=== PATIENT | female | born 1955 | race Caucasian/White ===

== ENCOUNTER → 2016-08-31 | Outpatient (CLI) | payer OTHER ==
[~2016-08-31] MED LIST: FURO20TA PO; GABA800T PO; GLIP10TA6 PO; HYDR50CA PO; LEVEMIR SQ; LEVO25TA4 PO; LISI-519 PO; MULTTAB67 PO; NOVORP2 SQ; PANT40TA3 PO; POTA-163 PO; PROT40TA PO; SPIR100T PO; SULF500T PO; SULF500T39 PO; VITA10002 PO
[2016-08-31 16:48] LABS: HEMOGLOBIN A1a 1.2 %; HEMOGLOBIN A1b 0.7 %; HEMOGLOBIN Ao 81.4 %; HEMOGLOBIN F 1.3 %; HEMOGLOBIN LA1C 1.9 %; HEMOGLOBIN P3 4.5 %
== END ==
LOC: PLAB 06:51
PROVIDERS: ATTEND Family Medicine
DX: E11.9 Type 2 diabetes mellitus without complications (principal)
CPT/HCPCS: 36415; 83036

== ENCOUNTER 2016-09-26 02:10 | Inpatient (IN) | payer OTHER ==
[~2016-09-26] VITALS: Ht 162.6 cm; Wt 72.2 kg
[2016-09-26] VITALS (11 sets, daily range): BP systolic 123–154; BP diastolic 61–80; PULSE 102–118; RESP 16–22; TEMP 98.2–99.3; O2SAT 92–100
[~2016-09-26 02:10] MED LIST changes: -PROT40TA PO; -SULF500T PO
[2016-09-26] MEDS ORDERED: SODIUM CHLOR 0.9% 1000 ML INJ 1,000 ML IV SCH (02:50)
[2016-09-26] MEDS ORDERED: ONDANSETRON HCL 4 MG/2 ML VIAL IVP ONE (03:00)
[2016-09-26] MEDS ORDERED: SODIUM CHLORIDE 0.9% FLUSH 5 ML FLUSH IVF PRN ×2 (03:00→05:30)
[2016-09-26 03:08] LABS: AUTOMATED NEUTROPHIL # 4.2 TH/MM3 (1.8-7.7); BASOPHIL # 0.1 TH/MM3 (0-0.2); BASOPHIL % 1.8 % (0.0-2.0); EOSINOPHIL % 0.9 % (0.0-4.0); HEMATOCRIT 32.8 % (35.0-46.0); LYMPH % 8.2 % (9.0-44.0); LYMPHOCYTE # 0.4 TH/MM3 (1.0-4.8); MEAN CELL VOLUME 101.3 FL (80.0-100.0); MEAN CORPUSCULAR HGB CONC 33.5 % (32.0-36.0); MONO % 6.5 % (0.0-8.0); NEUT % 82.6 % (16.0-70.0); PLATELET COUNT 33 TH/MM3 (150-450); RED BLOOD COUNT 3.24 MIL/MM3 (4.00-5.30); RED CELL DISTRIBUTION WIDTH 15.1 % (11.6-17.2)
[2016-09-26] MEDS ORDERED: LORazepam 2 MG/ML VIAL IV PUSH ONE (03:15)
[2016-09-26 03:21] LABS: HEMO FLAGS AUTO DIFF
[2016-09-26 03:23] LABS: CHLORIDE 97 MEQ/L (98-107); POTASSIUM 4.5 MEQ/L (3.5-5.1); SODIUM (NA) 134 MEQ/L (136-145)
[2016-09-26 03:27] LABS: ANION GAP 14 MEQ/L (5-15); BICARBONATE 23.4 MEQ/L (21.0-32.0)
[2016-09-26 03:28] LABS: BLOOD UREA NITROGEN 10 MG/DL (7-18)
[2016-09-26 03:29] LABS: APTT (PATIENT) 30.2 SEC (24.3-30.1); INTERNATIONAL NORMALIZED RATIO 1.3 RATIO; PROTHROMBIN TIME - PATIENT 14.9 SEC (9.8-11.6)
[2016-09-26 03:30] LABS: ALT (GPT) 27 U/L (10-53); AST (GOT) 68 U/L (15-37); GLOMERULAR FILTRATION RATE 81 ML/MIN (>89)
--- NOTE | 2016-09-26 03:30 | RADHPO ---
EXAM DATE/TIME: 09/26/2016 03:17 [place] COMPARISON: CHEST SINGLE AP, July 31, 2014, 12:51. INDICATIONS : Shortness of breath. MEDICAL HISTORY : None. SURGICAL HISTORY : None. ENCOUNTER: Initial ACUITY: 1 day PAIN SCORE: 7/10 LOCATION: Bilateral chest FINDINGS: A single view of the chest demonstrates minimal basilar atelectasis or scarring. Mild elevation right hemidiaphragm. Heart size normal. Mildly tortuous aorta. CONCLUSION: 1. Minimal basilar atelectasis or scarring. Mild elevation of the right hemidiaphragm. Bruce Encarnacion MD on September 26, 2016 at 3:27 Board Certified Radiologist. This report was verified electronically.
[2016-09-26 03:33] LABS: ALKALINE PHOSPHATASE 215 U/L (45-117)
[2016-09-26 03:45] LABS: PLATELET ESTIMATE SMEAR LOW (NORMAL); PLATELET MORPHOLOGY NORMAL (NORMAL); SCAN/DIFF AUTO DIFF CONFIRMED
[2016-09-26 03:54] LABS: BLOOD, URINE TRACE (NEG); GLUCOSE,URINE 500 mg/dL (NEG); KETONE, URINE TRACE mg/dL (NEG); NITRITE,URINE NEG (NEG); PH, URINE 5.5 (5.0-8.5)
[2016-09-26 03:59] LABS: URINE COLOR AMBER (YELLW/STRAW)
[2016-09-26 04:00] LABS: COMMENT (UR) CULT NOT INDICATED; CULTURE IF INDICATED CULT NOT INDICATED; RBC, URINE 0-3 /hpf (0-3)
--- NOTE | 2016-09-26 04:33 | PD ---
HPI Chief Complaint: GI Complaint Time Seen by Provider: 02:50 Travel History International Travel<30 days: No Contact w/Intl Traveler<30days: No Traveled to known affect area: No History of Present Illness HPI 60-year-old female presents to the emergency department by private transportation for complaint of nausea with dry heaves and GI upset. Patient states symptoms have been present since about 6 PM. Patient reports that she's been extremely upset because her dog is dying. Reportedly Wednesday the patient was to have the dog euthanized but could not do so and has been very distraught. Patient has long-standing history of alcohol abuse and has been abstinent from alcohol for approximately a year about in the past 2 days has resumed drinking alcohol reportedly. Patient admits to drinking alcohol on and today, Wednesday. Patient denies any vomiting. Patient denies chest pain or shortness of breath. Patient has generalized abdominal discomfort. Patient does not report any hematemesis coffee-ground emesis melena or hematochezia. No report of flank pain. Patient rates overall pain 0/10 in intensity. Patient states that she is very afraid that her sodium is abnormal. Patient states that she has had issues with chronically low sodium and has recently had one of her diuretics removed from her medication regimen. [facility] Past Medical History Narrative Medical Arthritis, atrial fibrillation, SVT, diabetes, alcoholism, anxiety/depression, hypertension, GERD, ulcerative colitis, hiatal hernia, hypothyroidism; D&C, tonsillectomy; alcohol use; nursing notes reviewed Arthritis: Yes Asthma: No Atrial Fibrillation: Yes Autoimmune Disease: No Anxiety: Yes Depression: Yes Heart Rhythm Problems: Yes Cancer: No Cardiovascular Problems: Yes (HTN/ A-FIB) High Cholesterol: No Chemotherapy: No Chest Pain: No Congestive Heart Failure: No COPD: No Cerebrovascular Accident: No Diabetes: Yes Patient Takes Glucophage: No Diminished Hearing: No Endocrine: Yes Gastrointestinal Disorders: Yes (ULCERATED COLITIS) GERD: Yes Glaucoma: No Genitourinary: No Headaches: No Hiatal Hernia: Yes Hypertension: Yes Immune Disorder: No Kidney Stones: No Musculoskeletal: Yes (arthritis) Neurologic: No Psychiatric: Yes (Pt reported history of depression/anxiety since she was a child) Reproductive: No Respiratory: No Immunizations Current: Yes Migraines: No Radiation Therapy: No Renal Failure: No Seizures: No Sickle Cell Disease: No Sleep Apnea: No Thyroid Disease: Yes Ulcer: No Tetanus Vaccination: Unknown ?: Not LMP: 12 YEARS AGO Menopausal: Yes : 1 : 1 Dilation and Curettage (D&C): Yes Past Surgical History Abdominal Surgery: No AICD: No Arteriovenous Shunt: No Cardiac Surgery: No Ear Surgery: No Endocrine Surgery: No Eye Surgery: No Genitourinary Surgery: No Gynecologic Surgery: Yes (d and c) Insulin Pump: No Joint Replacement: No Oral Surgery: Yes (RIGHT TONSIL REMOVED) Pacemaker: No Thoracic Surgery: No Tonsillectomy: Yes Other Surgery: Yes (RIGHT TONSILLECTOMY) Social History Alcohol Use: Yes (3 GLASSES 09/25 AND 09/24; OTHERWISE NONE (ALCOHOLIC PER PT)) Tobacco Use: No (QUIT SMOKING IN AUGUST) Substance Use: No Allergies-Medications (Allergen,Severity, Reaction): Coded Allergies: Aspirin (Verified Allergy, Severe, ULCERATIVE COLITIS, 09/02/16) Reported Meds & Prescriptions Reported Meds & Active Scripts Active Lisinopril 5 Mg Tab 5 Mg PO DAILY Sulfazine (Sulfasalazine) 500 Mg Tab 500 Mg PO Q8H Gabapentin 800 Mg Tab 800 Mg PO TID Levothyroxine (Levothyroxine Sodium) 25 Mcg Tab 25 Mcg PO DAILY Potassium Chloride ER (Potassium Chloride) 20 Meq Tab 20 Meq PO DAILY Hydroxyzine Pamoate 50 Mg Cap 50 Mg PO Q6HR PRN Vitamin B-12 (Cyanocobalamin) 1,000 Mcg Tab 1,000 Mcg PO DAILY Spironolactone 100 Mg Tab 100 Mg PO BIDPC Levemir Inj (Insulin Detemir) 1,000 unit/ 10 ML Vial 45 Units SQ BID 30 Days Do not mix with any other Insulin. Reported Novolin R Inj (Insulin Human Regular) 1,000 Unit/10 Ml Vial 5-25 Units SQ TID Max dose at bedtime:( )units; sugars less than 70,(0) units; sugars 150-199,(5)unit; sugars 200-249,(10)units; sugars 250-299,(15) units; sugars 300-349,(20)units; sugars greater than 349,(25)units Furosemide 20 Mg Tab 20 Mg PO DAILY Multiple Vitamin 1 Tab 1 Tab PO DAILY Pantoprazole (Pantoprazole Sodium) 40 Mg Tab 40 Mg PO DAILY Glipizide 10 Mg Tab 10 Mg PO BIDAC 2 tabs twice a day (20mg) Review of Systems Except as stated in HPI: all other systems reviewed are Neg General / Constitutional: No: Fever, Chills HENT: No: Congestion Cardiovascular: No: Chest Pain or Discomfort Respiratory: No: Shortness of Breath Gastrointestinal: Positive: Nausea, Abdominal Pain, No: Vomiting, Diarrhea Genitourinary: No: Flank Pain (discomfort) Musculoskeletal: No: Myalgias, Arthralgias Skin: No Rash Neurologic: No: Weakness, Dizziness Psychiatric: Positive: Anxiety, Depression, No: Suicidal Ideations Endocrine: No: Heat Intolerance Hematologic/Lymphatic: No: Easy Bruising Physical Exam Narrative GENERAL: Well-developed well-nourished female in obvious distress no respiratory distress tearful and crying and intermittently dry heaving. GCS 15. SKIN: Warm and dry. Few periorbital petechiae consistent with repetitive dry heaving. HEAD: Atraumatic. Normocephalic. EYES: Pupils equal and round. No scleral icterus. No injection or drainage. ENT: No nasal bleeding or discharge. Mucous membranes pink and moist. Airway is patent. NECK: Trachea midline. No JVD. CARDIOVASCULAR: Increased Regular rate and rhythm. RESPIRATORY: No accessory muscle use. Clear to auscultation. Breath sounds equal bilaterally. GASTROINTESTINAL: Abdomen soft, non-tender, nondistended. Hepatic and splenic margins not palpable. MUSCULOSKELETAL: Extremities without clubbing, cyanosis, or edema. No obvious deformities. Radial and dorsalis pedis pulses 2+ to palpation. NEUROLOGICAL: Awake and alert. GCS 15. No obvious cranial nerve deficits. Motor grossly within normal limits. Five out of 5 muscle strength in the arms and legs. Sensory exam intact. No liver flap or tremor. No pronator drift. No limb ataxia. Normal speech. PSYCHIATRIC: Appropriate mood and affect; insight and judgment normal. Data Data Last Documented VS Vital Signs Date Time Temp Pulse Resp B/P Pulse Ox O2 Delivery O2 Flow Rate FiO2 09/26/16 04:23 110 16 154/76 99 Room Air 09/26/16 02:20 99.3 Orders Complete Blood Count With Diff (09/26/16 02:50) Comprehensive Metabolic Panel (09/26/16 02:50) Lipase (09/26/16 02:50) Prothrombin Time / Inr (Pt) (09/26/16 02:50) Act Partial Throm Time (Ptt) (09/26/16 02:50) Urinalysis - C+S If Indicated (09/26/16 02:50) Iv Access Insert/Monitor (09/26/16 02:50) Ecg Monitoring (09/26/16 02:50) Oximetry (09/26/16 02:50) Ondansetron Inj (Zofran Inj) (09/26/16 03:00) Sodium Chlor 0.9% 1000 Ml Inj (Ns 1000 M (09/26/16 02:50) Sodium Chloride 0.9% Flush (Ns Flush) (09/26/16 03:00) Electrocardiogram (09/26/16 02:50) Chest, Single Ap (09/26/16 02:50) Magnesium (Mg) (09/26/16 02:50) Troponin I (09/26/16 02:50) Alcohol (Ethanol) (09/26/16 02:50) Lorazepam Inj (Ativan Inj) (09/26/16 03:15) Magnesium Sulfate 1 Gm Premix (Magnesium (09/26/16 04:30) Alcohol Withdrawal Asmt-Ciwa ONCE (09/26/16 05:23) Flumazenil Inj (Romazicon Inj) (09/26/16 05:30) Lorazepam (Ativan) (09/26/16 05:30) Lorazepam Inj (Ativan Inj) (09/26/16 05:30) Lorazepam (Ativan) (09/26/16 05:30) Lorazepam Inj (Ativan Inj) (09/26/16 05:30) Lorazepam Inj (Ativan Inj) (09/26/16 05:30) Lorazepam Inj (Ativan Inj) (09/26/16 05:30) Admit Order (Ed Use Only) (09/26/16 ) ^ Saline Lock (09/26/16 05:24) Resp Oxygen Khanh C Titrat 1-4 L (09/26/16 ) ^ Notify Dr: Other (09/26/16 05:24) Sodium Chloride 0.9% Flush (Ns Flush) (09/26/16 09:00) Sodium Chloride 0.9% Flush (Ns Flush) (09/26/16 05:30) Chlordiazepoxide (Librium) (09/26/16 05:30) Ondansetron Inj (Zofran Inj) (09/26/16 05:30) Labs Laboratory Tests Test 09/26/16 09/26/16 02:55 03:39 White Blood Count 5.0 TH/MM3 Red Blood Count 3.24 MIL/MM3 Hemoglobin 11.0 GM/DL Hematocrit 32.8 % Mean Corpuscular Volume 101.3 FL Mean Corpuscular Hemoglobin 34.0 PG Mean Corpuscular Hemoglobin 33.5 % Concent Red Cell Distribution Width 15.1 % Platelet Count 33 TH/MM3 Mean Platelet Volume 8.7 FL Neutrophils (%) (Auto) 82.6 % Lymphocytes (%) (Auto) 8.2 % Monocytes (%) (Auto) 6.5 % Eosinophils (%) (Auto) 0.9 % Basophils (%) (Auto) 1.8 % Neutrophils # (Auto) 4.2 TH/MM3 Lymphocytes # (Auto) 0.4 TH/MM3 Monocytes # (Auto) 0.3 TH/MM3 Eosinophils # (Auto) 0.0 TH/MM3 Basophils # (Auto) 0.1 TH/MM3 CBC Comment AUTO DIFF Differential Comment AUTO DIFF CONFIRMED Platelet Estimate LOW Platelet Morphology Comment NORMAL Prothrombin Time 14.9 SEC Prothromb Time International 1.3 RATIO Ratio Activated Partial 30.2 SEC Thromboplast Time Sodium Level 134 MEQ/L Potassium Level 4.5 MEQ/L Chloride Level 97 MEQ/L Carbon Dioxide Level 23.4 MEQ/L Anion Gap 14 MEQ/L Blood Urea Nitrogen 10 MG/DL Creatinine 0.73 MG/DL Estimat Glomerular Filtration 81 ML/MIN Rate Random Glucose 232 MG/DL Calcium Level 8.5 MG/DL Magnesium Level 1.0 MG/DL Total Bilirubin 3.0 MG/DL Aspartate Amino Transf 68 U/L (AST/SGOT) Alanine Aminotransferase 27 U/L (ALT/SGPT) Alkaline Phosphatase 215 U/L Troponin I LESS THAN 0.02 NG/ML Total Protein 7.8 GM/DL Albumin 2.9 GM/DL Lipase 152 U/L Ethyl Alcohol Level 53 MG/DL Urine Color MATTIE Urine Turbidity CLEAR Urine pH 5.5 Urine Specific [place] 1.023 Urine Protein TRACE mg/dL Urine Glucose (UA) 500 mg/dL Urine Ketones TRACE mg/dL Urine Occult Blood TRACE Urine Nitrite NEG Urine Bilirubin NEG Urine Leukocyte Esterase NEG Urine RBC 0-3 /hpf Urine Squamous Epithelial 6-8 /hpf Cells Microscopic Urinalysis Comment CULT NOT INDICATED MDM Medical Decision Making Medical Screen Exam Complete: Yes Emergency Medical Condition: Yes Medical Record Reviewed: Yes Differential Diagnosis Nausea, gastroenteritis, alcohol gastritis, peptic ulcer disease, ACS, arrhythmia, electronic disturbance, alcohol withdrawal, anxiety Narrative Course Patient was on radiographer cardiac catheterization IV access obtained specimens collected and sent for resulting EKG performed reveals no acute ST elevation or injury pattern; patient administered Zofran for complaint of nausea and Ativan for ongoing nausea and anxiety Patient receiving IV fluids and labs pending Serum sodium 134, not significantly decreased however is noted to have hypomagnesemia; cardiac enzymes are normal range; patient with chronic thrombocytopenia with downward trending platelets Patient reassessed and noted to remain tremulous and agitated upon conversation but has markedly improved compared to admission; serum alcohol is 53. Concern for patient with early alcohol withdrawal suspicious that patient has been drinking more than just 2 days and has triggered an event of early withdrawal. Patient's anxiety is significantly improved and no longer complaining of anxious feeling anxious or depressed regarding her family pet however does continue to demonstrate tremor on exam. Patient's case discussed with on-call physician for admission. Physician Communication Physician Communication discussed with Dr Ingram --admit for alcohol withdrawal and [facility] protocol Diagnosis Primary Impression: Tremor Additional Impressions: Alcohol withdrawal Qualified Code: F10.230 - Alcohol withdrawal, uncomplicated Hypomagnesemia Thrombocytopenia Admitting Information Admitting Physician Requests: Admit Elizabeth Arboleda MD Sep 26, 2016 04:33
[2016-09-26] MEDS: MAGNESIUM SULFATE 1 GM PREMIX 100 ML IV SCH ×2 (05:01→05:55)
[2016-09-26] MEDS ORDERED: LORazepam 1 MG TAB PO PRN (05:30)
[2016-09-26] MEDS ORDERED: LORazepam 2 MG TAB PO PRN (05:30)
[2016-09-26] MEDS ORDERED: FLUMAZENIL 0.5 MG/5 ML VIAL IV PUSH PRN (05:30)
[2016-09-26] MEDS ORDERED: LORazepam 2 MG/ML VIAL IV PUSH PRN ×4 (05:30)
[2016-09-26] MEDS ORDERED: ONDANSETRON HCL 4 MG/2 ML VIAL IV PUSH ONE (05:30)
[2016-09-26] MEDS ORDERED: ONDANSETRON HCL 4 MG/2 ML VIAL IVP PRN (05:45)
[2016-09-26] MEDS ORDERED: BISACODYL 10 MG SUPP PR PRN (05:45)
[2016-09-26] MEDS ORDERED: SODIUM CHLORIDE 0.9% FLUSH 5 ML FLUSH FLUSH PRN (05:45)
[2016-09-26] MEDS ORDERED: ACETAMINOPHEN 325 MG TAB PO PRN (05:45)
[2016-09-26] MEDS ORDERED: THIAMINE INJ 100 MG in SODIUM CHLORIDE 0.9% INJ 100 ML IV SCH (07:00)
[2016-09-26] MEDS ORDERED: MULTIVITAMIN INJ 10 ML, FOLIC ACID INJ 1 MG in SODIUM CHLORID 0.9% 500 ML INJ 500 ML IV SCH (08:00)
--- NOTE | 2016-09-26 08:20 | EKG ---
Date Performed: 09/26/2016 Time Performed: 02:55:02 PTAGE: 60 years EKG: Baseline artifact is present. Unclear underlying rhythm Anteroseptal infarct - age undeterm ined Abnormal ECG Compared to prior electrocardiogram,no definite change although artifact obscures r hythm analysis. PREVIOUS TRACING : 02/11/2015 23.06 DOCTOR: Prosper Armstrong Interpretating Date/Time 09/26/2016 08:19:10
[2016-09-26] MEDS ORDERED: SODIUM CHLORIDE 0.9% FLUSH 5 ML FLUSH FLUSH SCH (09:00)
[2016-09-26] MEDS ORDERED: SODIUM CHLORIDE 0.9% FLUSH 5 ML FLUSH IVF SCH (09:00)
--- NOTE | 2016-09-26 10:13 | HHI.HP ---
[facility] [place] [facility] Primary [facility] Physician MAXIMILIANO Narvaez Admission Diagnosis alcohol withdrawal; thrombocytopenia;hypomagnesemia Diagnoses: (1) Nausea & vomiting Diagnosis: Principal (2) Alcohol intoxication Diagnosis: Secondary (3) Hypomagnesemia Diagnosis: Secondary Chief Complaint: Nausea with dry heaves Travel History International Travel<30 Days: No Contact w/Intl Traveler <30 Da: No Traveled to Known Affected Are: No History of Present Illness 60-year-old with known history of alcohol abuse, thrombocytopenia, atrial fibrillation, hypertension, diabetes, portal gastropathy, ulcerative colitis who presented to hospital because of nausea and dry heaves. Patient indicates that her dog had a stroke 2 days ago and she has been under a lot of stress related to that. She states that she has been abstinent from alcohol for at least the last year. Because of the stress she started drinking alcohol yesterday morning between 1 PM and 5 PM. She indicates that she had 4 glasses of wine. Shortly after that she started developing nausea and dry heaves. Patient states that she is never vomited up any material. Because she could not stop having dry heaves she came to the emergency department for evaluation at approximately midnight. Patient states that she was given medication in the ER to include Zofran and she has not had any further retching. She states that she is still with significant nausea, does not really feel like eating at this time. Patient had workup done which did show elevated alcohol level of 53. Her platelet count was 33, will review medical records it appears to be stable. Mild electrolyte abnormality with hypomagnesemia. Because of the above reasons is recommended by the ER physician that the patient be admitted for further evaluation and management. Patient denies any vomiting, hematemesis, abdominal pain, hematochezia, melena. Review of Systems Constitutional: DENIES: Diaphoretic episodes, Fatigue, Fever, Weight gain, Weight loss, Chills, Dizziness, Change in appetite, Night Sweats Eyes: DENIES: Blurred vision, Diplopia, Eye inflammation, Eye pain, Vision loss , Double Vision Ears, nose, mouth, throat: DENIES: Vertigo, Nasal discharge, Throat pain, Ear Pain, Running Nose, Sinus Pain Respiratory: DENIES: Apneas, Cough, Snoring, Wheezing, Hemoptysis, Sputum production, Shortness of breath Cardiovascular: DENIES: Chest pain, Palpitations, Syncope, Dyspnea on Exertion , Lower Extremity Edema, Orthopnea Gastrointestinal: COMPLAINS OF: Nausea, Vomiting, DENIES: Abdominal pain, Black stools, Bloody stools, Constipation, Diarrhea, Difficulty Swallowing, Anorexia Neurologic: DENIES: Abnormal gait, Headache, Localized weakness, Paresthesias, Seizures, Speech Problems, Tremor, Poor Balance Past Family Social History Past Medical History Hypertension Chronic atrial fibrillation Diabetes History of portal gastropathy Chronic thrombocytopenia Chronic hyperbilirubinemia History of tonsillar cancer Cirrhosis Anxiety depression Past Surgical History Tonsillectomy Reported Medications Reported Meds & Active Scripts Active Lisinopril 5 Mg Tab 5 Mg PO DAILY Sulfazine (Sulfasalazine) 500 Mg Tab 500 Mg PO Q8H Gabapentin 800 Mg Tab 800 Mg PO TID Levothyroxine (Levothyroxine Sodium) 25 Mcg Tab 25 Mcg PO DAILY Potassium Chloride ER (Potassium Chloride) 20 Meq Tab 20 Meq PO DAILY Hydroxyzine Pamoate 50 Mg Cap 50 Mg PO Q6HR PRN Vitamin B-12 (Cyanocobalamin) 1,000 Mcg Tab 1,000 Mcg PO DAILY Spironolactone 100 Mg Tab 100 Mg PO BIDPC Levemir Inj (Insulin Detemir) 1,000 unit/ 10 ML Vial 45 Units SQ BID 30 Days Do not mix with any other Insulin. Reported Novolin R Inj (Insulin Human Regular) 1,000 Unit/10 Ml Vial 5-25 Units SQ TID Max dose at bedtime:( )units; sugars less than 70,(0) units; sugars 150-199,(5)unit; sugars 200-249,(10)units; sugars 250-299,(15) units; sugars 300-349,(20)units; sugars greater than 349,(25)units Furosemide 20 Mg Tab 20 Mg PO DAILY Multiple Vitamin 1 Tab 1 Tab PO DAILY Pantoprazole (Pantoprazole Sodium) 40 Mg Tab 40 Mg PO DAILY Glipizide 10 Mg Tab 10 Mg PO BIDAC 2 tabs twice a day (20mg) Allergies: Coded Allergies: Aspirin (Verified Allergy, Severe, ULCERATIVE COLITIS, 09/02/16) Family History Reviewed is significant for heart disease Social History Patient quit smoking August 25, 2016. Prior to that she smoked a pack a cigarettes a day since she was 14 years old. Patient current drinking 4 glasses of wine. States that she was abstinent for at least a year. Denies any illicit drugs Physical Exam Vital Signs Vital Signs Date Time Temp Pulse Resp B/P Pulse Ox O2 Delivery O2 Flow Rate FiO2 09/26/16 08:55 96 21 09/26/16 08:00 98.6 108 22 123/61 92 09/26/16 08:00 106 09/26/16 06:56 107 09/26/16 06:36 98.3 102 16 136/64 98 09/26/16 06:30 100 21 09/26/16 06:15 16 09/26/16 06:15 107 16 130/68 95 Room Air 09/26/16 06:15 107 16 130/68 95 09/26/16 04:23 110 16 154/76 99 Room Air 09/26/16 04:23 16 09/26/16 02:55 100 Room Air 09/26/16 02:52 22 09/26/16 02:49 112 22 137/72 100 09/26/16 02:20 99.3 118 16 136/80 96 Physical Exam GENERAL: Well-developed, well-nourished, in no acute distress. alert and orientated HEENT: Head is normocephalic without any lesions or masses noted. Facial features are symmetric. Eyes: Pupils equal round reactive to light. Extraocular muscles are intact. Conjunctivae were clear. Oropharyngeal: Pharynx without any erythema edema. Tongue is midline without deviation. Buccal mucosa is moist without any masses or lesions NECK: Supple without any masses. Trachea midline no deviation. No JVD, no bruits are appreciated CARDIAC: Regular rhythm, regular rate. S1/S2 are heard. No murmurs gallops or rubs. LUNGS: Clear to auscultation bilaterally. No wheeze, rhonchi or rales. No use of accessory muscles on inspiration or expiration. ABDOMEN: Soft, nontender. Nondistended. Bowel sounds heard in all 4 quadrants. No organomegaly or masses. Negative rebound, negative guarding EXTREMITIES: No edema, pulses are equal bilaterally. No cyanosis or clubbing NEUROLOGY: Mood and affect appear appropriate. Cranial nerves II through XII grossly intact. Muscle strength 5/5 in upper and lower extremities bilaterally. Deep tendon reflexes are 2+ in upper and lower extremities bilaterally. Laboratory Laboratory Tests Test 09/26/16 09/26/16 02:55 03:39 White Blood Count 5.0 Red Blood Count 3.24 Hemoglobin 11.0 Hematocrit 32.8 Mean Corpuscular Volume 101.3 Mean Corpuscular Hemoglobin 34.0 Mean Corpuscular Hemoglobin 33.5 Concent Red Cell Distribution Width 15.1 Platelet Count 33 Mean Platelet Volume 8.7 Neutrophils (%) (Auto) 82.6 Lymphocytes (%) (Auto) 8.2 Monocytes (%) (Auto) 6.5 Eosinophils (%) (Auto) 0.9 Basophils (%) (Auto) 1.8 Neutrophils # (Auto) 4.2 Lymphocytes # (Auto) 0.4 Monocytes # (Auto) 0.3 Eosinophils # (Auto) 0.0 Basophils # (Auto) 0.1 CBC Comment AUTO DIFF Differential Comment AUTO DIFF CONFIRMED Platelet Estimate LOW Platelet Morphology Comment NORMAL Prothrombin Time 14.9 Prothromb Time International 1.3 Ratio Activated Partial 30.2 Thromboplast Time Sodium Level 134 Potassium Level 4.5 Chloride Level 97 Carbon Dioxide Level 23.4 Anion Gap 14 Blood Urea Nitrogen 10 Creatinine 0.73 Estimat Glomerular Filtration 81 Rate Random Glucose 232 Calcium Level 8.5 Magnesium Level 1.0 Total Bilirubin 3.0 Aspartate Amino Transf 68 (AST/SGOT) Alanine Aminotransferase 27 (ALT/SGPT) Alkaline Phosphatase 215 Troponin I LESS THAN 0.02 Total Protein 7.8 Albumin 2.9 Lipase 152 Ethyl Alcohol Level 53 Urine Color MATTIE Urine Turbidity CLEAR Urine pH 5.5 Urine Specific [place] 1.023 Urine Protein TRACE Urine Glucose (UA) 500 Urine Ketones TRACE Urine Occult Blood TRACE Urine Nitrite NEG Urine Bilirubin NEG Urine Leukocyte Esterase NEG Urine RBC 0-3 Urine Squamous Epithelial 6-8 Cells Microscopic Urinalysis Comment CULT NOT INDICATED Result Diagram: 09/26/16 0255 09/26/16 025 Imaging Last Impressions Chest X-Ray 09/26/16 025 Signed Impressions: Service Date/Time: Monday, September 26, 2016 03:17 - CONCLUSION: 1. Minimal basilar atelectasis or scarring. Mild elevation of the right hemidiaphragm. 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 Associated with electrolyte abnormality to include hypomagnesemia anemia. Continue IV fluids, continue Zofran, advance diet as tolerated. Continue monitor electrolyte replacement as needed. When discussing patient's care with the patient and notified her that we need to monitor her closely, her eating status and if she tolerates eating we can consider discharging her home. After saying those words the patient picked up a fork and started eating her breakfast. She wants to go home today. Alcohol intoxication: Patient with alcohol level 53. Patient has been started on CIWA protocol, continue monitor for withdrawal Cirrhosis, thrombocytopenia, portal gastropathy, hyperbilirubinemia, liver enzyme elevation: Related the patient's history of alcohol abuse. All seems to be stable at this time. Continue monitor platelet count or signs of active bleeding. Diabetes: Accu-Cheks with sliding scale insulin Hypertension, history of atrial fibrillation, hypothyroidism, ulcerative colitis: Resume home medications DVT prevention: Sequential compression devices, avoid chemical prophylaxis secondary to pancytopenia Patient left AGAINST MEDICAL ADVICE. Physician Certification 2 Midnight Certification Type: Admission for Inpatient Services Order for Inpatient Services The services are ordered in accordance with Medicare regulations or non- Medicare payer requirements, as applicable. In the case of services not specified as inpatient-only, they are appropriately provided as inpatient services in accordance with the 2-midnight benchmark. Estimated LOS (days): 1 days is the estimated time the patient will need to remain in the hospital, assuming treatment plan goals are met and no additional complications. Post-Hospital Plan: Not yet determined Problem Qualifiers (1) Nausea & vomiting: Qualified Code: R11.2 - Nausea and vomiting, intractability of vomiting not specified, unspecified vomiting type (2) Alcohol intoxication: Qualified Code: F10.129 - Alcohol intoxication, with unspecified complication Mariusz Verdin Sep 26, 2016 10:13 Qualified Code: F10.129 - Alcohol intoxication, with unspecified complication Mariusz Verdin Sep 26, 2016 10:13
[2016-09-29] MEDS ORDERED: THIAMINE HCL 100 MG TAB PO SCH (09:00)
[2016-10-01] MEDS ORDERED: PANT40TA3 PO (13:27)
[2016-10-01] MEDS ORDERED: FURO20TA PO ×2 (13:28→13:29)
[2016-10-26] MEDS ORDERED: SPIR100T PO (09:11)
[2016-10-26] MEDS ORDERED: POTA-163 PO (09:12)
[2016-10-26] MEDS ORDERED: GABA800T PO (10:30)
[2016-11-27] MEDS ORDERED: POTA-163 PO (15:21)
[2016-12-09] MEDS ORDERED: PROT40TA PO (08:30)
[2016-12-09] MEDS ORDERED: SULF500T PO (08:30)
[2016-12-09] MEDS ORDERED: FURO20TA PO (08:30)
[2016-12-22] MEDS ORDERED: LEVEMIR SQ (09:29)
[2016-12-22] MEDS ORDERED: HYDR50CA PO (09:29)
[2016-12-30] MEDS ORDERED: LEVO25TA4 PO (11:01)
[2016-12-30] MEDS ORDERED: SPIR100T PO (11:02)
== END 2016-09-26 13:45 | disposition left against medical advice (07) | DRG 392 ==
LOC: PHED 02:10 → PHEDA 05:26 → PHICU 06:25
PROVIDERS: ADMIT Hospitalist; ATTEND Hospitalist
DX: K31.84 Gastroparesis (principal); D61.818 Other pancytopenia; K70.30 Alcoholic cirrhosis of liver without ascites; E83.42 Hypomagnesemia; Y90.2 Blood alcohol level of 40-59 mg/100 ml; K31.89 Other diseases of stomach and duodenum; I48.2 Chronic atrial fibrillation; I10 Essential (primary) hypertension; E11.9 Type 2 diabetes mellitus without complications; E03.9 Hypothyroidism, unspecified; F41.9 Anxiety disorder, unspecified; K21.9 Gastro-esophageal reflux disease without esophagitis; F41.8 Other specified anxiety disorders; M19.90 Unspecified osteoarthritis, unspecified site; K44.9 Diaphragmatic hernia without obstruction or gangrene; Z87.891 Personal history of nicotine dependence; Z85.818 Personal history of malignant neoplasm of other sites of lip, oral cavity, and pharynx; Z79.4 Long term (current) use of insulin
CPT/HCPCS: 71010; 80053; 80307; 81001; 82948; 83690; 83735; 84484; 85025; 85610; 85730; 93005; 96361; 96365; 96375; J2060; J2405; J3411; J3475; J7030; J7040

== ENCOUNTER → 2016-11-10 | Outpatient (CLI) | payer OTHER ==
[~2016-11-10] MED LIST changes: +PROT40TA PO; +SULF500T PO
[2016-11-10 10:08] LABS: BICARBONATE 26.8 MEQ/L (21.0-32.0); POTASSIUM 4.4 MEQ/L (3.5-5.1)
== END ==
LOC: PLAB 06:40
PROVIDERS: ATTEND Family Medicine
DX: R60.0 Localized edema (principal)
CPT/HCPCS: 36415; 80048

== ENCOUNTER → 2016-12-04 | Outpatient (CLI) | payer OTHER ==
[2016-12-04 11:47] LABS: HEMOGLOBIN A1a 1.1 %; HEMOGLOBIN A1b 0.7 %; HEMOGLOBIN Ao 79.8 %; HEMOGLOBIN F 1.4 %; HEMOGLOBIN LA1C 2.7 %; HEMOGLOBIN P3 4.9 %
== END ==
LOC: PLAB 06:33
PROVIDERS: ATTEND Family Medicine
DX: E11.9 Type 2 diabetes mellitus without complications (principal)
CPT/HCPCS: 36415; 83036

== ENCOUNTER 2017-01-13 09:01 | Inpatient (IN) | payer OTHER ==
[~2017-01-13] VITALS: Ht 162.6 cm; Wt 78.9 kg
[~2017-01-13 09:01] MED LIST changes: -PANT40TA3 PO; -SULF500T39 PO
[2017-01-13 09:06] VITALS: BP 129/69; PULSE 117; RESP 16; TEMP 99.3; O2SAT 95
[2017-01-13] MEDS ORDERED: SODIUM CHLORIDE 0.9% FLUSH 10 ML FLUSH IVF PRN (09:15)
[2017-01-13 09:27] VITALS: RESP 16; O2SAT 96
--- NOTE | 2017-01-13 09:34 | PD ---
HPI Chief Complaint: GI Complaint Time Seen by Provider: 09:11 Travel History International Travel<30 days: No Contact w/Intl Traveler<30days: No Traveled to known affect area: No History of Present Illness HPI 61-year-old female presents with rectal bleeding for the past week. She states she is been having black with bright red. She states she has history of this with ulcerative colitis. She states last time she had it she stated in the hospital night did a scope. She denies prior transfusion. She denies taking blood thinner medication. She denies other concurrent complaints. She denies following with a GI specialist. Duration is one week. Patient notes prior colonoscopy at the [facility] but does not know the results. Patient states she thinks she has had her stomach scoped before but she also doesn't remember when or the results. PFSH Past Medical History Arthritis: Yes Asthma: No Atrial Fibrillation: Yes Autoimmune Disease: No Anxiety: Yes Depression: Yes Heart Rhythm Problems: Yes Cancer: No Cardiovascular Problems: Yes (HTN/ A-FIB) High Cholesterol: No Chemotherapy: No Chest Pain: No Congestive Heart Failure: No COPD: No Cerebrovascular Accident: No Diabetes: Yes Patient Takes Glucophage: No Diminished Hearing: No Endocrine: Yes Gastrointestinal Disorders: Yes (ULCERATED COLITIS) GERD: Yes (NAUSEA ) Glaucoma: No Genitourinary: No Headaches: No Hiatal Hernia: Yes Heparin Induced Thrombocytopen: No Hypertension: Yes Immune Disorder: No Implanted Vascular Access Dvce: No Kidney Stones: No Musculoskeletal: Yes (arthritis) Neurologic: No Psychiatric: Yes (Pt reported history of depression/anxiety since she was a child) Reproductive: No Respiratory: No Immunizations Current: Yes Migraines: No Radiation Therapy: No Renal Failure: No Seizures: No Sickle Cell Disease: No Sleep Apnea: No Thyroid Disease: Yes Ulcer: No Tetanus Vaccination: < 5 Years ?: Not Menopausal: Yes : 1 : 1 Dilation and Curettage (D&C): Yes Past Surgical History Abdominal Surgery: No AICD: No Arteriovenous Shunt: No Cardiac Surgery: No Ear Surgery: No Endocrine Surgery: No Eye Surgery: No Genitourinary Surgery: No Gynecologic Surgery: Yes (d and c) Insulin Pump: No Joint Replacement: No Neurologic Surgery: No Oral Surgery: Yes (RIGHT TONSIL REMOVED) Pacemaker: No Thoracic Surgery: No Tonsillectomy: Yes Other Surgery: Yes (RIGHT TONSILLECTOMY) Social History Alcohol Use: No Tobacco Use: No (QUIT SMOKING IN AUGUST) Substance Use: No Allergies-Medications (Allergen,Severity, Reaction): Coded Allergies: Aspirin (Verified Allergy, Severe, ULCERATIVE COLITIS, 01/13/17) Reported Meds & Prescriptions Reported Meds & Active Scripts Active Spironolactone 100 Mg Tab 100 Mg PO BIDPC Levothyroxine (Levothyroxine Sodium) 25 Mcg Tab 25 Mcg PO DAILY Levemir Inj (Insulin Detemir) 1,000 unit/ 10 ML Vial 45 Units SQ BID 30 Days Do not mix with any other Insulin. Hydroxyzine Pamoate 50 Mg Cap 50 Mg PO Q6HR PRN Potassium Chloride ER (Potassium Chloride) 20 Meq Tab 20 Meq PO DAILY Gabapentin 800 Mg Tab 800 Mg PO TID Lisinopril 5 Mg Tab 5 Mg PO DAILY Vitamin B-12 (Cyanocobalamin) 1,000 Mcg Tab 1,000 Mcg PO DAILY Reported Furosemide 20 Mg Tab 20 Mg PO DAILY Protonix (Pantoprazole Sodium) 40 Mg Tab 40 Mg PO DAILY Sulfadiazine 500 Mg Tab 500 Mg PO Q8HR Novolin R Inj (Insulin Human Regular) 1,000 Unit/10 Ml Vial 5-25 Units SQ TID Max dose at bedtime:( )units; sugars less than 70,(0) units; sugars 150-199,(5)unit; sugars 200-249,(10)units; sugars 250-299,(15) units; sugars 300-349,(20)units; sugars greater than 349,(25)units Multiple Vitamin 1 Tab 1 Tab PO DAILY Glipizide 10 Mg Tab 20 Mg PO BIDAC 2 tabs twice a day (20mg) Review of Systems Except as stated in HPI: all other systems reviewed are Neg Physical Exam Narrative GENERAL: Well-nourished, well-developed patient. SKIN: Warm and dry. HEAD: Normocephalic and atraumatic. EYES: No injection or drainage. ENT: No nasal drainage noted. NECK: Supple, trachea midline. CARDIOVASCULAR: Tachycardic rate and regular rhythm RESPIRATORY: No increased effort. No accessory muscle use. GASTROINTESTINAL: Abdomen soft, non-tender, nondistended. RECTAL EXAM: Performed with special educator and after permission. No thrombosed external hemorrhoid or fissure, stool is brown, with bright red blood NEUROLOGICAL: Awake and alert. Moves all extremities. Normal speech. Data Data Last Documented VS Vital Signs Date Time Temp Pulse Resp B/P Pulse Ox O2 Delivery O2 Flow Rate FiO2 01/13/17 10:49 102 16 99/48 97 Room Air 01/13/17 09:06 99.3 Orders Complete Blood Count With Diff (01/13/17 09:12) Comprehensive Metabolic Panel (01/13/17 09:12) Prothrombin Time / Inr (Pt) (01/13/17 09:12) Act Partial Throm Time (Ptt) (01/13/17 09:12) Type And Screen (01/13/17 09:12) Ecg Monitoring (01/13/17 09:12) Iv Access Insert/Monitor (01/13/17 09:12) Oximetry (01/13/17 09:12) Sodium Chloride 0.9% Flush (Ns Flush) (01/13/17 09:15) Octreotide Inj (Sandostatin Inj) (01/13/17 10:30) Pantoprazole Inj (Protonix Inj) (01/13/17 10:30) Pantoprazole Inj (Protonix Inj) (01/13/17 10:30) Diet Npo (01/13/17 Lunch) Consult Gastroenterology (01/13/17 ) Admit Order (Ed Use Only) (01/13/17 11:03) Labs Laboratory Tests Test 01/13/17 09:25 White Blood Count 6.8 TH/MM3 Red Blood Count 2.80 MIL/MM3 Hemoglobin 9.4 GM/DL Hematocrit 27.8 % Mean Corpuscular Volume 99.3 FL Mean Corpuscular Hemoglobin 33.4 PG Mean Corpuscular Hemoglobin 33.7 % Concent Red Cell Distribution Width 14.7 % Platelet Count 65 TH/MM3 Mean Platelet Volume 7.6 FL Neutrophils (%) (Auto) 73.1 % Lymphocytes (%) (Auto) 7.7 % Monocytes (%) (Auto) 12.4 % Eosinophils (%) (Auto) 2.5 % Basophils (%) (Auto) 4.3 % Neutrophils # (Auto) 5.0 TH/MM3 Lymphocytes # (Auto) 0.5 TH/MM3 Monocytes # (Auto) 0.8 TH/MM3 Eosinophils # (Auto) 0.2 TH/MM3 Basophils # (Auto) 0.3 TH/MM3 CBC Comment AUTO DIFF Differential Comment AUTO DIFF CONFIRMED Platelet Estimate LOW Platelet Morphology Comment NORMAL Prothrombin Time 15.5 SEC Prothromb Time International 1.4 RATIO Ratio Activated Partial 30.4 SEC Thromboplast Time Sodium Level 131 MEQ/L Potassium Level 4.2 MEQ/L Chloride Level 95 MEQ/L Carbon Dioxide Level 22.8 MEQ/L Anion Gap 13 MEQ/L Blood Urea Nitrogen 5 MG/DL Creatinine 0.57 MG/DL Estimat Glomerular Filtration 107 ML/MIN Rate Random Glucose 166 MG/DL Calcium Level 8.4 MG/DL Total Bilirubin 3.0 MG/DL Aspartate Amino Transf 89 U/L (AST/SGOT) Alanine Aminotransferase 31 U/L (ALT/SGPT) Alkaline Phosphatase 203 U/L Total Protein 6.9 GM/DL Albumin 2.7 GM/DL Blood Type O POSITIVE MDM Medical Decision Making Medical Screen Exam Complete: Yes Emergency Medical Condition: Yes Medical Record Reviewed: Yes (past history confirm, recent thrombocytopenia noted) Interpretation(s) CBC & BMP Diagram 01/13/17 09:25 Differential Diagnosis Anemia, ulcerative colitis exacerbation, thrombocytopenia, hypercoagulable, gastritis Narrative Course Will check blood work and reevaluate ed workup with hgb of 9.4 with prior 11 range, will discuss with gi patient agrees to admit Physician Communication Physician Communication dr slaughter requests protonix and octreotide drips and npo dr kent agrees to admit Diagnosis Primary Impression: Rectal bleeding Admitting Information Admitting Physician Requests: Observation Pao Aggarwal MD Jan 13, 2017 09:33
[2017-01-13 09:36] LABS: BASOPHIL # 0.3 TH/MM3 (0-0.2); BASOPHIL % 4.3 % (0.0-2.0); EOSINOPHIL # 0.2 TH/MM3 (0-0.4); EOSINOPHIL % 2.5 % (0.0-4.0); HEMATOCRIT 27.8 % (35.0-46.0); LYMPH % 7.7 % (9.0-44.0); LYMPHOCYTE # 0.5 TH/MM3 (1.0-4.8); MEAN CELL VOLUME 99.3 FL (80.0-100.0); MEAN CORPUSCULAR HEMOGLOBIN 33.4 PG (27.0-34.0); MEAN CORPUSCULAR HGB CONC 33.7 % (32.0-36.0); MONO % 12.4 % (0.0-8.0); NEUT % 73.1 % (16.0-70.0); PLATELET COUNT 65 TH/MM3 (150-450); RED CELL DISTRIBUTION WIDTH 14.7 % (11.6-17.2); WHITE BLOOD COUNT 6.8 TH/MM3 (4.0-11.0)
[2017-01-13 09:43] LABS: APTT (PATIENT) 30.4 SEC (24.3-30.1); INTERNATIONAL NORMALIZED RATIO 1.4 RATIO; PROTHROMBIN TIME - PATIENT 15.5 SEC (9.8-11.6)
[2017-01-13 09:44] LABS: HEMO FLAGS AUTO DIFF
[2017-01-13 09:54] LABS: BICARBONATE 22.8 MEQ/L (21.0-32.0); BLOOD UREA NITROGEN 5 MG/DL (7-18)
[2017-01-13 09:57] LABS: ALT (GPT) 31 U/L (10-53); GLOMERULAR FILTRATION RATE 107 ML/MIN (>89)
[2017-01-13 09:59] LABS: ANION GAP 13 MEQ/L (5-15); CHLORIDE 95 MEQ/L (98-107); POTASSIUM 4.2 MEQ/L (3.5-5.1); SODIUM (NA) 131 MEQ/L (136-145)
[2017-01-13 10:00] LABS: ALKALINE PHOSPHATASE 203 U/L (45-117)
[2017-01-13 10:05] LABS: AST (GOT) 89 U/L (15-37)
[2017-01-13 10:23] LABS: PLATELET ESTIMATE SMEAR LOW (NORMAL); PLATELET MORPHOLOGY NORMAL (NORMAL); SCAN/DIFF AUTO DIFF CONFIRMED
[2017-01-13] MEDS ORDERED: PANTOPRAZOLE INJ 80 MG in SODIUM CHLORIDE 0.9% INJ 35 ML IV ONE (10:30)
[2017-01-13 10:49] VITALS: BP 99/48; PULSE 102; RESP 16; O2SAT 97
[2017-01-13] MEDS: PANTOPRAZOLE INJ 80 MG in SODIUM CHLORIDE 0.9% INJ 100 ML IV SCH ×2 (10:53→20:15)
[2017-01-13] MEDS: OCTREOTIDE INJ 500 MCG in SODIUM CHLORID 0.9% 500 ML INJ 500 ML IV SCH ×2 (10:53→20:15)
[2017-01-13] MEDS ORDERED: SODIUM CHLOR 0.9% 250 ML INJ 250 ML IV ONE (12:30)
[2017-01-13] MEDS ORDERED: SODIUM CHLORIDE 0.9% FLUSH 10 ML FLUSH IV FLUSH PRN (12:30)
[2017-01-13] MEDS ORDERED: BISACODYL 10 MG SUPP RECTAL PRN (13:00)
[2017-01-13] MEDS ORDERED: ACETAMINOPHEN 325 MG TAB PO PRN (13:00)
[2017-01-13] MEDS ORDERED: MAGNESIUM HYDROXIDE SUSP 30 ML CUP PO PRN (13:00)
[2017-01-13] MEDS ORDERED: LACTULOSE SYRUP 20 GM/30 ML CUP PO PRN (13:00)
[2017-01-13] MEDS ORDERED: SENNOSIDES 8.6 MG TAB PO PRN (13:00)
[2017-01-13] MEDS: SODIUM CHLOR 0.9% 1000 ML INJ 1,000 ML IV SCH ×2 (13:03→20:14)
[2017-01-13 14:22] LABS: AUTOMATED NEUTROPHIL # 5.6 TH/MM3 (1.8-7.7); BASOPHIL % 0.5 % (0.0-2.0); EOSINOPHIL # 0.1 TH/MM3 (0-0.4); EOSINOPHIL % 1.5 % (0.0-4.0); LYMPH % 6.9 % (9.0-44.0); LYMPHOCYTE # 0.5 TH/MM3 (1.0-4.8); MEAN CELL VOLUME 99.7 FL (80.0-100.0); MEAN CORPUSCULAR HEMOGLOBIN 34.5 PG (27.0-34.0); MEAN CORPUSCULAR HGB CONC 34.6 % (32.0-36.0); MONO % 8.9 % (0.0-8.0); NEUT % 82.2 % (16.0-70.0); PLATELET COUNT 55 TH/MM3 (150-450); RED CELL DISTRIBUTION WIDTH 14.8 % (11.6-17.2); WHITE BLOOD COUNT 6.8 TH/MM3 (4.0-11.0)
[2017-01-13 14:32] LABS: HEMO FLAGS AUTO DIFF
--- NOTE | 2017-01-13 15:19 | HHI.HP ---
[facility] Service [facility] Primary Care Physician Janina Ruth MD Admission Diagnosis rectal bleeding Diagnoses: (1) Rectal bleeding Diagnosis: Principal (2) Cirrhosis Diagnosis: Principal (3) Thrombocytopenia Diagnosis: Principal (4) Type 2 diabetes mellitus Diagnosis: Secondary Chief Complaint: Blood in her stool Travel History International Travel<30 Days: No Contact w/Intl Traveler <30 Da: No Traveled to Known Affected Are: No History of Present Illness Written by Mariusz Verdin, acting as scribe for Dr. Pond on 01/13/17 at 15:54. 61-year-old female with rather complex medical history of cirrhosis, alcohol abuse, thrombocytopenia, chronic hyponatremia, history of atrial fibrillation, portal gastropathy, gastroesophageal reflux, hypothyroidism, hypertension, diabetes who presented to hospital because of two-week history of stool changes. Patient states that she has had a mixture of very dark black stools as well as red stools over the last 2 weeks. She states that she has had this problem since she has been 10 years old and usually goes away on its own. However it did not go away this time and she came to the hospital for evaluation she denies any lightheadedness, dizziness, shortness of breath, chest pain, abdominal pain. Patient had laboratory studies done which did indicate a hemoglobin 9.4 and her previous hemoglobin was 11.0 on 09/26/16. Because of the patient's active GI bleeding patient is recommended observation for further recommendations. Review of Systems Constitutional: DENIES: Diaphoretic episodes, Fatigue, Fever, Weight gain, Weight loss, Chills, Dizziness, Change in appetite, Night Sweats Eyes: DENIES: Blurred vision, Diplopia, Eye inflammation, Eye pain, Vision loss , Double Vision Ears, nose, mouth, throat: DENIES: Hearing loss, Nasal discharge, Throat pain, Ear Pain, Running Nose, Sinus Pain Respiratory: DENIES: Apneas, Cough, Snoring, Wheezing, Hemoptysis, Sputum production, Shortness of breath Cardiovascular: DENIES: Chest pain, Palpitations, Syncope, Dyspnea on Exertion , Lower Extremity Edema, Orthopnea Gastrointestinal: COMPLAINS OF: Black stools, Bloody stools, DENIES: Abdominal pain, Constipation, Diarrhea, Nausea, Vomiting, Difficulty Swallowing , Anorexia Neurologic: DENIES: Abnormal gait, Headache, Localized weakness, Paresthesias, Seizures, Speech Problems, Tremor, Poor Balance Past Family Social History Past Medical History Hypertension Chronic atrial fibrillation Diabetes History of portal gastropathy Chronic thrombocytopenia Chronic hyperbilirubinemia History of tonsillar cancer Cirrhosis Anxiety depression Past Surgical History Tonsillectomy Reported Medications Reported Meds & Active Scripts Active Spironolactone 100 Mg Tab 100 Mg PO BIDPC Levothyroxine (Levothyroxine Sodium) 25 Mcg Tab 25 Mcg PO DAILY Levemir Inj (Insulin Detemir) 1,000 unit/ 10 ML Vial 45 Units SQ BID 30 Days Do not mix with any other Insulin. Hydroxyzine Pamoate 50 Mg Cap 50 Mg PO Q6HR PRN Potassium Chloride ER (Potassium Chloride) 20 Meq Tab 20 Meq PO DAILY Gabapentin 800 Mg Tab 800 Mg PO TID Lisinopril 5 Mg Tab 5 Mg PO DAILY Vitamin B-12 (Cyanocobalamin) 1,000 Mcg Tab 1,000 Mcg PO DAILY Reported Furosemide 20 Mg Tab 20 Mg PO DAILY Protonix (Pantoprazole Sodium) 40 Mg Tab 40 Mg PO DAILY Sulfadiazine 500 Mg Tab 500 Mg PO Q8HR Novolin R Inj (Insulin Human Regular) 1,000 Unit/10 Ml Vial 5-25 Units SQ TID Max dose at bedtime:( )units; sugars less than 70,(0) units; sugars 150-199,(5)unit; sugars 200-249,(10)units; sugars 250-299,(15) units; sugars 300-349,(20)units; sugars greater than 349,(25)units Multiple Vitamin 1 Tab 1 Tab PO DAILY Glipizide 10 Mg Tab 20 Mg PO BIDAC 2 tabs twice a day (20mg) Allergies: Coded Allergies: Aspirin (Verified Allergy, Severe, ULCERATIVE COLITIS, 01/13/17) Family History Reviewed is significant for heart disease Social History Patient quit smoking August 25, 2016. Prior to that she smoked a pack a cigarettes a day since she was 14 years old. Patient states that she has quit drinking for at least a year. However when she was here in September she was drinking 4 glasses of wine daily. Denies any illicit drugs Physical Exam Vital Signs Vital Signs Date Time Temp Pulse Resp B/P Pulse Ox O2 Delivery O2 Flow Rate FiO2 01/13/17 12:05 100 16 97 01/13/17 10:49 102 16 99/48 97 Room Air 01/13/17 09:27 16 96 Room Air 01/13/17 09:06 99.3 117 16 129/69 95 Physical Exam GENERAL: Well-developed, well-nourished, in no acute distress. alert and orientated HEENT: Head is normocephalic without any lesions or masses noted. Facial features are symmetric. Eyes: Pupils equal round reactive to light. Extraocular muscles are intact. Conjunctivae were clear. Oropharyngeal: Pharynx without any erythema edema. Tongue is midline without deviation. Buccal mucosa is moist without any masses or lesions NECK: Supple without any masses. Trachea midline no deviation. No JVD, no bruits are appreciated CARDIAC: Regular rhythm, regular rate. S2 are heard. 3/6 holosystolic murmur noted, no gallops or rubs. LUNGS: Clear to auscultation bilaterally. No wheeze, rhonchi or rales. No use of accessory muscles on inspiration or expiration. ABDOMEN: Soft, nontender. Nondistended. Bowel sounds heard in all 4 quadrants. No organomegaly or masses. Negative rebound, negative guarding EXTREMITIES: No edema, pulses are equal bilaterally. No cyanosis or clubbing NEUROLOGY: Mood and affect appear appropriate. Cranial nerves II through XII grossly intact. Muscle strength 5/5 in upper and lower extremities bilaterally. Deep tendon reflexes are 2+ in upper and lower extremities bilaterally. Laboratory Laboratory Tests Test 01/13/17 01/13/17 09:25 14:15 White Blood Count 6.8 6.8 Red Blood Count 2.80 2.50 Hemoglobin 9.4 8.6 Hematocrit 27.8 25.0 Mean Corpuscular Volume 99.3 99.7 Mean Corpuscular Hemoglobin 33.4 34.5 Mean Corpuscular Hemoglobin 33.7 34.6 Concent Red Cell Distribution Width 14.7 14.8 Platelet Count 65 55 Mean Platelet Volume 7.6 7.6 Neutrophils (%) (Auto) 73.1 82.2 Lymphocytes (%) (Auto) 7.7 6.9 Monocytes (%) (Auto) 12.4 8.9 Eosinophils (%) (Auto) 2.5 1.5 Basophils (%) (Auto) 4.3 0.5 Neutrophils # (Auto) 5.0 5.6 Lymphocytes # (Auto) 0.5 0.5 Monocytes # (Auto) 0.8 0.6 Eosinophils # (Auto) 0.2 0.1 Basophils # (Auto) 0.3 0.0 CBC Comment AUTO DIFF AUTO DIFF Differential Comment AUTO DIFF CONFIRMED Platelet Estimate LOW Platelet Morphology Comment NORMAL Prothrombin Time 15.5 Prothromb Time International 1.4 Ratio Activated Partial 30.4 Thromboplast Time Sodium Level 131 Potassium Level 4.2 Chloride Level 95 Carbon Dioxide Level 22.8 Anion Gap 13 Blood Urea Nitrogen 5 Creatinine 0.57 Estimat Glomerular Filtration 107 Rate Random Glucose 166 Calcium Level 8.4 Total Bilirubin 3.0 Aspartate Amino Transf 89 (AST/SGOT) Alanine Aminotransferase 31 (ALT/SGPT) Alkaline Phosphatase 203 Total Protein 6.9 Albumin 2.7 Blood Type O POSITIVE Antibody Screen NEGATIVE Result Diagram: 01/13/17 1415 01/13/17 1622 Assessment and Plan Problem List: (1) Rectal bleeding ICD Code: K62.5 Status: Acute Plan: Patient with history of rectal bleeding since age 10, patient at increased risk due to gastroesophageal reflux, portal gastropathy, bleeding tendencies, thrombocytopenia Continue to monitor hemoglobin and transfuse if hemoglobin below 8.0 GI consulted for further recommendations Patient started on Protonix IV, octreotide IV per GI recommendations (2) Thrombocytopenia ICD Code: D69.6 Status: Chronic Plan: Appears to be chronic secondary to cirrhosis Continue monitor CBC (3) Hyponatremia ICD Code: E87.1 Status: Resolved Plan: Patient has chronic hyponatremia, likely secondary to chronic alcohol use Continue monitor sodium level (4) Type 2 diabetes mellitus ICD Code: E11.9 Status: Acute Plan: We'll hold oral hypoglycemic agents at this time Start Accu-Cheks before meals and at bedtime Low-dose NovoLog sliding scale insulin (5) Alcohol abuse ICD Code: F10.10 Status: Chronic Plan: Patient denies any alcohol use for at least a year, however 3 months ago when she was admitted she was written for glass of wine daily. Patient has obvious signs of alcohol withdrawal Start CIWA protocol Start thiamine/folic acid (6) Hypothyroidism ICD Code: E03.9 Status: Chronic Plan: Patient with chronic hypothyroidism Check TSH and resume replacement therapy Assessment and Plan DVT prevention Sequential compression devices, unable to use chemical prophylaxis secondary to GI bleed This note was transcribed by ed Verdin. I, Dr. Donovan Daniels personally performed the history, physical exam, and medical decision making; and confirmed the accuracy of the information in the transcribed note. Authenticated by Dr. Donovan Daniels on 01/13/17 at 18:25. Problem Qualifiers (1) Cirrhosis: (2) Type 2 diabetes mellitus: Qualified Code: E11.8 - Type 2 diabetes mellitus with complication, with long- term current use of insulin (3) Hypothyroidism: Qualified Code: E03.9 - Hypothyroidism, unspecified type Mariusz Verdin Jan 13, 2017 15:19 Donovan Sims MD Jan 13, 2017 18:25
[2017-01-13 15:30] LABS: PLATELET ESTIMATE SMEAR LOW (NORMAL); PLATELET MORPHOLOGY NORMAL (NORMAL); SCAN/DIFF AUTO DIFF CONFIRMED
[2017-01-13] MEDS ORDERED: LORazepam 1 MG TAB PO PRN (16:00)
[2017-01-13] MEDS ORDERED: LORazepam 2 MG/ML VIAL IV PUSH PRN ×4 (16:00)
[2017-01-13] MEDS ORDERED: FLUMAZENIL 0.5 MG/5 ML VIAL IV PUSH PRN (16:00)
[2017-01-13] MEDS ORDERED: LORazepam 2 MG TAB PO PRN (16:00)
[2017-01-13] MEDS ORDERED: MAGNESIUM CITRATE SOLN 300 ML BTL PO ONE (16:15)
[2017-01-13] MEDS ORDERED: PHYTONADIONE 10 MG/ML VIAL SQ ONE (16:30)
[2017-01-13] MEDS ORDERED: THIAMINE INJ 100 MG in SODIUM CHLORIDE 0.9% INJ 100 ML IV SCH (17:00)
[2017-01-13 17:11] VITALS: BP 99/56; PULSE 102; RESP 14; TEMP 98.9; O2SAT 97
[2017-01-13] MEDS ORDERED: MULTIVITAMIN INJ 10 ML, FOLIC ACID INJ 1 MG in SODIUM CHLORID 0.9% 500 ML INJ 500 ML IV SCH (18:00)
[2017-01-13] MEDS ORDERED: DIATRIZOATE MEGLUM/DIATRIZOATE SOD 9 ML CUP PO ONE (18:15)
--- NOTE | 2017-01-13 18:57 | MB ---
cc: KYUNG DE LEON DATE OF CONSULTATION 01/13/17 DATE OF [address] Pond REASON FOR CONSULTATION GI bleed, history of liver cirrhosis HISTORY OF PRESENT ILLNESS Ms. Kumar is a 61-year-old lady with history of liver cirrhosis secondary to alcohol abuse who came to the emergency room with rectal bleed for the last 24 hours. She denies any nausea, vomiting, abdominal pain, constipation or diarrhea. The patient reports having some mixture of black stools or red stools for the last two weeks. She was seen in the office back in 2013. She did not come for followup afterwards. She stated that she stopped drinking almost a year ago, but the patient was found to have positive alcohol back in September of this year. PAST MEDICAL HISTORY 1. Liver cirrhosis secondary to alcohol 2. High blood pressure 3. Chronic atrial fibrillation 4. Diabetes, 5. Portal gastropathy 6. Thrombocytopenia 7. Tonsillar cancer 8. Depression. 9. History of ulcerative colitis that I am really not aware of. PAST SURGICAL HISTORY Tonsillectomy. MEDICATIONS 1. Spironolactone. 2. Levothyroxine. 3. Levemir. 4. Hydroxyzine 5. Potassium chloride 6. Gabapentin 7. Lisinopril 8. Vitamin B12. 9. Lasix. 10. Protonix 11. Sulfadiazine. 12. Novolin. 13. Multivitamins. 14. Glipizide. ALLERGIES ASPIRIN SOCIAL HISTORY She quit smoking this year. She says she quit drinking last year, but she had positive alcohol on her visit in September. FAMILY HISTORY No family history of colon cancer or GI pathology. REVIEW OF SYSTEMS She denies any fever or chills, weight loss or weight gain. ENT: No alteration in baseline hearing or visual acuity PULMONARY: Denies any chest pain, shortness of breath. GASTROINTESTINAL: As above. GENITOURINARY: Denies dysuria, hematuria. HEMATOLOGIC: Does have a history of anemia, thrombocytopenia. ABNORMAL PSYCHOLOGY TEACHER: No history of TIA or CVA kind of symptoms. PHYSICAL EXAMINATION GENERAL: She is sitting comfortably in bed in no acute distress. She looked jaundiced. VITAL SIGNS: Her temperature is 98.2, pulse 102, respiration 16, blood pressure 124/78. HEENT: Pupils equal, round, reactive to light and accommodation. Jaundiced. NECK: No JVD. No lymphadenopathy. CHEST: Clear to auscultation and palpation. CARDIOVASCULAR: S1, S2. No murmur. ABDOMEN: Soft, nontender. Bowel sounds are present. ABNORMAL PSYCHOLOGY TEACHER: She is awake, alert, oriented x3. No focal signs identified. No signs of flapping tremor. LABORATORY DATA Her hemoglobin currently is 8.6 dropped slightly from 9.4. Did a rectal examination on her - no indication of blood in the rectum. PT/INR 15.5/1.4, PTT 30.4. Chemistry suggestive of a bilirubin of three with an AST 89, ALT 31. Alkaline phosphatase is 203. IMAGING STUDIES The patient had a liver ultrasound that showed fatty infiltration of the liver, ____ cirrhosis, gallbladder sludge without stones. IMPRESSION Ms. Kumar is a 61-year-old lady with history of liver cirrhosis. It looks like she is not quite compliant with abstinence from alcohol. Admitted with GI bleed. No indication of active bleed at this time. RECOMMENDATIONS CT abdomen and pelvis, upper endoscopy with possible banding, colonoscopy in the morning. Monitor LFTs and CBC closely. Transfuse to keep hemoglobin more than eight. Octreotide drip, Protonix drip. Supportive care. Vitamin K one dose. Further recommendation will depend on the patient's clinical status and the above results. I would like to thank Dr. Pond for referring her to our office for consultation. Thank you again. We will continue to follow the patient along with you. Kyung De Leon MD BSB/SA /4:25 PM /6:37 PM
[2017-01-13 20:00] VITALS: BP 110/58; PULSE 100; PULSE 96; RESP 20; TEMP 97.8; O2SAT 97
[2017-01-13 20:13] LABS: REVIEW FLAG FINAL
[2017-01-13] MEDS: SODIUM CHLORIDE 0.9% FLUSH 10 ML FLUSH IV FLUSH SCH (20:14)
[2017-01-13] MEDS: DOCUSATE SODIUM 50 MG/SENNA 8.6 MG TAB PO SCH (20:14)
[2017-01-13] MEDS ORDERED: IOHEXOL 350 MG/ML 10 ML VIAL (for RAD DIAG) IV ONE (21:27)
[2017-01-13 21:54] LABS: CORTISOL 12.3 MCG/DL
--- NOTE | 2017-01-13 22:06 | RADRPT ---
EXAM DATE/TIME: 01/13/2017 21:15 [facility] COMPARISON: No previous studies available for comparison. INDICATIONS : Abdominal pain with GI bleed.. IV CONTRAST: 100 cc Omnipaque 350 (iohexol) IV ORAL CONTRAST: Prescribed oral contrast ingested. RADIATION DOSE: 11.74 CTDIvol (mGy) MEDICAL HISTORY : Hypertension. Ulcerative colitis. Hernia, hiatal.Cirrhosis. SURGICAL HISTORY : None. ENCOUNTER: Initial ACUITY: 1 day PAIN SCALE: 8/10 LOCATION: abdomen TECHNIQUE: Volumetric scanning of the abdomen and pelvis was performed. Using automated exposure control and ad justment of the mA and/or kV according to patient size, radiation dose was kept as low as reasonably achievable to obtain optimal diagnostic quality images. DICOM format image data is available electro nically for review and comparison. FINDINGS: Lung bases are clear except for minimal atelectasis. There is moderate L2 compression deformity witho ut significant retropulsion. Liver has a slightly lobulated contour most characteristic of cirrhosis with recanalized periumbilica l veins. Also varices around the distal esophagus and upper retroperitoneum especially around the lef t renal hilum. Calcified gallstones in gallbladder without biliary ductal dilatation. Spleen within normal limits fo r size. Adrenals and kidneys demonstrate no acute findings. No evidence for pancreatitis. No free fluid. No bowel obstruction. No adenopathy. Calcified fibroid uterus. No other pelvic masses. CONCLUSION: 1. Liver cirrhosis with varices as above. No ascites. 2. Multiple calcified gallstones without biliary ductal dilatation. 3. Partially calcified uterine fibroid measuring just over 2 cm in diameter. 4. Remote compression deformity of L2 without retropulsion. 5. No bowel obstruction. No free air. Bruce Encarnacion MD on January 13, 2017 at 21:59 Board Certified Radiologist. This report was verified electronically.
[2017-01-14] VITALS (9 sets, daily range): BP systolic 95–132; BP diastolic 56–84; PULSE 84–100; RESP 14–20; TEMP 96.9–98.6; O2SAT 91–99
[2017-01-14 03:42] LABS: HEMATOCRIT 21.3 % (35.0-46.0)
[2017-01-14 03:45] LABS: REVIEW FLAG FINAL
[2017-01-14] MEDS: PANTOPRAZOLE INJ 80 MG in SODIUM CHLORIDE 0.9% INJ 100 ML IV SCH ×2 (05:50→15:07)
[2017-01-14] MEDS: OCTREOTIDE INJ 500 MCG in SODIUM CHLORID 0.9% 500 ML INJ 500 ML IV SCH ×2 (05:50→15:07)
[2017-01-14 06:26] LABS: AUTOMATED NEUTROPHIL # 3.2 TH/MM3 (1.8-7.7); BASOPHIL % 0.4 % (0.0-2.0); EOSINOPHIL # 0.2 TH/MM3 (0-0.4); EOSINOPHIL % 3.4 % (0.0-4.0); HEMATOCRIT 21.9 % (35.0-46.0); LYMPH % 12.9 % (9.0-44.0); LYMPHOCYTE # 0.6 TH/MM3 (1.0-4.8); MEAN CELL VOLUME 101.3 FL (80.0-100.0); MEAN CORPUSCULAR HEMOGLOBIN 34.3 PG (27.0-34.0); MEAN CORPUSCULAR HGB CONC 33.8 % (32.0-36.0); MONO % 10.4 % (0.0-8.0); NEUT % 72.9 % (16.0-70.0); PLATELET COUNT 42 TH/MM3 (150-450); RED BLOOD COUNT 2.16 MIL/MM3 (4.00-5.30); RED CELL DISTRIBUTION WIDTH 15.1 % (11.6-17.2); WHITE BLOOD COUNT 4.5 TH/MM3 (4.0-11.0)
[2017-01-14 06:27] LABS: HEMO FLAGS AUTO DIFF
[2017-01-14 06:33] LABS: POTASSIUM 3.9 MEQ/L (3.5-5.1)
[2017-01-14 07:11] LABS: BICARBONATE 26.3 MEQ/L (21.0-32.0); CALCIUM-PROTEIN CORRECTED 7.9 MG/DL (8.5-10.1); TOTAL BILIRUBIN ADULT 4.1 MG/DL (0.2-1.0)
[2017-01-14 07:33] LABS: PLATELET ESTIMATE SMEAR LOW (NORMAL); PLATELET MORPHOLOGY NORMAL (NORMAL); SCAN/DIFF AUTO DIFF CONFIRMED
[2017-01-14] MEDS: SODIUM CHLOR 0.9% 1000 ML INJ 1,000 ML IV SCH ×2 (08:18→18:18)
[2017-01-14] MEDS ORDERED: EPINEPHrine HCL (1:10,000) 1 MG/10 ML SYRINGE OTHER ONE (08:30)
[2017-01-14] MEDS ORDERED: PROPOFOL 200 MG/20 ML AMP IV ONE (08:30)
--- NOTE | 2017-01-14 08:32 | GIPROC ---
[address], [address] EGD PROCEDURE REPORT EXAM DATE: 01/14/2017 PATIENT NAME: Anita Kumar MR #: [id number] BIRTHDATE: 1955 ATTENDING: Kyung Mena MD ORDER #: [id number] MEDICAL SPECIALIST: Mercedez Kennedy and Cristina Wynn STATUS: inpatient INDICATIONS: The patient is a 61 yr old female here for an EGD due to anemia, gi bleeding PROCEDURE PERFORMED: EGD w/ biopsy MEDICATIONS: None and Per Anesthesia. TOPICAL ANESTHETIC: CONSENT: The patient understands the risks and benefits of the procedure and understands that these risks include, but are not limited to: sedation, allergic reaction, infection, perforation and/or bleeding. Alternative means of evaluation and treatment include, among others: physical exam, x-rays, and/or surgical intervention. The patient elects to proceed with this endoscopic procedure. medical equipment was checked for proper function. Hand hygiene and appropriate measures for infection prevention was taken. After the risks, benefits and alternatives of the procedure were thoroughly explained, Informed consent was verified, confirmed and timeout was successfully executed by the treatment team. The patient was anesthetized with topical anesthesia and the Pentax [id number] endoscope was introduced through the mouth and advanced to the second portion of the duodenum. Retroflexed views revealed a hiatal hernia The gastroscope was then slowly withdrawn and removed. Portal gastropathy esophageal varices grade 1 duodenitis second portion-biopsy gastritis antrum-biopsy. ADVERSE EVENTS: There were no complications. IMPRESSIONS: 1. Portal gastropathy esophageal varices grade 1 duodenitis second portion-biopsy gastritis antrum-biopsy 2. Retroflexed views revealed a hiatal hernia RECOMMENDATIONS: 1. Await biopsy results. Biopsy results will not be ready for 7-10 days. If you don't hear from us in two weeks, call our office for biopsy results. 2. Anti-reflux regimen 3. Start PPI PATIENT CONDITION: stable DISPOSITION: Inpatient REPEAT EXAM: EGD pending biopsy results Kyung Mena MD eSigned: Kyung Mena MD 01/14/2017 8:31 AM cc: PATIENT NAME: Anita Kumar MR#: [id number]
--- NOTE | 2017-01-14 08:35 | GIPROC ---
[address], [address] COLONOSCOPY PROCEDURE REPORT EXAM DATE: 01/14/2017 PATIENT NAME: Anita Kumar MR #: [id number] BIRTHDATE: 1955 ENDOSCOPIST: Kyung Mena MD ORDER #: [id number] TECHNICAL ARCHITECT: Mercedez Kennedy and Cristina Wynn STATUS: inpatient INDICATIONS: The patient is a 61 yr old female here for a colonoscopy due to anemia, gi bleeding . history of ulcerative colitis PROCEDURE PERFORMED: Submucosal injection, any substance Colonoscopy with ablation MEDICATIONS: None and Per Anesthesia. PREP QUALITY: fair PREP TYPE:Magnesium Citrate ESTIMATED BLOOD LOSS: None CONSENT: The patient understands the risks and benefits of the procedure and understands that these risks include, but are not limited to: sedation, allergic reaction, infection, perforation and/or bleeding. Alternative means of evaluation and treatment include, among others: physical exam, x-rays, and/or surgical intervention. The patient elects to proceed with this endoscopic procedure. medical equipment was checked for proper function. Hand hygiene and appropriate measures for infection prevention was taken. After the risks, benefits and alternatives of the procedure were thoroughly explained, Informed consent was verified, confirmed and timeout was successfully executed by the treatment team. A digital exam revealed external hemorrhoids The Pentax [id number] endoscope was introduced through the anus and advanced to the cecum, which was identified by both the appendix and ileocecal valve. The instrument was then slowly withdrawn as the colon was fully examined. COLON FINDINGS: Random biopsies from ascending and descending internal/external hemorrhoids, one of them was actively bleeding-was treated with balltip and epi injection 1:10, 000 - 3 cc-no further bleeding. Retroflexed views revealed internal hemorrhoids and Retroflexed views revealed medium internal hemorrhoids The scope was then completely withdrawn from the patient and the procedure terminated. PROCEDURE WITHDRAWAL TIME:6minutes ADVERSE EVENTS: There were no complications. IMPRESSIONS: 1. Random biopsies from ascending and descending internal/external hemorrhoids, one of them was actively bleeding-was treated with balltip and epi injection 1:10, 000 - 3 cc-no further bleeding 2. Retroflexed views revealed internal hemorrhoids 3. Retroflexed views revealed medium internal hemorrhoids 4. Revealed external hemorrhoids RECOMMENDATIONS: 1. Await biopsy results. Biopsy results will not be ready for 7-10 days. If you don't hear from us in two weeks, call our office for results. 2. Stool softners hydrocortisone supp vit k plt transfussion if further bleeding consult colorectal RECALL: Colonoscopy, pending biopsy results Kyung Mena MD eSigned: Kyung Mena MD 01/14/2017 8:35 AM cc: PATIENT NAME: Anita Kumar MR#: [id number]
[2017-01-14] MEDS ORDERED: ONDANSETRON HCL 4 MG/2 ML VIAL ONE (08:54)
[2017-01-14] MEDS: HYDROCORTISONE ACETATE 25 MG SUPP RECTAL SCH ×2 (09:00→23:15)
[2017-01-14] MEDS: DOCUSATE SODIUM 50 MG/SENNA 8.6 MG TAB PO SCH ×2 (09:00→21:00)
[2017-01-14] MEDS: SODIUM CHLORIDE 0.9% FLUSH 10 ML FLUSH IV FLUSH SCH ×2 (09:00→23:15)
[2017-01-14] MEDS: PHYTONADIONE 10 MG/ML VIAL SQ SCH (09:49)
[2017-01-14 10:51] LABS: HEMATOCRIT 21.4 % (35.0-46.0)
[2017-01-14] MEDS ORDERED: CALCIUM CHLORIDE INJ 2 GM in SODIUM CHLORIDE 0.9% INJ 100 ML IV ONE (11:00)
[2017-01-14 11:06] LABS: REVIEW FLAG FINAL
[2017-01-14] MEDS ORDERED: traMADol HCL 50 MG TAB PO PRN (12:00)
--- NOTE | 2017-01-14 12:23 | HHI.PR ---
Subjective Remarks denies dizziness denies cp/sob still c/o of melanotic stools hemoglobin trending down bp with episodes of hypotension and sbp in the 90's Objective Vitals Vital Signs Date Time Temp Pulse Resp B/P Pulse Ox O2 Delivery O2 Flow Rate FiO2 01/14/17 11:47 98.6 100 18 106/66 01/14/17 09:08 97.6 90 16 96/35 99 01/14/17 08:53 90 16 90/39 99 01/14/17 08:38 97.6 88 16 96/40 96 01/14/17 04:00 96.9 93 20 100/63 93 01/14/17 00:00 97.4 93 20 95/56 94 01/13/17 20:00 97.8 100 20 110/58 97 01/13/17 20:00 96 01/13/17 17:11 98.9 102 14 99/56 97 01/13/17 12:05 100 16 97 I/O 01/13/17 01/13/17 01/13/17 01/14/17 01/14/17 01/14/17 07:00 15:00 23:00 07:00 15:00 23:00 Intake Total 0 ml Balance 0 ml Intake Oral 0 ml # Voids 6 # Bowel Movements 6 Result Diagram: 01/14/17 1020 01/14/17 0525 Imaging Last Impressions Abdomen/Pelvis CT 01/13/17 0000 Signed Impressions: Service Date/Time: Friday, January 13, 2017 21:15 - CONCLUSION: 1. Liver cirrhosis with varices as above. No ascites. 2. Multiple calcified gallstones without biliary ductal dilatation. 3. Partially calcified uterine fibroid measuring just over 2 cm in diameter. 4. Remote compression deformity of L2 without retropulsion. 5. No bowel obstruction. No free air. Bruce Encarnacion MD Objective Remarks GENERAL: Well-developed, well-nourished, in no acute distress. alert and orientated HEENT: Head is normocephalic without any lesions or masses noted. Facial features are symmetric. Eyes: Pupils equal round reactive to light. Extraocular muscles are intact. Conjunctivae were clear. Oropharyngeal: Pharynx without any erythema edema. Tongue is midline without deviation. Buccal mucosa is moist without any masses or lesions NECK: Supple without any masses. Trachea midline no deviation. No JVD, no bruits are appreciated CARDIAC: Regular rhythm, regular rate. S2 are heard. 3/6 holosystolic murmur noted, no gallops or rubs. LUNGS: Clear to auscultation bilaterally. No wheeze, rhonchi or rales. No use of accessory muscles on inspiration or expiration. ABDOMEN: Soft, nontender. Nondistended. Bowel sounds heard in all 4 quadrants. No organomegaly or masses. Negative rebound, negative guarding EXTREMITIES: No edema, pulses are equal bilaterally. No cyanosis or clubbing NEUROLOGY: Mood and affect appear appropriate. Cranial nerves II through XII grossly intact. Muscle strength 5/5 in upper and lower extremities bilaterally. Deep tendon reflexes are 2+ in upper and lower extremities bilaterally. Procedures Status post panendoscopy with biopsy, colonoscopy with biopsy and ablation of internal hemorrhoids with epinephrine injection on 01/14 Medications and IVs Current Medications Medications (Trade) Dose Ordered Sig/Dax Route Start Time Stop Time Status Last Admin Sodium Chloride 2 ml 2 ml UNSCH PRN IVF 01/13/17 09:15 Octreotide Acetate 500 mcg/ Sodium Chloride 500.5 ml @ 50 mls/hr Q10H IV 01/13/17 10:30 01/14/17 05:50 Pantoprazole Sodium 80 mg/ Sodium Chloride 100 ml @ 10 mls/hr Q10H IV 01/13/17 10:30 01/14/17 05:50 (NS 1000 ml Inj) 1,000 ml @ 100 mls/hr Q10H IV 01/13/17 12:18 01/14/17 08:18 (NS Flush) 2 ml UNSCH PRN IV FLUSH 01/13/17 12:30 (NS Flush) 2 ml BID IV FLUSH 01/13/17 21:00 01/13/17 20:14 (Tylenol) 650 mg Q4H PRN PO 01/13/17 13:00 (Milagros-Colace) 1 tab BID PO 01/13/17 21:00 01/13/17 20:14 (Milk Of Magnesia Liq) 30 ml Q12HR PRN PO 01/13/17 13:00 (Senokot) 17.2 mg Q12HR PRN PO 01/13/17 13:00 (Dulcolax Supp) 10 mg DAILY PRN RECTAL 01/13/17 13:00 (Lactulose Liq) 30 ml DAILY PRN PO 01/13/17 13:00 (Romazicon Inj) 0.2 mg Q1M PRN IV PUSH 01/13/17 16:00 (Ativan) 1 mg Q4H PRN PO 01/13/17 16:00 (Ativan Inj) 1 mg Q4H PRN IV PUSH 01/13/17 16:00 (Ativan) 2 mg Q2H PRN PO 01/13/17 16:00 (Ativan Inj) 2 mg Q2H PRN IV PUSH 01/13/17 16:00 (Ativan Inj) 2 mg Q1H PRN IV PUSH 01/13/17 16:00 Lorazepam 2 mg 2 mg Q15M PRN IV PUSH 01/13/17 16:00 Multivitamins 10 ml/Folic Acid 1 mg/Sodium Chloride 510.2 ml @ 125 mls/hr Q24H IV 01/13/17 18:00 01/18/17 17:59 01/13/17 17:55 (Thiamine Inj/NS Inj) 101 ml @ 100 mls/hr Q24H IV 01/13/17 17:00 01/16/17 16:59 01/13/17 17:56 (Hemorrhoidal Hc Supp) 25 mg BID RECTAL 01/14/17 09:00 Phytonadione 10 mg 10 mg DAILY SQ 01/14/17 09:00 01/14/17 09:49 (Calcium Chloride Inj/NS Inj) 120 ml @ 120 mls/hr ONCE ONCE IV 01/14/17 11:00 01/14/17 11:59 (Ultram) 50 mg Q6H PRN PO 01/14/17 12:00 UNV Urinary Catheter: No Vascular Central Line Catheter: No A/P Problem List: (1) Rectal bleeding ICD Code: K62.5 Status: Acute Plan: Patient with history of rectal bleeding since age 10, patient at increased risk due to gastroesophageal reflux, portal gastropathy, bleeding tendencies, thrombocytopenia Continue to monitor hemoglobin and transfuse if hemoglobin below 8.0 Patient started on Protonix IV, octreotide IV per GI recommendations 01/14 patient underwent EGD with biopsy. Colonoscopy with biopsy and ablation of internal hemorrhoids with epinephrine injection. EGD showed findings of esophageal varices, portal gastropathy, duodenitis, gastritis. Patient started on PPI. Colonoscopy showed diverticulosis, internal hemorrhoids status post epinephrine injection. Confused 2 units of packed red blood cells for dropping hemoglobin of 7.2 today. (2) Thrombocytopenia ICD Code: D69.6 Status: Acute Plan: Appears to be chronic secondary to cirrhosis Continue monitor CBC 01/14 platelets trending down, platelet count on 01/14 is 40 2K. I will check this 1 unit of platelets and try to keep platelets above 50,000. (3) Hyponatremia ICD Code: E87.1 Status: Acute Plan: Suspect hypovolemic hyponatremia. Hyponatremia resolved after IV fluid administration. (4) Type 2 diabetes mellitus ICD Code: E11.9 Status: Acute Plan: 01/14 Continue to hold oral hypoglycemics Place on Accu-Cheks and SSI with insulin NovoLog. (5) Alcohol abuse ICD Code: F10.10 Status: Acute Plan: Patient denies any alcohol use for at least a year, however 3 months ago when she was admitted she was written for glass of wine daily. Patient has obvious signs of alcohol withdrawal 01/14 continue thiamine and folic acid. No evidence of alcohol withdrawal. Continue CIWA protocol. (6) Hypothyroidism ICD Code: E03.9 Status: Acute Plan: Patient with chronic hypothyroidism Continue replacement therapy with levothyroxine. TSH normal. (7) Hypotension ICD Code: I95.9 Status: Acute Plan: Patient with blood pressure with systolic blood pressure in the 90s. Improving. Continue to monitor vital signs, will give IV fluid boluses as needed. Hold antihypertensive medications including diuretics and lisinopril. (8) Hypocalcemia ICD Code: E83.51 Status: Acute Plan: Likely secondary to poor oral intake. Replace with IV calcium chloride and continue to monitor calcium levels. (9) Anxiety ICD Code: F41.9 Status: Acute Plan: I will resume Vistaril for anxiety. Assessment and Plan GI proph: on PPI DVT Prophylaxis: SCD's, no chemoprophylaxis given active GI bleed, anemia and thrombocytopenia. Discharge Planning Patient will receive 2 units of packed blood cells, platelets. Hemoglobin is dropping. Continue to monitor in the medical floor. Problem Qualifiers (1) Type 2 diabetes mellitus: Qualified Code: E11.8 - Type 2 diabetes mellitus with complication, with long- term current use of insulin (2) Hypothyroidism: Qualified Code: E03.9 - Hypothyroidism, unspecified type Donovan Sims MD Jan 14, 2017 12:23
[2017-01-14] MEDS ORDERED: SULFADIAZINE 500 MG PO SCH (14:00)
[2017-01-14] MEDS: GABAPENTIN 400 MG CAP PO SCH ×2 (14:57→17:52)
[2017-01-14] MEDS: LEVOTHYROXINE SODIUM 25 MCG TAB PO SCH (14:57)
--- NOTE | 2017-01-14 19:11 | ECHRPT ---
Indication: Cardiac murmur, unspecified CONCLUSIONS Normal left ventricular size. Wall thickness is measured at the upper limits of normal. The left ventricular systolic function is normal with an estimated ejection fraction in the range of 55-60%. No regional wall motion abnormalities are present. Mild mitral annular calcification. There is mild tricuspid valve regurgitation. The estimated pulmonary arterial pressure is 23 mmHg. Mild calcification of the aortic valve. Mild thickening of the aortic valve leaflets. BP: / HR: 85 Rhythm: Sinus MEASUREMENTS (Male / Female) Normal Values Technical Quality:Fair 2D ECHO LV Diastolic Diameter PLAX 4.1 cm 4.2 - 5.9 / 3.9 - 5.3 cm LV Systolic Diameter PLAX 3.0 cm IVS Diastolic Thickness 1.1 cm 0.6 - 1.0 / 0.6 - 0.9 cm LVPW Diastolic Thickness 1.1 cm 0.6 - 1.0 / 0.6 - 0.9 cm LV Relative Wall Thickness 0.5 LVOT Diameter 2.1 cm LA Systolic Diameter LX 4.4 cm 3.0 - 4.0 / 2.7 - 3.8 cm M-MODE Aortic Root Diameter MM 2.6 cm LA Systolic Diameter MM 4.3 cm LA Ao Ratio MM 1.6 AV Cusp Separation MM 2.0 cm DOPPLER AV Peak Velocity 186.0 cm/s AV Peak Gradient 13.8 mmHg LVOT Peak Velocity 128.0 cm/s LVOT Peak Gradient 6.6 mmHg AV Area Cont Eq pk 2.4 cm Mitral E Point Velocity 122.0 cm/s Mitral A Point Velocity 110.0 cm/s Mitral E to A Ratio 1.1 LV E' Lateral Velocity 8.9 cm/s Mitral E to LV E' Lateral Ratio 13.8 LV E' Septal Velocity 3.6 cm/s Mitral E to LV E' Septal Ratio 33.8 TR Peak Velocity 181.0 cm/s TR Peak Gradient 13.1 mmHg PV Peak Velocity 133.0 cm/s PV Peak Gradient 7.1 mmHg FINDINGS LEFT VENTRICLE Normal left ventricular size. Wall thickness is measured at the upper limits of normal. The left ventricular systolic function is normal with an estimated ejection fraction in the range of 55-60%. No regional wall motion abnormalities are present. RIGHT VENTRICLE Normal right ventricular size and systolic function. LEFT ATRIUM The left atrial size is upper limits of normal. RIGHT ATRIUM The right atrial size is normal. ATRIAL SEPTUM Normal atrial septal thickness without atrial level shunting by limited color doppler interrogation. AORTA The aortic root and proximal ascending aorta are normal in size on limited imaging. MITRAL VALVE Mild mitral annular calcification. AORTIC VALVE Mild calcification of the aortic valve. Mild thickening of the aortic valve leaflets. TRICUSPID VALVE There is mild tricuspid valve regurgitation. The estimated pulmonary arterial pressure is 23 mmHg. PULMONARY VALVE The pulmonary valve is not well visualized. VESSELS The inferior vena cava is normal in size. PERICARDIUM No pericardial effusion. Meir Carcamo MD (Electronically Signed) Final Date:14 January 2017 19:11
[2017-01-14] MEDS ORDERED: MULTIVITAMIN INJ 10 ML, FOLIC ACID INJ 1 MG in SODIUM CHLORID 0.9% 500 ML INJ 500 ML IV SCH (20:00)
[2017-01-14] MEDS ORDERED: THIAMINE INJ 100 MG in SODIUM CHLORIDE 0.9% INJ 100 ML IV SCH (21:00)
[2017-01-15] VITALS (8 sets, daily range): BP systolic 98–117; BP diastolic 55–72; PULSE 78–102; RESP 16–20; TEMP 98–99.9; O2SAT 91–96
[2017-01-15] MEDS: PANTOPRAZOLE INJ 80 MG in SODIUM CHLORIDE 0.9% INJ 100 ML IV SCH ×2 (01:43→11:38)
[2017-01-15] MEDS: OCTREOTIDE INJ 500 MCG in SODIUM CHLORID 0.9% 500 ML INJ 500 ML IV SCH ×2 (01:43→11:38)
[2017-01-15] MEDS: SODIUM CHLOR 0.9% 1000 ML INJ 1,000 ML IV SCH ×2 (01:43→12:52)
[2017-01-15] MEDS: LEVOTHYROXINE SODIUM 25 MCG TAB PO SCH (05:50)
[2017-01-15 06:21] LABS: AUTOMATED NEUTROPHIL # 4.2 TH/MM3 (1.8-7.7); BASOPHIL % 0.9 % (0.0-2.0); EOSINOPHIL # 0.2 TH/MM3 (0-0.4); EOSINOPHIL % 3.2 % (0.0-4.0); HEMATOCRIT 28.1 % (35.0-46.0); LYMPH % 9.5 % (9.0-44.0); LYMPHOCYTE # 0.5 TH/MM3 (1.0-4.8); MEAN CELL VOLUME 95.2 FL (80.0-100.0); MEAN CORPUSCULAR HEMOGLOBIN 32.5 PG (27.0-34.0); MEAN CORPUSCULAR HGB CONC 34.1 % (32.0-36.0); MONO % 8.8 % (0.0-8.0); NEUT % 77.6 % (16.0-70.0); PLATELET COUNT 58 TH/MM3 (150-450); RED BLOOD COUNT 2.95 MIL/MM3 (4.00-5.30); RED CELL DISTRIBUTION WIDTH 20.2 % (11.6-17.2); WHITE BLOOD COUNT 5.4 TH/MM3 (4.0-11.0)
[2017-01-15 06:24] LABS: HEMO FLAGS AUTO DIFF
[2017-01-15 06:26] LABS: CHLORIDE 109 MEQ/L (98-107); SODIUM (NA) 141 MEQ/L (136-145)
[2017-01-15 06:42] LABS: ALKALINE PHOSPHATASE 144 U/L (45-117); ALT (GPT) 28 U/L (10-53); ANION GAP 9 MEQ/L (5-15); AST (GOT) 80 U/L (15-37); BICARBONATE 22.6 MEQ/L (21.0-32.0); BLOOD UREA NITROGEN 8 MG/DL (7-18); GLOMERULAR FILTRATION RATE 101 ML/MIN (>89); TOTAL BILIRUBIN ADULT 4.4 MG/DL (0.2-1.0)
[2017-01-15 07:09] LABS: PLATELET ESTIMATE SMEAR LOW (NORMAL); PLATELET MORPHOLOGY NORMAL (NORMAL); SCAN/DIFF AUTO DIFF CONFIRMED
[2017-01-15] MEDS: HYDROCORTISONE ACETATE 25 MG SUPP RECTAL SCH ×2 (09:49→22:05)
[2017-01-15] MEDS: PHYTONADIONE 10 MG/ML VIAL SQ SCH (09:50)
[2017-01-15] MEDS: MULTIVITAMIN TAB PO SCH (09:50)
[2017-01-15] MEDS: GABAPENTIN 400 MG CAP PO SCH ×4 (09:50→17:02)
[2017-01-15] MEDS: DOCUSATE SODIUM 50 MG/SENNA 8.6 MG TAB PO SCH ×2 (09:50→21:00)
[2017-01-15] MEDS: SODIUM CHLORIDE 0.9% FLUSH 10 ML FLUSH IV FLUSH SCH ×2 (09:51→22:05)
[2017-01-15] MEDS: MAGNESIUM SULFATE 1 GM PREMIX 100 ML IV SCH ×2 (11:38→12:51)
[2017-01-15 11:47] LABS: MEAN CELL VOLUME 94.6 FL (80.0-100.0); MEAN CORPUSCULAR HEMOGLOBIN 32.7 PG (27.0-34.0); MEAN CORPUSCULAR HGB CONC 34.6 % (32.0-36.0); PLATELET COUNT 55 TH/MM3 (150-450); RED BLOOD COUNT 2.96 MIL/MM3 (4.00-5.30); RED CELL DISTRIBUTION WIDTH 20.1 % (11.6-17.2); WHITE BLOOD COUNT 5.6 TH/MM3 (4.0-11.0)
[2017-01-15 11:56] LABS: REVIEW FLAG FINAL
--- NOTE | 2017-01-15 12:26 | HHI.PR ---
Subjective Remarks deferred entry - patient seen at 11:00 AM Patient states she is still c/o melena denies cp/sob Vital signs stable Objective Vitals Vital Signs Date Time Temp Pulse Resp B/P Pulse Ox O2 Delivery O2 Flow Rate FiO2 01/15/17 08:00 98.1 102 18 99/57 92 01/15/17 04:00 98.0 98 18 109/65 93 01/15/17 00:00 98.0 84 18 117/72 94 01/14/17 21:17 98.6 99 18 114/74 91 01/14/17 21:00 85 01/14/17 20:00 98.0 84 18 117/72 94 01/14/17 15:12 98.6 94 18 132/84 98 01/14/17 12:48 18 01/14/17 12:30 98.3 91 14 116/67 98 I/O 01/14/17 01/14/17 01/14/17 01/15/17 01/15/17 01/15/17 07:00 15:00 23:00 07:00 15:00 23:00 Intake Total 0 ml 470 ml 2590 ml Output Total 600 ml Balance 0 ml 470 ml 1990 ml Intake Oral 0 ml 470 ml 240 ml IV Total 2350 ml Output Urine Total 600 ml # Voids 6 1 # Bowel Movements 6 0 0 Result Diagram: 01/15/17 1140 01/15/17 0545 Imaging Last Impressions Abdomen/Pelvis CT 01/13/17 0000 Signed Impressions: Service Date/Time: Friday, January 13, 2017 21:15 - CONCLUSION: 1. Liver cirrhosis with varices as above. No ascites. 2. Multiple calcified gallstones without biliary ductal dilatation. 3. Partially calcified uterine fibroid measuring just over 2 cm in diameter. 4. Remote compression deformity of L2 without retropulsion. 5. No bowel obstruction. No free air. Bruce Encarnacion MD Objective Remarks GENERAL: Well-developed, well-nourished, in no acute distress. alert and orientated HEENT: Head is normocephalic without any lesions or masses noted. Facial features are symmetric. Eyes: Pupils equal round reactive to light. Extraocular muscles are intact. Conjunctivae were clear. Oropharyngeal: Pharynx without any erythema edema. Tongue is midline without deviation. Buccal mucosa is moist without any masses or lesions NECK: Supple without any masses. Trachea midline no deviation. No JVD, no bruits are appreciated CARDIAC: Regular rhythm, regular rate. S2 are heard. 3/6 holosystolic murmur noted, no gallops or rubs. LUNGS: Clear to auscultation bilaterally. No wheeze, rhonchi or rales. No use of accessory muscles on inspiration or expiration. ABDOMEN: Soft, nontender. Nondistended. Bowel sounds heard in all 4 quadrants. No organomegaly or masses. Negative rebound, negative guarding EXTREMITIES: No edema, pulses are equal bilaterally. No cyanosis or clubbing NEUROLOGY: Mood and affect appear appropriate. Cranial nerves II through XII grossly intact. Muscle strength 5/5 in upper and lower extremities bilaterally. Deep tendon reflexes are 2+ in upper and lower extremities bilaterally. Procedures Status post panendoscopy with biopsy, colonoscopy with biopsy and ablation of internal hemorrhoids with epinephrine injection on 01/14 Medications and IVs Current Medications Medications (Trade) Dose Ordered Sig/Dax Route Start Time Stop Time Status Last Admin Sodium Chloride 2 ml 2 ml UNSCH PRN IVF 01/13/17 09:15 Octreotide Acetate 500 mcg/ Sodium Chloride 500.5 ml @ 50 mls/hr Q10H IV 01/13/17 10:30 01/15/17 11:38 Pantoprazole Sodium 80 mg/ Sodium Chloride 100 ml @ 10 mls/hr Q10H IV 01/13/17 10:30 01/15/17 11:38 (NS 1000 ml Inj) 1,000 ml @ 100 mls/hr Q10H IV 01/13/17 12:18 01/15/17 12:52 (NS Flush) 2 ml UNSCH PRN IV FLUSH 01/13/17 12:30 (NS Flush) 2 ml BID IV FLUSH 01/13/17 21:00 01/15/17 09:51 (Tylenol) 650 mg Q4H PRN PO 01/13/17 13:00 01/14/17 11:59 (Milagros-Colace) 1 tab BID PO 01/13/17 21:00 01/15/17 09:50 (Milk Of Magnesia Liq) 30 ml Q12HR PRN PO 01/13/17 13:00 (Senokot) 17.2 mg Q12HR PRN PO 01/13/17 13:00 (Dulcolax Supp) 10 mg DAILY PRN RECTAL 01/13/17 13:00 (Lactulose Liq) 30 ml DAILY PRN PO 01/13/17 13:00 (Romazicon Inj) 0.2 mg Q1M PRN IV PUSH 01/13/17 16:00 (Ativan) 1 mg Q4H PRN PO 01/13/17 16:00 01/14/17 15:07 (Ativan Inj) 1 mg Q4H PRN IV PUSH 01/13/17 16:00 (Ativan) 2 mg Q2H PRN PO 01/13/17 16:00 (Ativan Inj) 2 mg Q2H PRN IV PUSH 01/13/17 16:00 (Ativan Inj) 2 mg Q1H PRN IV PUSH 01/13/17 16:00 (Ativan Inj) 2 mg Q15M PRN IV PUSH 01/13/17 16:00 (Hemorrhoidal Hc Supp) 25 mg BID RECTAL 01/14/17 09:00 01/15/17 09:49 (Vitamin K Inj) 10 mg DAILY SQ 01/14/17 09:00 01/15/17 09:50 (Ultram) 50 mg Q6H PRN PO 01/14/17 12:00 (Neurontin) 800 mg TID PO 01/14/17 13:00 01/15/17 12:52 (Vistaril) 50 mg Q6HR PRN PO 01/14/17 12:15 01/15/17 10:06 (Synthroid) 25 mcg DAILY@06 PO 01/14/17 12:48 01/15/17 05:50 (Theragran) 1 tab DAILY PO 01/15/17 09:00 01/15/17 09:50 Patient Own Medication PT OWN MED: (Sulfadiazine 500 MG... Q8HR PO 01/14/17 14:00 Hold Thiamine HCl 100 mg/Sodium Chloride 101 ml @ 100 mls/hr Q24H IV 01/14/17 21:00 01/14/17 21:00 (Mvi-12 Inj/ Folvite Inj/NS 500 ml Inj) 510.2 ml @ 125 mls/hr Q24H IV 01/14/17 20:00 01/14/17 20:00 (Prinivil) 5 mg DAILY PO 01/16/17 09:00 (D50w (Vial) Inj) 50 ml UNSCH PRN IV 01/15/17 12:30 (Glucagon Inj) 1 mg UNSCH PRN OTHER 01/15/17 12:30 Urinary Catheter: No Vascular Central Line Catheter: No A/P Problem List: (1) Rectal bleeding ICD Code: K62.5 Status: Acute (2) Thrombocytopenia ICD Code: D69.6 Status: Acute (3) Hyponatremia ICD Code: E87.1 Status: Acute (4) Type 2 diabetes mellitus ICD Code: E11.9 Status: Acute (5) Alcohol abuse ICD Code: F10.10 Status: Acute (6) Hypothyroidism ICD Code: E03.9 Status: Acute (7) Hypotension ICD Code: I95.9 Status: Acute (8) Hypocalcemia ICD Code: E83.51 Status: Acute (9) Anxiety ICD Code: F41.9 Status: Acute Assessment and Plan (1) Rectal bleeding Patient with history of rectal bleeding since age 10, patient at increased risk due to gastroesophageal reflux, portal gastropathy, bleeding tendencies, thrombocytopenia Continue to monitor hemoglobin and transfuse if hemoglobin below 8.0 Patient started on Protonix IV, octreotide IV per GI recommendations 01/15 patient underwent EGD with biopsy. Colonoscopy with biopsy and ablation of internal hemorrhoids with epinephrine injection. EGD showed findings of esophageal varices, portal gastropathy, duodenitis, gastritis. Patient continue PPI. Colonoscopy showed diverticulosis, internal hemorrhoids status post epinephrine injection. Status post transfusion of 2 units of packed blood cells. Hemoglobin responded appropriately. We'll repeat CBC. If hemoglobin is stable, I will discharge the patient home. (2) Thrombocytopenia Appears to be chronic secondary to cirrhosis Continue monitor CBC 01/14 platelets trending down, platelet count on 01/14 is 40 K. I will check this 1 unit of platelets and try to keep platelets above 50,000. 01/15 status post fusion of 1 unit of platelets. Platelet today 58K. Continue to monitor. (3) Hyponatremia Suspect hypovolemic hyponatremia. Hyponatremia resolved after IV fluid administration. (4) Type 2 diabetes mellitus 01/14 Continue to hold oral hypoglycemics Place on Accu-Cheks and SSI with insulin NovoLog. (5) Alcohol abuse Patient denies any alcohol use for at least a year, however 3 months ago when she was admitted she was written for glass of wine daily. Patient has obvious signs of alcohol withdrawal 01/14 continue thiamine and folic acid. No evidence of alcohol withdrawal. Continue CIWA protocol. 01/15 no evidence of alcohol withdrawal. (6) Hypothyroidism Patient with chronic hypothyroidism Continue replacement therapy with levothyroxine. TSH normal. (7) Hypotension Patient with blood pressure with systolic blood pressure in the 90s. Improving. Continue to monitor vital signs, will give IV fluid boluses as needed. Hold antihypertensive medications including diuretics and lisinopril. (8) Hypocalcemia Likely secondary to poor oral intake. Replace with IV calcium chloride and continue to monitor calcium levels. (9) Anxiety Continue Vistaril for anxiety. GI proph: on PPI DVT Prophylaxis: SCD's, no chemoprophylaxis given active GI bleed, anemia and thrombocytopenia. Discharge Planning DC later today if hemoglobin stable. Problem Qualifiers (1) Type 2 diabetes mellitus: Qualified Code: E11.8 - Type 2 diabetes mellitus with complication, with long- term current use of insulin (2) Hypothyroidism: Qualified Code: E03.9 - Hypothyroidism, unspecified type Donovan Sims MD Jan 15, 2017 12:26
[2017-01-15] MEDS ORDERED: DEXTROSE 50% IN WATER 50 ML VIAL(D50) IV PRN (12:30)
[2017-01-15] MEDS ORDERED: GLUCAGON 1 MG/ML VIAL OTHER PRN (12:30)
--- NOTE | 2017-01-15 15:17 | HHI.DCPOC ---
Discharge Care Plan Diagnosis: (1) Rectal bleeding (2) Hyponatremia (3) Cirrhosis Goals to Promote Your Health * To prevent worsening of your condition and complications * To maintain your health at the optimal level Directions to Meet Your Goals Take your medications as prescribed Follow your dietary instruction Follow activity as directed Keep your appointments as scheduled Take your immunizations and boosters as scheduled If your symptoms worsen call your PCP, if no PCP go to Urgent Care Center or Emergency Room Smoking is Dangerous to Your Health. Avoid second hand smoke Call the 24-hour hour crisis hotline for domestic abuse at [facility] Verdin Jan 15, 2017 15:17
[2017-01-15] MEDS ORDERED: ANUS25SU RECTAL (15:18)
[2017-01-15] MEDS: INSULIN ASPART SUPPLEMENTAL SCALE SQ SCH ×2 (17:02→21:00)
[2017-01-15] MEDS: PANTOPRAZOLE SODIUM 40 MG VIAL IV PUSH SCH (17:55)
[2017-01-16] MEDS: SODIUM CHLOR 0.9% 1000 ML INJ 1,000 ML IV SCH ×2 (00:18→15:18)
[2017-01-16 01:22] VITALS: BP 104/60; PULSE 88; RESP 16; TEMP 98.8; O2SAT 97
[2017-01-16] MEDS: LEVOTHYROXINE SODIUM 25 MCG TAB PO SCH (05:10)
[2017-01-16 05:39] VITALS: BP 111/71; PULSE 90; RESP 14; TEMP 98.9; O2SAT 95
[2017-01-16 06:34] LABS: AUTOMATED NEUTROPHIL # 3.9 TH/MM3 (1.8-7.7); BASOPHIL % 0.5 % (0.0-2.0); EOSINOPHIL # 0.2 TH/MM3 (0-0.4); EOSINOPHIL % 2.9 % (0.0-4.0); HEMATOCRIT 27.1 % (35.0-46.0); LYMPH % 9.8 % (9.0-44.0); LYMPHOCYTE # 0.5 TH/MM3 (1.0-4.8); MEAN CELL VOLUME 95.7 FL (80.0-100.0); MEAN CORPUSCULAR HGB CONC 34.5 % (32.0-36.0); MONO % 12.4 % (0.0-8.0); NEUT % 74.4 % (16.0-70.0); PLATELET COUNT 49 TH/MM3 (150-450); RED BLOOD COUNT 2.83 MIL/MM3 (4.00-5.30); RED CELL DISTRIBUTION WIDTH 20.4 % (11.6-17.2); WHITE BLOOD COUNT 5.2 TH/MM3 (4.0-11.0)
[2017-01-16 06:43] LABS: POTASSIUM 3.7 MEQ/L (3.5-5.1)
[2017-01-16 06:48] LABS: HEMO FLAGS AUTO DIFF
[2017-01-16 07:00] LABS: BICARBONATE 21.8 MEQ/L (21.0-32.0); CALCIUM-PROTEIN CORRECTED 8.3 MG/DL (8.5-10.1); MAGNESIUM 1.1 MG/DL (1.5-2.5); TOTAL BILIRUBIN ADULT 3.6 MG/DL (0.2-1.0)
[2017-01-16 08:00] VITALS: BP 125/60; PULSE 91; PULSE 95; RESP 18; TEMP 98.1; O2SAT 98
[2017-01-16 08:03] LABS: PLATELET ESTIMATE SMEAR LOW (NORMAL); PLATELET MORPHOLOGY NORMAL (NORMAL); SCAN/DIFF AUTO DIFF CONFIRMED
[2017-01-16] MEDS: GABAPENTIN 400 MG CAP PO SCH ×3 (08:12→16:29)
[2017-01-16] MEDS: DOCUSATE SODIUM 50 MG/SENNA 8.6 MG TAB PO SCH ×2 (08:12→21:41)
[2017-01-16] MEDS: HYDROCORTISONE ACETATE 25 MG SUPP RECTAL SCH ×2 (08:12→21:41)
[2017-01-16] MEDS: FOLIC ACID 1 MG TAB PO SCH (08:12)
[2017-01-16] MEDS: MULTIVITAMIN TAB PO SCH (08:12)
[2017-01-16] MEDS: THIAMINE HCL 100 MG TAB PO SCH (08:12)
[2017-01-16] MEDS: PHYTONADIONE 10 MG/ML VIAL SQ SCH (08:13)
[2017-01-16] MEDS: SODIUM CHLORIDE 0.9% FLUSH 10 ML FLUSH IV FLUSH SCH ×2 (08:13→21:00)
[2017-01-16] MEDS ORDERED: LISINOPRIL 5 MG TAB PO SCH (09:00)
[2017-01-16] MEDS: INSULIN ASPART SUPPLEMENTAL SCALE SQ SCH ×3 (11:00→21:00)
--- NOTE | 2017-01-16 11:34 | HHI.PR ---
Subjective Remarks Patient still c/o of melanotic stools and bright red blood per rectum denies dizziness denies cp/sob stable vital signs Objective Vitals Vital Signs Date Time Temp Pulse Resp B/P Pulse Ox O2 Delivery O2 Flow Rate FiO2 01/16/17 08:00 91 01/16/17 08:00 98.1 95 18 125/60 98 01/16/17 05:39 98.9 90 14 111/71 95 01/16/17 01:22 98.8 88 16 104/60 97 01/15/17 21:00 91 01/15/17 20:20 99.9 93 16 98/55 96 01/15/17 16:00 99.3 89 20 109/69 93 01/15/17 12:00 99.0 102 16 107/55 91 I/O 01/15/17 01/15/17 01/15/17 01/16/17 01/16/17 01/16/17 07:00 15:00 23:00 07:00 15:00 23:00 Intake Total 2590 ml 2140 ml 400 ml Output Total 600 ml 200 ml Balance 1990 ml 2140 ml 200 ml Intake Oral 240 ml IV Total 2350 ml 2140 ml 400 ml Output Urine Total 600 ml 200 ml # Voids 2 # Bowel Movements 0 Result Diagram: 01/16/1752401/16/17 0525 Objective Remarks GENERAL: Well-developed, well-nourished, in no acute distress. alert and orientated HEENT: Head is normocephalic without any lesions or masses noted. Facial features are symmetric. Eyes: Pupils equal round reactive to light. Extraocular muscles are intact. Conjunctivae were clear. Oropharyngeal: Pharynx without any erythema edema. Tongue is midline without deviation. Buccal mucosa is moist without any masses or lesions NECK: Supple without any masses. Trachea midline no deviation. No JVD, no bruits are appreciated CARDIAC: Regular rhythm, regular rate. S2 are heard. 3/6 holosystolic murmur noted, no gallops or rubs. LUNGS: Clear to auscultation bilaterally. No wheeze, rhonchi or rales. No use of accessory muscles on inspiration or expiration. ABDOMEN: Soft, nontender. Nondistended. Bowel sounds heard in all 4 quadrants. No organomegaly or masses. Negative rebound, negative guarding EXTREMITIES: No edema, pulses are equal bilaterally. No cyanosis or clubbing NEUROLOGY: Mood and affect appear appropriate. Cranial nerves II through XII grossly intact. Muscle strength 5/5 in upper and lower extremities bilaterally. Deep tendon reflexes are 2+ in upper and lower extremities bilaterally. Procedures Status post panendoscopy with biopsy, colonoscopy with biopsy and ablation of internal hemorrhoids with epinephrine injection on 01/14 Medications and IVs Current Medications Medications (Trade) Dose Ordered Sig/Dax Route Start Time Stop Time Status Last Admin (NS 1000 ml Inj) 1,000 ml @ 100 mls/hr Q10H IV 01/13/17 12:18 01/16/17 00:18 (NS Flush) 2 ml UNSCH PRN IV FLUSH 01/13/17 12:30 (NS Flush) 2 ml BID IV FLUSH 01/13/17 21:00 01/16/17 08:13 (Tylenol) 650 mg Q4H PRN PO 01/13/17 13:00 01/14/17 11:59 (Milagros-Colace) 1 tab BID PO 01/13/17 21:00 01/16/17 08:12 (Milk Of Magnesia Liq) 30 ml Q12HR PRN PO 01/13/17 13:00 (Senokot) 17.2 mg Q12HR PRN PO 01/13/17 13:00 (Dulcolax Supp) 10 mg DAILY PRN RECTAL 01/13/17 13:00 (Lactulose Liq) 30 ml DAILY PRN PO 01/13/17 13:00 (Romazicon Inj) 0.2 mg Q1M PRN IV PUSH 01/13/17 16:00 (Ativan) 1 mg Q4H PRN PO 01/13/17 16:00 01/14/17 15:07 (Ativan Inj) 1 mg Q4H PRN IV PUSH 01/13/17 16:00 (Ativan) 2 mg Q2H PRN PO 01/13/17 16:00 (Ativan Inj) 2 mg Q2H PRN IV PUSH 01/13/17 16:00 (Ativan Inj) 2 mg Q1H PRN IV PUSH 01/13/17 16:00 (Ativan Inj) 2 mg Q15M PRN IV PUSH 01/13/17 16:00 (Hemorrhoidal Hc Supp) 25 mg BID RECTAL 01/14/17 09:00 01/16/17 08:12 (Vitamin K Inj) 10 mg DAILY SQ 01/14/17 09:00 01/16/17 08:13 (Ultram) 50 mg Q6H PRN PO 01/14/17 12:00 (Neurontin) 800 mg TID PO 01/14/17 13:00 01/16/17 08:12 (Vistaril) 50 mg Q6HR PRN PO 01/14/17 12:15 01/15/17 10:06 (Synthroid) 25 mcg DAILY@06 PO 01/14/17 12:48 01/16/17 05:10 (Theragran) 1 tab DAILY PO 01/15/17 09:00 01/16/17 08:12 Patient Own Medication PT OWN MED: (Sulfadiazine 500 MG... Q8HR PO 01/14/17 14:00 Hold (D50w (Vial) Inj) 50 ml UNSCH PRN IV 01/15/17 12:30 (Glucagon Inj) 1 mg UNSCH PRN OTHER 01/15/17 12:30 (Protonix Inj) 40 mg Q24H IV PUSH 01/15/17 18:00 01/15/17 17:55 (Folate) 1 mg DAILY PO 01/16/17 09:00 01/16/17 08:12 (Vitamin B1) 100 mg DAILY PO 01/16/17 09:00 01/16/17 08:12 Urinary Catheter: No Vascular Central Line Catheter: No A/P Problem List: (1) Rectal bleeding ICD Code: K62.5 Status: Acute (2) Thrombocytopenia ICD Code: D69.6 Status: Acute (3) Hyponatremia ICD Code: E87.1 Status: Acute (4) Type 2 diabetes mellitus ICD Code: E11.9 Status: Acute (5) Alcohol abuse ICD Code: F10.10 Status: Acute (6) Hypothyroidism ICD Code: E03.9 Status: Acute (7) Hypotension ICD Code: I95.9 Status: Acute (8) Hypocalcemia ICD Code: E83.51 Status: Acute (9) Anxiety ICD Code: F41.9 Status: Acute Assessment and Plan (1) Rectal bleeding Patient with history of rectal bleeding since age 10, patient at increased risk due to gastroesophageal reflux, portal gastropathy, bleeding tendencies, thrombocytopenia Continue to monitor hemoglobin and transfuse if hemoglobin below 8.0 Patient started on Protonix IV, octreotide IV per GI recommendations 01/15 patient underwent EGD with biopsy. Colonoscopy with biopsy and ablation of internal hemorrhoids with epinephrine injection. EGD showed findings of esophageal varices, portal gastropathy, duodenitis, gastritis. Patient continue PPI. Colonoscopy showed diverticulosis, internal hemorrhoids status post epinephrine injection. Status post transfusion of 2 units of packed blood cells. Hemoglobin responded appropriately. 01/16 Patient still c/o melena and BRBPR. Hemoglobin slightly decreased but overall stable. Will reconsult GI. Will place on clear liquid diet. (2) Thrombocytopenia Appears to be chronic secondary to cirrhosis Continue monitor CBC 01/14 platelets trending down, platelet count on 01/14 is 40 K. I will check this 1 unit of platelets and try to keep platelets above 50,000. 01/15 status post transfusion of 1 unit of platelets. Platelet today 58K. Continue to monitor. 01/16 Platelet slightly trending down - 49K today. continue to monitor. (3) Hyponatremia Suspect hypovolemic hyponatremia. Hyponatremia resolved after IV fluid administration. (4) Type 2 diabetes mellitus 01/14 Continue to hold oral hypoglycemics Place on Accu-Cheks and SSI with insulin NovoLog. Blood sugars stable. (5) Alcohol abuse Patient denies any alcohol use for at least a year, however 3 months ago when she was admitted she was written for glass of wine daily. Patient has obvious signs of alcohol withdrawal 01/14 continue thiamine and folic acid. No evidence of alcohol withdrawal. Continue CIWA protocol. 01/15 no evidence of alcohol withdrawal. (6) Hypothyroidism Patient with chronic hypothyroidism Continue replacement therapy with levothyroxine. TSH normal. (7) Hypotension Patient with blood pressure with systolic blood pressure in the 90s. Improving. Continue to monitor vital signs, will give IV fluid boluses as needed. Hold antihypertensive medications including diuretics and lisinopril. (8) Hypocalcemia Likely secondary to poor oral intake. Replace with IV calcium chloride and continue to monitor calcium levels and replace as needed. (9) Anxiety Continue Vistaril for anxiety. GI proph: on PPI DVT Prophylaxis: SCD's, no chemoprophylaxis given active GI bleed, anemia and thrombocytopenia. Discharge Planning Patient still having melanotic stools and BRBPR - Will reconsult GI. Problem Qualifiers (1) Type 2 diabetes mellitus: Qualified Code: E11.8 - Type 2 diabetes mellitus with complication, with long- term current use of insulin (2) Hypothyroidism: Qualified Code: E03.9 - Hypothyroidism, unspecified type Donovan Sims MD Jan 16, 2017 11:33
[2017-01-16 12:00] VITALS: BP 123/76; PULSE 92; RESP 17; TEMP 97.7; O2SAT 98
[2017-01-16] MEDS ORDERED: CALCIUM CHLORIDE INJ 1 GM in SODIUM CHLORIDE 0.9% INJ 100 ML IV ONE (13:00)
[2017-01-16] MEDS ORDERED: CALCIUM GLUCONATE INJ 1 GM in SODIUM CHLORIDE 0.9% INJ 100 ML IV ONE (13:00)
[2017-01-16 13:45] LABS: HEMATOCRIT 27.1 % (35.0-46.0); MEAN CELL VOLUME 95.6 FL (80.0-100.0); MEAN CORPUSCULAR HEMOGLOBIN 32.5 PG (27.0-34.0); PLATELET COUNT 50 TH/MM3 (150-450); RED BLOOD COUNT 2.84 MIL/MM3 (4.00-5.30); RED CELL DISTRIBUTION WIDTH 20.1 % (11.6-17.2); WHITE BLOOD COUNT 4.6 TH/MM3 (4.0-11.0)
[2017-01-16 13:49] LABS: REVIEW FLAG FINAL
[2017-01-16 16:00] VITALS: BP 111/79; PULSE 85; RESP 21; TEMP 98.6; O2SAT 98
[2017-01-16] MEDS: PANTOPRAZOLE SODIUM 40 MG VIAL IV PUSH SCH (16:29)
[2017-01-16 20:10] VITALS: BP 110/70; PULSE 88; RESP 20; TEMP 98.6; O2SAT 97
--- NOTE | 2017-01-16 20:34 | HHI.GIFU ---
GI Follow-up Note Consult Follow-up Subjective: Patient laying in bed comfortably, still having rectal bleeding, red.She has large hemorrhoids, interna and external s/p endoscopic treatment .I ( discussed with dr English , ideally no intervention on a cirrhotic patiet, if continues to bleed we will place an official consult Objective: PHYSICAL EXAMINATION: Vitals signs stable No fever Vital Signs Date Time Temp Pulse Resp B/P Pulse Ox O2 Delivery O2 Flow Rate FiO2 01/16/17 20:10 98.6 88 20 110/70 97 01/16/17 16:00 98.6 85 21 111/79 98 HEENT: Pupils round and reactive to light; normocephalic; atraumatic; no jaundice. Throat is clear. NECK: Neck is supple, no JVD, no lymphadenopathy. CHEST: Chest is clear to auscultation and percussion. CARDIAC: Regular rate and rhythm with no murmur gallop or rubs. ABDOMEN: Soft, nondistended, nontender; no hepatosplenomegaly; bowel sounds are present in all four quadrants. EXTREMITIES: No clubbing, cyanosis, or edema. SKIN: Normal; no rash; no jaundice. 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 rectal exam-blood on diaper , red , external hemorrhoids Available Data (labs, X- Rays, Procedues) : Laboratory Tests Test 01/15/17 01/15/17 01/16/17 01/16/17 05:45 11:40 05:25 12:55 White Blood Count 5.4 TH/MM3 5.6 TH/MM3 5.2 TH/MM3 4.6 TH/MM3 Red Blood Count 2.95 MIL/MM3 2.96 MIL/MM3 2.83 MIL/MM3 2.84 MIL/MM3 Hemoglobin 9.6 GM/DL 9.7 GM/DL 9.4 GM/DL 9.2 GM/DL Hematocrit 28.1 % 28.0 % 27.1 % 27.1 % Mean Corpuscular Volume 95.2 FL 94.6 FL 95.7 FL 95.6 FL Mean Corpuscular Hemoglobin 32.5 PG 32.7 PG 33.0 PG 32.5 PG Mean Corpuscular Hemoglobin 34.1 % 34.6 % 34.5 % 34.0 % Concent Red Cell Distribution Width 20.2 % 20.1 % 20.4 % 20.1 % Platelet Count 58 TH/MM3 55 TH/MM3 49 TH/MM3 50 TH/MM3 Mean Platelet Volume 7.5 FL 7.1 FL 7.5 FL 7.6 FL Neutrophils (%) (Auto) 77.6 % 74.4 % Lymphocytes (%) (Auto) 9.5 % 9.8 % Monocytes (%) (Auto) 8.8 % 12.4 % Eosinophils (%) (Auto) 3.2 % 2.9 % Basophils (%) (Auto) 0.9 % 0.5 % Neutrophils # (Auto) 4.2 TH/MM3 3.9 TH/MM3 Lymphocytes # (Auto) 0.5 TH/MM3 0.5 TH/MM3 Monocytes # (Auto) 0.5 TH/MM3 0.6 TH/MM3 Eosinophils # (Auto) 0.2 TH/MM3 0.2 TH/MM3 Basophils # (Auto) 0.0 TH/MM3 0.0 TH/MM3 CBC Comment AUTO DIFF AUTO DIFF Differential Comment AUTO DIFF AUTO DIFF CONFIRMED CONFIRMED Platelet Estimate LOW LOW Platelet Morphology Comment NORMAL NORMAL Sodium Level 141 MEQ/L 143 MEQ/L Potassium Level 4.0 MEQ/L 3.7 MEQ/L Chloride Level 109 MEQ/L 109 MEQ/L Carbon Dioxide Level 22.6 MEQ/L 21.8 MEQ/L Anion Gap 9 MEQ/L 12 MEQ/L Blood Urea Nitrogen 8 MG/DL 6 MG/DL Creatinine 0.60 MG/DL 0.56 MG/DL Estimat Glomerular Filtration 101 ML/MIN 109 ML/MIN Rate Random Glucose 159 MG/DL 164 MG/DL Calcium Level 7.9 MG/DL 7.4 MG/DL Phosphorus Level 3.3 MG/DL 2.8 MG/DL Magnesium Level 1.0 MG/DL 1.1 MG/DL Total Bilirubin 4.4 MG/DL 3.6 MG/DL Aspartate Amino Transf 80 U/L 66 U/L (AST/SGOT) Alanine Aminotransferase 28 U/L 25 U/L (ALT/SGPT) Alkaline Phosphatase 144 U/L 135 U/L Total Protein 5.9 GM/DL 5.5 GM/DL Albumin 2.3 GM/DL 2.2 GM/DL Protein Corrected Calcium 8.3 MG/DL ASSESSMENT/PLAN: liver cirrhosis secondary etoh gi bleeding secondary large internal/external hemorrhoids - hb stable esophageal varices grade I no indication of active bleeding at the time of procedure noncompliance Recommendations hydrocortisone Supp bid monitor hb/ht closely if further bleeding consult colorectal - 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 Thank you for this consult. Entered by: Kyung Starks MD Jan 16, 2017 20:34
[2017-01-17] VITALS (7 sets, daily range): BP systolic 90–112; BP diastolic 50–80; PULSE 80–91; RESP 16–20; TEMP 97.7–98.7; O2SAT 97–100
[2017-01-17] MEDS: LEVOTHYROXINE SODIUM 25 MCG TAB PO SCH (06:41)
[2017-01-17] MEDS: SODIUM CHLORIDE 0.9% FLUSH 10 ML FLUSH IV FLUSH SCH ×2 (09:00→21:00)
[2017-01-17] MEDS: INSULIN ASPART SUPPLEMENTAL SCALE SQ SCH ×4 (09:06→21:32)
[2017-01-17] MEDS: THIAMINE HCL 100 MG TAB PO SCH (09:10)
[2017-01-17] MEDS: DOCUSATE SODIUM 50 MG/SENNA 8.6 MG TAB PO SCH ×2 (09:10→21:00)
[2017-01-17] MEDS: GABAPENTIN 400 MG CAP PO SCH ×3 (09:10→18:35)
[2017-01-17] MEDS: FOLIC ACID 1 MG TAB PO SCH (09:10)
[2017-01-17] MEDS: MULTIVITAMIN TAB PO SCH (09:11)
[2017-01-17] MEDS: HYDROCORTISONE ACETATE 25 MG SUPP RECTAL SCH ×2 (09:11→21:30)
[2017-01-17] MEDS: PHYTONADIONE 10 MG/ML VIAL SQ SCH (09:11)
[2017-01-17] MEDS: SODIUM CHLOR 0.9% 1000 ML INJ 1,000 ML IV SCH ×2 (09:12→16:18)
[2017-01-17 10:10] LABS: AUTOMATED NEUTROPHIL # 2.2 TH/MM3 (1.8-7.7); BASOPHIL % 0.7 % (0.0-2.0); EOSINOPHIL # 0.1 TH/MM3 (0-0.4); EOSINOPHIL % 3.3 % (0.0-4.0); HEMATOCRIT 26.5 % (35.0-46.0); LYMPH % 15.3 % (9.0-44.0); LYMPHOCYTE # 0.5 TH/MM3 (1.0-4.8); MEAN CELL VOLUME 96.6 FL (80.0-100.0); MEAN CORPUSCULAR HEMOGLOBIN 32.5 PG (27.0-34.0); MEAN CORPUSCULAR HGB CONC 33.6 % (32.0-36.0); MONO % 20.4 % (0.0-8.0); NEUT % 60.3 % (16.0-70.0); PLATELET COUNT 44 TH/MM3 (150-450); RED BLOOD COUNT 2.74 MIL/MM3 (4.00-5.30); RED CELL DISTRIBUTION WIDTH 20.1 % (11.6-17.2); WHITE BLOOD COUNT 3.5 TH/MM3 (4.0-11.0)
[2017-01-17 10:11] LABS: INTERNATIONAL NORMALIZED RATIO 1.5 RATIO; PROTHROMBIN TIME - PATIENT 16.6 SEC (9.8-11.6)
[2017-01-17 10:20] LABS: HEMO FLAGS AUTO DIFF
[2017-01-17 11:07] LABS: EOSINOPHILS 2 % (0-4); NEUTROPHIL # MANUAL DIFF 2.2 TH/MM3 (1.8-7.7); PLATELET ESTIMATE SMEAR LOW (NORMAL); PLATELET MORPHOLOGY NORMAL (NORMAL); POLYS (SEG NEUTROPHILS) 63 % (16-70); SCAN/DIFF FINAL DIFF MANUAL; WBC DIFF SAMPLE 100
--- NOTE | 2017-01-17 11:46 | HHI.PR ---
Subjective Remarks patient still c/o bright red blood per rectum. states stool is brown denies dizziness, chest pain or sob. Objective Vitals Vital Signs Date Time Temp Pulse Resp B/P Pulse Ox O2 Delivery O2 Flow Rate FiO2 01/17/17 08:00 97.7 84 17 107/66 100 01/17/17 04:50 97.7 90 18 109/80 99 01/17/17 00:36 98.7 90 20 112/79 98 01/16/17 22:41 18 01/16/17 20:10 98.6 88 20 110/70 97 01/16/17 16:00 98.6 85 21 111/79 98 01/16/17 12:00 97.7 92 17 123/76 98 I/O 01/16/17 01/16/17 01/16/17 01/17/17 01/17/17 01/17/17 07:00 15:00 23:00 07:00 15:00 23:00 Intake Total 400 ml 896 ml 580 ml Output Total 200 ml Balance 200 ml 896 ml 580 ml Intake Oral 580 ml IV Total 400 ml 896 ml Output Urine Total 200 ml # Voids 2 1 1 Result Diagram: 01/17/17 0900 01/16/17 0525 Imaging Last Impressions Abdomen/Pelvis CT 01/13/17 0000 Signed Impressions: Service Date/Time: Friday, January 13, 2017 21:15 - CONCLUSION: 1. Liver cirrhosis with varices as above. No ascites. 2. Multiple calcified gallstones without biliary ductal dilatation. 3. Partially calcified uterine fibroid measuring just over 2 cm in diameter. 4. Remote compression deformity of L2 without retropulsion. 5. No bowel obstruction. No free air. Bruce Encarnacion MD Objective Remarks GENERAL: Well-developed, well-nourished, in no acute distress. alert and orientated HEENT: Head is normocephalic without any lesions or masses noted. Facial features are symmetric. Eyes: Pupils equal round reactive to light. Extraocular muscles are intact. Conjunctivae were clear. Oropharyngeal: Pharynx without any erythema edema. Tongue is midline without deviation. Buccal mucosa is moist without any masses or lesions NECK: Supple without any masses. Trachea midline no deviation. No JVD, no bruits are appreciated CARDIAC: Regular rhythm, regular rate. S2 are heard. 3/6 holosystolic murmur noted, no gallops or rubs. LUNGS: Clear to auscultation bilaterally. No wheeze, rhonchi or rales. No use of accessory muscles on inspiration or expiration. ABDOMEN: Soft, nontender. Nondistended. Bowel sounds heard in all 4 quadrants. No organomegaly or masses. Negative rebound, negative guarding EXTREMITIES: No edema, pulses are equal bilaterally. No cyanosis or clubbing NEUROLOGY: Mood and affect appear appropriate. Cranial nerves II through XII grossly intact. Muscle strength 5/5 in upper and lower extremities bilaterally. Deep tendon reflexes are 2+ in upper and lower extremities bilaterally. Procedures Status post panendoscopy with biopsy, colonoscopy with biopsy and ablation of internal hemorrhoids with epinephrine injection on 01/14 Medications and IVs Current Medications Medications (Trade) Dose Ordered Sig/Dax Route Start Time Stop Time Status Last Admin (NS 1000 ml Inj) 1,000 ml @ 100 mls/hr Q10H IV 01/13/17 12:18 01/17/17 09:12 (NS Flush) 2 ml UNSCH PRN IV FLUSH 01/13/17 12:30 (NS Flush) 2 ml BID IV FLUSH 01/13/17 21:00 01/16/17 08:13 (Tylenol) 650 mg Q4H PRN PO 01/13/17 13:00 01/14/17 11:59 (Milagros-Colace) 1 tab BID PO 01/13/17 21:00 01/17/17 09:10 (Milk Of Magnesia Liq) 30 ml Q12HR PRN PO 01/13/17 13:00 (Senokot) 17.2 mg Q12HR PRN PO 01/13/17 13:00 (Dulcolax Supp) 10 mg DAILY PRN RECTAL 01/13/17 13:00 (Lactulose Liq) 30 ml DAILY PRN PO 01/13/17 13:00 (Romazicon Inj) 0.2 mg Q1M PRN IV PUSH 01/13/17 16:00 (Ativan) 1 mg Q4H PRN PO 01/13/17 16:00 01/14/17 15:07 (Ativan Inj) 1 mg Q4H PRN IV PUSH 01/13/17 16:00 (Ativan) 2 mg Q2H PRN PO 01/13/17 16:00 (Ativan Inj) 2 mg Q2H PRN IV PUSH 01/13/17 16:00 (Ativan Inj) 2 mg Q1H PRN IV PUSH 01/13/17 16:00 (Ativan Inj) 2 mg Q15M PRN IV PUSH 01/13/17 16:00 (Hemorrhoidal Hc Supp) 25 mg BID RECTAL 01/14/17 09:00 01/17/17 09:11 (Vitamin K Inj) 10 mg DAILY SQ 01/14/17 09:00 01/17/17 09:11 (Ultram) 50 mg Q6H PRN PO 01/14/17 12:00 01/16/17 21:41 (Neurontin) 800 mg TID PO 01/14/17 13:00 01/17/17 09:10 (Vistaril) 50 mg Q6HR PRN PO 01/14/17 12:15 01/16/17 17:20 (Synthroid) 25 mcg DAILY@06 PO 01/14/17 12:48 01/17/17 06:41 (Theragran) 1 tab DAILY PO 01/15/17 09:00 01/17/17 09:11 Patient Own Medication PT OWN MED: (Sulfadiazine 500 MG... Q8HR PO 01/14/17 14:00 Hold (D50w (Vial) Inj) 50 ml UNSCH PRN IV 01/15/17 12:30 (Glucagon Inj) 1 mg UNSCH PRN OTHER 01/15/17 12:30 (Protonix Inj) 40 mg Q24H IV PUSH 01/15/17 18:00 01/16/17 16:29 (Folate) 1 mg DAILY PO 01/16/17 09:00 01/17/17 09:10 (Vitamin B1) 100 mg DAILY PO 01/16/17 09:00 01/17/17 09:10 Urinary Catheter: No Vascular Central Line Catheter: No A/P Problem List: (1) Rectal bleeding ICD Code: K62.5 Status: Acute (2) Thrombocytopenia ICD Code: D69.6 Status: Chronic (3) Hyponatremia ICD Code: E87.1 Status: Resolved (4) Type 2 diabetes mellitus ICD Code: E11.9 Status: Acute (5) Alcohol abuse ICD Code: F10.10 Status: Chronic (6) Hypothyroidism ICD Code: E03.9 Status: Chronic (7) Hypotension ICD Code: I95.9 Status: Resolved (8) Hypocalcemia ICD Code: E83.51 Status: Acute (9) Anxiety ICD Code: F41.9 Status: Acute Assessment and Plan (1) Rectal bleeding Patient with history of rectal bleeding since age 10, patient at increased risk due to gastroesophageal reflux, portal gastropathy, bleeding tendencies, thrombocytopenia Continue to monitor hemoglobin and transfuse if hemoglobin below 8.0 Patient started on Protonix IV, octreotide IV per GI recommendations 01/15 patient underwent EGD with biopsy. Colonoscopy with biopsy and ablation of internal hemorrhoids with epinephrine injection. EGD showed findings of esophageal varices, portal gastropathy, duodenitis, gastritis. Patient continue PPI. Colonoscopy showed diverticulosis, internal hemorrhoids status post epinephrine injection. Status post transfusion of 2 units of packed blood cells. Hemoglobin responded appropriately. 01/16 Patient still c/o melena and BRBPR. Hemoglobin slightly decreased but overall stable. Will reconsult GI. Will place on clear liquid diet. 01/[address] Mena from GI. Continue to monitor hemoglobin. Bright red blood likely due to hemorrhoids. Patient has been started on Hydrocortisone suppository - continue. Hemoglobin trending down to 8.9. If still bleeding tomorrow will consult colorectal surgery. (2) Thrombocytopenia Appears to be chronic secondary to cirrhosis Continue monitor CBC 01/14 platelets trending down, platelet count on 01/14 is 40 K. I will check this 1 unit of platelets and try to keep platelets above 50,000. 01/15 status post transfusion of 1 unit of platelets. Platelet today 58K. Continue to monitor. 01/16 Platelet slightly trending down - 49K today. continue to monitor. 01/17 Platelets stable at 44K. Will continue to monitor, will refer to hematology upon discharge. (3) Hyponatremia Suspect hypovolemic hyponatremia. Hyponatremia resolved after IV fluid administration. (4) Type 2 diabetes mellitus 01/14 Continue to hold oral hypoglycemics Place on Accu-Cheks and SSI with insulin NovoLog. Blood sugars stable. (5) Alcohol abuse Patient denies any alcohol use for at least a year, however 3 months ago when she was admitted she was written for glass of wine daily. Patient has obvious signs of alcohol withdrawal 01/14 continue thiamine and folic acid. No evidence of alcohol withdrawal. Continue CIWA protocol. 01/15 no evidence of alcohol withdrawal. (6) Hypothyroidism Patient with chronic hypothyroidism Continue replacement therapy with levothyroxine. TSH normal. (7) Hypotension Patient with blood pressure with systolic blood pressure in the 90s. Improving. Continue to monitor vital signs, will give IV fluid boluses as needed. Hold antihypertensive medications including diuretics and lisinopril. (8) Hypocalcemia Likely secondary to poor oral intake. Replaced with Calcium gluconate on 01/16 - Will monitor Calcium levels. (9) Anxiety Continue Vistaril for anxiety. GI proph: on PPI DVT Prophylaxis: SCD's, no chemoprophylaxis given active GI bleed, anemia and thrombocytopenia. Discharge Planning Still with BRBPR, hemoglobin slightly down. Continue to monitor in the medical floor. Problem Qualifiers (1) Type 2 diabetes mellitus: Qualified Code: E11.8 - Type 2 diabetes mellitus with complication, with long- term current use of insulin (2) Hypothyroidism: Qualified Code: E03.9 - Hypothyroidism, unspecified type Donovan Sims MD Jan 17, 2017 11:46
[2017-01-17] MEDS: PANTOPRAZOLE SODIUM 40 MG VIAL IV PUSH SCH (18:35)
[2017-01-18 00:27] VITALS: BP 107/79; PULSE 123; RESP 18; TEMP 98; O2SAT 95
[2017-01-18] MEDS: SODIUM CHLOR 0.9% 1000 ML INJ 1,000 ML IV SCH (02:18)
[2017-01-18] MEDS: LEVOTHYROXINE SODIUM 25 MCG TAB PO SCH (05:12)
[2017-01-18] MEDS: INSULIN ASPART SUPPLEMENTAL SCALE SQ SCH ×2 (05:14→12:01)
[2017-01-18 05:49] LABS: AUTOMATED NEUTROPHIL # 2.2 TH/MM3 (1.8-7.7); BASOPHIL % 0.7 % (0.0-2.0); EOSINOPHIL # 0.1 TH/MM3 (0-0.4); EOSINOPHIL % 3.8 % (0.0-4.0); HEMATOCRIT 26.6 % (35.0-46.0); LYMPH % 16.8 % (9.0-44.0); LYMPHOCYTE # 0.6 TH/MM3 (1.0-4.8); MEAN CELL VOLUME 97.7 FL (80.0-100.0); MEAN CORPUSCULAR HEMOGLOBIN 33.4 PG (27.0-34.0); MEAN CORPUSCULAR HGB CONC 34.2 % (32.0-36.0); MONO % 17.6 % (0.0-8.0); NEUT % 61.1 % (16.0-70.0); PLATELET COUNT 44 TH/MM3 (150-450); RED BLOOD COUNT 2.72 MIL/MM3 (4.00-5.30); RED CELL DISTRIBUTION WIDTH 20.9 % (11.6-17.2); WHITE BLOOD COUNT 3.5 TH/MM3 (4.0-11.0)
[2017-01-18 05:50] LABS: POTASSIUM 3.2 MEQ/L (3.5-5.1)
[2017-01-18 06:00] LABS: HEMO FLAGS AUTO DIFF
[2017-01-18 06:05] LABS: BICARBONATE 23.6 MEQ/L (21.0-32.0); CALCIUM-PROTEIN CORRECTED 8.2 MG/DL (8.5-10.1); TOTAL BILIRUBIN ADULT 2.6 MG/DL (0.2-1.0)
[2017-01-18 07:02] LABS: PLATELET ESTIMATE SMEAR LOW (NORMAL); PLATELET MORPHOLOGY NORMAL (NORMAL); SCAN/DIFF AUTO DIFF CONFIRMED
[2017-01-18 08:00] VITALS: BP 118/69; PULSE 88; RESP 16; TEMP 97.5; O2SAT 94
--- NOTE | 2017-01-18 08:07 | HHI.GIFU ---
GI Follow-up Note Consult Follow-up Subjective: Patient laying in bed comfortably, feeling better, no further bleeding .Discussed about findings and treatment She will need to stay on fiber supplememts , high fiber diet, avoid etoh . Objective: PHYSICAL EXAMINATION: Vitals signs stable No fever HEENT: Pupils round and reactive to light; normocephalic; atraumatic; jaundice. Throat is clear. NECK: Neck is supple, no JVD, no lymphadenopathy. CHEST: Chest is clear to auscultation and percussion. CARDIAC: Regular rate and rhythm with no murmur gallop or rubs. ABDOMEN: Soft, nondistended, nontender; no hepatosplenomegaly; bowel sounds are present in all four quadrants. EXTREMITIES: No clubbing, cyanosis, or edema. SKIN: Normal; no rash; jaundice. 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 Available Data (labs, X- Rays, Procedues) : Laboratory Tests Test 01/16/17 01/17/17 01/18/17 12:55 09:00 04:30 White Blood Count 4.6 TH/MM3 3.5 TH/MM3 3.5 TH/MM3 Red Blood Count 2.84 MIL/MM3 2.74 MIL/MM3 2.72 MIL/MM3 Hemoglobin 9.2 GM/DL 8.9 GM/DL 9.1 GM/DL Hematocrit 27.1 % 26.5 % 26.6 % Mean Corpuscular Volume 95.6 FL 96.6 FL 97.7 FL Mean Corpuscular Hemoglobin 32.5 PG 32.5 PG 33.4 PG Mean Corpuscular Hemoglobin 34.0 % 33.6 % 34.2 % Concent Red Cell Distribution Width 20.1 % 20.1 % 20.9 % Platelet Count 50 TH/MM3 44 TH/MM3 44 TH/MM3 Mean Platelet Volume 7.6 FL 7.2 FL 7.4 FL Neutrophils (%) (Auto) 60.3 % 61.1 % Lymphocytes (%) (Auto) 15.3 % 16.8 % Monocytes (%) (Auto) 20.4 % 17.6 % Eosinophils (%) (Auto) 3.3 % 3.8 % Basophils (%) (Auto) 0.7 % 0.7 % Neutrophils # (Auto) 2.2 TH/MM3 2.2 TH/MM3 Lymphocytes # (Auto) 0.5 TH/MM3 0.6 TH/MM3 Monocytes # (Auto) 0.7 TH/MM3 0.6 TH/MM3 Eosinophils # (Auto) 0.1 TH/MM3 0.1 TH/MM3 Basophils # (Auto) 0.0 TH/MM3 0.0 TH/MM3 CBC Comment AUTO DIFF AUTO DIFF Differential Total Cells 100 Counted Neutrophils % (Manual) 63 % Lymphocytes % 19 % Monocytes % 16 % Eosinophils % 2 % Neutrophils # (Manual) 2.2 TH/MM3 Differential Comment FINAL DIFF AUTO DIFF MANUAL CONFIRMED Platelet Estimate LOW LOW Platelet Morphology Comment NORMAL NORMAL Prothrombin Time 16.6 SEC Prothromb Time International 1.5 RATIO Ratio Sodium Level 146 MEQ/L Potassium Level 3.2 MEQ/L Chloride Level 113 MEQ/L Carbon Dioxide Level 23.6 MEQ/L Anion Gap 9 MEQ/L Blood Urea Nitrogen 8 MG/DL Creatinine 0.44 MG/DL Estimat Glomerular Filtration 144 ML/MIN Rate Random Glucose 169 MG/DL Calcium Level 7.3 MG/DL Protein Corrected Calcium 8.2 MG/DL Total Bilirubin 2.6 MG/DL Aspartate Amino Transf 49 U/L (AST/SGOT) Alanine Aminotransferase 25 U/L (ALT/SGPT) Alkaline Phosphatase 167 U/L Total Protein 5.5 GM/DL Albumin 2.1 GM/DL ASSESSMENT/PLAN: liver cirrhosis secondary to etoh gi bleeding secondary hemorrhoids -stable , no further bleeding portal hypertension, esophageal varices grade 1 pancytopenia secondary liver cirrhosis noncompliance Recommendations ok to dc home from gi point if no further bleeding high fiber diet, fiber supplements, suppositories with cortisone , if further bleeding colorectal surgery evaluation start nonselective betablockers upon dc continue lasix/Aldactone low sodium diet avoid etoh/hepatotoxics fu gi in 2-4 weeks It was a pleasure seeing Anita Kumar. Thank you for this consult. Entered by: Kyung Starks MD Jan 18, 2017 08:07
[2017-01-18] MEDS: SODIUM CHLORIDE 0.9% FLUSH 10 ML FLUSH IV FLUSH SCH (09:25)
[2017-01-18] MEDS: DOCUSATE SODIUM 50 MG/SENNA 8.6 MG TAB PO SCH (09:27)
[2017-01-18] MEDS: FOLIC ACID 1 MG TAB PO SCH (09:28)
[2017-01-18] MEDS: HYDROCORTISONE ACETATE 25 MG SUPP RECTAL SCH (09:28)
[2017-01-18] MEDS: GABAPENTIN 400 MG CAP PO SCH ×2 (09:28→11:58)
[2017-01-18] MEDS: THIAMINE HCL 100 MG TAB PO SCH (09:28)
[2017-01-18] MEDS: MULTIVITAMIN TAB PO SCH (09:28)
[2017-01-18] MEDS: PHYTONADIONE 10 MG/ML VIAL SQ SCH (09:28)
[2017-01-18 12:00] VITALS: BP 115/66; PULSE 82; RESP 16; TEMP 97.4; O2SAT 98
[2017-01-18] MEDS ORDERED: CALCIUM CARBONATE 1.25 GM (CA 500 MG) TAB PO SCH (12:00)
[2017-01-18] MEDS ORDERED: POTASSIUM CHLORIDE 10 MEQ CONTROLLED RELEASE TAB PO ONE (12:00)
--- NOTE | 2017-01-18 12:22 | HHI.DS ---
Discharge Summary Admission Date Jan 14, 2017 at 12:00 Discharge Date: Jan 18, 2017 Admitting Diagnosis rectal bleeding (1) Rectal bleeding ICD Code: K62.5 (2) Thrombocytopenia ICD Code: D69.6 (3) Hyponatremia ICD Code: E87.1 (4) Type 2 diabetes mellitus ICD Code: E11.9 (5) Alcohol abuse ICD Code: F10.10 (6) Hypothyroidism ICD Code: E03.9 Procedures Status post panendoscopy with biopsy, colonoscopy with biopsy and ablation of internal hemorrhoids with epinephrine injection on 01/14 Brief History - From Admission Written by Mariusz Verdin, acting as scribe for Dr. Pond on 01/13/17 at 15:54. 61-year-old female with rather complex medical history of cirrhosis, alcohol abuse, thrombocytopenia, chronic hyponatremia, history of atrial fibrillation, portal gastropathy, gastroesophageal reflux, hypothyroidism, hypertension, diabetes who presented to hospital because of two-week history of stool changes. Patient states that she has had a mixture of very dark black stools as well as red stools over the last 2 weeks. She states that she has had this problem since she has been 10 years old and usually goes away on its own. However it did not go away this time and she came to the hospital for evaluation she denies any lightheadedness, dizziness, shortness of breath, chest pain, abdominal pain. Patient had laboratory studies done which did indicate a hemoglobin 9.4 and her previous hemoglobin was 11.0 on 09/26/16. Because of the patient's active GI bleeding patient is recommended observation for further recommendations. CBC/BMP: 01/18/17 0430 01/18/17 0430 Significant Findings Laboratory Tests Test 01/16/17 01/16/17 01/17/17 01/18/17 05:25 12:55 09:00 04:30 Red Blood Count 2.83 MIL/MM3 2.84 MIL/MM3 2.74 MIL/MM3 2.72 MIL/MM3 (4.00-5.30) (4.00-5.30) (4.00-5.30) (4.00-5.30) Hemoglobin 9.4 GM/DL 9.2 GM/DL 8.9 GM/DL 9.1 GM/DL (11.6-15.3) (11.6-15.3) (11.6-15.3) (11.6-15.3) Hematocrit 27.1 % 27.1 % 26.5 % 26.6 % (35.0-46.0) (35.0-46.0) (35.0-46.0) (35.0-46.0) Red Cell Distribution Width 20.4 % 20.1 % 20.1 % 20.9 % (11.6-17.2) (11.6-17.2) (11.6-17.2) (11.6-17.2) Platelet Count 49 TH/MM3 50 TH/MM3 44 TH/MM3 44 TH/MM3 (150-450) (150-450) (150-450) (150-450) Neutrophils (%) (Auto) 74.4 % (16.0-70.0) Monocytes (%) (Auto) 12.4 % 20.4 % 17.6 % (0.0-8.0) (0.0-8.0) (0.0-8.0) Lymphocytes # (Auto) 0.5 TH/MM3 0.5 TH/MM3 0.6 TH/MM3 (1.0-4.8) (1.0-4.8) (1.0-4.8) Platelet Estimate LOW (NORMAL) LOW (NORMAL) LOW (NORMAL) Chloride Level 109 MEQ/L 113 MEQ/L (98-107) (98-107) Blood Urea Nitrogen 6 MG/DL (7-18) Random Glucose 164 MG/DL 169 MG/DL (74-106) (74-106) Calcium Level 7.4 MG/DL 7.3 MG/DL (8.5-10.1) (8.5-10.1) Protein Corrected Calcium 8.3 MG/DL 8.2 MG/DL (8.5-10.1) (8.5-10.1) Magnesium Level 1.1 MG/DL (1.5-2.5) Total Bilirubin 3.6 MG/DL 2.6 MG/DL (0.2-1.0) (0.2-1.0) Aspartate Amino Transf 66 U/L (15-37) 49 U/L (15-37) (AST/SGOT) Alkaline Phosphatase 135 U/L 167 U/L (45-117) (45-117) Total Protein 5.5 GM/DL 5.5 GM/DL (6.4-8.2) (6.4-8.2) Albumin 2.2 GM/DL 2.1 GM/DL (3.4-5.0) (3.4-5.0) White Blood Count 3.5 TH/MM3 3.5 TH/MM3 (4.0-11.0) (4.0-11.0) Monocytes % 16 % (0-8) Prothrombin Time 16.6 SEC (9.8-11.6) Sodium Level 146 MEQ/L (136-145) Potassium Level 3.2 MEQ/L (3.5-5.1) Creatinine 0.44 MG/DL (0.50-1.00) PE at Discharge GENERAL: Well-developed, well-nourished, in no acute distress. alert and orientated HEENT: Head is normocephalic without any lesions or masses noted. Facial features are symmetric. Eyes: Pupils equal round reactive to light. Extraocular muscles are intact. Conjunctivae were clear. Oropharyngeal: Pharynx without any erythema edema. Tongue is midline without deviation. Buccal mucosa is moist without any masses or lesions NECK: Supple without any masses. Trachea midline no deviation. No JVD, no bruits are appreciated CARDIAC: Regular rhythm, regular rate. S2 are heard. 3/6 holosystolic murmur noted, no gallops or rubs. LUNGS: Clear to auscultation bilaterally. No wheeze, rhonchi or rales. No use of accessory muscles on inspiration or expiration. ABDOMEN: Soft, nontender. Nondistended. Bowel sounds heard in all 4 quadrants. No organomegaly or masses. Negative rebound, negative guarding EXTREMITIES: No edema, pulses are equal bilaterally. No cyanosis or clubbing NEUROLOGY: Mood and affect appear appropriate. Cranial nerves II through XII grossly intact. Muscle strength 5/5 in upper and lower extremities bilaterally. Deep tendon reflexes are 2+ in upper and lower extremities bilaterally. Pt Condition on Discharge: Stable Discharge Disposition: Discharge Home Discharge Instructions DIET: Follow Instructions for: Heart Healthy Diet Activities you can perform: Regular-No Restrictions Activities to Avoid: Driving for 24 hrs Donovan Sims MD Jan 18, 2017 12:22
== END 2017-01-18 14:05 | disposition home or self-care (01) | DRG 394 ==
LOC: PHED 09:01 → PHEDA 11:04 → PH3B 12:07 → OBSVTOIN 01-14 12:00
PROVIDERS: ADMIT Hospitalist; ATTEND Hospitalist
PROC: 0DBM8ZX Excision of Descending Colon, Via Natural or Artificial Opening Endoscopic, Diagnostic (ICD-10-PCS; 2017-01-14)
PROC: 0DB98ZX Excision of Duodenum, Via Natural or Artificial Opening Endoscopic, Diagnostic (ICD-10-PCS; 2017-01-14)
PROC: 0DB68ZX Excision of Stomach, Via Natural or Artificial Opening Endoscopic, Diagnostic (ICD-10-PCS; 2017-01-14)
PROC: 30233R1 Transfusion of Nonautologous Platelets into Peripheral Vein, Percutaneous Approach (ICD-10-PCS; 2017-01-14)
PROC: 30233N1 Transfusion of Nonautologous Red Blood Cells into Peripheral Vein, Percutaneous Approach (ICD-10-PCS; 2017-01-14)
PROC: 0W3P8ZZ Control Bleeding in Gastrointestinal Tract, Via Natural or Artificial Opening Endoscopic (ICD-10-PCS; principal; 2017-01-14 07:59)
PROC: 0DBK8ZX Excision of Ascending Colon, Via Natural or Artificial Opening Endoscopic, Diagnostic (ICD-10-PCS; 2017-01-14 07:59)
DX: K64.8 Other hemorrhoids (principal); K92.1 Melena; D61.818 Other pancytopenia; I85.10 Secondary esophageal varices without bleeding; E87.1 Hypo-osmolality and hyponatremia; K76.6 Portal hypertension; E83.51 Hypocalcemia; I48.2 Chronic atrial fibrillation; K70.30 Alcoholic cirrhosis of liver without ascites; K31.89 Other diseases of stomach and duodenum; K21.9 Gastro-esophageal reflux disease without esophagitis; K44.9 Diaphragmatic hernia without obstruction or gangrene; E03.9 Hypothyroidism, unspecified; F41.9 Anxiety disorder, unspecified; F32.9 Major depressive disorder, single episode, unspecified; I10 Essential (primary) hypertension; E11.9 Type 2 diabetes mellitus without complications; K64.4 Residual hemorrhoidal skin tags; K29.70 Gastritis, unspecified, without bleeding; K29.80 Duodenitis without bleeding; F10.10 Alcohol abuse, uncomplicated; K57.30 Diverticulosis of large intestine without perforation or abscess without bleeding; Z91.19 Patient's noncompliance with other medical treatment and regimen; Z87.891 Personal history of nicotine dependence; Z79.4 Long term (current) use of insulin
CPT/HCPCS: 36430; 74177; 76937; 80053; 82533; 82948; 83735; 83930; 83935; 84100; 84300; 84443; 85007; 85014; 85018; 85025; 85027; 85610; 85730; 86850; 86900; 86901; 86920; 88305; 88312; 93306; 96374; 96376; C9113; G8987-GP; G8988-GP; J0171; J0610; J1815; J2354; J2405; J3411; J3430; J3475; J7030; J7040; J7050; P9016; P9035; Q9963; Q9967

== ENCOUNTER → 2017-02-01 | Outpatient (CLI) | payer OTHER ==
[~2017-02-01] MED LIST changes: +ANUS25SU RECTAL
--- NOTE | 2017-02-01 10:08 | RADRPT ---
EXAM DATE/TIME: 02/01/2017 09:19 [facility] COMPARISON: No previous studies available for comparison. INDICATIONS : Right leg swelling. MEDICAL HISTORY : Hypertension. Arthritis. A-fib. Ulcerated colitis. Hiatal hernia. GERD. Heartburn. SURGICAL HISTORY : Tonsillectomy. Dilation and currettage. ENCOUNTER: Initial ACUITY: 2 weeks PAIN SCORE: 5/10 LOCATION: Right leg. TECHNIQUE: Venous ultrasound of the leg was performed from the inguinal ligament to the proximal calf. Real-marti e, color Doppler and spectral tracing, compression and augmentation techniques were used. FINDINGS: There is normal compressibility of the deep venous system from the inguinal region to the proximal ca lf. No echogenic clot is seen in the lumen of the common femoral, femoral, popliteal, and posterior tibial veins. There is a normal response of the venous system to proximal and distal augmentation an d respiration. CONCLUSION: Subcutaneous edema involving calf. No DVT. Estrada Leiva Jr., MD on February 01, 2017 at 10:05 Board Certified Radiologist. This report was verified electronically.
== END ==
LOC: HRAD 08:50
PROVIDERS: ATTEND Family Medicine
DX: M79.89 Other specified soft tissue disorders (principal)
CPT/HCPCS: 93971

== ENCOUNTER → 2017-03-01 | Outpatient (CLI) | payer OTHER ==
[~2017-03-01] MED LIST changes: +BD I0.3M; +GLUCTES27; +LEVO50TA4 PO; +LEVO75TA3 PO
[2017-03-01 09:32] LABS: HEMATOCRIT 28.9 % (35.0-46.0); MEAN CORPUSCULAR HEMOGLOBIN 34.7 PG (27.0-34.0); PLATELET COUNT 45 TH/MM3 (150-450); RED BLOOD COUNT 2.83 MIL/MM3 (4.00-5.30); RED CELL DISTRIBUTION WIDTH 15.6 % (11.6-17.2); WHITE BLOOD COUNT 4.4 TH/MM3 (4.0-11.0)
[2017-03-01 09:36] LABS: ANION GAP 7 MEQ/L (5-15); AST (GOT) 42 U/L (15-37); BICARBONATE 26.7 MEQ/L (21.0-32.0); BLOOD UREA NITROGEN 13 MG/DL (7-18); CHLORIDE 96 MEQ/L (98-107); GLOMERULAR FILTRATION RATE 83 ML/MIN (>89); GLUCOSE,FASTING 214 MG/DL (74-99); POTASSIUM 4.7 MEQ/L (3.5-5.1); SODIUM (NA) 130 MEQ/L (136-145)
[2017-03-01 09:39] LABS: REVIEW FLAG FINAL
[2017-03-01 09:49] LABS: ALKALINE PHOSPHATASE 315 U/L (45-117); ALT (GPT) 28 U/L (10-53); TOTAL BILIRUBIN ADULT 1.9 MG/DL (0.2-1.0)
[2017-03-01 16:21] LABS: HEMOGLOBIN A1a 1.2 %; HEMOGLOBIN A1b 0.8 %; HEMOGLOBIN Ao 78.5 %; HEMOGLOBIN F 1.5 %; HEMOGLOBIN LA1C 2.9 %; HEMOGLOBIN P3 5.2 %
== END ==
LOC: PLAB 06:52
PROVIDERS: ATTEND Family Medicine
DX: K62.5 Hemorrhage of anus and rectum (principal); D69.6 Thrombocytopenia, unspecified; K74.60 Unspecified cirrhosis of liver; E03.9 Hypothyroidism, unspecified; E11.9 Type 2 diabetes mellitus without complications
CPT/HCPCS: 36415; 80053; 83036; 84443; 85027

== ENCOUNTER → 2017-03-29 | Outpatient (CLI) | payer OTHER ==
[~2017-03-29] MED LIST changes: -LEVO25TA4 PO; -LEVO75TA3 PO
== END ==
LOC: PLAB 07:04
PROVIDERS: ATTEND Family Medicine
DX: E03.9 Hypothyroidism, unspecified (principal)
CPT/HCPCS: 36415; 84443

== ENCOUNTER 2017-08-05 06:54 | Inpatient (IN) | payer OTHER ==
[2017-08-05] VITALS (17 sets, daily range): BP systolic 84–127; BP diastolic 48–61; PULSE 103–127; RESP 16–28; TEMP 97.7–98; O2SAT 88–100
[~2017-08-05] VITALS: Ht 162.6 cm; Wt 78.7 kg
[2017-08-05 07:50] LABS: AUTOMATED NEUTROPHIL # 12.4 TH/MM3 (1.8-7.7); BASOPHIL % 0.2 % (0.0-2.0); EOSINOPHIL % 0.2 % (0.0-4.0); HEMATOCRIT 28.7 % (35.0-46.0); HEMOGLOBIN 9.9 GM/DL (11.6-15.3); LYMPH % 1.6 % (9.0-44.0); LYMPHOCYTE # 0.2 TH/MM3 (1.0-4.8); MEAN CELL VOLUME 105.1 FL (80.0-100.0); MEAN CORPUSCULAR HEMOGLOBIN 36.3 PG (27.0-34.0); MEAN CORPUSCULAR HGB CONC 34.5 % (32.0-36.0); MEAN PLATELET VOLUME 8.5 FL (7.0-11.0); MONO % 8.8 % (0.0-8.0); MONOCYTE # 1.2 TH/MM3 (0-0.9); NEUT % 89.2 % (16.0-70.0); PLATELET COUNT 74 TH/MM3 (150-450); RED BLOOD COUNT 2.73 MIL/MM3 (4.00-5.30); RED CELL DISTRIBUTION WIDTH 16.3 % (11.6-17.2)
[2017-08-05 07:58] LABS: INTERNATIONAL NORMALIZED RATIO 1.9 RATIO; PROTHROMBIN TIME - PATIENT 19.2 SEC (9.8-11.6)
[2017-08-05 08:04] LABS: BACTERIA, URINE FEW /hpf; BILIRUBIN, URINE NEG (NEG); BLOOD, URINE NEG (NEG); GLUCOSE,URINE 1000 mg/dL (NEG); KETONE, URINE NEG (NEG); NITRITE,URINE POS (NEG); SQUAMOUS EPITHELIAL CELL URINE 1 /hpf (0-5); URINE COLOR YELLOW (YELLW/STRAW); URINE LEUKOCYTE ESTERASE SMALL (NEG)
[2017-08-05] MEDS ORDERED: FUROSEMIDE 40 MG/4 ML VIAL IV PUSH ONE (08:15)
--- NOTE | 2017-08-05 08:16 | PD ---
HPI Chief Complaint: Respiratory Distress Time Seen by Provider: 07:28 Travel History International Travel<30 days: No Contact w/Intl Traveler<30days: No Traveled to known affect area: No History of Present Illness HPI Diagnoses a 61-year-old female history diabetes mellitus, hypertension, atrial fibrillation, who presents today with complaints of worsening shortness of breath. Patient reports that she's had progressive shortness breath over the last 90 days. She reports over the last 24-48 hours, it is become so bad that she cannot walk more than a few feet becoming severely short of breath. She reports associated fatigue and weakness. She reports pleuritic pain with deep breath and cough. As no reported fevers, chills. There is reported nausea vomiting. She also reports loose stools over last couple days. Page his blood sugar was noted to be in the 400s on dextrose stick. The patient states that she's been using cough drops over last several days and feels the sugar may be high from that. She reports taking her medications as prescribed. PFSH Past Medical History Arthritis: Yes Asthma: No Atrial Fibrillation: Yes Autoimmune Disease: No Anxiety: Yes Depression: Yes Heart Rhythm Problems: Yes Cancer: No Cardiovascular Problems: Yes (HTN/ A-FIB) High Cholesterol: No Chemotherapy: No Chest Pain: No Congestive Heart Failure: No COPD: No Cerebrovascular Accident: No Diabetes: Yes Patient Takes Glucophage: No Diminished Hearing: No Endocrine: Yes Gastrointestinal Disorders: Yes (ULCERATED COLITIS) GERD: Yes (NAUSEA ) Glaucoma: No Genitourinary: No Headaches: No Hiatal Hernia: Yes Heparin Induced Thrombocytopen: No Hypertension: Yes Immune Disorder: No Implanted Vascular Access Dvce: No Kidney Stones: No Musculoskeletal: Yes (arthritis) Neurologic: No Psychiatric: Yes (Pt reported history of depression/anxiety since she was a child) Reproductive: No Respiratory: No Immunizations Current: Yes Migraines: No Radiation Therapy: No Renal Failure: No Seizures: No Sickle Cell Disease: No Sleep Apnea: No Thyroid Disease: Yes Ulcer: No Tetanus Vaccination: < 5 Years Influenza Vaccination: No Menopausal: Yes : 1 : 1 Dilation and Curettage (D&C): Yes Past Surgical History Abdominal Surgery: No AICD: No Arteriovenous Shunt: No Cardiac Surgery: No Ear Surgery: No Endocrine Surgery: No Eye Surgery: No Genitourinary Surgery: No Gynecologic Surgery: Yes (d and c) Insulin Pump: No Joint Replacement: No Neurologic Surgery: No Oral Surgery: Yes (RIGHT TONSIL REMOVED) Pacemaker: No Thoracic Surgery: No Tonsillectomy: Yes Other Surgery: Yes (RIGHT TONSILLECTOMY) Social History Alcohol Use: No Tobacco Use: No (QUIT SMOKING IN AUGUST) Substance Use: No Allergies-Medications (Allergen,Severity, Reaction): Coded Allergies: aspirin (Unverified Allergy, Severe, ULCERATIVE COLITIS, 08/05/17) Reported Meds & Prescriptions Reported Meds & Active Scripts Active Glipizide 10 Mg Tab 20 Mg PO BIDAC 2 tabs twice a day (20mg) [email or web address] Contour Next Blood Test Strips (Blood Glucose Test Strips) 1 Brooke Brooke Strip 5 TIMES A DAY Levothyroxine (Levothyroxine Sodium) 50 Mcg Tab 50 Mcg PO DAILY Potassium Chloride ER (Potassium Chloride) 20 Meq Tab 20 Meq PO DAILY Bd Insulin Syringe Safety 31G X 5/16" 0.3 ml (Insulin Syringe/Needle U-100) 1 Mis Mis Box TID Furosemide 20 Mg Tab 20 Mg PO DAILY Spironolactone 100 Mg Tab 100 Mg PO BIDPC Lisinopril 5 Mg Tab 5 Mg PO DAILY Gabapentin 800 Mg Tab 800 Mg PO TID Levemir Inj (Insulin Detemir) 1,000 unit/ 10 ML Vial 45 Units SQ BID 30 Days Do not mix with any other Insulin. Hydroxyzine Pamoate 50 Mg Cap 50 Mg PO Q6HR PRN Vitamin B-12 (Cyanocobalamin) 1,000 Mcg Tab 1,000 Mcg PO DAILY Reported Protonix (Pantoprazole Sodium) 40 Mg Tab 40 Mg PO DAILY Sulfadiazine 500 Mg Tab 500 Mg PO Q8HR Novolin R Inj (Insulin Human Regular) 1,000 Unit/10 Ml Vial 5-25 Units SQ TID Max dose at bedtime:( )units; sugars less than 70,(0) units; sugars 150-199,(5)unit; sugars 200-249,(10)units; sugars 250-299,(15) units; sugars 300-349,(20)units; sugars greater than 349,(25)units Multiple Vitamin 1 Tab 1 Tab PO DAILY Review of Systems Except as stated in HPI: all other systems reviewed are Neg General / Constitutional: No: Fever, Chills HENT: Positive: Lightheadedness, No: Headaches, Neck Pain Cardiovascular: Positive: Chest Pain or Discomfort, Irregular Rhythm ( pleuritic discomfort), Tachycardia, No: Palpitations Respiratory: Positive: Cough, Shortness of Breath, No: Wheezing Gastrointestinal: Positive: Nausea, Vomiting, Diarrhea (loose stools), No: Abdominal Pain Genitourinary: No: Dysuria, Decreased Urinary Output Musculoskeletal: Positive: Weakness, No: Pain Skin: No Rash, No Lesions Neurologic: Positive: Weakness, No: Dizziness, Syncope, Headache Psychiatric: Positive: Substance Abuse (acute alcohol abuse in past), No: Depression Physical Exam Narrative GENERAL: Developed well-nourished female in moderate respiratory discomfort. SKIN: Focused skin assessment warm/dry. HEAD: Atraumatic. Normocephalic. EYES: No scleral icterus. No injection or drainage. ENT: No nasal bleeding or discharge. Mucous membranes pink and moist. NECK: Trachea midline. No JVD. CARDIOVASCULAR: Irregularly irregular with a rate in the 1 teens to 120s. RESPIRATORY: Coarse rhonchi bilaterally. Fine Rales heard at the bilateral bases. GASTROINTESTINAL: Abdomen soft, non-tender, nondistended. MUSCULOSKELETAL: No obvious deformities. No clubbing. No cyanosis. No edema. NEUROLOGICAL: Awake and alert. No obvious cranial nerve deficits. Motor grossly within normal limits. Slight fragmented speech secondary to the shortness of breath Data Data Last Documented VS Vital Signs Date Time Temp Pulse Resp B/P (MAP) Pulse Ox O2 Delivery O2 Flow Rate FiO2 08/05/17 09:14 115 24 104/54 (71) 95 Non-Rebreather 15.00 08/05/17 07:06 97.7 Orders Orders Sepsis Workup Initiated (08/05/17 ) Complete Blood Count With Diff (08/05/17 07:28) Comprehensive Metabolic Panel (08/05/17 07:28) Prothrombin Time / Inr (Pt) (08/05/17 07:28) Act Partial Throm Time (Ptt) (08/05/17 07:28) Lactic Acid Sepsis Protocol (08/05/17 07:28) Ckmb (Isoenzyme) Profile (08/05/17 07:28) Troponin I (08/05/17 07:28) Urinalysis - C+S If Indicated (08/05/17 07:28) Blood Culture (08/05/17 07:28) Chest, Single Ap (08/05/17 07:28) Arterial Blood Gas (Abg) (08/05/17 07:28) Blood Glucose (08/05/17 07:28) Ecg Monitoring (08/05/17 07:28) Iv Access Insert/Monitor (08/05/17 07:28) Oximetry (08/05/17 07:28) Oxygen Administration (08/05/17 07:28) Urine Culture (08/05/17 07:14) Furosemide Inj (Lasix Inj) (08/05/17 08:15) CKMB (08/05/17 07:14) CKMB% (08/05/17 07:14) Electrocardiogram (08/05/17 ) Ceftriaxone Inj (Rocephin Inj) (08/05/17 09:30) Azithromycin Inj (Zithromax Inj) (08/05/17 09:30) Oseltamivir (Tamiflu) (08/05/17 10:00) Beta Hydroxybutyrate (Acetone) (08/05/17 09:53) Admit To Inpatient (08/05/17 ) Code Status (08/05/17 09:47) Vital Signs (Adult) CAMERON.Q1H (08/05/17 09:47) Activity Bed Rest (08/05/17 09:47) Stna / Telemetry CAMERON.Q8H (08/05/17 09:47) Intake + Output CAMERON.Q8H (08/05/17 09:47) Diet Npo (08/05/17 Breakfast) Sodium Chlor 0.9% 1000 Ml Inj (Ns 1000 M (08/05/17 09:47) Acetaminophen (Tylenol) (08/05/17 10:00) Morphine Inj (Morphine Inj) (08/05/17 10:00) Albuterol-Ipratropium Neb (Duoneb Neb) (08/05/17 10:00) Albuterol Neb (Albuterol Neb) (08/05/17 10:00) Chlorhexidine 0.12% Liq (Peridex 0.12% L (08/05/17 20:00) Famotidine Inj (Pepcid Inj) (08/05/17 10:00) Complete Blood Count With Diff (08/06/17 06:00) Comprehensive Metabolic Panel (08/06/17 06:00) Magnesium (Mg) (08/05/17 09:47) Sputum Culture And Gram Stain (08/05/17 09:47) Ua Includes Microscopic (08/05/17 09:47) Chest, Single Ap (08/06/17 06:00) Resp Bipap / Cpap Non Invas Vt (08/05/17 ) Consult Cm-Day 5 Ltac Eval (08/05/17 ) Scd Bilateral/Knee High CAMERON.BID (08/05/17 09:47) Bimal Bilateral/Knee High CAMERON.QSHIFT (08/05/17 11:00) ^ Initiate Protocol (08/05/17 09:47) Instruction (08/05/17 09:47) Misc Nursing Information (08/05/17 10:00) Chlorhexidine 2% Cloth (Chlorhexidine 2% (08/06/17 04:00) Chlorhexidine 2% Cloth (Chlorhexidine 2% (08/05/17 10:00) Mrsa Pcr Surveillance (08/05/17 09:47) Inpatient Certification (08/05/17 ) Cefepime Inj (Maxipime Inj) (08/05/17 13:00) Azithromycin Inj (Zithromax Inj) (08/06/17 12:00) Influenzae A/B Antigen (08/05/17 10:21) Admit Order (Ed Use Only) (08/05/17 10:21) Labs Laboratory Tests Test 08/05/17 07:14 08/05/17 07:32 08/05/17 07:41 08/05/17 10:13 White Blood Count 14.0 TH/MM3 Red Blood Count 2.73 MIL/MM3 Hemoglobin 9.9 GM/DL Hematocrit 28.7 % Mean Corpuscular Volume 105.1 FL Mean Corpuscular Hemoglobin 36.3 PG Mean Corpuscular Hemoglobin Concent 34.5 % Red Cell Distribution Width 16.3 % Platelet Count 74 TH/MM3 Mean Platelet Volume 8.5 FL Neutrophils (%) (Auto) 89.2 % Lymphocytes (%) (Auto) 1.6 % Monocytes (%) (Auto) 8.8 % Eosinophils (%) (Auto) 0.2 % Basophils (%) (Auto) 0.2 % Neutrophils # (Auto) 12.4 TH/MM3 Lymphocytes # (Auto) 0.2 TH/MM3 Monocytes # (Auto) 1.2 TH/MM3 Eosinophils # (Auto) 0.0 TH/MM3 Basophils # (Auto) 0.0 TH/MM3 CBC Comment AUTO DIFF Differential Total Cells Counted 100 Neutrophils % (Manual) 90 % Band Neutrophils % 4 % Monocytes % 6 % Neutrophils # (Manual) 13.2 TH/MM3 Nucleated Red Blood Cells 2 /100 WBC Differential Comment FINAL DIFF MANUAL Platelet Estimate LOW Platelet Morphology Comment NORMAL Prothrombin Time 19.2 SEC Prothromb Time International Ratio 1.9 RATIO Activated Partial Thromboplast Time 29.4 SEC Urine Color YELLOW Urine Turbidity CLEAR Urine pH 5.0 Urine Specific [place] 1.020 Urine Protein NEG mg/dL Urine Glucose (UA) 1000 mg/dL Urine Ketones NEG mg/dL Urine Occult Blood NEG Urine Nitrite POS Urine Bilirubin NEG Urine Urobilinogen LESS THAN 2.0 MG/DL Urine Leukocyte Esterase SMALL Urine RBC 3 /hpf Urine WBC 5 /hpf Urine Squamous Epithelial Cells 1 /hpf Urine Bacteria FEW /hpf Microscopic Urinalysis Comment CATH-CULTURE IND Blood Urea Nitrogen 14 MG/DL Creatinine 0.82 MG/DL Random Glucose 391 MG/DL Total Protein 6.3 GM/DL Albumin 1.9 GM/DL Calcium Level 8.2 MG/DL Alkaline Phosphatase 198 U/L Aspartate Amino Transf (AST/SGOT) 56 U/L Alanine Aminotransferase (ALT/SGPT) 34 U/L Total Bilirubin 5.8 MG/DL Sodium Level 120 MEQ/L Potassium Level 5.9 MEQ/L Chloride Level 86 MEQ/L Carbon Dioxide Level 21.4 MEQ/L Anion Gap 13 MEQ/L Estimat Glomerular Filtration Rate 70 ML/MIN Total Creatine Kinase 124 U/L Creatine Kinase MB 3.6 NG/ML Troponin I LESS THAN 0.02 NG/ML Blood Gas Puncture Site LT BRACHIAL Blood Gas Patient Temperature 98.6 Blood Gas HCO3 20 mmol/L Blood Gas Base Excess -4.6 mmol/L Blood Gas Oxygen Saturation 91 % Arterial Blood pH 7.39 Arterial Blood Partial Pressure CO2 34 mmHg Arterial Blood Partial Pressure O2 77 mmHG Arterial Blood Oxygen Content 12.3 Vol % Arterial Blood Carboxyhemoglobin 2.9 % Arterial Blood Methemoglobin 0.3 % Blood Gas Hemoglobin 9.5 G/DL Oxygen Delivery Device Non-Rebreathing Mask Blood Gas Liter Flow 15 L/M Blood Gas Inspired Oxygen 100 % Lactic Acid Level 5.6 mmol/L 4.9 mmol/L Magnesium Level 1.0 MG/DL B-Hydroxybutyrate 0.32 MMOL/L MDM Medical Decision Making Medical Screen Exam Complete: Yes Emergency Medical Condition: Yes Differential Diagnosis CHF versus pneumonia versus A. fib with RVR diagnoses pulmonary embolus Narrative Course Is to 1-year-old female presents with worsening shortness of breath. The patient states that she's had progressive shortness breath over the last 90 days however over the last 2 days, she has severe shortness of breath. The patient is noted to have bilateral pulmonary infiltrates. She had atrial fibrillation with a rate in the 1 teens. Patient is noted to have high [place] knee [place] me up. Her blood sugar was also elevated in the 300s. Case was discussed with Dr. Zay Persaud, hvac maintenance technician who agreed to the admission. She's been started on Rocephin and Zithromax. Her lactic acid was 5.6. Sepsis Criteria SIRS Criteria (2 or more): Heart rate over 90, WBC > 37132, < 4000 or > 10% bands Severe Sepsis (+one): Lactate >2 Septic Shock Criteria: Lactic acid >=4 Diagnosis Primary Impression: Sepsis Additional Impressions: Bilateral pneumonia Hyponatremia Anemia Uncontrolled diabetes mellitus with hyperglycemia Hyperkalemia Elevated liver enzymes Shailesh Guido MD Aug 05, 2017 08:16
[2017-08-05 08:18] LABS: LACTIC ACID SEPSIS PROTOCOL 5.6 mmol/L (0.4-2.0)
[2017-08-05 08:19] LABS: ALBUMIN 1.9 GM/DL (3.4-5.0); ALKALINE PHOSPHATASE 198 U/L (45-117); ALT (GPT) 34 U/L (10-53); AST (GOT) 56 U/L (15-37); BICARBONATE 21.4 MEQ/L (21.0-32.0); BLOOD UREA NITROGEN 14 MG/DL (7-18); CALCIUM 8.2 MG/DL (8.5-10.1); CHLORIDE 86 MEQ/L (98-107); CREATININE 0.82 MG/DL (0.50-1.00); GLOMERULAR FILTRATION RATE 70 ML/MIN (>89); GLUCOSE,RANDOM 391 MG/DL (74-106); TOTAL BILIRUBIN ADULT 5.8 MG/DL (0.2-1.0); TOTAL PROTEIN 6.3 GM/DL (6.4-8.2); TROPONIN I LESS THAN 0.02 NG/ML (0.02-0.05)
[2017-08-05 08:24] LABS: SODIUM (NA) 120 MEQ/L (136-145)
[2017-08-05 08:40] LABS: BANDS 4 % (0-6); CORRECTED NUCLEATED RBC 2 /100 WBC (0-0); MONOCYTES 6 % (0-8); NEUTROPHIL # MANUAL DIFF 13.2 TH/MM3 (1.8-7.7); NUCLEATED RED BLOOD CELL 2 (0-0); POLYS (SEG NEUTROPHILS) 90 % (16-70)
--- NOTE | 2017-08-05 09:03 | RADRPT ---
EXAM DATE/TIME: 08/05/2017 08:02 [facility] COMPARISON: CHEST SINGLE AP, September 26, 2016, 3:17. INDICATIONS : Short of breath with wheezing x1 day, mid-sternal chest pain with inspiration. MEDICAL HISTORY : Diabetes mellitus type II. SURGICAL HISTORY : None. ENCOUNTER: Initial ACUITY: 1 day PAIN SCORE: 5/10 LOCATION: Bilateral chest FINDINGS: A single portable frontal view the chest shows diffuse bilateral intra-alveolar infiltrates most pron ounced within the left mid lung. No effusions. Heart is normal in size. Mild elevation of the right h emidiaphragm is stable. A degenerative thoracic spine. CONCLUSION: Diffuse bilateral pulmonary infiltrates. Estrada Leiva Jr., MD on August 05, 2017 at 8:56 Board Certified Radiologist. This report was verified electronically.
[2017-08-05] MEDS ORDERED: AZITHROMYCIN INJ 500 MG in SODIUM CHLOR 0.9% 250 ML INJ 250 ML IV ONE (09:30)
[2017-08-05] MEDS ORDERED: cefTRIAXone INJ 1,000 MG in SODIUM CHLORIDE 0.9% INJ 100 ML IV ONE (09:30)
[2017-08-05] MEDS: RESP: ALBUTEROL 2.5 MG/IPRATROPIUM 0.5 MG NEB (SCH) NEB ×3 (10:00→20:51)
[2017-08-05] MEDS ORDERED: CHLORHEXIDINE GLUCONATE 2 % 1 PACK (2 CLOTHS) TOP PRN (10:00)
[2017-08-05] MEDS ORDERED: FAMOTIDINE 20 MG/2 ML VIAL IV PUSH SCH (10:00)
[2017-08-05] MEDS ORDERED: MISCELLANEOUS NURSING INFORMATION XX SCH (10:00)
[2017-08-05] MEDS ORDERED: ACETAMINOPHEN 325 MG TAB PO PRN (10:00)
[2017-08-05] MEDS ORDERED: RESP: ALBUTEROL 2.5 MG/3 ML NEB (PRN) INH (10:00)
[2017-08-05] MEDS: SODIUM CHLOR 0.9% 1000 ML INJ 1,000 ML IV SCH ×2 (10:29→19:24)
[2017-08-05] MEDS: OSELTAMIVIR PHOSPHATE 75 MG CAP PO SCH ×2 (10:55→20:41)
[2017-08-05] MEDS ORDERED: Vancomycin Consult Pharmacy 1 EA OTHER SCH (11:45)
--- NOTE | 2017-08-05 11:46 | HHI.HP ---
HPI Service Critical Care Medicine Primary Care Physician Unknown Admission Diagnosis bilateral pneumonia, hyponatremia, dyspnea Diagnosis: Chief Complaint: Worsening shortness of breath and generalized weakness Travel History International Travel<30 Days: No Contact w/Intl Traveler <30 Da: No Traveled to Known Affected Are: No History of Present Illness 61 y/o lady with h/o alcoholic liver cirrhosis, chronic thrombocytopenia, chronic hyponatremia, Afib, DM, HTN, now presents to ED c/o worsening shortness of breath over the last 3 months associated with generalized weakness up to the point that she can not ambulate. She denies fever but had chills, cough, fatigue , and pleuritic pain associated with deep breathing. She denies nausea, vomiting , melena, hematemesis. On ED arrival, patient in respiratory distress requiring NRM. On NRM O2 sat 100%. She was given lasix, azithro and basci labs were sent. She was found to have elevated lactic acid, low sodium therefore CCM was consulted for ICU admission. Patient was seen in ED, she is awake, conversant, on NRM, seems slightly confused. Review of Systems Constitutional: COMPLAINS OF: Fatigue, Chills, Dizziness Endocrine: DENIES: Heat/cold intolerance, Polyphagia Eyes: DENIES: Blurred vision, Diplopia, Eye inflammation, Eye pain, Vision loss , Photosensitivity Ears, nose, mouth, throat: DENIES: Tinnitus, Hearing loss, Nasal discharge Respiratory: COMPLAINS OF: Cough, Shortness of breath, DENIES: Wheezing Cardiovascular: COMPLAINS OF: Dyspnea on Exertion, Lower Extremity Edema, DENIES: Chest pain, Palpitations Gastrointestinal: COMPLAINS OF: Diarrhea, Nausea, DENIES: Abdominal pain, Black stools, Bloody stools, Constipation, Vomiting Musculoskeletal: COMPLAINS OF: Muscle aches, DENIES: Joint pain, Neck pain Neurologic: DENIES: Abnormal gait, Headache, Seizures Past Family Social History Allergies: Coded Allergies: aspirin (Unverified Allergy, Severe, ULCERATIVE COLITIS, 08/05/17) Past Medical History alcoholic liver cirrhosis, chronic thrombocytopenia, chronic hyponatremia, Afib , DM, HTN, portal gastropathy, alcohol abuse, hemorrhoids Past Surgical History tonsillectomy, D&C Reported Medications Active Glipizide 10 Mg Tab 20 Mg PO BIDAC 2 tabs twice a day (20mg) Jannet Lolay Next Blood Test Strips (Blood Glucose Test Strips) 1 Brooke Brooke Strip 5 TIMES A DAY Levothyroxine (Levothyroxine Sodium) 50 Mcg Tab 50 Mcg PO DAILY Potassium Chloride ER (Potassium Chloride) 20 Meq Tab 20 Meq PO DAILY Bd Insulin Syringe Safety 31G X 5/16" 0.3 ml (Insulin Syringe/Needle U-100) 1 Mis Mis Box TID Furosemide 20 Mg Tab 20 Mg PO DAILY Spironolactone 100 Mg Tab 100 Mg PO BIDPC Lisinopril 5 Mg Tab 5 Mg PO DAILY Gabapentin 800 Mg Tab 800 Mg PO TID Levemir Inj (Insulin Detemir) 1,000 unit/ 10 ML Vial 45 Units SQ BID 30 Days Do not mix with any other Insulin. Hydroxyzine Pamoate 50 Mg Cap 50 Mg PO Q6HR PRN Vitamin B-12 (Cyanocobalamin) 1,000 Mcg Tab 1,000 Mcg PO DAILY Reported Protonix (Pantoprazole Sodium) 40 Mg Tab 40 Mg PO DAILY Sulfadiazine 500 Mg Tab 500 Mg PO Q8HR Novolin R Inj (Insulin Human Regular) 1,000 Unit/10 Ml Vial 5-25 Units SQ TID Max dose at bedtime:( )units; sugars less than 70,(0) units; sugars 150-199,(5)unit; sugars 200-249,(10)units; sugars 250-299,(15) units; sugars 300-349,(20)units; sugars greater than 349,(25)units Multiple Vitamin 1 Tab 1 Tab PO DAILY Family History non-contributory Social History h/o EtOH states kadi she quit h/o tobacco > 40 pack year hx, quit last year no drugs Physical Exam Vital Signs Vital Signs Date Time Temp Pulse Resp B/P (MAP) Pulse Ox O2 Delivery O2 Flow Rate FiO2 08/05/17 10:59 106 24 103/59 (74) 98 Non-Rebreather 15.00 08/05/17 09:14 115 24 104/54 (71) 95 Non-Rebreather 15.00 08/05/17 07:33 113 22 127/61 (83) 98 Non-Rebreather 15.00 08/05/17 07:32 97 Non-Rebreather 15.00 08/05/17 07:13 115 22 97 Non-Rebreather 15.00 08/05/17 07:06 97.7 116 22 125/57 (79) 88 Physical Exam General - elderly lady, ill appearing, awake HEENT - pupils equal, reactive, sclerae icteric, neck supple, no nuchal rigidity , neck veins not distended, no carotid bruit, MMM, no thrush CV - regular S1, S2, no murmurs, tachycardic Chest - coarse breath sounds b/l, good air entry, no wheezes Abdomen - soft, mildly tender, non-distended, BS present, + hepatomegaly Skin - no rashes, no cyanosis Extremities - warm and well perfused, RLE edema, + peripheral pulses, no clubbing Neuro - awake, alert, follows commands, moves all extremities Laboratory Laboratory Tests Test 08/05/17 07:14 08/05/17 07:32 08/05/17 07:41 08/05/17 10:13 White Blood Count 14.0 Red Blood Count 2.73 Hemoglobin 9.9 Hematocrit 28.7 Mean Corpuscular Volume 105.1 Mean Corpuscular Hemoglobin 36.3 Mean Corpuscular Hemoglobin Concent 34.5 Red Cell Distribution Width 16.3 Platelet Count 74 Mean Platelet Volume 8.5 Neutrophils (%) (Auto) 89.2 Lymphocytes (%) (Auto) 1.6 Monocytes (%) (Auto) 8.8 Eosinophils (%) (Auto) 0.2 Basophils (%) (Auto) 0.2 Neutrophils # (Auto) 12.4 Lymphocytes # (Auto) 0.2 Monocytes # (Auto) 1.2 Eosinophils # (Auto) 0.0 Basophils # (Auto) 0.0 CBC Comment AUTO DIFF Differential Total Cells Counted 100 Neutrophils % (Manual) 90 Band Neutrophils % 4 Monocytes % 6 Neutrophils # (Manual) 13.2 Nucleated Red Blood Cells 2 Differential Comment FINAL DIFF MANUAL Platelet Estimate LOW Platelet Morphology Comment NORMAL Prothrombin Time 19.2 Prothromb Time International Ratio 1.9 Activated Partial Thromboplast Time 29.4 Urine Color YELLOW Urine Turbidity CLEAR Urine pH 5.0 Urine Specific [place] 1.020 Urine Protein NEG Urine Glucose (UA) 1000 Urine Ketones NEG Urine Occult Blood NEG Urine Nitrite POS Urine Bilirubin NEG Urine Urobilinogen LESS THAN 2.0 Urine Leukocyte Esterase SMALL Urine RBC 3 Urine WBC 5 Urine Squamous Epithelial Cells 1 Urine Bacteria FEW Microscopic Urinalysis Comment CATH-CULTURE IND Blood Urea Nitrogen 14 Creatinine 0.82 Random Glucose 391 Total Protein 6.3 Albumin 1.9 Calcium Level 8.2 Alkaline Phosphatase 198 Aspartate Amino Transf (AST/SGOT) 56 Alanine Aminotransferase (ALT/SGPT) 34 Total Bilirubin 5.8 Sodium Level 120 Potassium Level 5.9 Chloride Level 86 Carbon Dioxide Level 21.4 Anion Gap 13 Estimat Glomerular Filtration Rate 70 Total Creatine Kinase 124 Creatine Kinase MB 3.6 Troponin I LESS THAN 0.02 Blood Gas Puncture Site LT BRACHIAL Blood Gas Patient Temperature 98.6 Blood Gas HCO3 20 Blood Gas Base Excess -4.6 Blood Gas Oxygen Saturation 91 Arterial Blood pH 7.39 Arterial Blood Partial Pressure CO2 34 Arterial Blood Partial Pressure O2 77 Arterial Blood Oxygen Content 12.3 Arterial Blood Carboxyhemoglobin 2.9 Arterial Blood Methemoglobin 0.3 Blood Gas Hemoglobin 9.5 Oxygen Delivery Device Non-Rebreathing Mask Blood Gas Liter Flow 15 Blood Gas Inspired Oxygen 100 Lactic Acid Level 5.6 4.9 Magnesium Level 1.0 B-Hydroxybutyrate 0.32 Date/Time Source Procedure Growth Status 08/05/17 07:41 Blood Peripheral Aerobic Blood Culture Pending Received 08/05/17 07:41 Blood Peripheral Anaerobic Blood Culture Pending Received 08/05/17 10:54 Nasal Aspirate Influenza Types A,B Antigen (JUAN) - Final NEGATIVE FOR FLU A AND B ANTIGEN.... Complete 08/05/17 07:14 Urine Catheterized Urine Urine Culture Pending Received Result Diagram: 08/05/1714 08/05/1714 Imaging Last Impressions Chest X-Ray 08/05/17727 Signed Impressions: Service Date/Time: July 08:02 - CONCLUSION: Diffuse bilateral pulmonary infiltrates. Estrada Leiva Jr., MD Capsarai VTE Risk Assessment Caprini VTE Risk Assessment: Mod/High Risk (score >= 2) Caprini Risk Assessment Model Point Value = 1 Point Value = 2 Point Value = 3 Point Value = 5 Age 41-60 Minor surgery BMI > 25 kg/m2 Swollen legs Varicose veins or History of unexplained or recurrent spontaneous Oral contraceptives or hormone replacement Sepsis (< 1 month) Serious lung disease, including pneumonia (< 1 month) Abnormal pulmonary function Acute myocardial infarction Congestive heart failure (< 1 month) History of inflammatory bowel disease Medical patient at bed rest Age 61-74 Arthroscopic surgery Major open surgery (> 45 min) Laparoscopic surgery (> 45 min) Malignancy Confined to bed (> 72 hours) Immobilizing plaster cast Central venous access Age >= 75 History of VTE Family history of VTE Factor V Leiden Prothrombin [id number] Lupus anticoagulant Anticardiolipin antibodies Elevated serum homocysteine Heparin-induced thrombocytopenia Other congenital or acquired thrombophilia Stroke (< 1 month) Elective arthroplasty Hip, pelvis, or leg fracture Acute spinal cord injury (< 1 month) Prophylaxis Regimen Total Risk Factor Score Risk Level Prophylaxis Regimen 0-1 Low Early ambulation 2 Moderate Order ONE of the following: *Sequential Compression Device (SCD) *Heparin 5000 units SQ BID 3-4 Higher Order ONE of the following medications: *Heparin 5000 units SQ TID *Enoxaparin/Lovenox 40 mg SQ daily (WT < 150 kg, CrCl > 30 mL/min) *Enoxaparin/Lovenox 30 mg SQ daily (WT < 150 kg, CrCl > 10-29 mL/min) *Enoxaparin/Lovenox 30 mg SQ BID (WT < 150 kg, CrCl > 30 mL/min) AND/OR *Sequential Compression Device (SCD) 5 or more Highest Order ONE of the following medications: *Heparin 5000 units SQ TID (Preferred with Epidurals) *Enoxaparin/Lovenox 40 mg SQ daily (WT < 150 kg, CrCl > 30 mL/min) *Enoxaparin/Lovenox 30 mg SQ daily (WT < 150 kg, CrCl > 10-29 mL/min) *Enoxaparin/Lovenox 30 mg SQ BID (WT < 150 kg, CrCl > 30 mL/min) AND *Sequential Compression Device (SCD) Assessment and Plan Assessment and Plan 1. Acute hypoxic respiratory failure 2. Possible pneumonia 3. Concern for influenza 4. Hyperkalemia 5. Lactic acidosis 6. Uncontrolled DM 7. Chronic hyponatremia 8. Alcoholic liver cirrhosis 9. Chronic thrombocytopenia 10. H/o Afib 11. Severe hypomagnesemia 1. Admit to ICU 2. Place central line, check CVP, check CVO2 3. Start BPAP. If not tolerated HFNC 4. Repeat potassium stat. If still elevated, will give calcium, insulin and albuterol 5. Started on oseltamivir. Check influenza 6. Start vanco and cefepime for broad antimicrobial coverage 7. Send blood, sputum and urine cultures 8. Serial lactic acid 9. CE 10. ECHO 11. Serum and urine osm, fontaine catheter and strict I/O 12. Slow sodium correction, check Na every 4 hours to avoid overcorrection 13. Check coags and ammonia 14. Folic acid and thiamine 15. Insulin sliding scale. If no improvement will start insulin drip 16. RLE doppler 17. CT chest if no improvement in O2 sat 18. GI/DVT prophylaxis 19. Replete mag, check phos and ionized calcium Critical Care time spent providing care for patient was 34 minutes excluding procedures, managing oxygenation, fluids, electrolytes, antibiotics, reviewing the data and ordering labs. Addendum: Patient decompensated while in ED with worsening hypoxia and hypotension. She was emergently transferred to [facility] where she was emergently intubated after I explained to her the necessity of it and she agreed. I also placed a central line. CVP is being checked and one liter fluid bolus was given. She required brief BP support with norepinephrine now off. Dr. Persaud will take over her care. I spent an additional 30 minutes of critical care time managing hypoxia and hypotension. Henok Cortés MD Stained [employer] Glazier Henok Cortés MD Aug 05, 2017 11:46
[2017-08-05] MEDS: MAGNESIUM SULFATE 1 GM PREMIX 100 ML IV SCH ×2 (12:43→13:51)
[2017-08-05] MEDS: CEFEPIME INJ 2,000 MG in SODIUM CHLORIDE 0.9% INJ 100 ML IV SCH ×2 (13:22→20:41)
[2017-08-05] MEDS ORDERED: ONDANSETRON HCL 4 MG/2 ML VIAL IV PUSH PRN (13:45)
[2017-08-05] MEDS: PANTOPRAZOLE SOD 40 MG DELAYED RELEASE TAB PO SCH (14:00)
[2017-08-05 14:27] LABS: ALBUMIN 1.9 GM/DL (3.4-5.0); BICARBONATE 24.8 MEQ/L (21.0-32.0); CALCIUM 8.2 MG/DL (8.5-10.1); CREATININE 0.8 MG/DL (0.50-1.00)
[2017-08-05] MEDS ORDERED: CALCIUM GLUCONATE INJ 1 GM in SODIUM CHLORIDE 0.9% INJ 100 ML IV ONE (15:00)
[2017-08-05] MEDS ORDERED: INSULIN HUMAN REGULAR 1,000 UNITS/10 ML VIAL IV PUSH ONE (15:00)
[2017-08-05] MEDS ORDERED: GLUCAGON 1 MG/ML VIAL OTHER PRN (15:15)
[2017-08-05] MEDS ORDERED: DEXTROSE 50% IN WATER 50 ML VIAL(D50) IV PUSH PRN ×2 (15:15→18:45)
[2017-08-05] MEDS ORDERED: SODIUM POLYSTYRENE SULFONATE SUSP 15 GM/60 ML CUP PO ONE (15:15)
--- NOTE | 2017-08-05 15:15 | RADRPT ---
EXAM DATE/TIME: 08/05/2017 14:07 [facility] COMPARISON: US LEG RIGHT VENOUS DOPPLER, February 01, 2017, 9:19. INDICATIONS : Right leg edema. MEDICAL HISTORY : Hernia, hiatal. Arthritis. Hypothyroidism. Peripheral neuropathy. Afib. HTN. Dyspnea. Ulcerated co litis. GERD. Diabetes. Mild cirrhosis. Depression. Anxiety. SURGICAL HISTORY : Tonsillectomy. D&C. ENCOUNTER: Subsequent ACUITY: 3 months PAIN SCORE: 6/10 LOCATION: Right leg. TECHNIQUE: Venous ultrasound of the leg was performed from the inguinal ligament to the proximal calf. Real-marti e, color Doppler and spectral tracing, compression and augmentation techniques were used. FINDINGS: There is normal compressibility of the deep venous system from the inguinal region to the proximal ca lf. No echogenic clot is seen in the lumen of the common femoral, femoral, popliteal, and posterior tibial veins. There is a normal response of the venous system to proximal and distal augmentation an d respiration. CONCLUSION: 1. No evidence of right lower extremity DVT. 2. 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 Sukhdeep Cortez MD on August 05, 2017 at 15:11 Board Certified Radiologist. This report was verified electronically.
[2017-08-05] MEDS: VANCOMYCIN INJ 1,500 MG in SODIUM CHLORID 0.9% 500 ML INJ 500 ML IV SCH (15:17)
[2017-08-05 15:55] LABS: INTERNATIONAL NORMALIZED RATIO 1.8 RATIO; PROTHROMBIN TIME - PATIENT 18.6 SEC (9.8-11.6)
[2017-08-05 16:07] LABS: ALBUMIN 1.9 GM/DL (3.4-5.0); BICARBONATE 24.5 MEQ/L (21.0-32.0); CALCIUM 7.8 MG/DL (8.5-10.1); CREATININE 0.82 MG/DL (0.50-1.00); MAGNESIUM 1.8 MG/DL (1.5-2.5); PHOSPHORUS 3.6 MG/DL (2.5-4.9)
[2017-08-05] MEDS ORDERED: MIDAZOLAM HCL 5 MG/ML VIAL (1 ML) ONE (16:11)
[2017-08-05] MEDS ORDERED: ROCURONIUM INJ 50 MG/5 ML VIAL ONE (16:11)
[2017-08-05] MEDS ORDERED: PROPOFOL 500 MG/50 ML INJ 50 ML ONE (16:31)
[2017-08-05] MEDS ORDERED: GELATIN 12 MM/7 MM FOAM ONE (16:56)
[2017-08-05] MEDS ORDERED: INSULIN ASPART SUPPLEMENTAL SCALE SQ SCH (17:00)
--- NOTE | 2017-08-05 17:22 | PD.PROCEDR ---
Central Line Procedure REASON FOR PROCEDURE Central venous access PROCEDURE PERFORMED Central line placement: right internal jugular CONSENT Informed consent for procedure was obtained verbally from the patient before intubation. The risks and benefits of the procedure were discussed to include but limited to bleeding, clot formation, infection, and even . ANESTHESIA Local injection of 1% Lidocaine DESCRIPTION OF THE PROCEDURE The patient was placed in supine, mild Trendelenburg position. The area was exposed and cleansed with ChloraPrep, times two. Large sterile drape was used to cover the patient, with the site exposed, under sterile conditions including cap, face mask, sterile gown, and sterile gloves. On single attempt, the introducer needle was inserted with negative pressure in syringe and venous flash was obtained. The guide wire was then advanced without any restriction and the needle was removed. The dilator was used without any complications. Using Seldinger technique the catheter was advanced over the guide wire to a depth of 15 centimeters. The guide wire was removed. All ports were aspirated with dark venous blood return and flushed easily with sterile saline. All ports were capped. Antibiotic disc was placed around central line at puncture site. The central line was secured to the skin with two interrupted 2.0 silk sutures. The area was bandaged with sterile see-through central line bandage. RADIOLOGICAL DATA Ultrasound guidance was used to locate the right internal jugular vein. Doppler /color flow was used to confirm venous flow. COMPLICATIONS: No apparent complications. Correct guidewire placement was verified using ultrasound. ESTIMATED BLOOD LOSS: Less than 1 cc. Henok Cortés MD Aug 05, 2017 17:22
--- NOTE | 2017-08-05 17:26 | PD.PROCEDR ---
Procedure Note Procedure Endotracheal intubation Indication: acute hypoxic respiratory failure not responding to BPAP Medication: midazolam 5 mg and rocuronium 50 mg Patient was preoxygenated with BPAP followed by BMV at 100% and PEEP of 10. Patient was intubated on the first attempt using video laryngoscope with an ETT size 7.5 at 22 cm at the lip. Correct position was confirmed with colorimetric change and good breath sounds bilateral on chest auscultation. CXR was ordered. Patient did not drop O2 sat lower than 90% during intubation. Grade 1 view. Henok Cortés MD Aug 05, 2017 17:26
--- NOTE | 2017-08-05 18:16 | RADRPT ---
EXAM DATE/TIME: 08/05/2017 17:13 [facility] COMPARISON: CHEST SINGLE AP, August 05, 2017, 8:02. INDICATIONS : Post intubation and central line placement. MEDICAL HISTORY : Hernia, hiatal. Arthritis. Hypothyroidism. Peripheral neuropathy. Afib. HTN.Dyspnea. Ulcerated coliti s. GERD. Diabetes. Mild cirrhosis. Depression. Anxiety. SURGICAL HISTORY : Tonsillectomy. D&C. ENCOUNTER: Initial ACUITY: 1 day PAIN SCORE: Non-responsive. LOCATION: Bilateral chest FINDINGS: Patient is now intubated. Endotracheal tube tip is approximately 4 cm above the cedric. There is a na sogastric tube coursing into the stomach and a right internal jugular central venous catheter with ti p in the superior vena cava. Diffuse hazy bilateral infiltrates again seen suggesting pulmonary edema. There is suspected superimp osed pneumonia in the left midlung. These findings are not significantly changed. I don't see a large effusion. No pneumothorax. CONCLUSION: 1. Interim intubation, nasogastric tube placement and right internal jugular central venous catheter placement. Lead tips are appropriately positioned. 2. Diffuse pulmonary opacities persist and with localized more dense/confluent consolidation in the l eft midlung. Please see above. Hung Diop MD on August 05, 2017 at 18:12 Board Certified Radiologist. This report was verified electronically.
[2017-08-05 18:25] LABS: AMORPHOUS SEDIMENT, URINE OCC; BACTERIA, URINE FEW /hpf; BILIRUBIN, URINE NEG (NEG); BLOOD, URINE NEG (NEG); GLUCOSE,URINE 1000 mg/dL (NEG); KETONE, URINE NEG (NEG); NITRITE,URINE NEG (NEG); SQUAMOUS EPITHELIAL CELL URINE <1 /hpf (0-5); URINE COLOR YELLOW (YELLW/STRAW); URINE LEUKOCYTE ESTERASE SMALL (NEG); WHITE BLOOD CELL CLUMPS FEW
[2017-08-05] MEDS ORDERED: INSULIN REGULAR (IV INFUSION) 100 UNITS in SODIUM CHLORIDE 0.9% INJ 99 ML IV PRN (18:45)
[2017-08-05] MEDS ORDERED: MISC INFORMATION OTHER ONE (18:45)
[2017-08-05] MEDS: CHLORHEXIDINE 0.12% (ORAL KIT) 15 ML CUP MT SCH (20:41)
[2017-08-05] MEDS: MORPHINE SULFATE 4 MG/ML INJ IV PUSH PRN (21:09)
[2017-08-05] MEDS ORDERED: PROPOFOL 1000 MG/100 ML IV PRN (21:45)
--- NOTE | 2017-08-05 23:01 | EKG ---
Date Performed: 08/05/2017 Time Performed: 08:38:02 PTAGE: 61 years EKG: SINUS TACHYCARDIA WITH FIRST DEGREE AV BLOCK POSSIBLE RIGHT VENTRICULAR CONDUCTION DELAY PO SSIBLE INFERIOR MYOCARDIAL INFARCTION ANTEROSEPTAL MYOCARDIAL INFARCTION ABNORMAL ECG PREVIOUS TRACING : 09/26/2016 02.55 Since the prior tracing, there has been no significant navarro [employer] DOCTOR: Berhane Peña Interpretating Date/Time 08/05/2017 23:01:00
[2017-08-06] VITALS (25 sets, daily range): BP systolic 80–126; BP diastolic 46–62; PULSE 74–115; RESP 24–31; TEMP 97.8–99.5; O2SAT 89–100
[2017-08-06] MEDS: CHLORHEXIDINE GLUCONATE 2 % 1 PACK (2 CLOTHS) TOP SCH (01:29)
[2017-08-06] MEDS: NOREPINEPHRINE 4 MG/D5W 250 ML IV PRN ×5 (01:41→23:30)
[2017-08-06] MEDS: MIDAZOLAM 100 MG/NS 100 ML DRIP Premix IV PRN ×2 (01:47→20:15)
[2017-08-06] MEDS: PROPOFOL 1000 MG/100 ML INJ 100 ML IV PRN ×2 (02:46→08:39)
[2017-08-06 03:42] LABS: AUTOMATED NEUTROPHIL # 16.8 TH/MM3 (1.8-7.7); BASOPHIL # 0.1 TH/MM3 (0-0.2); BASOPHIL % 0.3 % (0.0-2.0); EOSINOPHIL # 0.1 TH/MM3 (0-0.4); EOSINOPHIL % 0.6 % (0.0-4.0); HEMATOCRIT 25.2 % (35.0-46.0); HEMOGLOBIN 8.8 GM/DL (11.6-15.3); LYMPH % 1.7 % (9.0-44.0); LYMPHOCYTE # 0.3 TH/MM3 (1.0-4.8); MEAN CELL VOLUME 104.3 FL (80.0-100.0); MEAN CORPUSCULAR HEMOGLOBIN 36.4 PG (27.0-34.0); MEAN CORPUSCULAR HGB CONC 34.9 % (32.0-36.0); MEAN PLATELET VOLUME 7.8 FL (7.0-11.0); MONO % 5.7 % (0.0-8.0); MONOCYTE # 1.1 TH/MM3 (0-0.9); NEUT % 91.7 % (16.0-70.0); PLATELET COUNT 100 TH/MM3 (150-450); RED BLOOD COUNT 2.42 MIL/MM3 (4.00-5.30); RED CELL DISTRIBUTION WIDTH 16.8 % (11.6-17.2); WHITE BLOOD COUNT 18.4 TH/MM3 (4.0-11.0)
[2017-08-06] MEDS: RESP: ALBUTEROL 2.5 MG/IPRATROPIUM 0.5 MG NEB (SCH) NEB ×4 (03:42→19:30)
[2017-08-06 04:28] LABS: ALBUMIN 1.7 GM/DL (3.4-5.0); ALKALINE PHOSPHATASE 154 U/L (45-117); ALT (GPT) 32 U/L (10-53); AST (GOT) 57 U/L (15-37); BICARBONATE 25.5 MEQ/L (21.0-32.0); BLOOD UREA NITROGEN 20 MG/DL (7-18); CALCIUM 7.6 MG/DL (8.5-10.1); CHLORIDE 96 MEQ/L (98-107); CREATININE 0.79 MG/DL (0.50-1.00); GLOMERULAR FILTRATION RATE 74 ML/MIN (>89); GLUCOSE,RANDOM 306 MG/DL (74-106); MAGNESIUM 1.5 MG/DL (1.5-2.5); SODIUM (NA) 128 MEQ/L (136-145); TOTAL BILIRUBIN ADULT 4.8 MG/DL (0.2-1.0); TOTAL PROTEIN 5.8 GM/DL (6.4-8.2)
[2017-08-06] MEDS: CEFEPIME INJ 2,000 MG in SODIUM CHLORIDE 0.9% INJ 100 ML IV SCH ×2 (04:57→20:13)
--- NOTE | 2017-08-06 05:38 | RADRPT ---
EXAM DATE/TIME: 08/06/2017 03:54 [facility] COMPARISON: CHEST SINGLE AP, August 05, 2017, 8:02. CHEST SINGLE AP, August 05, 2017, 17:13. INDICATIONS : Evaluate for respiratory disease. Shortness of breath. MEDICAL HISTORY : Afib. Dyspnea. Ulcerated colitis. GERD. Diabetes. Mild cirrhosis. Depression. SURGICAL HISTORY : None. ENCOUNTER: Subsequent ACUITY: 2 days PAIN SCORE: Non-responsive. LOCATION: chest FINDINGS: The ET tube, NG tube and right internal jugular central line are well placed. The heart size appears to be within normal limits. There is diffuse consolidation seen. CONCLUSION: Diffuse consolidation likely related to edema. This appears worse. Hung Linares MD on August 06, 2017 at 5:34 Board Certified Radiologist. This report was verified electronically.
[2017-08-06] MEDS: INSULIN REGULAR 100 UNITS/100 ML NS ALGORITHM 2 IV PRN ×2 (05:58)
[2017-08-06] MEDS: SODIUM CHLOR 0.9% 1000 ML INJ 1,000 ML IV SCH (06:37)
[2017-08-06] MEDS: CHLORHEXIDINE 0.12% (ORAL KIT) 15 ML CUP MT SCH ×2 (08:00→19:17)
[2017-08-06 08:21] LABS: BANDS 12 % (0-6); LYMPHOCYTES 2 % (9-44); MONOCYTES 2 % (0-8); MYELOCYTES 1 % (0-0); NEUTROPHIL # MANUAL DIFF 17.5 TH/MM3 (1.8-7.7); POLYS (SEG NEUTROPHILS) 82 % (16-70)
[2017-08-06 08:22] LABS: POLYCHROMASIA 2.3 % (0.0-1.9)
[2017-08-06] MEDS: VANCOMYCIN INJ 1,500 MG in SODIUM CHLORID 0.9% 500 ML INJ 500 ML IV SCH (08:37)
[2017-08-06] MEDS: FOLIC ACID 1 MG TAB PO SCH (08:38)
[2017-08-06] MEDS: PANTOPRAZOLE SOD 40 MG DELAYED RELEASE TAB PO SCH (08:38)
[2017-08-06] MEDS: OSELTAMIVIR PHOSPHATE 75 MG CAP PO SCH ×2 (08:38→20:13)
[2017-08-06] MEDS: THIAMINE HCL 100 MG TAB PO SCH (08:38)
--- NOTE | 2017-08-06 09:20 | EKG ---
Date Performed: 08/05/2017 Time Performed: 18:50:42 PTAGE: 61 years EKG: Regular supraventricular rhythm, possible sinus tachycardia with short KS interval. Anteros eptal infarct - age undetermined Inferior/lateral ST-T changes are nonspecific Abnormal ECG PREVIOUS TRACING : 08/05/2017 08.38 No change from previous tracing noted. DOCTOR: Meir Carcamo Interpretating Date/Time 08/06/2017 09:20:16
[2017-08-06] MEDS ORDERED: ICU - POTASSIUM PHOSPHATE 30 MMOL/NS 250 ML IV PRN ×2 (11:00)
[2017-08-06] MEDS ORDERED: ICU - POTASSIUM CHLORIDE/AQUEOUS SOLN 20 MEQ/100 ML IVPB IV PRN (11:00)
[2017-08-06] MEDS ORDERED: ICU - POTASSIUM PHOSPHATE MONOBASIC 500 MG TAB PO PRN (11:00)
[2017-08-06] MEDS ORDERED: ICU - CALL ORDERING PHYSICIAN PRN (11:00)
[2017-08-06] MEDS ORDERED: ICU - D/C ICU ELECTROLYTE ORDERS PRN (11:00)
[2017-08-06] MEDS ORDERED: POTASSIUM CHLORIDE 25 MEQ EFFERVESCENT TAB PO PRN (11:00)
[2017-08-06] MEDS ORDERED: ICU - SODIUM PHOSPHATE 30 MMOL/NS 250 ML IV PRN ×2 (11:00)
[2017-08-06] MEDS ORDERED: ICU - MAGNESIUM SULFATE 4 GM/NS 100 ML IV PRN ×2 (11:00)
[2017-08-06] MEDS ORDERED: ICU - MAGNESIUM OXIDE 400 MG TAB PO PRN (11:00)
[2017-08-06] MEDS: AZITHROMYCIN INJ 500 MG in SODIUM CHLOR 0.9% 250 ML INJ 250 ML IV SCH (11:12)
[2017-08-06] MEDS: ICU - MAGNESIUM SULFATE 2 GM/NS 100 ML IV PRN ×2 (11:56)
--- NOTE | 2017-08-06 11:59 | HHI.CCPN ---
Subjective Remarks/Hospital Course 08/05: 61 y/o lady with h/o alcoholic liver cirrhosis, chronic thrombocytopenia, chronic hyponatremia, Afib, DM, HTN, now presents to ED c/o worsening shortness of breath over the last 3 months associated with generalized weakness up to the point that she can not ambulate. She denies fever but had chills, cough, fatigue , and pleuritic pain associated with deep breathing. She denies nausea, vomiting , melena, hematemesis. On ED arrival, patient in respiratory distress requiring NRM. On NRM O2 sat 100%. She was given lasix, azithro and basci labs were sent. She was found to have elevated lactic acid, low sodium therefore CCM was consulted for ICU admission. Patient was seen in ED, she is awake, conversant, on NRM, seems slightly confused. 08/06: No events over the night. Afebrile. Oxygenation is improved, down to 0.65 FiO2. She is sedated and intubated. On norepinephrine at 8 mcg/minute. CVP 11. Objective Vital Signs Date Time Temp Pulse Resp B/P (MAP) Pulse Ox O2 Delivery O2 Flow Rate FiO2 08/06/17 11:33 96 65 08/06/17 10:00 74 08/06/17 08:00 97.9 24 97/52 (67) 08/05/17 15:38 BiPAP 08/05/17 15:00 40.00 Intake and Output 08/06/17 08/06/17 08/07/17 08:00 16:00 00:00 Intake Total 1523.6 ml Output Total 550 ml Balance 973.6 ml Result Diagram: 08/06/17 0325 08/06/17 0325 Other Results Microbiology Date/Time Source Procedure Growth Status 08/05/17 10:54 Nasal Aspirate Influenza Types A,B Antigen (JUAN) - Final NEGATIVE FOR FLU A AND B ANTIGEN.... Complete Laboratory Tests Test 08/05/17 17:51 08/06/17 05:48 Blood Gas Puncture Site RT RADIAL RT RADIAL Blood Gas Patient Temperature 98.6 98.6 Blood Gas HCO3 21 mmol/L (22-26) 22 mmol/L (22-26) Blood Gas Base Excess -6.7 mmol/L (-2-2) -2.7 mmol/L (-2-2) Blood Gas Oxygen Saturation 97 % (90-100) 97 % (90-100) Arterial Blood pH 7.11 (7.380-7.420) 7.33 (7.380-7.420) Arterial Blood Partial Pressure CO2 70 mmHg (38-42) 44 mmHg (38-42) Arterial Blood Partial Pressure O2 260 mmHg (61-120) 206 mmHg (61-120) Arterial Blood Oxygen Content 14.4 Vol % (12.0-20.0) 12.0 Vol % (12.0-20.0) Arterial Blood Carboxyhemoglobin 1.2 % (0-4) 1.5 % (0-4) Arterial Blood Methemoglobin 1.3 % (0-2) 1.4 % (0-2) Blood Gas Hemoglobin 10.2 G/DL (12.0-16.0) 8.4 G/DL (12.0-16.0) Oxygen Delivery Device VENTILATOR VENTILATOR Blood Gas Ventilator Setting AC,18,400,PEEP10 AC24/400/+10 Blood Gas Inspired Oxygen 100 % 100 % Imaging Last Impressions Chest X-Ray 08/05/17 0728 Signed Impressions: Service Date/Time: July 08:02 - CONCLUSION: Diffuse bilateral pulmonary infiltrates. Estrada Leiva Jr., MD Objective Remarks General - elderly lady, ill appearing, intubated and sedated HEENT - pupils are equal, reactive, sclerae are icteric, neck is supple, no neck rigidity, no JVD, + ETT, + OGT CV - regular heart sounds, no murmurs Chest - coarse breath sounds b/l, good air entry, no wheezes Abdomen - soft, not tender, non-distended, BS present, + hepatomegaly Skin - no rashes, no cyanosis Extremities - warm, RLE edema, + peripheral pulses, no clubbing Neuro - intubated and sedated, pupils are equal and reactive Urinary Catheter: Yes Crowell insert reason: Measure Accurate Output Vascular Central Line Catheter: Yes Assessment to: Continue Date of Insertion: Aug 05, 2017 Line: Central Venous Catheter Side: Right Location: Internal, Jugular A/P Assessment and Plan 1. Acute hypoxic respiratory failure requiring intubation and mechanical ventilation - slight improvement in O2 requirements 2. Possible pneumonia 3. Concern for influenza 4. Hyperkalemia - better 5. Lactic acidosis - almost resolved 6. Uncontrolled DM - better controlled 7. Chronic hyponatremia - slowly trending up 8. Alcoholic liver cirrhosis 9. Chronic thrombocytopenia 10. H/o Afib 11. Severe hypomagnesemia - better but still low 1. Continue PRVC, Pip 29, patient synchronized with the vent, no auto PEEP 2. Vent bundle and bronchodilators 3. On insulin drip 4. On norepinephrine to keep MAP above 65. CVP 11 5. Continue empiric oseltamivir 6. Continue vanco and cefepime for broad antimicrobial coverage but decrease cefepime dose to every 12 hours 7. F/u blood, sputum and urine cultures 8. Serial sodium 9. Stop saline. Start 1/2 NS at 50 10. Liver US 11. ECHO 12. Folic acid and thiamine 13. RLE doppler reviewed - no evidence of DVT 18. GI/DVT prophylaxis Critical Care time spent providing care for patient was 32 minutes excluding procedures, managing ventilator, sedation, pressor, fluids, electrolytes, antibiotics, reviewing the data and ordering labs. No family present at bedside. Henok Cortés MD Aug 06, 2017 11:59
[2017-08-06] MEDS: SODIUM CHLOR 0.45% 1000 ML INJ 1,000 ML IV SCH (13:25)
[2017-08-06] MEDS: ENOXAPARIN SODIUM 40 MG/0.4 ML SYRINGE SQ SCH (13:25)
--- NOTE | 2017-08-06 15:54 | RADRPT ---
EXAM DATE/TIME: 08/06/2017 14:34 [facility] COMPARISON: US ABDOMEN - LIVER, January 23, 2015, 9:19. EXTERNAL COMPARISON : [facility], CT ABDOMEN & PELVIS W/CONTRAST, September 29, 2013 INDICATIONS : Cirrhosis. MEDICAL HISTORY : Hernia, hiatal. Arthritis. Hypothyroidism. Peripheral neuropathy. Afib. HTN. Dyspnea. Ulcerated colit is. GERD. Diabetes. Mild cirrhosis. Depression. Anxiety. SURGICAL HISTORY : Tonsillectomy. D&C. ENCOUNTER: Initial ACUITY: 1 day PAIN SCORE: Nonresponsive. LOCATION: Bilateral upper quadrant MEASUREMENTS: LIVER: 14.5 cm length COMMON DUCT: 4 mm RIGHT KIDNEY: 12.4 x 5.6 x 6.7 cm SPLEEN: 10.8 cm length FINDINGS: LIVER: There is increased echogenicity throughout the entire liver. The liver is somewhat lobular and hetero geneous with recanalized umbilical vein characteristic of cirrhosis. These findings are present on e prior examination. There is a small amount of ascites adjacent to the liver. The portal system is p atent. No dilated biliary ducts. COMMON DUCT: No intraluminal mass or stone visualized. GALLBLADDER: Multiple stones in the gallbladder. There is thickening of the gallbladder wall in a millimeters. No fluid around the gallbladder. PANCREAS: The pancreas appears to be somewhat heterogeneous.. RIGHT KIDNEY: No hydronephrosis, stone or mass. SPLEEN: No focal lesion. There are granulomas throughout the spleen. CONCLUSION: 1. Heterogeneous lobular liver characteristic of cirrhosis. This has not significantly changed compar ed to the prior exam. 2. Gallstones in the gallbladder. No definite biliary tract obstruction. There is chronic gallbladder disease with thickening of the wall 8 mm. 3. The pancreas appears to be heterogeneous. Greyson Lozano MD on August 06, 2017 at 15:48 Board Certified Radiologist. This report was verified electronically.
[2017-08-06] MEDS ORDERED: RASS Change Order XX ONE (16:15)
[2017-08-06] MEDS: [UNRECOGNIZED DRUG - REMARK] IV SCH ×2 (16:15)
[2017-08-06] MEDS ORDERED: ALBUMIN 5% INJ 500 ML IV ONE (16:30)
[2017-08-06] MEDS: fentaNYL 2,500 MCG/NS 250 ML IV PRN (17:02)
[2017-08-06 17:33] LABS: ALBUMIN 1.7 GM/DL (3.4-5.0); BICARBONATE 25.5 MEQ/L (21.0-32.0); CALCIUM 7.7 MG/DL (8.5-10.1); CREATININE 0.62 MG/DL (0.50-1.00); FREE T3 0.55 PG/ML (2.18-3.98); FREE T4 1.04 NG/DL (0.76-1.46); PHOSPHORUS 2.5 MG/DL (2.5-4.9)
--- NOTE | 2017-08-06 19:08 | ECHRPT ---
Indication: ATRIAL FIB CONCLUSIONS The left ventricular systolic function is normal with an estimated ejection fraction in the range of 60-65%. Doppler parameters are consistent with a pseudonormal left ventricular filling pattern with concomin ant abnormal relaxation and increased filling pressure (grade 2 diastolic dysfunction). Mild concentric left ventricular hypertrophy. There is mild tricuspid valve regurgitation. BP: 110 / 55 HR: 103 Rhythm: Sinus MEASUREMENTS (Male / Female) Normal Values Technical Quality:Good 2D ECHO LV Diastolic Diameter PLAX 4.9 cm 4.2 - 5.9 / 3.9 - 5.3 cm LV Systolic Diameter PLAX 2.9 cm IVS Diastolic Thickness 1.0 cm 0.6 - 1.0 / 0.6 - 0.9 cm LVPW Diastolic Thickness 1.0 cm 0.6 - 1.0 / 0.6 - 0.9 cm LV Relative Wall Thickness 0.4 RV Internal Dim ED PLAX 2.0 cm LVOT Diameter 1.9 cm LV Ejection Fraction MOD 4C 74.3 % LV Cardiac Index MOD 4C 3118.8 cm/minm LV Ejection Fraction 4C AL 75.9 % LV Cardiac Index 4C AL 3258.9 cm/minm M-MODE Aortic Root Diameter MM 3.3 cm LA Systolic Diameter MM 4.0 cm LA Ao Ratio MM 1.2 AV Cusp Separation MM 2.1 cm DOPPLER AV Peak Velocity 254.5 cm/s AV Peak Gradient 25.9 mmHg AV Mean Gradient 14.0 mmHg AV Velocity Time Integral 53.3 cm LVOT Peak Velocity 145.0 cm/s LVOT Peak Gradient 8.4 mmHg LVOT Velocity Time Integral 34.3 cm LVOT Cardiac Index 5514.6 cm/minm AV Area Cont Eq vti 1.8 cm AV Area Cont Eq pk 1.6 cm MV Area PHT 3.2 cm Mitral E Point Velocity 125.0 cm/s Mitral A Point Velocity 103.0 cm/s Mitral E to A Ratio 1.2 LV E' Lateral Velocity 6.8 cm/s Mitral E to LV E' Lateral Ratio 18.3 LV E' Septal Velocity 6.3 cm/s Mitral E to LV E' Septal Ratio 19.7 TR Peak Velocity 171.0 cm/s TR Peak Gradient 11.7 mmHg Right Atrial Pressure 10.0 mmHg Pulmonary Artery Systolic Pressu 21.7 mmHg Right Ventricular Systolic Press 21.7 mmHg PV Peak Velocity 114.0 cm/s PV Peak Gradient 5.2 mmHg FINDINGS LEFT VENTRICLE The left ventricular systolic function is normal with an estimated ejection fraction in the range of 60-65%. Normal left ventricular size. No regional wall motion abnormalities are present. Doppler parameters are consistent with a pseudonormal left ventricular filling pattern with concomin ant abnormal relaxation and increased filling pressure (grade 2 diastolic dysfunction). Mild concentric left ventricular hypertrophy. RIGHT VENTRICLE Normal right ventricular size and systolic function. LEFT ATRIUM The left atrial size is upper limits of normal. RIGHT ATRIUM The right atrial size is normal. ATRIAL SEPTUM Normal atrial septal thickness without atrial level shunting by limited color doppler interrogation. AORTA The aortic root and proximal ascending aorta are normal in size on limited imaging. MITRAL VALVE Structurally normal mitral valve. No mitral valve stenosis or regurgitation. AORTIC VALVE Trileaflet aortic valve. Aortic valve sclerosis is present. No aortic valve regurgitation. No aortic valve stenosis. TRICUSPID VALVE Structurally normal tricuspid valve. There is mild tricuspid valve regurgitation. The estimated pulmonary arterial pressure is 21.7 mmHg. PULMONARY VALVE No pulmonary valve regurgitation or stenosis. VESSELS The inferior vena cava is normal in size. PERICARDIUM No pericardial effusion. Berhane Peña DO (Electronically Signed) Final Date:06 August 2017 19:07
[2017-08-07] VITALS (22 sets, daily range): BP systolic 95–129; BP diastolic 42–63; PULSE 89–137; RESP 24–29; TEMP 98.1–99.7; O2SAT 89–100
[2017-08-07] MEDS: CHLORHEXIDINE GLUCONATE 2 % 1 PACK (2 CLOTHS) TOP SCH (02:26)
[2017-08-07] MEDS: VANCOMYCIN INJ 1,500 MG in SODIUM CHLORID 0.9% 500 ML INJ 500 ML IV SCH ×2 (02:26→20:40)
[2017-08-07] MEDS: RESP: ALBUTEROL 2.5 MG/IPRATROPIUM 0.5 MG NEB (SCH) NEB ×4 (03:49→19:41)
--- NOTE | 2017-08-07 04:26 | RADRPT ---
EXAM DATE/TIME: 08/07/2017 03:18 [facility] COMPARISON: CHEST SINGLE AP, August 06, 2017, 3:54. INDICATIONS : Shortness of breath, possible pulmonary disease. MEDICAL HISTORY : Ulcerative colitis. Gastroesophageal reflux disease. Diabetes mellitus type II. A-Fib SURGICAL HISTORY : None. ENCOUNTER: Subsequent ACUITY: 3 days PAIN SCORE: Non-responsive. LOCATION: Bilateral chest FINDINGS: The ET tube, NG tube, and right internal jugular central line are well placed. The heart size is norm al. There is diffuse alveolar consolidation. There are suspected bilateral pleural effusions. CONCLUSION: Diffuse consolidations and suspected bilateral effusions likely from pulmonary edema. Hung Linares MD on August 07, 2017 at 4:22 Board Certified Radiologist. This report was verified electronically.
[2017-08-07] MEDS: NOREPINEPHRINE 4 MG/D5W 250 ML IV PRN ×3 (04:35→15:57)
[2017-08-07 04:55] LABS: BASOPHIL # 0.1 TH/MM3 (0-0.2); BASOPHIL % 0.4 % (0.0-2.0); EOSINOPHIL # 0.5 TH/MM3 (0-0.4); EOSINOPHIL % 3.4 % (0.0-4.0); HEMATOCRIT 23.2 % (35.0-46.0); LYMPHOCYTE # 0.6 TH/MM3 (1.0-4.8); MEAN CELL VOLUME 103.9 FL (80.0-100.0); MEAN CORPUSCULAR HGB CONC 34.7 % (32.0-36.0); MEAN PLATELET VOLUME 7.6 FL (7.0-11.0); MONO % 9.6 % (0.0-8.0); MONOCYTE # 1.4 TH/MM3 (0-0.9); NEUT % 82.6 % (16.0-70.0); PLATELET COUNT 96 TH/MM3 (150-450); RED BLOOD COUNT 2.23 MIL/MM3 (4.00-5.30); RED CELL DISTRIBUTION WIDTH 16.8 % (11.6-17.2); WHITE BLOOD COUNT 14.6 TH/MM3 (4.0-11.0)
[2017-08-07 04:59] LABS: INTERNATIONAL NORMALIZED RATIO 1.9 RATIO; PROTHROMBIN TIME - PATIENT 18.8 SEC (9.8-11.6)
[2017-08-07 05:05] LABS: ALBUMIN 2.1 GM/DL (3.4-5.0); AST (GOT) 77 U/L (15-37); BICARBONATE 22.5 MEQ/L (21.0-32.0); BLOOD UREA NITROGEN 23 MG/DL (7-18); CALCIUM 7.8 MG/DL (8.5-10.1); CHLORIDE 98 MEQ/L (98-107); CREATININE 0.68 MG/DL (0.50-1.00); GLOMERULAR FILTRATION RATE 87 ML/MIN (>89); GLUCOSE,RANDOM 184 MG/DL (74-106); MAGNESIUM 1.9 MG/DL (1.5-2.5); SODIUM (NA) 129 MEQ/L (136-145)
[2017-08-07 05:06] LABS: ALT (GPT) 32 U/L (10-53)
[2017-08-07 05:08] LABS: ALKALINE PHOSPHATASE 132 U/L (45-117); TOTAL BILIRUBIN ADULT 4.5 MG/DL (0.2-1.0); TOTAL PROTEIN 5.9 GM/DL (6.4-8.2)
[2017-08-07] MEDS: CHLORHEXIDINE 0.12% (ORAL KIT) 15 ML CUP MT SCH ×2 (08:00→20:00)
[2017-08-07] MEDS: FOLIC ACID 1 MG TAB PO SCH (09:23)
[2017-08-07] MEDS: CEFEPIME INJ 2,000 MG in SODIUM CHLORIDE 0.9% INJ 100 ML IV SCH ×2 (09:23→20:40)
[2017-08-07] MEDS: PANTOPRAZOLE SOD 40 MG DELAYED RELEASE TAB PO SCH (09:23)
[2017-08-07] MEDS: OSELTAMIVIR PHOSPHATE 75 MG CAP PO SCH ×2 (09:23→20:39)
[2017-08-07] MEDS: THIAMINE HCL 100 MG TAB PO SCH (09:30)
[2017-08-07] MEDS: SODIUM CHLOR 0.45% 1000 ML INJ 1,000 ML IV SCH (12:33)
[2017-08-07] MEDS: AZITHROMYCIN INJ 500 MG in SODIUM CHLOR 0.9% 250 ML INJ 250 ML IV SCH (13:02)
[2017-08-07] MEDS: ENOXAPARIN SODIUM 40 MG/0.4 ML SYRINGE SQ SCH (13:02)
[2017-08-07] MEDS: [UNRECOGNIZED DRUG - REMARK] IV SCH ×2 (13:07)
[2017-08-07] MEDS ORDERED: ROCURONIUM INJ 50 MG/5 ML VIAL ONE (13:22)
--- NOTE | 2017-08-07 13:29 | HHI.CCPN ---
Subjective Remarks/Hospital Course 08/05: 61 y/o lady with h/o alcoholic liver cirrhosis, chronic thrombocytopenia, chronic hyponatremia, Afib, DM, HTN, now presents to ED c/o worsening shortness of breath over the last 3 months associated with generalized weakness up to the point that she can not ambulate. She denies fever but had chills, cough, fatigue , and pleuritic pain associated with deep breathing. She denies nausea, vomiting , melena, hematemesis. On ED arrival, patient in respiratory distress requiring NRM. On NRM O2 sat 100%. She was given lasix, azithro and basci labs were sent. She was found to have elevated lactic acid, low sodium therefore CCM was consulted for ICU admission. Patient was seen in ED, she is awake, conversant, on NRM, seems slightly confused. 08/06: No events over the night. Afebrile. Oxygenation is improved, down to 0.65 FiO2. She is sedated and intubated. On norepinephrine at 8 mcg/minute. CVP 11. 08/07: Worsening hypoxia, CVP 10-11, worsening infiltrates on CXR. Afebrile, lower urine output compared to previous day. Sedated and intubated. On norepinephrine at 12 and vaso at 0.04. Objective Vital Signs Date Time Temp Pulse Resp B/P (MAP) Pulse Ox O2 Delivery O2 Flow Rate FiO2 08/07/17 13:02 95 85 08/07/17 12:00 90 08/07/17 12:00 98.6 26 116/58 (77) 129/47 (74) 08/05/17 15:38 BiPAP 08/05/17 15:00 40.00 Intake and Output 08/07/17 08/07/17 08/08/17 08:00 16:00 00:00 Intake Total 1511 ml Output Total 350 ml Balance 1161 ml Result Diagram: 08/07/17 0350 08/07/17 0350 Other Results Microbiology Date/Time Source Procedure Growth Status 08/05/17 17:15 Sputum Endotracheal Gram Stain - Final Complete 08/05/17 17:15 Sputum Endotracheal Sputum Culture - Final NO GROWTH IN 48 HOURS. Complete 08/05/17 10:54 Nasal Aspirate Influenza Types A,B Antigen (JUAN) - Final NEGATIVE FOR FLU A AND B ANTIGEN.... Complete 08/05/17 17:30 Urine Catheterized Urine Legionella Antigen - Final PRESUMPTIVE NEGATIVE FOR LEGIONELLA P... Complete 08/05/17 07:14 Urine Catheterized Urine Urine Culture - Final Klebsiella Pneumoniae Complete Laboratory Tests Test 08/06/17 17:02 08/07/17 06:02 Blood Gas Puncture Site ART LINE ZACHERY Blood Gas Patient Temperature 98.6 98.6 Blood Gas HCO3 21 mmol/L (22-26) 20 mmol/L (22-26) Blood Gas Base Excess -3.5 mmol/L (-2-2) -5.0 mmol/L (-2-2) Blood Gas Oxygen Saturation 93 % (90-100) 90 % (90-100) Arterial Blood pH 7.37 (7.380-7.420) 7.35 (7.380-7.420) Arterial Blood Partial Pressure CO2 38 mmHg (38-42) 37 mmHg (38-42) Arterial Blood Partial Pressure O2 83 mmHg (61-120) 71 mmHg (61-120) Arterial Blood Oxygen Content 13.0 Vol % (12.0-20.0) 10.0 Vol % (12.0-20.0) Arterial Blood Carboxyhemoglobin 1.7 % (0-4) 1.8 % (0-4) Arterial Blood Methemoglobin 1.1 % (0-2) 1.1 % (0-2) Blood Gas Hemoglobin 9.9 G/DL (12.0-16.0) 7.8 G/DL (12.0-16.0) Oxygen Delivery Device VENTILATOR VENT Blood Gas Ventilator Setting VT400/RR24/10PEEP SEE COMMENT Blood Gas Inspired Oxygen 65 % 65 % Imaging Last Impressions Chest X-Ray 08/05/17 0728 Signed Impressions: Service Date/Time: July 08:02 - CONCLUSION: Diffuse bilateral pulmonary infiltrates. Estrada Leiva Jr., MD Objective Remarks General - elderly lady, ill appearing, sedated, intubated HEENT - pupils equal, reactive, sclerae icteric, neck soft, no JVD, + ETT, + OGT , + RIJ CVC (08/05) - site clean CV - regular S1, S2, no murmurs Chest - still with coarse breath sounds b/l, good air entry, no wheezes Abdomen - soft, not tender, non-distended, BS present, + hepatomegaly Skin - no rashes, no cyanosis Extremities - warm, RLE edema, + peripheral pulses, no clubbing Neuro - intubated and sedated, pupils are equal and reactive Date of Insertion: Aug 05, 2017 Line: Central Venous Catheter Side: Right Location: Internal, Jugular A/P Assessment and Plan 1. Acute hypoxic respiratory failure/ARDS - worsening O2 requirements 2. Septic shock - requiring two pressors 3. Pneumonia with concern for influenza based on presentation 4. Hyperkalemia - resolved 5. Lactic acidosis - resolved 6. Uncontrolled DM - better 7. Chronic hyponatremia - slowly trending up within the desired range 8. Alcoholic liver cirrhosis 9. Chronic thrombocytopenia 10. H/o Afib 11. Severe hypomagnesemia - better 12. Possible GN UTI 1. Continue PRVC, one dose of quang given, decrease Vt to 370, increase PEEP to 14. Will try to keep patient dry 2. Vent bundle and bronchodilators 3. On insulin drip 4. On norepinephrine and vaso to keep MAP above 65 5. Continue empiric oseltamivir to complete a 5d course 6. Continue vanco and cefepime for broad antimicrobial coverage 7. F/u blood, sputum and urine cultures 8. Stop fluids 9. Lasix 40 X 1 10. Liver US - reviewed 11. ECHO report reviewed, grade 2 diastolic dysfunction, mild concentric left ventricular hypertrophy, EF 60% 12. Folic acid and thiamine 13. GI/DVT prophylaxis 14. Will add stress dose steroids if any worsening in pressor requirement Critical Care time spent providing care for patient was 34 minutes excluding procedures, managing severe hypoxia, sedation, paralysis, pressor, fluids, electrolytes, antibiotics, reviewing the data and ordering labs. No family present at bedside. Henok Cortés MD Aug 07, 2017 13:29
[2017-08-07] MEDS ORDERED: ROCURONIUM INJ 50 MG/5 ML VIAL IV ONE (13:45)
[2017-08-07] MEDS ORDERED: FUROSEMIDE 40 MG/4 ML VIAL IV PUSH ONE (14:00)
[2017-08-07] MEDS: INSULIN REGULAR 100 UNITS/100 ML NS ALGORITHM 2 IV PRN ×2 (15:58)
[2017-08-07] MEDS: fentaNYL 2,500 MCG/NS 250 ML IV PRN (18:05)
[2017-08-07] MEDS: MIDAZOLAM 100 MG/NS 100 ML DRIP Premix IV PRN (18:05)
[2017-08-07] MEDS ORDERED: PHARMACY ORDERED LAB ONE (20:45)
[2017-08-07] MEDS: MORPHINE SULFATE 4 MG/ML INJ IV PUSH PRN (22:24)
[2017-08-07] MEDS ORDERED: TERBUTALINE INJ 1 MG/ML AMP SQ PRN (23:15)
[2017-08-08] VITALS (23 sets, daily range): BP systolic 105–147; BP diastolic 46–71; PULSE 90–140; TEMP 98–99; O2SAT 87–100
[2017-08-08] MEDS: PHENYLEPHRINE INJ 160 MG in DEXTROSE 5% IN WATE 500 ML INJ 484 ML IV PRN ×6 (00:53→12:32)
[2017-08-08] MEDS: [UNRECOGNIZED DRUG - REMARK] IV SCH ×4 (02:11→19:11)
[2017-08-08] MEDS: NOREPINEPHRINE 4 MG/D5W 250 ML IV PRN (02:12)
[2017-08-08] MEDS: RESP: ALBUTEROL 2.5 MG/IPRATROPIUM 0.5 MG NEB (SCH) NEB ×4 (03:09→19:22)
[2017-08-08 04:04] LABS: AUTOMATED NEUTROPHIL # 13.1 TH/MM3 (1.8-7.7); BASOPHIL % 0.3 % (0.0-2.0); EOSINOPHIL # 0.6 TH/MM3 (0-0.4); HEMATOCRIT 25.7 % (35.0-46.0); HEMOGLOBIN 8.8 GM/DL (11.6-15.3); LYMPHOCYTE # 0.5 TH/MM3 (1.0-4.8); MEAN CELL VOLUME 105.8 FL (80.0-100.0); MEAN PLATELET VOLUME 7.8 FL (7.0-11.0); MONO % 5.2 % (0.0-8.0); MONOCYTE # 0.8 TH/MM3 (0-0.9); NEUT % 87.5 % (16.0-70.0); PLATELET COUNT 115 TH/MM3 (150-450); RED BLOOD COUNT 2.43 MIL/MM3 (4.00-5.30); RED CELL DISTRIBUTION WIDTH 17.1 % (11.6-17.2)
[2017-08-08 04:33] LABS: CALCIUM 7.2 MG/DL (8.5-10.1); CREATININE 0.64 MG/DL (0.50-1.00); MAGNESIUM 1.8 MG/DL (1.5-2.5); PHOSPHORUS 2.5 MG/DL (2.5-4.9)
[2017-08-08 04:47] LABS: CALCIUM-PROTEIN CORRECTED 7.8 MG/DL (8.5-10.1); TOTAL BILIRUBIN ADULT 4.8 MG/DL (0.2-1.0)
--- NOTE | 2017-08-08 04:47 | RADRPT ---
EXAM DATE/TIME: 08/08/2017 03:44 [facility] COMPARISON: CHEST SINGLE AP, August 07, 2017, 3:18. INDICATIONS : Shortness of breath, possible pulmonary disease. MEDICAL HISTORY : Ulcerative colitis. Gastroesophageal reflux disease. Diabetes mellitus type II. A-fib SURGICAL HISTORY : None. ENCOUNTER: Subsequent ACUITY: 4 - 6 days PAIN SCORE: Non-responsive. LOCATION: Bilateral chest FINDINGS: ET tube, NG tube and right internal jugular line are well placed. The heart size is normal. There is diffuse consolidation being worse on the left. CONCLUSION: Diffuse consolidation likely related to edema. Some degree of effusion especially on the left needs t o be considered. Hung Linares MD on August 08, 2017 at 4:44 Board Certified Radiologist. This report was verified electronically.
[2017-08-08] MEDS ORDERED: INSULIN REGULAR (IV INFUSION) 100 UNITS in SODIUM CHLORIDE 0.9% INJ 99 ML IV PRN (05:15)
[2017-08-08] MEDS ORDERED: DEXTROSE 50% IN WATER 50 ML VIAL(D50) IV PUSH PRN (05:15)
[2017-08-08] MEDS ORDERED: MISC INFORMATION OTHER ONE (05:15)
[2017-08-08] MEDS ORDERED: DIGOXIN 0.5 MG/2 ML VIAL IV PUSH ONE (05:30)
[2017-08-08] MEDS: HYDROCORTISONE SOD SUCCINATE 100 MG VIAL IV PUSH SCH ×3 (05:41→22:40)
[2017-08-08] MEDS: CHLORHEXIDINE GLUCONATE 2 % 1 PACK (2 CLOTHS) TOP SCH (05:42)
[2017-08-08] MEDS ORDERED: CISATRACURIUM BESYLATE 20 MG/10 ML VIAL IV PUSH ONE (06:00)
[2017-08-08] MEDS: CHLORHEXIDINE 0.12% (ORAL KIT) 15 ML CUP MT SCH ×2 (08:00→20:11)
--- NOTE | 2017-08-08 08:41 | HHI.CCPN ---
Subjective Remarks/Hospital Course 08/05: 61 y/o lady with h/o alcoholic liver cirrhosis, chronic thrombocytopenia, chronic hyponatremia, Afib, DM, HTN, now presents to ED c/o worsening shortness of breath over the last 3 months associated with generalized weakness up to the point that she can not ambulate. She denies fever but had chills, cough, fatigue , and pleuritic pain associated with deep breathing. She denies nausea, vomiting , melena, hematemesis. On ED arrival, patient in respiratory distress requiring NRM. On NRM O2 sat 100%. She was given lasix, azithro and basci labs were sent. She was found to have elevated lactic acid, low sodium therefore CCM was consulted for ICU admission. Patient was seen in ED, she is awake, conversant, on NRM, seems slightly confused. 08/06: No events over the night. Afebrile. Oxygenation is improved, down to 0.65 FiO2. She is sedated and intubated. On norepinephrine at 8 mcg/minute. CVP 11. 08/07: Worsening hypoxia, CVP 10-11, worsening infiltrates on CXR. Afebrile, lower urine output compared to previous day. Sedated and intubated. On norepinephrine at 12 and vaso at 0.04. 08/08: continues to worsen without any improvements. hypoxia worsening, now paralyzed on 100% fio2. CXR worsens again. levophed, vasopressin, phenylephrine for pressor support. remains in septic shock. CVP still 11. bedside critical care echo with preserved LV function, but now with flattening of the intraventricular septum throughout the cardiac cycle and RVSP which has gone from 30s on prior echo to 80s based on TR jet bedside. IVC 1.7cm without any respiratory variation. no pericardial effusion. Objective Vital Signs Date Time Temp Pulse Resp B/P (MAP) Pulse Ox O2 Delivery O2 Flow Rate FiO2 08/08/17 07:12 93 100 08/08/17 06:00 140 08/08/17 05:20 95/47 08/08/17 01:00 98.0 08/07/17 16:00 24 08/05/17 15:38 BiPAP 08/05/17 15:00 40.00 Intake and Output 08/08/17 08/08/17 08/09/17 08:00 16:00 00:00 Intake Total 984.7 ml Output Total 500 ml Balance 484.7 ml Result Diagram: 08/08/17 0300 08/08/17 0300 Other Results Microbiology Date/Time Source Procedure Growth Status 08/05/17 17:15 Sputum Endotracheal Gram Stain - Final Complete 08/05/17 17:15 Sputum Endotracheal Sputum Culture - Final NO GROWTH IN 48 HOURS. Complete 08/05/17 10:54 Nasal Aspirate Influenza Types A,B Antigen (JUAN) - Final NEGATIVE FOR FLU A AND B ANTIGEN.... Complete 08/05/17 17:30 Urine Catheterized Urine Legionella Antigen - Final PRESUMPTIVE NEGATIVE FOR LEGIONELLA P... Complete 08/05/17 17:30 Urine Clean Catch Urine Culture - Final NO GROWTH IN 48 HOURS. Complete Laboratory Tests Test 08/07/17 14:45 Blood Gas Puncture Site ART LINE Blood Gas Patient Temperature 98.6 Blood Gas HCO3 21 mmol/L (22-26) Blood Gas Base Excess -4.6 mmol/L (-2-2) Blood Gas Oxygen Saturation 97 % (90-100) Arterial Blood pH 7.26 (7.380-7.420) Arterial Blood Partial Pressure CO2 50 mmHg (38-42) Arterial Blood Partial Pressure O2 185 mmHg (61-120) Arterial Blood Oxygen Content 11.0 Vol % (12.0-20.0) Arterial Blood Carboxyhemoglobin 1.6 % (0-4) Arterial Blood Methemoglobin 1.2 % (0-2) Blood Gas Hemoglobin 7.8 G/DL (12.0-16.0) Oxygen Delivery Device VENTILATOR Blood Gas Ventilator Setting Blood Gas Inspired Oxygen 85 % Imaging Last Impressions Chest X-Ray 08/05/17 0728 Signed Impressions: Service Date/Time: July 08:02 - CONCLUSION: Diffuse bilateral pulmonary infiltrates. Estrada Leiva Jr., MD Objective Remarks General - elderly lady, ill appearing, sedated, intubated, paralyzed HEENT - pupils equal, reactive, sclerae icteric, neck soft, + ETT, + OGT, + RIJ CVC (08/05) - site clean CV - tachycardic, irregular. cvp 11. Chest - still with coarse breath sounds b/l, good air entry, no wheezes. prvc, fio2 100%, peep 14. peak pressures 35. Abdomen - soft, not tender, non-distended, + hepatomegaly Skin - no rashes, no cyanosis Extremities - warm, RLE edema, + peripheral pulses, no clubbing Neuro - intubated and sedated, pupils are equal and reactive Date of Insertion: Aug 05, 2017 Line: Central Venous Catheter Side: Right Location: Internal, Jugular A/P Assessment and Plan Assessment: 61yF with most likely influenza and associated acute hypoxic respiratory failure. remains in septic shock. volume overloaded. maximal pressor use. maximal vent settings. worsening hypoxemia. very critically ill. long talk with today at bedside- per him, patient refused flu shot multiple times. will continue abx. will be forced to diurese despite shock- likely new cardiogenic component from volume overload. add flolan for VQ matching. Acute hypoxic respiratory failure/ARDS - worsening O2 requirements Septic shock - requiring three pressors Pneumonia with concern for influenza based on presentation Hyperkalemia - resolved Lactic acidosis - resolved Uncontrolled DM requiring insulin infusion Chronic hyponatremia - slowly trending up within the desired range Alcoholic liver cirrhosis Chronic thrombocytopenia H/o Afib Severe hypomagnesemia - better Possible GN UTI Acute intravascular volume overload add flolan keep peep at 14 wean fio2 to keep spo2 > 90% diurese with lasix 80mg iv x 1- may need to schedule. watch renal function and electrolytes closely. continue insulin drip Flotrack to guide cardiac therapy. continue cvp monitoring. keep norepi, vaso, phenylephrine for goal map > 65mmHg keep stress dose steroids cultures NGTD. keep vanc/cefepime/tamiflu DVT/GI prophylaxis NPO while in shock Critical Care time spent providing care for patient was in excess of 85 minutes excluding procedures, managing severe hypoxia, sedation, paralysis, pressor, fluids, electrolytes, antibiotics, reviewing the data and ordering labs. Carroll Parsons MD Aug 08, 2017 08:41
[2017-08-08] MEDS ORDERED: FUROSEMIDE 100 MG/10 ML VIAL IV PUSH ONE (09:00)
[2017-08-08] MEDS: CEFEPIME INJ 2,000 MG in SODIUM CHLORIDE 0.9% INJ 100 ML IV SCH ×2 (09:08→22:40)
[2017-08-08] MEDS: FOLIC ACID 1 MG TAB PO SCH (09:09)
[2017-08-08] MEDS: THIAMINE HCL 100 MG TAB PO SCH (09:09)
[2017-08-08] MEDS: PANTOPRAZOLE SOD 40 MG DELAYED RELEASE TAB PO SCH (09:09)
[2017-08-08] MEDS: ARTIFICIAL TEARS OPTH OINT 3.5 APPLIC/3.5 GM TUBO EACH EYE SCH ×2 (09:09→20:11)
[2017-08-08] MEDS: OSELTAMIVIR PHOSPHATE 75 MG CAP PO SCH ×2 (09:09→22:40)
[2017-08-08] MEDS: EPOPROSTENOL NEB SOLUTION 50 NG/KG/MIN 100 ML NEB SCH ×6 (09:15→20:10)
[2017-08-08] MEDS: CISATRACURIUM INJ 100 MG in SODIUM CHLOR 0.9% 250 ML INJ 250 ML IV PRN ×3 (09:17→23:51)
[2017-08-08] MEDS: DIGOXIN 0.5 MG/2 ML VIAL IV PUSH SCH ×2 (12:31→17:05)
[2017-08-08] MEDS: ENOXAPARIN SODIUM 40 MG/0.4 ML SYRINGE SQ SCH (12:31)
[2017-08-08] MEDS: fentaNYL 2,500 MCG/NS 250 ML IV PRN (12:53)
[2017-08-08] MEDS: MIDAZOLAM 100 MG/NS 100 ML DRIP Premix IV PRN (13:21)
[2017-08-08] MEDS: INSULIN REGULAR 100 UNITS/100 ML NS ALGORITHM 2 IV PRN ×2 (15:41)
[2017-08-08] MEDS: VANCOMYCIN INJ 1,500 MG in SODIUM CHLORID 0.9% 500 ML INJ 500 ML IV SCH (17:05)
[2017-08-09] VITALS (22 sets, daily range): BP systolic 114–160; BP diastolic 46–81; PULSE 78–111; RESP 24; TEMP 97.8–99.7; O2SAT 90–98
[2017-08-09] MEDS: RESP: ALBUTEROL 2.5 MG/IPRATROPIUM 0.5 MG NEB (SCH) NEB ×5 (03:28→20:50)
[2017-08-09] MEDS: CHLORHEXIDINE GLUCONATE 2 % 1 PACK (2 CLOTHS) TOP SCH (04:00)
[2017-08-09] MEDS: HYDROCORTISONE SOD SUCCINATE 100 MG VIAL IV PUSH SCH ×3 (05:06→22:01)
[2017-08-09] MEDS: fentaNYL 2,500 MCG/NS 250 ML IV PRN ×2 (05:40→22:56)
[2017-08-09] MEDS: FUROSEMIDE INJ 100 MG in SODIUM CHLORIDE 0.9% INJ 90 ML IV SCH ×2 (05:40→18:04)
[2017-08-09 06:53] LABS: AUTOMATED NEUTROPHIL # 11.4 TH/MM3 (1.8-7.7); BASOPHIL % 0.2 % (0.0-2.0); EOSINOPHIL # 0.1 TH/MM3 (0-0.4); LYMPH % 1.9 % (9.0-44.0); LYMPHOCYTE # 0.2 TH/MM3 (1.0-4.8); MEAN CELL VOLUME 104.3 FL (80.0-100.0); MEAN CORPUSCULAR HEMOGLOBIN 36.3 PG (27.0-34.0); MEAN CORPUSCULAR HGB CONC 34.8 % (32.0-36.0); MEAN PLATELET VOLUME 7.3 FL (7.0-11.0); MONO % 5.4 % (0.0-8.0); MONOCYTE # 0.7 TH/MM3 (0-0.9); NEUT % 91.5 % (16.0-70.0); PLATELET COUNT 75 TH/MM3 (150-450); RED BLOOD COUNT 2.21 MIL/MM3 (4.00-5.30); RED CELL DISTRIBUTION WIDTH 16.4 % (11.6-17.2); WHITE BLOOD COUNT 12.5 TH/MM3 (4.0-11.0)
[2017-08-09 06:56] LABS: PROTHROMBIN TIME - PATIENT 20.2 SEC (9.8-11.6)
[2017-08-09] MEDS: CISATRACURIUM INJ 100 MG in SODIUM CHLOR 0.9% 250 ML INJ 250 ML IV PRN (07:05)
[2017-08-09] MEDS: PHENYLEPHRINE INJ 160 MG in DEXTROSE 5% IN WATE 500 ML INJ 484 ML IV PRN ×2 (07:05)
[2017-08-09 07:26] LABS: ALBUMIN 1.7 GM/DL (3.4-5.0); ALT (GPT) 28 U/L (10-53); AST (GOT) 53 U/L (15-37); BLOOD UREA NITROGEN 27 MG/DL (7-18); CALCIUM 7.7 MG/DL (8.5-10.1); CHLORIDE 95 MEQ/L (98-107); CREATININE 0.79 MG/DL (0.50-1.00); GLOMERULAR FILTRATION RATE 74 ML/MIN (>89); GLUCOSE,RANDOM 190 MG/DL (74-106); MAGNESIUM 1.4 MG/DL (1.5-2.5); SODIUM (NA) 128 MEQ/L (136-145)
[2017-08-09 07:29] LABS: ALKALINE PHOSPHATASE 118 U/L (45-117); TOTAL BILIRUBIN ADULT 4.9 MG/DL (0.2-1.0); TOTAL PROTEIN 5.3 GM/DL (6.4-8.2)
[2017-08-09] MEDS: THIAMINE HCL 100 MG TAB PO SCH (08:30)
[2017-08-09] MEDS: PANTOPRAZOLE SOD 40 MG DELAYED RELEASE TAB PO SCH (08:30)
[2017-08-09] MEDS: ICU - POTASSIUM CHLORIDE/AQUEOUS SOLN 40 MEQ/100 ML IVPB IV PRN ×3 (08:30→22:13)
[2017-08-09] MEDS: VANCOMYCIN INJ 1,500 MG in SODIUM CHLORID 0.9% 500 ML INJ 500 ML IV SCH (08:30)
[2017-08-09] MEDS: FOLIC ACID 1 MG TAB PO SCH (08:30)
[2017-08-09] MEDS: OSELTAMIVIR PHOSPHATE 75 MG CAP PO SCH ×2 (08:30→19:51)
[2017-08-09] MEDS: CHLORHEXIDINE 0.12% (ORAL KIT) 15 ML CUP MT SCH ×2 (08:31→19:52)
[2017-08-09] MEDS: ARTIFICIAL TEARS OPTH OINT 3.5 APPLIC/3.5 GM TUBO EACH EYE SCH ×2 (08:31→19:53)
[2017-08-09] MEDS: ICU - MAGNESIUM SULFATE 2 GM/NS 100 ML IV PRN ×2 (08:31)
[2017-08-09] MEDS: CEFEPIME INJ 2,000 MG in SODIUM CHLORIDE 0.9% INJ 100 ML IV SCH ×2 (08:31→19:51)
[2017-08-09 09:03] LABS: BANDS 9 % (0-6); CORRECTED NUCLEATED RBC 1 /100 WBC (0-0); MONOCYTES 4 % (0-8); MYELOCYTES 1 % (0-0); NUCLEATED RED BLOOD CELL 1 (0-0); POLYS (SEG NEUTROPHILS) 86 % (16-70)
[2017-08-09 09:04] LABS: HOWELL-JOLLY BODIES PRESENT (NONE SEEN)
[2017-08-09] MEDS ORDERED: MISC INFORMATION OTHER ONE (09:30)
[2017-08-09] MEDS ORDERED: INSULIN REGULAR (IV INFUSION) 100 UNITS in SODIUM CHLORIDE 0.9% INJ 99 ML IV PRN (09:30)
[2017-08-09] MEDS ORDERED: DEXTROSE 50% IN WATER 50 ML VIAL(D50) IV PUSH PRN (09:30)
--- NOTE | 2017-08-09 09:42 | HHI.CCPN ---
Subjective Remarks/Hospital Course 08/05: 61 y/o lady with h/o alcoholic liver cirrhosis, chronic thrombocytopenia, chronic hyponatremia, Afib, DM, HTN, now presents to ED c/o worsening shortness of breath over the last 3 months associated with generalized weakness up to the point that she can not ambulate. She denies fever but had chills, cough, fatigue , and pleuritic pain associated with deep breathing. She denies nausea, vomiting , melena, hematemesis. On ED arrival, patient in respiratory distress requiring NRM. On NRM O2 sat 100%. She was given lasix, azithro and basci labs were sent. She was found to have elevated lactic acid, low sodium therefore [facility] was consulted for ICU admission. Patient was seen in ED, she is awake, conversant, on NRM, seems slightly confused. 08/06: No events over the night. Afebrile. Oxygenation is improved, down to 0.65 FiO2. She is sedated and intubated. On norepinephrine at 8 mcg/minute. CVP 11. 08/07: Worsening hypoxia, CVP 10-11, worsening infiltrates on CXR. Afebrile, lower urine output compared to previous day. Sedated and intubated. On norepinephrine at 12 and vaso at 0.04. 08/08: continues to worsen without any improvements. hypoxia worsening, now paralyzed on 100% fio2. CXR worsens again. levophed, vasopressin, phenylephrine for pressor support. remains in septic shock. CVP still 11. bedside critical care echo with preserved LV function, but now with flattening of the intraventricular septum throughout the cardiac cycle and RVSP which has gone from 30s on prior echo to 80s based on TR jet bedside. IVC 1.7cm without any respiratory variation. no pericardial effusion. 08/09: clinically some improvements: fio2 improving. remains paralyzed on flolan with high peep, full support. remains on vasopressors in shock. uop good and excellent diuresis. sodium downtrending. multi-organ failure persists. Objective Vital Signs Date Time Temp Pulse Resp B/P (MAP) Pulse Ox O2 Delivery O2 Flow Rate FiO2 08/09/17 09:00 107 151/58 (89) 08/09/17 09:00 98.9 24 97 08/09/17 08:00 40 08/05/17 15:38 BiPAP 08/05/17 15:00 40.00 Intake and Output 08/09/17 08/09/17 08/09/17 07:59 15:59 23:59 Intake Total 1100 ml Output Total 990 ml 230 ml Balance 110 ml -230 ml Result Diagram: 08/09/17 0613 08/09/17 0613 Imaging Last Impressions Chest X-Ray 08/05/17 0728 Signed Impressions: Service Date/Time: July 08:02 - CONCLUSION: Diffuse bilateral pulmonary infiltrates. Estrada Leiva Jr., MD Objective Remarks General - elderly lady, ill appearing, sedated, intubated, paralyzed HEENT - pupils equal, reactive, sclerae icteric, neck soft, + ETT, + OGT, + RIJ CVC (08/05) - site clean CV - tachycardic, irregular. cvp 15. Chest - still with coarse breath sounds b/l, good air entry, no wheezes. prvc, fio2 40%, peep 14. peak pressures 31 Abdomen - soft, not tender, non-distended, + hepatomegaly Skin - no rashes, no cyanosis Extremities - warm, RLE edema, + peripheral pulses, no clubbing Neuro - intubated and sedated, pupils are equal and reactive Date of Insertion: Aug 05, 2017 Line: Central Venous Catheter Side: Right Location: Internal, Jugular A/P Assessment and Plan Assessment: 61yF with most likely influenza and associated acute hypoxic respiratory failure. remains in septic shock. volume overloaded. remains critically ill. some modest improvements, although overall organ dysfunction persists and off pathway. continue forced diuresis in spite of shock. Neuro: Metabolic Encephalopathy - versed, fentanyl for goal RASS -2. - d/c nimbex Resp: Acute hypoxic respiratory failure/ARDS - persistent and severe Pneumonia with concern for influenza based on presentation Pulmonary Edema - vent bundle, hob elevated, nebs - wean peep to 12 - wean fio2 for goal spo2 > 90% - wean flolan slowly today - stop nimbex - keep forced diuresis. - no SBT yet. still maximally hypoxic. CV: Septic shock - persistent. pulmonary edema acute intravascular volume overload Atrial fibrillation forced diuresis with lasix drip continue pulse contour analysis add diuril x 1. continue cvp monitoring: remains elevated. phenylephrine and vasopressin for goal map > 65 mmHg. Renal: - keep Fontaine - lasix drip FEN/GI: Chronic hyponatremia - persistent. Alcoholic liver cirrhosis Severe hypomagnesemia Hypokalemia Acute intravascular volume overload - persistent. Acute protein calorie malnutrition- moderate - NPO while in shock - icu electrolyte protocol - lasix drip - daily CMP Heme/ID: Chronic thrombocytopenia Klebsiella UTI Pneumonia with concern for influenza based on presentation - continue vanc/cefepime. - continue tamiflu - f/u cultures - plt stable. - daily cbc Endo: Uncontrolled DM requiring insulin infusion Presumed adrenal insufficiency - remains uncontrolled. increase to Algorithm #4. - continue stress dose steroids. will wean once out of shock. Prophylaxis: - Lovenox/SCDs - ppi Lines: central line 08/05 art line 08/07 fontaine Dispo: remain in ICU. remains critically ill and off pathway. Critical Care time spent providing care for patient was in excess of 63 minutes excluding procedures, managing severe hypoxia, sedation, paralysis, pressor, fluids, electrolytes, antibiotics, reviewing the data and ordering labs. Carroll Parsons MD Aug 09, 2017 09:42
[2017-08-09] MEDS: EPOPROSTENOL NEB SOLUTION 50 NG/KG/MIN 100 ML NEB SCH ×2 (10:00)
[2017-08-09] MEDS ORDERED: CHLOROTHIAZIDE SOD 500 MG VIAL IV ONE (10:00)
[2017-08-09] MEDS ORDERED: EPOPROSTENOL NEB SOLUTION 30 NG/KG/MIN 100 ML NEB SCH ×2 (11:00)
[2017-08-09] MEDS: MAGNESIUM SULFATE 1 GM PREMIX 100 ML IV SCH ×2 (11:05→13:08)
[2017-08-09] MEDS: ALBUMIN 25% INJ 100 ML IV SCH ×2 (11:06→18:01)
[2017-08-09] MEDS: ENOXAPARIN SODIUM 40 MG/0.4 ML SYRINGE SQ SCH (13:09)
[2017-08-09] MEDS: [UNRECOGNIZED DRUG - REMARK] IV SCH ×2 (14:01)
[2017-08-09] MEDS: MIDAZOLAM 100 MG/NS 100 ML DRIP Premix IV PRN (15:18)
[2017-08-09] MEDS ORDERED: METOLAZONE 5 MG TAB PO ONE (17:30)
[2017-08-09 19:16] LABS: BICARBONATE 28.6 MEQ/L (21.0-32.0); CALCIUM 7.6 MG/DL (8.5-10.1); CREATININE 0.85 MG/DL (0.50-1.00); MAGNESIUM 2.2 MG/DL (1.5-2.5)
[2017-08-09] MEDS: EPOPROSTENOL NEB SOLUTION 10 NG/KG/MIN 100 ML NEB SCH ×2 (20:29)
[2017-08-10] VITALS (40 sets, daily range): BP systolic 83–129; BP diastolic 42–62; PULSE 12–141; RESP 24; TEMP 97.8–98.3; O2SAT 86–100
[2017-08-10] MEDS: ALBUMIN 25% INJ 100 ML IV SCH ×3 (01:26→17:41)
[2017-08-10] MEDS: FUROSEMIDE INJ 100 MG in SODIUM CHLORIDE 0.9% INJ 90 ML IV SCH ×3 (01:39→19:25)
[2017-08-10] MEDS: CHLORHEXIDINE GLUCONATE 2 % 1 PACK (2 CLOTHS) TOP SCH (03:15)
[2017-08-10] MEDS: VANCOMYCIN INJ 1,500 MG in SODIUM CHLORID 0.9% 500 ML INJ 500 ML IV SCH ×2 (03:15→20:31)
[2017-08-10] MEDS: RESP: ALBUTEROL 2.5 MG/IPRATROPIUM 0.5 MG NEB (SCH) NEB ×4 (03:55→21:03)
[2017-08-10 05:11] LABS: HEMOGLOBIN 7.5 GM/DL (11.6-15.3); MEAN CELL VOLUME 106.2 FL (80.0-100.0); MEAN CORPUSCULAR HEMOGLOBIN 36.3 PG (27.0-34.0); MEAN CORPUSCULAR HGB CONC 34.2 % (32.0-36.0); MEAN PLATELET VOLUME 7.8 FL (7.0-11.0); PLATELET COUNT 77 TH/MM3 (150-450); RED BLOOD COUNT 2.08 MIL/MM3 (4.00-5.30); RED CELL DISTRIBUTION WIDTH 17.1 % (11.6-17.2); WHITE BLOOD COUNT 10.9 TH/MM3 (4.0-11.0)
[2017-08-10 05:24] LABS: PROTHROMBIN TIME - PATIENT 20.7 SEC (9.8-11.6)
[2017-08-10 06:16] LABS: ALKALINE PHOSPHATASE 98 U/L (45-117); ALT (GPT) 26 U/L (10-53); AST (GOT) 50 U/L (15-37); BICARBONATE 27.3 MEQ/L (21.0-32.0); BLOOD UREA NITROGEN 35 MG/DL (7-18); CALCIUM 7.6 MG/DL (8.5-10.1); CHLORIDE 97 MEQ/L (98-107); CREATININE 0.96 MG/DL (0.50-1.00); GLOMERULAR FILTRATION RATE 59 ML/MIN (>89); GLUCOSE,RANDOM 105 MG/DL (74-106); MAGNESIUM 2.2 MG/DL (1.5-2.5); SODIUM (NA) 133 MEQ/L (136-145); TOTAL BILIRUBIN ADULT 4.5 MG/DL (0.2-1.0); TOTAL PROTEIN 6.3 GM/DL (6.4-8.2)
[2017-08-10] MEDS: HYDROCORTISONE SOD SUCCINATE 100 MG VIAL IV PUSH SCH ×3 (06:21→20:26)
[2017-08-10] MEDS ORDERED: PROPOFOL 1000 MG/100 ML INJ 100 ML IV PRN (06:45)
[2017-08-10] MEDS ORDERED: METOLAZONE 5 MG TAB PO ONE (06:45)
[2017-08-10] MEDS: ICU - POTASSIUM CHLORIDE/AQUEOUS SOLN 40 MEQ/100 ML IVPB IV PRN ×2 (06:46→10:23)
--- NOTE | 2017-08-10 06:54 | HHI.CCPN ---
Subjective Remarks/Hospital Course 08/05: 61 y/o lady with h/o alcoholic liver cirrhosis, chronic thrombocytopenia, chronic hyponatremia, Afib, DM, HTN, now presents to ED c/o worsening shortness of breath over the last 3 months associated with generalized weakness up to the point that she can not ambulate. She denies fever but had chills, cough, fatigue , and pleuritic pain associated with deep breathing. She denies nausea, vomiting , melena, hematemesis. On ED arrival, patient in respiratory distress requiring NRM. On NRM O2 sat 100%. She was given lasix, azithro and basci labs were sent. She was found to have elevated lactic acid, low sodium therefore [facility] was consulted for ICU admission. Patient was seen in ED, she is awake, conversant, on NRM, seems slightly confused. 08/06: No events over the night. Afebrile. Oxygenation is improved, down to 0.65 FiO2. She is sedated and intubated. On norepinephrine at 8 mcg/minute. CVP 11. 08/07: Worsening hypoxia, CVP 10-11, worsening infiltrates on CXR. Afebrile, lower urine output compared to previous day. Sedated and intubated. On norepinephrine at 12 and vaso at 0.04. 08/08: continues to worsen without any improvements. hypoxia worsening, now paralyzed on 100% fio2. CXR worsens again. levophed, vasopressin, phenylephrine for pressor support. remains in septic shock. CVP still 11. bedside critical care echo with preserved LV function, but now with flattening of the intraventricular septum throughout the cardiac cycle and RVSP which has gone from 30s on prior echo to 80s based on TR jet bedside. IVC 1.7cm without any respiratory variation. no pericardial effusion. 08/09: clinically some improvements: fio2 improving. remains paralyzed on flolan with high peep, full support. remains on vasopressors in shock. uop good and excellent diuresis. sodium downtrending. multi-organ failure persists. 08/10: good uop, but struggling with obtaining a net negative balance due to volume of drips. remains in shock on vasopressors. sodium improving. organ failure persists. Objective Vital Signs Date Time Temp Pulse Resp B/P (MAP) Pulse Ox O2 Delivery O2 Flow Rate FiO2 08/10/17 06:00 141 08/10/17 06:00 104/60 (75) 121/57 (78) 08/10/17 04:00 98.0 24 100 08/10/17 04:00 70 Intake and Output 08/10/17 08/10/17 08/11/17 08:00 16:00 00:00 Intake Total 1315 ml Output Total 305 ml Balance 1010 ml Result Diagram: 08/10/17 0430 08/10/17 0430 Imaging Last Impressions Chest X-Ray 08/05/17 0728 Signed Impressions: Service Date/Time: July 08:02 - CONCLUSION: Diffuse bilateral pulmonary infiltrates. Estrada Leiva Jr., MD Objective Remarks General - elderly lady, ill appearing, sedated, intubated, paralyzed HEENT - pupils equal, reactive, sclerae icteric, neck soft, + ETT, + OGT, + RIJ CVC (08/05) - site clean CV - tachycardic, irregular. cvp 17. Chest - still with coarse breath sounds b/l, good air entry, no wheezes. prvc, fio2 70%, peep 12. Abdomen - soft, not tender, non-distended, + hepatomegaly Skin - no rashes, no cyanosis Extremities - warm, RLE edema, + peripheral pulses, no clubbing Neuro - intubated and sedated, pupils are equal and reactive Date of Insertion: Aug 05, 2017 Line: Central Venous Catheter Side: Right Location: Internal, Jugular A/P Assessment and Plan Assessment: 61yF with most likely influenza and associated acute hypoxic respiratory failure. remains in shock on multiple pressors. volume overload persists despite attempts at diuresis. remains critically ill. some modest improvements, although overall organ dysfunction persists and off pathway. continue forced diuresis in spite of shock. Neuro: Metabolic Encephalopathy - d/c versed. - start propofol. - continue fentanyl - goal RASS -2. Resp: Acute hypoxic respiratory failure/ARDS - persistent and severe Pneumonia with concern for influenza based on presentation Pulmonary Edema - vent bundle, hob elevated, nebs - keep peep at 12 - wean fio2 for goal spo2 > 90% - keep forced diuresis. - no SBT yet. still maximally hypoxic. CV: Septic shock - persistent. pulmonary edema acute intravascular volume overload Atrial fibrillation forced diuresis with lasix drip continue pulse contour analysis add metolazone x 1. continue cvp monitoring: remains elevated. phenylephrine and vasopressin for goal map > 65 mmHg. Renal: - keep Fontaine - lasix drip FEN/GI: Chronic hyponatremia - persistent. Alcoholic liver cirrhosis Severe hypomagnesemia Hypokalemia Acute intravascular volume overload - persistent. Acute protein calorie malnutrition- moderate - NPO while in shock - icu electrolyte protocol - lasix drip - daily CMP - add bowel regimen Heme/ID: Chronic thrombocytopenia Klebsiella UTI Pneumonia with concern for influenza based on presentation Coagulopathy secondary to ESLD - continue vanc/cefepime. full 7 day course finishes 08/11. - continue tamiflu - cultures all NGTD. - plt stable. - daily cbc - trend coags. Endo: DM requiring insulin infusion - improved control. Presumed adrenal insufficiency - better control on Algorithm #4. Used 49 units/12h. - will add 30 units levemir and SSI high dose q4h. - continue stress dose steroids. will wean once out of shock. Prophylaxis: - Lovenox/SCDs - ppi Lines: central line 08/05 art line 08/07 fontaine Dispo: remain in ICU. remains critically ill and off pathway. Critical Care time spent providing care for patient was in excess of 55 minutes excluding procedures, managing severe hypoxia, sedation, paralysis, pressor, fluids, electrolytes, antibiotics, reviewing the data and ordering labs. Carroll Parsons MD Aug 10, 2017 06:54
[2017-08-10] MEDS ORDERED: DEXTROSE 50% IN WATER 50 ML VIAL(D50) IV PUSH PRN (07:00)
[2017-08-10] MEDS: POLYETHYLENE GLYCOL 17 GM PKG PO SCH ×2 (08:22→20:26)
[2017-08-10] MEDS: FOLIC ACID 1 MG TAB PO SCH (08:22)
[2017-08-10] MEDS: LACTULOSE SYRUP 20 GM/30 ML CUP PO SCH ×2 (08:22→20:26)
[2017-08-10] MEDS: ARTIFICIAL TEARS OPTH OINT 3.5 APPLIC/3.5 GM TUBO EACH EYE SCH ×2 (08:23→20:27)
[2017-08-10] MEDS: INSULIN NovoLIN REGULAR SUPPLEMENTAL SCALE SQ SCH ×4 (08:23→20:28)
[2017-08-10] MEDS: DOCUSATE SODIUM 50 MG/SENNA 8.6 MG TAB PO SCH ×2 (08:23→20:26)
[2017-08-10] MEDS: PANTOPRAZOLE SOD 40 MG DELAYED RELEASE TAB PO SCH (08:23)
[2017-08-10] MEDS: OSELTAMIVIR PHOSPHATE 75 MG CAP PO SCH ×2 (08:23→20:27)
[2017-08-10] MEDS: THIAMINE HCL 100 MG TAB PO SCH (08:23)
[2017-08-10] MEDS: CEFEPIME INJ 2,000 MG in SODIUM CHLORIDE 0.9% INJ 100 ML IV SCH ×2 (08:24→22:52)
[2017-08-10] MEDS: CHLORHEXIDINE 0.12% (ORAL KIT) 15 ML CUP MT SCH ×2 (08:24→20:28)
[2017-08-10] MEDS ORDERED: INSULIN DETEMIR 100 UNITS/ML VIAL SQ SCH (09:00)
[2017-08-10] MEDS: [UNRECOGNIZED DRUG - REMARK] IV SCH ×2 (10:03)
[2017-08-10] MEDS: PHENYLEPHRINE INJ 160 MG in DEXTROSE 5% IN WATE 500 ML INJ 484 ML IV PRN ×2 (12:31)
[2017-08-10 12:56] LABS: BICARBONATE 25.3 MEQ/L (21.0-32.0); CALCIUM 7.8 MG/DL (8.5-10.1); CREATININE 1.17 MG/DL (0.50-1.00); MAGNESIUM 2.1 MG/DL (1.5-2.5)
[2017-08-10] MEDS: ENOXAPARIN SODIUM 40 MG/0.4 ML SYRINGE SQ SCH (13:11)
[2017-08-10] MEDS: fentaNYL 2,500 MCG/NS 250 ML IV PRN (13:57)
[2017-08-10] MEDS: EPOPROSTENOL NEB SOLUTION 10 NG/KG/MIN 100 ML NEB SCH ×2 (20:00)
[2017-08-11] VITALS (28 sets, daily range): BP systolic 93–135; BP diastolic 48–68; PULSE 119–132; RESP 24; TEMP 96.9–98.1; O2SAT 85–99
[2017-08-11] MEDS: INSULIN NovoLIN REGULAR SUPPLEMENTAL SCALE SQ SCH ×6 (01:00→20:00)
[2017-08-11] MEDS: [UNRECOGNIZED DRUG - REMARK] IV SCH ×4 (01:31→18:19)
[2017-08-11] MEDS: fentaNYL 2,500 MCG/NS 250 ML IV PRN (01:55)
[2017-08-11] MEDS: ALBUMIN 25% INJ 100 ML IV SCH ×3 (02:48→17:38)
[2017-08-11] MEDS: CHLORHEXIDINE GLUCONATE 2 % 1 PACK (2 CLOTHS) TOP SCH (04:00)
[2017-08-11] MEDS: RESP: ALBUTEROL 2.5 MG/IPRATROPIUM 0.5 MG NEB (SCH) NEB ×4 (04:05→20:52)
[2017-08-11] MEDS: PHENYLEPHRINE INJ 160 MG in DEXTROSE 5% IN WATE 500 ML INJ 484 ML IV PRN ×4 (04:15→16:36)
[2017-08-11] MEDS: HYDROCORTISONE SOD SUCCINATE 100 MG VIAL IV PUSH SCH ×3 (05:00→21:42)
[2017-08-11 06:23] LABS: HEMATOCRIT 23.9 % (35.0-46.0); HEMOGLOBIN 8.1 GM/DL (11.6-15.3); MEAN CELL VOLUME 111.5 FL (80.0-100.0); MEAN CORPUSCULAR HEMOGLOBIN 37.8 PG (27.0-34.0); MEAN CORPUSCULAR HGB CONC 33.9 % (32.0-36.0); PLATELET COUNT 118 TH/MM3 (150-450); RED BLOOD COUNT 2.14 MIL/MM3 (4.00-5.30); RED CELL DISTRIBUTION WIDTH 18.7 % (11.6-17.2); WHITE BLOOD COUNT 11.8 TH/MM3 (4.0-11.0)
[2017-08-11 06:26] LABS: INTERNATIONAL NORMALIZED RATIO 2.1 RATIO; PROTHROMBIN TIME - PATIENT 21.6 SEC (9.8-11.6)
[2017-08-11 06:37] LABS: ALBUMIN 3.5 GM/DL (3.4-5.0); ALKALINE PHOSPHATASE 99 U/L (45-117); ALT (GPT) 26 U/L (10-53); AST (GOT) 59 U/L (15-37); BICARBONATE 25.5 MEQ/L (21.0-32.0); BLOOD UREA NITROGEN 50 MG/DL (7-18); CALCIUM 8.1 MG/DL (8.5-10.1); CHLORIDE 96 MEQ/L (98-107); GLOMERULAR FILTRATION RATE 35 ML/MIN (>89); GLUCOSE,RANDOM 249 MG/DL (74-106); SODIUM (NA) 129 MEQ/L (136-145); TOTAL BILIRUBIN ADULT 4.7 MG/DL (0.2-1.0); TOTAL PROTEIN 6.7 GM/DL (6.4-8.2)
[2017-08-11] MEDS ORDERED: CHLOROTHIAZIDE SOD 500 MG VIAL IV ONE (06:45)
[2017-08-11] MEDS: NOREPINEPHRINE 4 MG/D5W 250 ML IV PRN (06:53)
--- NOTE | 2017-08-11 07:08 | HHI.CCPN ---
Subjective Remarks/Hospital Course 08/05: 61 y/o lady with h/o alcoholic liver cirrhosis, chronic thrombocytopenia, chronic hyponatremia, Afib, DM, HTN, now presents to ED c/o worsening shortness of breath over the last 3 months associated with generalized weakness up to the point that she can not ambulate. She denies fever but had chills, cough, fatigue , and pleuritic pain associated with deep breathing. She denies nausea, vomiting , melena, hematemesis. On ED arrival, patient in respiratory distress requiring NRM. On NRM O2 sat 100%. She was given lasix, azithro and basci labs were sent. She was found to have elevated lactic acid, low sodium therefore [facility] was consulted for ICU admission. Patient was seen in ED, she is awake, conversant, on NRM, seems slightly confused. 08/06: No events over the night. Afebrile. Oxygenation is improved, down to 0.65 FiO2. She is sedated and intubated. On norepinephrine at 8 mcg/minute. CVP 11. 08/07: Worsening hypoxia, CVP 10-11, worsening infiltrates on CXR. Afebrile, lower urine output compared to previous day. Sedated and intubated. On norepinephrine at 12 and vaso at 0.04. 08/08: continues to worsen without any improvements. hypoxia worsening, now paralyzed on 100% fio2. CXR worsens again. levophed, vasopressin, phenylephrine for pressor support. remains in septic shock. CVP still 11. bedside critical care echo with preserved LV function, but now with flattening of the intraventricular septum throughout the cardiac cycle and RVSP which has gone from 30s on prior echo to 80s based on TR jet bedside. IVC 1.7cm without any respiratory variation. no pericardial effusion. 08/09: clinically some improvements: fio2 improving. remains paralyzed on flolan with high peep, full support. remains on vasopressors in shock. uop good and excellent diuresis. sodium downtrending. multi-organ failure persists. 08/10: good uop, but struggling with obtaining a net negative balance due to volume of drips. remains in shock on vasopressors. sodium improving. organ failure persists. 08/11: uop poor now despite aggressive diuresis. still net + fluid balance. hypotensive and worsening today: back on 3 vasopressors. hypoxia worse again as well, on 100% fio2, peep 14, spo2 88%. CVP continues to rise despite our maximal efforts to diurese, and is now 21. Objective Vital Signs Date Time Temp Pulse Resp B/P (MAP) Pulse Ox O2 Delivery O2 Flow Rate FiO2 08/11/17 06:00 121 107/68 (81) 116/53 (74) 08/11/17 05:15 85 100 08/11/17 04:00 98.1 24 Intake and Output 08/11/17 08/11/17 08/12/17 08:00 16:00 00:00 Output Total 70 ml Balance -70 ml Result Diagram: 08/11/1743908/11/17439 Imaging Last Impressions Chest X-Ray 08/05/17727 Signed Impressions: Service Date/Time: July 08:02 - CONCLUSION: Diffuse bilateral pulmonary infiltrates. Estrada Leiva Jr., MD Objective Remarks General - elderly lady, ill appearing, sedated, intubated HEENT - pupils equal, reactive, sclerae icteric, neck soft, + ETT, + OGT, + RIJ CVC (08/05) - site clean CV - tachycardic, irregular. cvp 21. CI 5.2 by Flowtrack Chest - still with coarse breath sounds b/l, good air entry, no wheezes. prvc, fio2 100%, peep 14. peak pressures 37. Abdomen - soft, not tender, non-distended, + hepatomegaly Skin - no rashes, no cyanosis Extremities - warm, RLE edema, + peripheral pulses, no clubbing Neuro - intubated and sedated, pupils are equal and reactive Date of Insertion: Aug 05, 2017 Line: Central Venous Catheter Side: Right Location: Internal, Jugular A/P Assessment and Plan Assessment: 61yF with cirrhosis and most likely influenza and associated acute hypoxic respiratory failure. now in what appears to be refractory cor pulmonale and volume overload despite our maximal attempts to diurese. will consult nephrology today: she will likely need renal replacement therapy if we continue aggressive measures. in worsening shock: liver failure worse today which complicates her organ dysfunction. remains critically ill. much worse today than yesterday. Neuro: Metabolic Encephalopathy - propofol and fentanyl for RASS goal -2. has not needed fentanyl. RASS currently -4. likely component of hepatic encephalopathy. - goal RASS -2. - check ammonia level. Resp: Acute hypoxic respiratory failure/ARDS - persistent and severe Pneumonia with concern for influenza based on presentation Pulmonary Edema Cor Pulmonale - vent bundle, hob elevated, nebs - increase PEEP to 14. - wean fio2 for goal spo2 > 90% - keep forced diuresis. - no SBT yet. still maximally hypoxic. CV: Septic shock - worsening pulmonary edema acute intravascular volume overload Atrial fibrillation Cor pulmonale forced diuresis with lasix drip: unsuccessful. increase to 20mg/hr. consult nephrology for possible renal replacement therapy. continue pulse contour analysis: CI appears to be elevated suggestive of a high- output state which is congruent with her cirrhosis and liver dysfunction. continue cvp monitoring: remains elevated and continues to rise. restart levophed, continue phenylephrine and vasopressin. target map > 65 mmHg. Renal: Acute Kidney Injury - keep Fontaine - lasix drip - consult nephrology - will likely need vascath today - renal function worse which is likely secondary to renal vein congestion: we continue to gain fluid despite attempts at diuresis. FEN/GI: Chronic hyponatremia - persistent. Alcoholic liver cirrhosis Acute hepatic dysfunction on chronic ESLD Severe hypomagnesemia Hypokalemia Acute intravascular volume overload - persistent. Acute protein calorie malnutrition- moderate - NPO while in shock - icu electrolyte protocol - lasix drip - daily CMP - bowel regimen - check phos Heme/ID: Chronic thrombocytopenia Klebsiella UTI Pneumonia with concern for influenza based on presentation Coagulopathy secondary to ESLD - d/c vanc and cefepime. has completed full course and these are high volume iv medications in the setting of severe volume overload. - continue tamiflu, decrease dose to 30mg po BID given rapidly worsening renal function. - cultures all NGTD. - plt stable. - daily cbc - trend coags. Endo: DM requiring insulin infusion Presumed adrenal insufficiency - s/p insulin infusion - increase levemir to 40 units SQ daily - high dose q4h SSI. - continue stress dose steroids. will wean once out of shock. Prophylaxis: - hold lovenox given renal dysfunction and coagulopathy/SCDs - ppi Lines: central line 08/05 art line 08/07 fontaine will likely need vascath today. Dispo: remain in ICU. remains critically ill and off pathway. Critical Care time spent providing care for patient was in excess of 97 minutes excluding procedures, managing severe hypoxia, sedation, paralysis, pressor, fluids, electrolytes, antibiotics, reviewing the data and ordering labs. Carroll Parsons MD Aug 11, 2017 07:07
--- NOTE | 2017-08-11 07:15 | RADRPT ---
EXAM DATE/TIME: 08/11/2017 06:55 [place] COMPARISON: No previous studies available for comparison. INDICATIONS : Respiratory failure. MEDICAL HISTORY : Hernia, hiatal. Arthritis. Hypothyroidism. Peripheral neuropathy. Afib. HTN. Dyspnea. Ulcerated colit is. GERD. Diabetes. Mild cirrhosis. Depression. Anxiety. SURGICAL HISTORY : Tonsillectomy. D&C. ENCOUNTER: Subsequent ACUITY: 4 - 6 days PAIN SCORE: Non-responsive. LOCATION: chest FINDINGS: Widespread bilateral pneumonia persists. Small right and moderate left pleural effusions are suspecte d as well. I don't see a pneumothorax. Endotracheal tube tip is approximately 3.5 cm above the cedric. Nasogastric tube courses into the sto mach. There is a right internal jugular central venous catheter with tip in the superior vena cava CONCLUSION: No significant change bilateral pneumonia and left greater than right pleural effusions. Hung Diop MD on August 11, 2017 at 7:10 Board Certified Radiologist. This report was verified electronically.
[2017-08-11] MEDS: THIAMINE HCL 100 MG TAB PO SCH (07:52)
[2017-08-11] MEDS: FUROSEMIDE INJ 100 MG in SODIUM CHLORIDE 0.9% INJ 90 ML IV SCH (07:52)
[2017-08-11] MEDS: LACTULOSE SYRUP 20 GM/30 ML CUP PO SCH ×2 (07:52→21:42)
[2017-08-11] MEDS: FOLIC ACID 1 MG TAB PO SCH (07:52)
[2017-08-11] MEDS: CHLORHEXIDINE 0.12% (ORAL KIT) 15 ML CUP MT SCH ×2 (07:53→21:44)
[2017-08-11] MEDS: ARTIFICIAL TEARS OPTH OINT 3.5 APPLIC/3.5 GM TUBO EACH EYE SCH ×2 (07:54→21:43)
[2017-08-11] MEDS: INSULIN DETEMIR 100 UNITS/ML VIAL SQ SCH (07:54)
[2017-08-11] MEDS: POLYETHYLENE GLYCOL 17 GM PKG PO SCH ×2 (08:14→21:42)
[2017-08-11] MEDS: DOCUSATE SODIUM 50 MG/SENNA 8.6 MG TAB PO SCH ×2 (08:14→21:42)
[2017-08-11] MEDS: OSELTAMIVIR PHOSPHATE 6 MG/ML 60 ML SUSP PO SCH ×2 (08:54→21:42)
[2017-08-11] MEDS: PANTOPRAZOLE SOD 40 MG DELAYED RELEASE TAB PO SCH (09:00)
--- NOTE | 2017-08-11 09:50 | PD.CONS ---
HPI Service Nephrology Consult Requested By Dr. Parsons Reason for Consult Cirrhosis with the flu, ARDS, possible will need renal replacement therapy Primary Care Physician Unknown History of Present Illness 61 y/o lady with h/o alcoholic liver cirrhosis, chronic thrombocytopenia, chronic hyponatremia, Afib, DM, HTN, presented to ED c/o worsening shortness of breath. Patient is currently intubated on FiO2 at 100 %. Patient is in septic shock on 2 pressors for blood pressure support and tachycardic in the high 120' s. Also on lasix gtt. Despite lasix gtt patient continues to remain positive in I+O's and has had a 4 KG weight gain. Per Dr. Parsons he has talked to family and they are willing to try dialysis if needed. (Suma Hanley) Review of Systems ROS Limitations: Intubated (Suma Hanley) Past Family Social History Allergies: Coded Allergies: aspirin (Unverified Allergy, Severe, ULCERATIVE COLITIS, 08/05/17) Past Medical History alcoholic liver cirrhosis, chronic thrombocytopenia, chronic hyponatremia, Afib , DM, HTN, portal gastropathy, alcohol abuse, hemorrhoids Past Surgical History tonsillectomy, D&C Active Ordered Medications Current Medications Medications (Trade) Dose Ordered Sig/Dax Route Start Time Stop Time Status Last Admin (Tylenol) 650 mg Q6H PRN PO 08/05/17 10:00 (Morphine Inj) 2 mg Q2H PRN IV PUSH 08/05/17 10:00 08/07/17 22:24 (Albuterol Neb) 2.5 mg Q4HR NEB PRN INH 08/05/17 10:00 (Peridex 0.12% Liq) 15 ml BID@08,20 MT 08/05/17 20:00 08/11/17 07:53 Miscellaneous Information 1 Q361D XX 08/05/17 10:00 (Chlorhexidine 2% Cloth) Taper DAILY@04 TOP 08/06/17 04:00 08/02/18 03:59 08/11/17 04:00 (Chlorhexidine 2% Cloth) 3 pack UNSCH PRN TOP 08/05/17 10:00 (Zofran Inj) 4 mg Q6HR PRN IV PUSH 08/05/17 13:45 (Lovenox Inj) 40 mg Q24H SQ 08/06/17 14:00 Future Hold 08/10/17 13:11 (Protonix) 40 mg DAILY PO 08/05/17 14:00 08/10/17 08:23 (Vitamin B1) 100 mg DAILY PO 08/06/17 09:00 08/11/17 07:52 (Folate) 1 mg DAILY PO 08/06/17 09:00 08/11/17 07:52 Norepinephrine Bitartrate 250 ml @ 7.5 mls/hr TITRATE PRN IV 08/06/17 01:45 08/11/17 06:53 Miscellaneous Information D/C ICU ELECTROLYTE ORDERS... UNSCH PRN .XX 08/06/17 11:00 Miscellaneous Information ICU - CALL ORDERING PHYSIC... UNSCH PRN .XX 08/06/17 11:00 Potassium Chloride 100 ml @ 25 mls/hr UNSCH PRN IV 08/06/17 11:00 08/10/17 10:23 (K-Lyte Cl Eff) 50 meq UNSCH PRN PO 08/06/17 11:00 08/09/17 19:51 Potassium Chloride 100 ml @ 50 mls/hr UNSCH PRN IV 08/06/17 11:00 Magnesium Sulfate 4 gm/Sodium Chloride 108 ml @ 54 mls/hr UNSCH PRN IV 08/06/17 11:00 Magnesium Sulfate 2 gm/Sodium Chloride 104 ml @ 52 mls/hr UNSCH PRN IV 08/06/17 11:00 08/09/17 08:31 (Mag-Ox) 800 mg UNSCH PRN PO 08/06/17 11:00 Sodium Phosphate 30 mmol/Sodium Chloride 260 ml @ 43.333 mls/ hr UNSCH PRN IV 08/06/17 11:00 (K-Phos) 2,000 mg UNSCH PRN PO 08/06/17 11:00 Potassium Phosphate 30 mmol/ Sodium Chloride 260 ml @ 43.333 mls/ hr UNSCH PRN IV 08/06/17 11:00 Fentanyl Citrate 250 ml @ 5 mls/hr TITRATE PRN IV 08/06/17 16:00 08/11/17 01:55 Vasopressin 40 units/Dextrose 100 ml @ 4.5 mls/hr [id number] IV 08/06/17 16:15 08/11/17 01:31 Phenylephrine HCl 160 mg/Dextrose 500 ml @ 7.5 mls/hr TITRATE PRN IV 08/07/17 23:15 08/11/17 04:15 (Brethine Inj) 1 mg UNSCH PRN SQ 08/07/17 23:15 (SoluCORTEF INJ) 100 mg Q8HR IV PUSH 08/08/17 06:00 08/11/17 05:00 (Lacrilube Opht Oint) 1 applic Q12HR EACH EYE 08/08/17 09:00 08/11/17 07:54 Furosemide 100 mg/ Sodium Chloride 100 ml @ 5 mls/hr CONTINUOUS IV 08/08/17 12:00 08/11/17 07:52 Albumin Human 100 ml @ 12.5 mls/hr Q8H IV 08/09/17 10:00 08/11/17 02:48 (Duoneb Neb) 1 ampule Q6HR NEB NEB 08/09/17 10:00 08/11/17 07:13 Miscellaneous Information SPECIFIC LAB TO BE DRAWN:VANCOMY... ONCE ONCE .XX 08/13/17 02:45 08/13/17 02:46 Propofol 100 ml @ 2.31 mls/hr TITRATE PRN IV 08/10/17 06:45 (Miralax) 17 gm BID PO 08/10/17 09:00 08/10/17 20:26 (Lactulose Liq) 30 ml BID PO 08/10/17 09:00 08/11/17 07:52 (Milagros-Colace) 1 tab BID PO 08/10/17 09:00 08/10/17 20:26 (D50w (Vial) Inj) 25 ml UNSCH PRN IV PUSH 08/10/17 07:00 (NovoLIN R SUPPLEMENTAL SCALE) 1 Q4HR SQ 08/10/17 08:00 08/11/17 07:52 Miscellaneous Information SPECIFIC LAB TO BE DRAWN:VANCOMYCIN TROUGH DATE TO... ONCE ONCE .XX 08/12/17 08:45 08/12/17 08:46 (Levemir Inj) 40 units DAILY SQ 08/11/17 09:00 08/11/17 07:54 (Tamiflu Liq) 30 mg BID PO 08/11/17 09:00 08/11/17 08:54 Family History unable to obtain Social History Per records h/o EtOH states kadi she quit h/o tobacco > 40 pack year hx, quit last year no drugs (Suma Hanley) Physical Exam Vital Signs Vital Signs Date Time Temp Pulse Resp B/P (MAP) Pulse Ox O2 Delivery O2 Flow Rate FiO2 08/11/17 09:00 96.8 124 108/65 (79) 94 125/58 (80) 08/11/17 08:00 96.9 126 101/59 (73) 95 121/56 (77) 08/11/17 07:14 91 100 08/11/17 07:00 97.0 129 121/68 (85) 90 126/54 (78) 08/11/17 06:53 127 119/52 08/11/17 06:50 128 119/52 08/11/17 06:40 128 117/51 08/11/17 06:30 123 92/38 08/11/17 06:15 120 117/52 08/11/17 06:00 121 107/68 (81) 116/53 (74) 08/11/17 06:00 121 08/11/17 05:45 119 119/53 08/11/17 05:15 85 100 08/11/17 05:10 127 114/52 08/11/17 04:15 121 94/41 08/11/17 04:14 121 94/41 08/11/17 04:05 92 90 08/11/17 04:00 124 08/11/17 04:00 80 08/11/17 04:00 98.1 124 24 110/61 (77) 91 110/48 (68) 08/11/17 02:00 127 08/11/17 01:31 118 107/48 08/11/17 00:25 92 90 08/11/17 00:00 128 08/11/17 00:00 80 08/11/17 00:00 97.9 128 24 102/61 (75) 89 112/49 (70) 08/10/17 22:00 127 08/10/17 21:52 90 90 08/10/17 21:03 88 80 08/10/17 20:00 80 08/10/17 20:00 98.0 126 24 103/58 90 108/48 08/10/17 20:00 126 08/10/17 19:21 88 80 08/10/17 19:00 127 119/51 08/10/17 19:00 127 119/51 08/10/17 18:00 127 08/10/17 18:00 12 107/59 (75) 109/48 (68) 08/10/17 18:00 127 107/59 08/10/17 18:00 127 107/59 08/10/17 16:00 75 08/10/17 16:00 131 08/10/17 16:00 98.3 131 24 92/56 (68) 88 107/48 (67) 08/10/17 16:00 131 92/56 08/10/17 15:50 130 107/48 08/10/17 15:05 127 108/46 08/10/17 15:00 98.3 129 24 94/56 (69) 88 114/49 (70) 08/10/17 14:05 128 105/46 08/10/17 14:00 129 08/10/17 14:00 98.3 129 24 94/60 (71) 94 114/50 (71) 08/10/17 13:10 98.3 123 24 83/53 (63) 88 94/42 (59) 08/10/17 13:10 123 94/42 08/10/17 13:00 98.3 123 24 89/54 (66) 87 106/46 (66) 08/10/17 13:00 123 106/46 08/10/17 12:31 126 105/48 08/10/17 12:30 98.1 125 24 95/61 (72) 88 112/50 (70) 08/10/17 12:15 98.1 124 24 93/58 (70) 90 111/48 (69) 08/10/17 12:00 60 08/10/17 12:00 124 08/10/17 12:00 98.1 124 24 92/55 (67) 92 99/43 (61) 08/10/17 11:45 98.1 125 24 97/57 (70) 89 110/48 (68) 08/10/17 11:30 98.1 128 24 100/59 (73) 91 112/49 (70) 08/10/17 11:15 98.1 129 24 95/57 (70) 93 114/50 (71) 08/10/17 11:00 98.1 129 24 91/58 (69) 91 112/49 (70) 08/10/17 10:45 98.1 129 24 90/58 (69) 92 114/49 (70) 08/10/17 10:30 98.1 132 24 88/59 (69) 89 106/46 (66) 08/10/17 10:15 98.1 131 24 92/57 (69) 88 107/47 (67) 08/10/17 10:03 130 104/45 08/10/17 10:00 130 08/10/17 10:00 97.9 130 24 91/57 (68) 91 112/49 (70) 08/10/17 09:30 97.9 128 24 95/58 (70) 86 109/50 (69) Physical Exam General - sedated and intubated HEENT - ETT and OGT CV - tachycardic, irregular. Chest - diminished coarse breath sounds. FiO2 at 100% Abdomen - soft, not tender, non-distended, + hepatomegaly Skin - no rashes, no cyanosis Extremities - warm, RLE edema, + peripheral pulses, no clubbing Neuro - intubated and sedated, pupils are equal and reactive Laboratory Laboratory Tests Test 08/10/17 11:55 08/11/17 04:40 08/11/17 06:44 08/11/17 07:00 Blood Urea Nitrogen 38 50 Creatinine 1.17 1.50 Random Glucose 193 249 Calcium Level 7.8 8.1 Magnesium Level 2.1 Sodium Level 130 129 Potassium Level 4.8 3.7 Chloride Level 96 96 Carbon Dioxide Level 25.3 25.5 Anion Gap 9 8 Estimat Glomerular Filtration Rate 47 35 White Blood Count 11.8 Red Blood Count 2.14 Hemoglobin 8.1 Hematocrit 23.9 Mean Corpuscular Volume 111.5 Mean Corpuscular Hemoglobin 37.8 Mean Corpuscular Hemoglobin Concent 33.9 Red Cell Distribution Width 18.7 Platelet Count 118 Mean Platelet Volume 8.0 Prothrombin Time 21.6 Prothromb Time International Ratio 2.1 Activated Partial Thromboplast Time 42.0 Total Protein 6.7 Albumin 3.5 Alkaline Phosphatase 99 Aspartate Amino Transf (AST/SGOT) 59 Alanine Aminotransferase (ALT/SGPT) 26 Total Bilirubin 4.7 Blood Gas Puncture Site ART LINE Blood Gas Patient Temperature 98.6 Blood Gas HCO3 23 Blood Gas Base Excess -5.0 Blood Gas Oxygen Saturation 88 Arterial Blood pH 7.16 Arterial Blood Partial Pressure CO2 66 Arterial Blood Partial Pressure O2 75 Arterial Blood Oxygen Content 9.4 Arterial Blood Carboxyhemoglobin 1.7 Arterial Blood Methemoglobin 1.4 Blood Gas Hemoglobin 7.5 Oxygen Delivery Device VENTILATOR Blood Gas Ventilator Setting /1.0 Blood Gas Inspired Oxygen 100 Lactic Acid Level 1.5 Phosphorus Level 3.9 Ammonia 145 Date/Time Source Procedure Growth Status 08/05/17 07:41 Blood Peripheral Aerobic Blood Culture - Final NO GROWTH IN 5 DAYS Complete 08/05/17 07:41 Blood Peripheral Anaerobic Blood Culture - Final NO GROWTH IN 5 DAYS Complete 08/05/17 17:15 Sputum Endotracheal Gram Stain - Final Complete 08/05/17 17:15 Sputum Endotracheal Sputum Culture - Final NO GROWTH IN 48 HOURS. Complete 08/05/17 17:30 Urine Catheterized Urine Legionella Antigen - Final PRESUMPTIVE NEGATIVE FOR LEGIONELLA P... Complete (Suma Hanley) Result Diagram: 08/11/17 0440 08/11/17 0440 Imaging Last Impressions Chest X-Ray 08/11/17 0000 Signed Impressions: Service Date/Time: Friday, August 11, 2017 06:55 - CONCLUSION: No significant change bilateral pneumonia and left greater than right pleural effusions. Hung Diop MD Liver Ultrasound 08/06/17 0000 Signed Impressions: Service Date/Time: Sunday, August 06, 2017 14:34 - CONCLUSION: 1. Heterogeneous lobular liver characteristic of cirrhosis. This has not significantly changed compared to the prior exam. 2. Gallstones in the gallbladder. No definite biliary tract obstruction. There is chronic gallbladder disease with thickening of the wall 8 mm. 3. The pancreas appears to be heterogeneous. Greyson Lozano MD Lower Extremity Ultrasound 08/05/17 0000 Signed Impressions: Service Date/Time: July 14:07 - CONCLUSION: 1. No evidence of right lower extremity DVT. 2. 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 Sukhdeep Cortez MD (Suma Hanley) Assessment and Plan Problem List: (1) SHANNON (acute kidney injury) ICD Codes: N17.9 - Acute kidney failure, unspecified Plan: SHANNON with possible ATN from sepsis and renal vein congestion. Intubated on FIO2 at 100 %. On pressors for blood pressure support for septic shock. On lasix gtt and remains consistently positive in I+O with a 4 kg weight gain noted. Continues to make urine but has started to decrease has fontaine to SD Creatinine increasing at 1.50 today and GFR at 35ml/min Potassium, magnesium, and phos WNL CC has discussed with family and they are agreeable to dialysis if needed. Vas Cath placement per CC Possible HD dialysis. Dr. Ferrera to evaluate. (2) Hypotension ICD Codes: I95.9 - Hypotension, unspecified Status: Resolved Plan: managed per critical care On vasopressin and neosynephrine Tachycardic in the 120's (3) Sepsis ICD Codes: A41.9 - Sepsis, unspecified organism Status: Acute (4) Thrombocytopenia ICD Codes: D69.6 - Thrombocytopenia, unspecified Status: Chronic (5) Hyponatremia ICD Codes: E87.1 - Hypo-osmolality and hyponatremia Status: Resolved (6) Cirrhosis ICD Codes: K74.60 - Unspecified cirrhosis of liver Status: Acute (Suma Hanley) Problem List: (1) SHANNON (acute kidney injury) ICD Codes: N17.9 - Acute kidney failure, unspecified Plan: SHANNON with possible ATN from sepsis and renal vein congestion. Intubated on FIO2 at 100 %. On pressors for blood pressure support for septic shock. On lasix gtt and remains consistently positive in I+O with a 4 kg weight gain noted. Continues to make urine but has started to decrease has fontaine to SD Creatinine increasing at 1.50 today and GFR at 35ml/min Potassium, magnesium, and phos WNL CC has discussed with family and they are agreeable to dialysis if needed. Vas Cath placement per CC Possible HD dialysis. Dr. Ferrera to evaluate. Patient seen and examined, agree with above. D/W Dr. Leiva, he will kindly get the Vascath and will try conventional HD if tolerated. HD RN informed. (2) Hypotension ICD Codes: I95.9 - Hypotension, unspecified Status: Resolved Plan: managed per critical care On vasopressin and neosynephrine Tachycardic in the 120's (3) Sepsis ICD Codes: A41.9 - Sepsis, unspecified organism Status: Acute (4) Thrombocytopenia ICD Codes: D69.6 - Thrombocytopenia, unspecified Status: Chronic (5) Hyponatremia ICD Codes: E87.1 - Hypo-osmolality and hyponatremia Status: Resolved (6) Cirrhosis ICD Codes: K74.60 - Unspecified cirrhosis of liver Status: Acute (Vlad Ferrera MD) Suma Hanley Aug 11, 2017 09:50 Vlad Ferrera MD Aug 11, 2017 11:14
--- NOTE | 2017-08-11 11:43 | PD.CONS ---
Consult Service Palliative Care Consult Requested By Dr. Parsons. Primary Care Physician Unknown Reason for Consultation a. To assist with evaluation and management of symptoms including: Shortness of breath, pain, debility. b. To assist medical decision maker(s) with: better understanding of current medical conditions; weighing benefits/burdens of medical treatment options; making medical treatment decisions. . HPI History of Present Illness Mrs. Kumar is a 61-year-old female with a medical history significant for alcohol liver cirrhosis, chronic thrombocytopenia, diabetes mellitus type 2, hypertension, atrial fibrillation, history of GI bleed. Patient presented to ED on 08/05/17 endorsing worsening progressive shortness of breath. Shortness of breath reported for the past 3 months, worsening over the prior 24-48 hours. Patient reporting pleuritic pain with deep inspiration and cough, however, no fever or chills. ED workup to include chest x-ray revealing diffuse pulmonary infiltrates. Lower extremity ultrasound negative for DVT. Laboratory work is significant for leukocytosis 14.0, Hgb 9.9, platelet count 74. Sodium 120, potassium 5.9, BUN/creatinine 14/0.2. Elevated liver enzymes to include total bilirubin 5.8, AST 56, ALT 34, alkaline phosphatase 198. Lactic acid 5.6. Toxicology positive for benzodiazepine. UA positive for nitrates and leukocytes. While in the ED, clinical course complicated by worsening hypoxia and hypotension. Patient was emergently intubated and transferred to [facility] [place] for further management of acute respiratory failure, septic shock requiring vasopressors, pneumonia. Echocardiogram 08/06/17 revealed an EF of 60-65%, grade 2 diastolic dysfunction, mild left ventricular hypertrophy and mild tricuspid valve regurgitation. Patient with progressive worsening hypoxia and infiltrates on x-ray, currently 100% FiO2. Patient remains on septic shock, multisystem organ failure. Poor urinary output. Nephrology, Dr. Ferrera consulted 08/11/17 to evaluate need for renal replacement therapy. Patient currently on Lasix drip, she remains fluid positive with a 4 kg weight gain. Palliative care has been consulted for further clarifications of goals of care, family support given guarded prognosis. Patient seen in medical ICU. Endotracheal intubated on mechanical ventilation. Fentanyl drip ongoing. Patient is unresponsive to verbal or tactile stimuli, not following commands. Remains on phenylephrine and vasopressin drips. Currently the 100% FiO2, oxygen saturation in the low 90s. Patient tachycardic with heart rate in the 120s, afebrile. Chest x-ray today revealing no significant changes to bilateral pneumonia and bilateral pleural effusions. Urine culture 08/05/17 growing Klebsiella pneumoniae. Case discussed with Dr. Leiva and bedside RN Sherron. Telephone conversation with patient's DIANN Kumar. Introduced the role of palliative care in advanced illness in regards to symptom management as well as support surrounding goals of care and advance care planning. receptive to consult. reports that he has visited patient early this morning, not planning to return to the hospital until tomorrow morning. Arrange family meeting with patient's and her mother Kary Zaidi for tomorrow 08/12/17 and 9:30 AM. verbalizing aggressive goals for the next day or two, reevaluate patient's condition to readdress goals of care. Reviewed patient's past medical history. Most recent hospitalization from -01/18/17 secondary to rectal bleed. Patient underwent an EGD with biopsy and colonoscopy. Pathology report negative for malignancy. Prior hospitalization on 09/26/16 secondary to EtOH withdrawal and thrombocytopenia. Patient was admitted for further management but left AMA. . Function/Cognitive Trajectory Patient residing with prior to this hospitalization. Requiring some assistance with ADLs. Ambulating with cane at home. No cognitive deficit reported. . Review of Systems ROS Limitations: Clinical Condition, Intubated, Unresponsive Constitutional: COMPLAINS OF: Weight gain, DENIES: Fever Eyes: DENIES: Eye inflammation Ears, nose, mouth, throat: DENIES: Nasal discharge, Running Nose, Epistaxis Respiratory: COMPLAINS OF: Shortness of breath Cardiovascular: COMPLAINS OF: Dyspnea on Exertion, Lower Extremity Edema Gastrointestinal: DENIES: Nausea, Vomiting, Difficulty Swallowing Genitourinary: DENIES: Urinary incontinence Integumentary: DENIES: Pruritus, Rash Hematologic/Lymphatics: COMPLAINS OF: Bruising Immunologic/Allergic: DENIES: Eczema Neurologic: DENIES: Localized weakness, Seizures, Tremor Psychiatric: DENIES: Agitation Other ROS: Limited ROS secondary to patient's clinical condition, unresponsive. ROS obtained from medical records, patient's family and clinical observation. . Past Family Social History Coded Allergies: aspirin (Unverified Allergy, Severe, ULCERATIVE COLITIS, 08/05/17) Past Medical History Alcohol liver cirrhosis Atrial fibrillation Hypertension Chronic thrombocytopenia Chronic hyperbilirubinemia Diabetes Hypothyroidism GERD Hypertension Atrial fibrillation History of GI bleed Ulcerative colitis Portal gastropathy History of tonsillar cancer Anxiety Depression . Past Surgical History Tonsillectomy. . Reported Medications Glipizide 10 Mg Tab 20 Mg PO BIDAC Jannet Contour Next Blood Test Strips (Blood Glucose Test Strips) 1 Brooke Brooke Strip 5 TIMES A DAY Levothyroxine (Levothyroxine Sodium) 50 Mcg Tab 50 Mcg PO DAILY Potassium Chloride ER (Potassium Chloride) 20 Meq Tab 20 Meq PO DAILY Bd Insulin Syringe Safety 31G X 5/16" 0.3 ml (Insulin Syringe/Needle U-100) 1 Mis Mis Box TID Furosemide 20 Mg Tab 20 Mg PO DAILY Spironolactone 100 Mg Tab 100 Mg PO BIDPC Lisinopril 5 Mg Tab 5 Mg PO DAILY Gabapentin 800 Mg Tab 800 Mg PO TID Levemir Inj (Insulin Detemir) 1,000 unit/ 10 ML Vial 45 Units SQ BID 30 Days Hydroxyzine Pamoate 50 Mg Cap 50 Mg PO Q6HR PRN Vitamin B-12 (Cyanocobalamin) 1,000 Mcg Tab 1,000 Mcg PO DAILY Protonix (Pantoprazole Sodium) 40 Mg Tab 40 Mg PO DAILY Sulfadiazine 500 Mg Tab 500 Mg PO Q8HR Novolin R Inj (Insulin Human Regular) 1,000 Unit/10 Ml Vial 5-25 Units SQ TID Multiple Vitamin 1 Tab 1 Tab PO DAILY . Current Medications Medications (Trade) Dose Ordered Sig/Dax Route Start Time Stop Time Status Last Admin (Tylenol) 650 mg Q6H PRN PO 08/05/17 10:00 (Morphine Inj) 2 mg Q2H PRN IV PUSH 08/05/17 10:00 08/07/17 22:24 (Albuterol Neb) 2.5 mg Q4HR NEB PRN INH 08/05/17 10:00 (Peridex 0.12% Liq) 15 ml BID@08,20 MT 08/05/17 20:00 08/11/17 07:53 Miscellaneous Information 1 Q361D XX 08/05/17 10:00 (Chlorhexidine 2% Cloth) Taper DAILY@04 TOP 08/06/17 04:00 08/02/18 03:59 08/11/17 04:00 (Chlorhexidine 2% Cloth) 3 pack UNSCH PRN TOP 08/05/17 10:00 (Zofran Inj) 4 mg Q6HR PRN IV PUSH 08/05/17 13:45 (Lovenox Inj) 40 mg Q24H SQ 08/06/17 14:00 Future Hold 08/10/17 13:11 (Protonix) 40 mg DAILY PO 08/05/17 14:00 08/10/17 08:23 (Vitamin B1) 100 mg DAILY PO 08/06/17 09:00 08/11/17 07:52 (Folate) 1 mg DAILY PO 08/06/17 09:00 08/11/17 07:52 Norepinephrine Bitartrate 250 ml @ 7.5 mls/hr TITRATE PRN IV 08/06/17 01:45 08/11/17 06:53 Miscellaneous Information D/C ICU ELECTROLYTE ORDERS... UNSCH PRN .XX 08/06/17 11:00 Miscellaneous Information ICU - CALL ORDERING PHYSIC... UNSCH PRN .XX 08/06/17 11:00 Potassium Chloride 100 ml @ 25 mls/hr UNSCH PRN IV 08/06/17 11:00 08/10/17 10:23 (K-Lyte Cl Eff) 50 meq UNSCH PRN PO 08/06/17 11:00 08/09/17 19:51 Potassium Chloride 100 ml @ 50 mls/hr UNSCH PRN IV 08/06/17 11:00 Magnesium Sulfate 4 gm/Sodium Chloride 108 ml @ 54 mls/hr UNSCH PRN IV 08/06/17 11:00 Magnesium Sulfate 2 gm/Sodium Chloride 104 ml @ 52 mls/hr UNSCH PRN IV 08/06/17 11:00 08/09/17 08:31 (Mag-Ox) 800 mg UNSCH PRN PO 08/06/17 11:00 Sodium Phosphate 30 mmol/Sodium Chloride 260 ml @ 43.333 mls/ hr UNSCH PRN IV 08/06/17 11:00 (K-Phos) 2,000 mg UNSCH PRN PO 08/06/17 11:00 Potassium Phosphate 30 mmol/ Sodium Chloride 260 ml @ 43.333 mls/ hr UNSCH PRN IV 08/06/17 11:00 Fentanyl Citrate 250 ml @ 5 mls/hr TITRATE PRN IV 08/06/17 16:00 08/11/17 01:55 Vasopressin 40 units/Dextrose 100 ml @ 4.5 mls/hr [id number] IV 08/06/17 16:15 08/11/17 01:31 Phenylephrine HCl 160 mg/Dextrose 500 ml @ 7.5 mls/hr TITRATE PRN IV 08/07/17 23:15 08/11/17 04:15 (Brethine Inj) 1 mg UNSCH PRN SQ 08/07/17 23:15 (SoluCORTEF INJ) 100 mg Q8HR IV PUSH 08/08/17 06:00 08/11/17 05:00 (Lacrilube Opht Oint) 1 applic Q12HR EACH EYE 08/08/17 09:00 08/11/17 07:54 Furosemide 100 mg/ Sodium Chloride 100 ml @ 5 mls/hr CONTINUOUS IV 08/08/17 12:00 08/11/17 07:52 Albumin Human 100 ml @ 12.5 mls/hr Q8H IV 08/09/17 10:00 08/11/17 10:10 (Duoneb Neb) 1 ampule Q6HR NEB NEB 08/09/17 10:00 08/11/17 07:13 Miscellaneous Information SPECIFIC LAB TO BE DRAWN:VANCOMY... ONCE ONCE .XX 08/13/17 02:45 08/13/17 02:46 Propofol 100 ml @ 2.31 mls/hr TITRATE PRN IV 08/10/17 06:45 (Miralax) 17 gm BID PO 08/10/17 09:00 08/10/17 20:26 (Lactulose Liq) 30 ml BID PO 08/10/17 09:00 08/11/17 07:52 (Milagros-Colace) 1 tab BID PO 08/10/17 09:00 08/10/17 20:26 (D50w (Vial) Inj) 25 ml UNSCH PRN IV PUSH 08/10/17 07:00 (NovoLIN R SUPPLEMENTAL SCALE) 1 Q4HR SQ 08/10/17 08:00 08/11/17 07:52 Miscellaneous Information SPECIFIC LAB TO BE DRAWN:VANCOMYCIN TROUGH DATE TO... ONCE ONCE .XX 08/12/17 08:45 08/12/17 08:46 (Levemir Inj) 40 units DAILY SQ 08/11/17 09:00 08/11/17 07:54 (Tamiflu Liq) 30 mg BID PO 08/11/17 09:00 08/11/17 08:54 Family History Unable to obtain secondary to patient's clinical condition, unresponsive. Patient has no biological children, mother Kary is alive and well. . Substance Use Tobacco: Reported as a former smoker, quit August 2016. History of 1 pack of cigarette per day since she was 14 years old. Alcohol: Patient reported on admission that she has quit. Hx of 4 glasses of wine daily. History of EtOH use and abuse. Prescription med abuse: Denies. Illicits: Denies. . Psychosocial History Patient is . Has no biological children. Pending additional information from patient's . . Spiritual/Cultural Factors Christianity monty. . Living Will: Never completed Health Care Surrogate: Never completed Durable Power of Radio Operator: Never completed Health Care Surrogate(s): Advance directives not completed. As per [place] statute, healthcare proxy decision maker falls to DIANN Kumar. . Family/friends goals: Full code. Goals remain aggressive at this time. . Ethical and Legal Issues No ethical issues identified. . Physical Exam Vital Signs Date Time Temp Pulse Resp B/P (MAP) Pulse Ox O2 Delivery O2 Flow Rate FiO2 08/11/17 09:00 96.8 124 108/65 (79) 94 125/58 (80) 08/11/17 09:00 124 08/11/17 08:00 126 08/11/17 08:00 96.9 126 101/59 (73) 95 121/56 (77) 08/11/17 08:00 126 101/59 (73) 121/56 (77) 08/11/17 08:00 100 08/11/17 07:14 91 100 08/11/17 07:00 129 08/11/17 07:00 97.0 129 121/68 (85) 90 126/54 (78) 08/11/17 06:53 127 119/52 08/11/17 06:50 128 119/52 08/11/17 06:40 128 117/51 08/11/17 06:30 123 92/38 08/11/17 06:15 120 117/52 08/11/17 06:00 121 107/68 (81) 116/53 (74) 08/11/17 06:00 121 08/11/17 05:45 119 119/53 08/11/17 05:15 85 100 08/11/17 05:10 127 114/52 08/11/17 04:15 121 94/41 08/11/17 04:14 121 94/41 08/11/17 04:05 92 90 08/11/17 04:00 124 08/11/17 04:00 80 08/11/17 04:00 98.1 124 24 110/61 (77) 91 110/48 (68) 08/11/17 02:00 127 08/11/17 01:31 118 107/48 08/11/17 00:25 92 90 08/11/17 00:00 128 08/11/17 00:00 80 08/11/17 00:00 97.9 128 24 102/61 (75) 89 112/49 (70) 08/10/17 22:00 127 08/10/17 21:52 90 90 08/10/17 21:03 88 80 08/10/17 20:00 80 08/10/17 20:00 98.0 126 24 103/58 90 108/48 08/10/17 20:00 126 08/10/17 19:21 88 80 08/10/17 19:00 127 119/51 08/10/17 19:00 127 119/51 08/10/17 18:00 127 08/10/17 18:00 12 107/59 (75) 109/48 (68) 08/10/17 18:00 127 107/59 08/10/17 18:00 127 107/59 08/10/17 16:00 75 08/10/17 16:00 131 08/10/17 16:00 98.3 131 24 92/56 (68) 88 107/48 (67) 08/10/17 16:00 131 92/56 08/10/17 15:50 130 107/48 08/10/17 15:05 127 108/46 08/10/17 15:00 98.3 129 24 94/56 (69) 88 114/49 (70) 08/10/17 14:05 128 105/46 08/10/17 14:00 129 08/10/17 14:00 98.3 129 24 94/60 (71) 94 114/50 (71) 08/10/17 13:10 98.3 123 24 83/53 (63) 88 94/42 (59) 08/10/17 13:10 123 94/42 08/10/17 13:00 98.3 123 24 89/54 (66) 87 106/46 (66) 08/10/17 13:00 123 106/46 08/10/17 12:31 126 105/48 08/10/17 12:30 98.1 125 24 95/61 (72) 88 112/50 (70) 08/10/17 12:15 98.1 124 24 93/58 (70) 90 111/48 (69) 08/10/17 12:00 60 08/10/17 12:00 124 08/10/17 12:00 98.1 124 24 92/55 (67) 92 99/43 (61) 08/10/17 11:45 98.1 125 24 97/57 (70) 89 110/48 (68) 08/10/17 11:30 98.1 128 24 100/59 (73) 91 112/49 (70) 08/10/17 11:15 98.1 129 24 95/57 (70) 93 114/50 (71) 08/11/17 08/12/17 18:59 06:59 Output Total 53 ml Balance -53 ml Output Urine Total 53 ml Exam CONSTITUTIONAL/GENERAL: This is an adequately nourished patient in no apparent distress. ill appearing. TUBES/LINES/DRAINS: ETT, OG, right IJ central line, PIV's, Crowell catheter. bilateral soft wrist restraints. SKIN: No jaundice, rashes, or lesions. Ecchymoses on upper extremities. No wounds seen anteriorly. Skin temperature appropriate. Not diaphoretic. HEAD: Atraumatic. Normocephalic. EYES: Pupils equal and round and reactive. Scleral icterus. No injection or drainage. Fundi not examined. ENT: Unable to evaluate hearing secondary to clinical condition. Nose without bleeding or purulent drainage. Moist oral mucosa, dry lips. NECK: Trachea midline. Supple. CARDIOVASCULAR: Tachycardic with heart rate in the 120s. Irregular rate and rhythm. Peripheral pulses symmetric. Generalized edema. RESPIRATORY/CHEST: Symmetric, unlabored respirations. Coarse breath sounds bilaterally. Endotracheally intubated on mechanical ventilation. GASTROINTESTINAL: Abdomen soft, large, round. Positive bowel sounds. GENITOURINARY: Without palpable bladder distension. Crowell catheter in place. MUSCULOSKELETAL: Extremities without clubbing, cyanosis. No mottling or clubbing. NEUROLOGICAL: Unresponsive to verbal or tactile stimuli. Not following commands. PSYCHIATRIC: Unable to assess secondary to clinical condition, unresponsive. Appears calm. . Diagnostic Tests Laboratory Laboratory Tests Test 08/09/17 06:13 08/09/17 16:10 08/10/17 04:30 08/10/17 11:55 White Blood Count 12.5 TH/MM3 (4.0-11.0) 10.9 TH/MM3 (4.0-11.0) Red Blood Count 2.21 MIL/MM3 (4.00-5.30) 2.08 MIL/MM3 (4.00-5.30) Hemoglobin 8.0 GM/DL (11.6-15.3) 7.5 GM/DL (11.6-15.3) Hematocrit 23.0 % (35.0-46.0) 22.0 % (35.0-46.0) Mean Corpuscular Volume 104.3 FL (80.0-100.0) 106.2 FL (80.0-100.0) Mean Corpuscular Hemoglobin 36.3 PG (27.0-34.0) 36.3 PG (27.0-34.0) Mean Corpuscular Hemoglobin Concent 34.8 % (32.0-36.0) 34.2 % (32.0-36.0) Red Cell Distribution Width 16.4 % (11.6-17.2) 17.1 % (11.6-17.2) Platelet Count 75 TH/MM3 (150-450) 77 TH/MM3 (150-450) Mean Platelet Volume 7.3 FL (7.0-11.0) 7.8 FL (7.0-11.0) Neutrophils (%) (Auto) 91.5 % (16.0-70.0) Lymphocytes (%) (Auto) 1.9 % (9.0-44.0) Monocytes (%) (Auto) 5.4 % (0.0-8.0) Eosinophils (%) (Auto) 1.0 % (0.0-4.0) Basophils (%) (Auto) 0.2 % (0.0-2.0) Neutrophils # (Auto) 11.4 TH/MM3 (1.8-7.7) Lymphocytes # (Auto) 0.2 TH/MM3 (1.0-4.8) Monocytes # (Auto) 0.7 TH/MM3 (0-0.9) Eosinophils # (Auto) 0.1 TH/MM3 (0-0.4) Basophils # (Auto) 0.0 TH/MM3 (0-0.2) CBC Comment AUTO DIFF Differential Total Cells Counted 100 Neutrophils % (Manual) 86 % (16-70) Band Neutrophils % 9 % (0-6) Monocytes % 4 % (0-8) Neutrophils # (Manual) 12.0 TH/MM3 (1.8-7.7) Myelocytes 1 % (0-0) Nucleated Red Blood Cells 1 /100 WBC (0-0) Differential Comment FINAL DIFF MANUAL Platelet Estimate LOW (NORMAL) Platelet Morphology Comment NORMAL (NORMAL) Polychromasia 2.0 % (0.0-1.9) [place] Bodies PRESENT (NONE SEEN) Red Cell Morphology Comment (NORMAL) Prothrombin Time 20.2 SEC (9.8-11.6) 20.7 SEC (9.8-11.6) Prothromb Time International Ratio 2.0 RATIO 2.0 RATIO Blood Urea Nitrogen 27 MG/DL (7-18) 30 MG/DL (7-18) 35 MG/DL (7-18) 38 MG/DL (7-18) Creatinine 0.79 MG/DL (0.50-1.00) 0.85 MG/DL (0.50-1.00) 0.96 MG/DL (0.50-1.00) 1.17 MG/DL (0.50-1.00) Random Glucose 190 MG/DL (74-106) 128 MG/DL (74-106) 105 MG/DL (74-106) 193 MG/DL (74-106) Total Protein 5.3 GM/DL (6.4-8.2) 6.3 GM/DL (6.4-8.2) Albumin 1.7 GM/DL (3.4-5.0) 3.0 GM/DL (3.4-5.0) Calcium Level 7.7 MG/DL (8.5-10.1) 7.6 MG/DL (8.5-10.1) 7.6 MG/DL (8.5-10.1) 7.8 MG/DL (8.5-10.1) Magnesium Level 1.4 MG/DL (1.5-2.5) 2.2 MG/DL (1.5-2.5) 2.2 MG/DL (1.5-2.5) 2.1 MG/DL (1.5-2.5) Alkaline Phosphatase 118 U/L (45-117) 98 U/L (45-117) Aspartate Amino Transf (AST/SGOT) 53 U/L (15-37) 50 U/L (15-37) Alanine Aminotransferase (ALT/SGPT) 28 U/L (10-53) 26 U/L (10-53) Total Bilirubin 4.9 MG/DL (0.2-1.0) 4.5 MG/DL (0.2-1.0) Sodium Level 128 MEQ/L (136-145) 131 MEQ/L (136-145) 133 MEQ/L (136-145) 130 MEQ/L (136-145) Potassium Level 3.0 MEQ/L (3.5-5.1) 2.4 MEQ/L (3.5-5.1) 3.2 MEQ/L (3.5-5.1) 4.8 MEQ/L (3.5-5.1) Chloride Level 95 MEQ/L (98-107) 94 MEQ/L (98-107) 97 MEQ/L (98-107) 96 MEQ/L (98-107) Carbon Dioxide Level 24.0 MEQ/L (21.0-32.0) 28.6 MEQ/L (21.0-32.0) 27.3 MEQ/L (21.0-32.0) 25.3 MEQ/L (21.0-32.0) Anion Gap 9 MEQ/L (5-15) 8 MEQ/L (5-15) 9 MEQ/L (5-15) 9 MEQ/L (5-15) Estimat Glomerular Filtration Rate 74 ML/MIN (>89) 68 ML/MIN (>89) 59 ML/MIN (>89) 47 ML/MIN (>89) Activated Partial Thromboplast Time 42.7 SEC (24.3-30.1) Test 08/11/17 04:40 08/11/17 06:44 1/31/18 07:00 White Blood Count 11.8 TH/MM3 (4.0-11.0) Red Blood Count 2.14 MIL/MM3 (4.00-5.30) Hemoglobin 8.1 GM/DL (11.6-15.3) Hematocrit 23.9 % (35.0-46.0) Mean Corpuscular Volume 111.5 FL (80.0-100.0) Mean Corpuscular Hemoglobin 37.8 PG (27.0-34.0) Mean Corpuscular Hemoglobin Concent 33.9 % (32.0-36.0) Red Cell Distribution Width 18.7 % (11.6-17.2) Platelet Count 118 TH/MM3 (150-450) Mean Platelet Volume 8.0 FL (7.0-11.0) Prothrombin Time 21.6 SEC (9.8-11.6) Prothromb Time International Ratio 2.1 RATIO Activated Partial Thromboplast Time 42.0 SEC (24.3-30.1) Blood Urea Nitrogen 50 MG/DL (7-18) Creatinine 1.50 MG/DL (0.50-1.00) Random Glucose 249 MG/DL (74-106) Total Protein 6.7 GM/DL (6.4-8.2) Albumin 3.5 GM/DL (3.4-5.0) Calcium Level 8.1 MG/DL (8.5-10.1) Alkaline Phosphatase 99 U/L (45-117) Aspartate Amino Transf (AST/SGOT) 59 U/L (15-37) Alanine Aminotransferase (ALT/SGPT) 26 U/L (10-53) Total Bilirubin 4.7 MG/DL (0.2-1.0) Sodium Level 129 MEQ/L (136-145) Potassium Level 3.7 MEQ/L (3.5-5.1) Chloride Level 96 MEQ/L (98-107) Carbon Dioxide Level 25.5 MEQ/L (21.0-32.0) Anion Gap 8 MEQ/L (5-15) Estimat Glomerular Filtration Rate 35 ML/MIN (>89) Blood Gas Puncture Site ART LINE Blood Gas Patient Temperature 98.6 Blood Gas HCO3 23 mmol/L (22-26) Blood Gas Base Excess -5.0 mmol/L (-2-2) Blood Gas Oxygen Saturation 88 % (90-100) Arterial Blood pH 7.16 (7.380-7.420) Arterial Blood Partial Pressure CO2 66 mmHg (38-42) Arterial Blood Partial Pressure O2 75 mmHg (61-120) Arterial Blood Oxygen Content 9.4 Vol % (12.0-20.0) Arterial Blood Carboxyhemoglobin 1.7 % (0-4) Arterial Blood Methemoglobin 1.4 % (0-2) Blood Gas Hemoglobin 7.5 G/DL (12.0-16.0) Oxygen Delivery Device VENTILATOR Blood Gas Ventilator Setting /1.0 Blood Gas Inspired Oxygen 100 % Lactic Acid Level 1.5 mmol/L (0.4-2.0) Phosphorus Level 3.9 MG/DL (2.5-4.9) Ammonia 145 MCMOL/L (11-32) Result Diagram: 08/11/170 08/11/170 Microbiology Microbiology Date/Time Source Procedure Growth Status 08/05/17 07:41 Blood Peripheral Aerobic Blood Culture - Final NO GROWTH IN 5 DAYS Complete 08/05/17 07:41 Blood Peripheral Anaerobic Blood Culture - Final NO GROWTH IN 5 DAYS Complete 08/05/17 17:15 Sputum Endotracheal Gram Stain - Final Complete 08/05/17 17:15 Sputum Endotracheal Sputum Culture - Final NO GROWTH IN 48 HOURS. Complete 08/05/17 17:30 Urine Catheterized Urine Legionella Antigen - Final PRESUMPTIVE NEGATIVE FOR LEGIONELLA P... Complete Imaging Last Impressions Chest X-Ray 08/11/17 0000 Signed Impressions: Service Date/Time: Friday, August 11, 2017 06:55 - CONCLUSION: No significant change bilateral pneumonia and left greater than right pleural effusions. Hung Diop MD Liver Ultrasound 08/06/17 0000 Signed Impressions: Service Date/Time: Sunday, August 06, 2017 14:34 - CONCLUSION: 1. Heterogeneous lobular liver characteristic of cirrhosis. This has not significantly changed compared to the prior exam. 2. Gallstones in the gallbladder. No definite biliary tract obstruction. There is chronic gallbladder disease with thickening of the wall 8 mm. 3. The pancreas appears to be heterogeneous. Greyson Lozano MD Lower Extremity Ultrasound 08/05/17 0000 Signed Impressions: Service Date/Time: July 14:07 - CONCLUSION: 1. No evidence of right lower extremity DVT. 2. 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 Sukhdeep Cortez MD Procedures * 08/05/17 - Endotracheal intubation * 08/08/17 - right IJ central line placement . Patient/Family Conference Present at Family Conference: DIANN Kumar. Family Conference Time (mins): 32 Family Conference Location: Telephone Issues Discussed: * Palliative care role, purpose, approach * Additional medical, psychosocial, and spiritual history * Patients general health, functional status, and cognitive changes in the months leading up to the current hospitalization * Patient/family understanding of the current medical problems * Patients goals of care as best understood from advance directives and/or conversations and/or values * Questions answered to the best of my ability * Palliative care contact information provided . Assessment and Plan Disease Oriented Problem List: (1) Septic shock (2) Acute respiratory failure (3) Pulmonary edema (4) UTI due to Klebsiella species (5) Bilateral pneumonia (6) Hyponatremia (7) Fluid overload, unspecified (8) Cirrhosis (9) Atrial fibrillation with rapid ventricular response Symptom Scale: (1) Dyspnea 0-10 Scale: Unable to quantify (2) Pain 0-10 Scale: Unable to quantify (3) Debility 0-10 Scale: Unable to quantify Pertinent Non-Medical Issues Psychosocial: Patient is . Has no biological children. Pending additional information from patient's . Spiritual: Christianity monty. Legal: No advance directives completed. Ethical issues impacting care: No ethical issues identified. . Important Contacts DIANN Kumar , . . Prognosis Mrs. Kumar is a 61-year-old female with a medical history significant for alcohol liver cirrhosis, chronic thrombocytopenia, diabetes mellitus type 2, hypertension, atrial fibrillation, history of GI bleed. Patient presented to ED on 08/05/17 endorsing progressive shortness of breath. Clinical course complicated by worsening hypoxia and hypotension requiring emergent intubation and mechanical ventilation. Clinical course further complicated by septic shock , multisystem failure and volume overload. Patient's prognosis is guarded, high risk for further complications, continue decline and . . Code Status: Full Code Plan * CODE STATUS: FULL code. * HEALTHCARE DECISION-MAKING: Patient unable to participating in medical decision-making secondary to clinical condition, intubated, unresponsive. Unclear if she will regain medical decision-making capacity. No advance directives completed. As per [place] statute, healthcare proxy decision-making falls to patient's DIANN Kumar. * GOALS OF CARE: Patient's electing to continue aggressive management to include FULL code and renal replacement therapy as tolerated, allow a few days for clinical improvement. receptive to ongoing goals of care conversation as patient's clinical course evolves. Family meeting with and patient's mother scheduled for tomorrow 08/12/17 at 9:30 AM. * SYMPTOMS: = Dyspnea, secondary to pneumonia, respiratory failure, sepsis. Currently intubated on mechanical ventilation, high O2 requirements, currently on 100% FiO2. = Pain: Secondary to acute illness, bedbound, intubation, lines. Ongoing fentanyl drip. Patient appears comfortable. = Debility: Secondary to acute illness. * Case discussed with Dr. Parsons and bedside RN Sherron. * Palliative care contact information has been provided to patient's . * Palliative care will continue to follow-up for further clarifications of goals of care, emotional support as patient's clinical course continues to evolve. . Time Spent Total Floor Time (mins): 56 (Total time to include review and summarization of available medical records to include prior hospitalizations, physical exam, goals of care conversation with patient's , case discussion with Dr. Parsons bedside RN.) >50% Counseling/Coord of Care: Yes Thank you for the opportunity to participate in the care of Ms. Kumar. Attestation To help prompt me to consider important information that might be impacting today's encounter and assessment, information from prior notes written by myself or my colleagues may have been "brought forward" into today's note. My signature on this note, however, is an attestation that I personally performed the exam, history, and/or decision-making noted today, and, unless otherwise indicated, the interactions with patient, family, and staff as well as the review of records all occurred today. I also attest that the listed assessment and stated plan reflect my best clinical judgment today based on the combination of historical information, prior notes, and today's exam/ interactions. When time spent is documented, it refers only to time spent today by the signer, or if indicated, combined time spent today by collaborating physician/nurse practitioner. Rylie Velasquez Aug 11, 2017 11:43
--- NOTE | 2017-08-11 12:10 | RADRPT ---
EXAM DATE/TIME: 08/11/2017 11:42 [facility] COMPARISON: CHEST SINGLE AP, August 11, 2017, 6:55. INDICATIONS : Vas Cath placement. MEDICAL HISTORY : Hernia, hiatal. Arthritis. Hypothyroidism. Peripheral neuropathy. Afib. anxiety. HTN.Dyspnea. Ulcerat ed colitis. GERD. Diabetes. Mild cirrhosis. Depression SURGICAL HISTORY : Tonsillectomy. D&C ENCOUNTER: Subsequent ACUITY: 1 week PAIN SCORE: 10/10 LOCATION: Bilateral chest FINDINGS: Portable AP view of the chest demonstrates a normal-sized cardiac silhouette. Endotracheal tube tip i s at the aortic knob level, NG tube is looped within the stomach, and right IJ central line distal ti p is in the SVC. There has been interval placement of a left IJ vascular catheter with distal tip at the cavoatrial junction. No pneumothorax is identified. Multiple EKG lines overlie the patient. There is diffuse severe airspace consolidation bilaterally, unchanged from the prior study. CONCLUSION: 1. The left internal jugular vascular catheter distal tip is at the cavoatrial junction. No pneumotho rax is present. 2. Stable severe bilateral airspace consolidation. Hung Condon MD on August 11, 2017 at 12:06 Board Certified Radiologist. This report was verified electronically.
--- NOTE | 2017-08-11 19:24 | PD.PROCEDR ---
Procedure Note Procedure Central Line Procedure Note Left IJ 14 Kazakh 20 cm dialysis catheter Diagnosis: Cor pulmonale Indications: Cor pulmonale requiring emergent renal replacement therapy Consent: Obtained from the Anesthesia: None Description of the Procedure: The patient was placed in the supine, mild- Trendelenburg position. The area was prepped and draped sterilely. A 19g needle was inserted under negative pressure aspiration and dark venous blood was obtained. A guidewire was inserted easily without resistance. A small incision was made using a #11 blade. Using a modified Seldinger technique, the dilator and 14 Kazakh, 20 cm catheter were advanced over the guidewire without resistance. All ports were aspirated and flushed, and had brisk blood return. The line was secured at the skin using 2-0 silk interrupted sutures. A Biopatch and Transparent sterile dressing were applied. There were no immediate complications noted. There was minimal EBL. The patient tolerated the procedure well. Ultrasound Guidance: Ultrasound guidance was used to identify the left internal jugular vein. The vascular anatomy of the left anterior neck was normal. The vessel was cannulated under direct, real-time ultrasound visualization. After placement of the guidewire, confirmation of the guidewire in the lumen of the vessel was made using ultrasound visualization, before dilation of the tract. A Chest x-ray has been ordered. I personally performed the procedure. Carroll Parsons MD Aug 11, 2017 19:24
[2017-08-12] VITALS (34 sets, daily range): BP systolic 93–147; BP diastolic 42–70; PULSE 106–144; RESP 3–24; TEMP 97.5–100.6; O2SAT 90–98
[2017-08-12] MEDS: CHLORHEXIDINE GLUCONATE 2 % 1 PACK (2 CLOTHS) TOP SCH (00:21)
[2017-08-12] MEDS: ALBUMIN 25% INJ 100 ML IV SCH ×3 (01:30→17:41)
[2017-08-12] MEDS: fentaNYL 2,500 MCG/NS 250 ML IV PRN (01:49)
[2017-08-12] MEDS: RESP: ALBUTEROL 2.5 MG/IPRATROPIUM 0.5 MG NEB (SCH) NEB ×4 (03:00→20:25)
[2017-08-12] MEDS: INSULIN NovoLIN REGULAR SUPPLEMENTAL SCALE SQ SCH ×6 (04:00→20:00)
[2017-08-12 04:25] LABS: MEAN CORPUSCULAR HEMOGLOBIN 36.5 PG (27.0-34.0); MEAN CORPUSCULAR HGB CONC 33.2 % (32.0-36.0); PLATELET COUNT 43 TH/MM3 (150-450); RED BLOOD COUNT 1.88 MIL/MM3 (4.00-5.30); WHITE BLOOD COUNT 10.6 TH/MM3 (4.0-11.0)
[2017-08-12 04:37] LABS: INTERNATIONAL NORMALIZED RATIO 2.8 RATIO; PROTHROMBIN TIME - PATIENT 28.1 SEC (9.8-11.6)
[2017-08-12 04:47] LABS: HEMOGLOBIN 6.9 GM/DL (11.6-15.3)
[2017-08-12 04:48] LABS: HEMATOCRIT 20.7 % (35.0-46.0)
[2017-08-12 05:26] LABS: ALBUMIN 4.4 GM/DL (3.4-5.0); ALKALINE PHOSPHATASE 88 U/L (45-117); ALT (GPT) 21 U/L (10-53); AST (GOT) 54 U/L (15-37); BICARBONATE 25.3 MEQ/L (21.0-32.0); BLOOD UREA NITROGEN 45 MG/DL (7-18); CALCIUM 8.9 MG/DL (8.5-10.1); CHLORIDE 96 MEQ/L (98-107); CREATININE 1.64 MG/DL (0.50-1.00); GLOMERULAR FILTRATION RATE 32 ML/MIN (>89); GLUCOSE,RANDOM 158 MG/DL (74-106); SODIUM (NA) 132 MEQ/L (136-145); TOTAL BILIRUBIN ADULT 4.3 MG/DL (0.2-1.0)
[2017-08-12] MEDS: HYDROCORTISONE SOD SUCCINATE 100 MG VIAL IV PUSH SCH ×2 (06:01→14:09)
[2017-08-12] MEDS: PHENYLEPHRINE INJ 160 MG in DEXTROSE 5% IN WATE 500 ML INJ 484 ML IV PRN ×4 (06:03→19:10)
[2017-08-12] MEDS: FOLIC ACID 1 MG TAB PO SCH (07:46)
[2017-08-12] MEDS: LACTULOSE SYRUP 20 GM/30 ML CUP PO SCH ×3 (07:46→20:59)
[2017-08-12] MEDS: INSULIN DETEMIR 100 UNITS/ML VIAL SQ SCH (07:46)
[2017-08-12] MEDS: THIAMINE HCL 100 MG TAB PO SCH (07:46)
[2017-08-12] MEDS: OSELTAMIVIR PHOSPHATE 6 MG/ML 60 ML SUSP PO SCH ×2 (07:46→20:59)
[2017-08-12] MEDS: ARTIFICIAL TEARS OPTH OINT 3.5 APPLIC/3.5 GM TUBO EACH EYE SCH ×2 (07:47→21:00)
[2017-08-12] MEDS: PANTOPRAZOLE SOD 40 MG DELAYED RELEASE TAB PO SCH (07:47)
[2017-08-12] MEDS: POLYETHYLENE GLYCOL 17 GM PKG PO SCH (07:47)
[2017-08-12] MEDS: DOCUSATE SODIUM 50 MG/SENNA 8.6 MG TAB PO SCH ×2 (07:47→20:59)
[2017-08-12] MEDS: CHLORHEXIDINE 0.12% (ORAL KIT) 15 ML CUP MT SCH ×2 (07:48→21:00)
[2017-08-12] MEDS ORDERED: PHARMACY ORDERED LAB ONE (08:45)
[2017-08-12] MEDS: [UNRECOGNIZED DRUG - REMARK] IV SCH ×2 (09:23)
[2017-08-12] MEDS: NOREPINEPHRINE 4 MG/D5W 250 ML IV PRN (09:24)
--- NOTE | 2017-08-12 10:31 | HHI.HCPN ---
Reason for visit a. To assist with evaluation and management of symptoms including: Shortness of breath, pain, debility. b. To assist medical decision maker(s) with: better understanding of current medical conditions; weighing benefits/burdens of medical treatment options; making medical treatment decisions. . Subjective/Interval History Patient seen in medical ICU. Endotracheal intubated on mechanical ventilation. Fentanyl drip ongoing. Patient is unresponsive to verbal or tactile stimuli, not following commands. Remains on phenylephrine and vasopressin drips, norepinephrine added earlier this morning secondary to hypotension during hemodialysis. Currently on 80% FiO2, oxygen saturation in the low 90s. Patient tachycardic with heart rate in the 130s, afebrile. Clinical course further complicated by cor pulmonale. Nephrology, Dr. Ferrera oracle application consultant 08/11/17 renal replacement therapy. Hemodialysis catheter replaced yesterday, patient underwent HD yesterday removing 2L. ongoing hemodialysis at time of my assessment. Case discussed with bedside RN Sherron. Met with patient's DIANN Kumar and pt's mother Kary. Introduced the role of palliative care in advanced illness in regards to symptom management as well as support surrounding goals of care and advance care planning. Family receptive to consult. Reviewed events leading to this hospitalization, clinical course and current medical management. Shared concerns of patient's clinical condition to include respiratory failure requiring intubation and mechanical ventilation, pneumonia, septic shock requiring multiple vasopressors , volume overload/cor pulmonale requiring hemodialysis, Klebsiella UTI, chronic thrombocytopenia. Shared concerns of patient's poor overall prognosis and high risk for further complications, decline and . reports that patient has previously verbalized NOT wishing invasive intervention such as tracheostomy or PEG tube placement. Family electing to proceed with aggressive management short of NO cardiac code, allow a few days for clinical improvement. Likely to transition to comfort-directed care/withdrawal life support should patient's clinical condition does not improve or worsen. Spiritual services offered and accepted, referral made. Family receptive to palliative care follow -ups. . Advance Directives Living Will: Never completed Health Care Surrogate: Never completed Durable Power of Chemical Radiation Technician: Never completed Advance Directive Specifics Health Care Surrogate(s): Advance directives not completed. As per [place] statute, healthcare proxy decision maker falls to DIANN Kumar. . Significant change in goals: Aggressive goals short of NO cardiac code. . Objective Vital Signs Date Time Temp Pulse Resp B/P (MAP) Pulse Ox O2 Delivery O2 Flow Rate FiO2 08/12/17 09:24 114 110/49 08/12/17 09:23 126 108/49 08/12/17 09:00 132 109/68 (82) 94 133/54 (80) 08/12/17 09:00 132 08/12/17 08:30 141 97/56 (70) 93 113/52 (72) 08/12/17 08:30 141 08/12/17 08:00 80 08/12/17 08:00 97.6 124 97/62 (74) 92 120/53 (75) 08/12/17 08:00 124 08/12/17 07:30 117 08/12/17 07:30 97.5 117 93/55 (68) 93 118/51 (73) 08/12/17 07:28 92 80 08/12/17 07:00 97.7 122 105/61 (76) 96 113/46 (68) 08/12/17 07:00 122 08/12/17 06:03 123 119/51 08/12/17 06:00 123 08/12/17 06:00 123 117/60 (79) 119/51 (73) 08/12/17 04:01 94 75 08/12/17 04:00 80 08/12/17 04:00 97.5 125 101/65 (77) 93 115/50 (71) 08/12/17 04:00 125 08/12/17 02:00 117 08/12/17 00:10 96 75 08/12/17 00:00 80 08/12/17 00:00 97.7 127 105/61 (76) 93 121/54 (76) 08/12/17 00:00 127 08/11/17 23:00 127 08/11/17 22:00 119 08/11/17 21:00 129 08/11/17 20:52 99 75 08/11/17 20:15 129 130/56 08/11/17 20:00 130 08/11/17 20:00 85 08/11/17 20:00 130 108/63 (78) 132/57 (82) 08/11/17 20:00 130 132/57 08/11/17 20:00 97.5 130 108/63 (78) 97 132/57 (82) 08/11/17 19:45 131 137/57 08/11/17 19:30 137 120/51 08/11/17 19:15 135 140/57 08/11/17 19:00 135 140/56 08/11/17 18:30 97.3 132 118/64 (82) 94 135/57 (83) 08/11/17 18:30 132 08/11/17 18:19 130 88/40 08/11/17 18:00 128 08/11/17 18:00 97.5 128 93/56 (68) 95 109/51 (70) 08/11/17 17:00 97.7 125 104/63 (77) 96 125/58 (80) 08/11/17 17:00 125 08/11/17 16:36 124 124/58 08/11/17 16:00 98.0 124 109/62 (78) 97 123/58 (79) 08/11/17 16:00 124 08/11/17 16:00 90 08/11/17 15:00 124 08/11/17 15:00 97.7 124 98/62 (74) 95 116/55 (75) 08/11/17 14:32 94 100 08/11/17 14:00 97.5 123 105/64 (78) 96 120/56 (77) 08/11/17 14:00 123 08/11/17 13:00 122 08/11/17 13:00 97.3 122 104/63 (77) 95 117/55 (75) 08/11/17 12:05 94 100 08/11/17 12:00 121 08/11/17 12:00 97.2 121 106/63 (77) 97 120/56 (77) 08/11/17 12:00 100 08/11/17 11:00 97.0 124 99/65 (76) 96 121/56 (77) 08/11/17 11:00 124 Intake & Output 08/12/17 08/12/17 06:59 18:59 Intake Total 581 ml Output Total 2200 ml Balance -1619 ml IV Total 581 ml Output Urine Total 200 ml Hemodialysis 2000 ml # Bowel Movements 2 Physical Exam CONSTITUTIONAL/GENERAL: This is an adequately nourished patient in no apparent distress. ill appearing. TUBES/LINES/DRAINS: ETT, OG, right IJ central line, left IJ vascath, PIV's, Crowell catheter. bilateral soft wrist restraints. SKIN: No jaundice, rashes, or lesions. Ecchymoses on upper extremities. No wounds seen anteriorly. Skin temperature appropriate. Not diaphoretic. HEAD: Atraumatic. Normocephalic. EYES: Pupils equal and round and reactive. Scleral icterus. No injection or drainage. Fundi not examined. ENT: Unable to evaluate hearing secondary to clinical condition. Nose without bleeding or purulent drainage. Moist oral mucosa, dry lips. NECK: Trachea midline. Supple. CARDIOVASCULAR: Tachycardic with heart rate in the 130s. Irregular rate and rhythm. Peripheral pulses weak. Generalized edema. Cyanotic fingers. RESPIRATORY/CHEST: Symmetric, unlabored respirations. Coarse breath sounds bilaterally. Endotracheally intubated on mechanical ventilation. GASTROINTESTINAL: Abdomen soft, large, round. Positive bowel sounds. GENITOURINARY: Without palpable bladder distension. Crowell catheter in place. MUSCULOSKELETAL: Extremities without clubbing, cyanosis. No mottling or clubbing. NEUROLOGICAL: Unresponsive to verbal or tactile stimuli. Not following commands. PSYCHIATRIC: Unable to assess secondary to clinical condition, unresponsive. Appears calm. . Diagnostic Tests Laboratory Laboratory Tests Test 08/09/17 16:10 08/10/17 04:30 08/10/17 11:55 08/11/17 04:40 Blood Urea Nitrogen 30 MG/DL (7-18) 35 MG/DL (7-18) 38 MG/DL (7-18) 50 MG/DL (7-18) Creatinine 0.85 MG/DL (0.50-1.00) 0.96 MG/DL (0.50-1.00) 1.17 MG/DL (0.50-1.00) 1.50 MG/DL (0.50-1.00) Random Glucose 128 MG/DL (74-106) 105 MG/DL (74-106) 193 MG/DL (74-106) 249 MG/DL (74-106) Calcium Level 7.6 MG/DL (8.5-10.1) 7.6 MG/DL (8.5-10.1) 7.8 MG/DL (8.5-10.1) 8.1 MG/DL (8.5-10.1) Magnesium Level 2.2 MG/DL (1.5-2.5) 2.2 MG/DL (1.5-2.5) 2.1 MG/DL (1.5-2.5) Sodium Level 131 MEQ/L (136-145) 133 MEQ/L (136-145) 130 MEQ/L (136-145) 129 MEQ/L (136-145) Potassium Level 2.4 MEQ/L (3.5-5.1) 3.2 MEQ/L (3.5-5.1) 4.8 MEQ/L (3.5-5.1) 3.7 MEQ/L (3.5-5.1) Chloride Level 94 MEQ/L (98-107) 97 MEQ/L (98-107) 96 MEQ/L (98-107) 96 MEQ/L (98-107) Carbon Dioxide Level 28.6 MEQ/L (21.0-32.0) 27.3 MEQ/L (21.0-32.0) 25.3 MEQ/L (21.0-32.0) 25.5 MEQ/L (21.0-32.0) Anion Gap 8 MEQ/L (5-15) 9 MEQ/L (5-15) 9 MEQ/L (5-15) 8 MEQ/L (5-15) Estimat Glomerular Filtration Rate 68 ML/MIN (>89) 59 ML/MIN (>89) 47 ML/MIN (>89) 35 ML/MIN (>89) White Blood Count 10.9 TH/MM3 (4.0-11.0) 11.8 TH/MM3 (4.0-11.0) Red Blood Count 2.08 MIL/MM3 (4.00-5.30) 2.14 MIL/MM3 (4.00-5.30) Hemoglobin 7.5 GM/DL (11.6-15.3) 8.1 GM/DL (11.6-15.3) Hematocrit 22.0 % (35.0-46.0) 23.9 % (35.0-46.0) Mean Corpuscular Volume 106.2 FL (80.0-100.0) 111.5 FL (80.0-100.0) Mean Corpuscular Hemoglobin 36.3 PG (27.0-34.0) 37.8 PG (27.0-34.0) Mean Corpuscular Hemoglobin Concent 34.2 % (32.0-36.0) 33.9 % (32.0-36.0) Red Cell Distribution Width 17.1 % (11.6-17.2) 18.7 % (11.6-17.2) Platelet Count 77 TH/MM3 (150-450) 118 TH/MM3 (150-450) Mean Platelet Volume 7.8 FL (7.0-11.0) 8.0 FL (7.0-11.0) Prothrombin Time 20.7 SEC (9.8-11.6) 21.6 SEC (9.8-11.6) Prothromb Time International Ratio 2.0 RATIO 2.1 RATIO Activated Partial Thromboplast Time 42.7 SEC (24.3-30.1) 42.0 SEC (24.3-30.1) Total Protein 6.3 GM/DL (6.4-8.2) 6.7 GM/DL (6.4-8.2) Albumin 3.0 GM/DL (3.4-5.0) 3.5 GM/DL (3.4-5.0) Alkaline Phosphatase 98 U/L (45-117) 99 U/L (45-117) Aspartate Amino Transf (AST/SGOT) 50 U/L (15-37) 59 U/L (15-37) Alanine Aminotransferase (ALT/SGPT) 26 U/L (10-53) 26 U/L (10-53) Total Bilirubin 4.5 MG/DL (0.2-1.0) 4.7 MG/DL (0.2-1.0) Test 08/11/17 06:44 08/11/17 07:00 08/11/17 21:20 08/12/17 03:30 Blood Gas Puncture Site ART LINE Blood Gas Patient Temperature 98.6 Blood Gas HCO3 23 mmol/L (22-26) Blood Gas Base Excess -5.0 mmol/L (-2-2) Blood Gas Oxygen Saturation 88 % (90-100) Arterial Blood pH 7.16 (7.380-7.420) Arterial Blood Partial Pressure CO2 66 mmHg (38-42) Arterial Blood Partial Pressure O2 75 mmHg (61-120) Arterial Blood Oxygen Content 9.4 Vol % (12.0-20.0) Arterial Blood Carboxyhemoglobin 1.7 % (0-4) Arterial Blood Methemoglobin 1.4 % (0-2) Blood Gas Hemoglobin 7.5 G/DL (12.0-16.0) Oxygen Delivery Device VENTILATOR Blood Gas Ventilator Setting /1.0 Blood Gas Inspired Oxygen 100 % Lactic Acid Level 1.5 mmol/L (0.4-2.0) 1.8 mmol/L (0.4-2.0) Phosphorus Level 3.9 MG/DL (2.5-4.9) Ammonia 145 MCMOL/L (11-32) White Blood Count 10.6 TH/MM3 (4.0-11.0) Red Blood Count 1.88 MIL/MM3 (4.00-5.30) Hemoglobin 6.9 GM/DL (11.6-15.3) Hematocrit 20.7 % (35.0-46.0) Mean Corpuscular Volume 110.0 FL (80.0-100.0) Mean Corpuscular Hemoglobin 36.5 PG (27.0-34.0) Mean Corpuscular Hemoglobin Concent 33.2 % (32.0-36.0) Red Cell Distribution Width 18.0 % (11.6-17.2) Platelet Count 43 TH/MM3 (150-450) Mean Platelet Volume 8.0 FL (7.0-11.0) Prothrombin Time 28.1 SEC (9.8-11.6) Prothromb Time International Ratio 2.8 RATIO Activated Partial Thromboplast Time 46.7 SEC (24.3-30.1) Blood Urea Nitrogen 45 MG/DL (7-18) Creatinine 1.64 MG/DL (0.50-1.00) Random Glucose 158 MG/DL (74-106) Total Protein 7.0 GM/DL (6.4-8.2) Albumin 4.4 GM/DL (3.4-5.0) Calcium Level 8.9 MG/DL (8.5-10.1) Alkaline Phosphatase 88 U/L (45-117) Aspartate Amino Transf (AST/SGOT) 54 U/L (15-37) Alanine Aminotransferase (ALT/SGPT) 21 U/L (10-53) Total Bilirubin 4.3 MG/DL (0.2-1.0) Sodium Level 132 MEQ/L (136-145) Potassium Level 3.5 MEQ/L (3.5-5.1) Chloride Level 96 MEQ/L (98-107) Carbon Dioxide Level 25.3 MEQ/L (21.0-32.0) Anion Gap 11 MEQ/L (5-15) Estimat Glomerular Filtration Rate 32 ML/MIN (>89) Result Diagram: 08/12/17 03308/12/17 033 Procedures * 08/05/17 - Endotracheal intubation * 08/08/17 - right IJ central line placement * 08/11/17 -left IJ dialysis catheter . Assessment and Plan Disease Oriented Problem List: (1) Septic shock (2) Cor pulmonale (3) Acute respiratory failure (4) UTI due to Klebsiella species (5) Bilateral pneumonia (6) Hyponatremia (7) Fluid overload, unspecified (8) Cirrhosis (9) Atrial fibrillation with rapid ventricular response Symptom Scale: (1) Dyspnea 0-10 Scale: Unable to quantify (2) Pain 0-10 Scale: Unable to quantify (3) Debility 0-10 Scale: Unable to quantify Pertinent Non-Medical Issues Psychosocial: Patient is originally from [place]. Moved to [place] in 1978. Patient is since 1980. Has no biological children. 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 Has 1 sister in [place]. Spiritual: Confucianist Hinduism monty. Legal: No advance directives completed. Ethical issues impacting care: No ethical issues identified. . Important Contacts DIANN Kumar , . . Prognosis Mrs. Kumar is a 61-year-old female with a medical history significant for alcohol liver cirrhosis, chronic thrombocytopenia, diabetes mellitus type 2, hypertension, atrial fibrillation, history of GI bleed. Patient presented to ED on 08/05/17 endorsing progressive shortness of breath. Clinical course complicated by worsening hypoxia and hypotension requiring emergent intubation and mechanical ventilation. Clinical course further complicated by septic shock , multisystem failure and volume overload. Patient's prognosis is poor, high risk for further complications, continue decline and . . Code Status: No Code Plan * CODE STATUS: No cardiac code. * HEALTHCARE DECISION-MAKING: Patient unable to participating in medical decision-making secondary to clinical condition, intubated, unresponsive. Not likely to regain medical decision-making capacity given clinical condition. No advance directives completed. As per [place] statute, healthcare proxy decision -making falls to patient's DIANN Kumar. has accepted this role and is fully supported by patient's mother Kary. * GOALS OF CARE: Patient's electing to continue aggressive management short of NO cardiac code (NO CPR, NO ACLS, NO defibrillation), allow a few days for clinical improvement. Family likely to transition to comfort-directed care/ compassionate withdrawal life support early next week should patient's clinical condition does not improve or worsen. Family verbalized not wishing for tracheostomy or PEG tube placement given pt's known wishes. Family made aware that patient may not survive until next week: very high risk for further complications, continue decline and . Family verbalized understanding. * SYMPTOMS: = Dyspnea, secondary to pneumonia, respiratory failure, sepsis. Currently intubated on mechanical ventilation, high O2 requirements, currently on 80% FiO2. = Pain: Secondary to acute illness, bedbound, intubation, lines. Ongoing fentanyl drip. Patient appears comfortable. = Debility: Secondary to acute illness. * Case discussed with bedside HOWIE Siu. * Ongoing emotional support and active listening provided. Spiritual services offered and accepted. Case discussed with tubing oiler Jermaine Comer. * Palliative care contact information has been provided to patient's . * Palliative care will continue to follow-up for further clarifications of goals of care, emotional support as patient's clinical course continues to evolve. . Time Spent Total Floor Time (mins): 46 (Total time to include review medical records, physical exam, goals of care conversation with patient's family, case discussion with bedside HOWIE Siu.) >50% Counseling/Coord of Care: Yes Attestation To help prompt me to consider important information that might be impacting today's encounter and assessment, information from prior notes written by myself or my colleagues may have been "brought forward" into today's note. My signature on this note, however, is an attestation that I personally performed the exam, history, and/or decision-making noted today, and, unless otherwise indicated, the interactions with patient, family, and staff as well as the review of records all occurred today. I also attest that the listed assessment and stated plan reflect my best clinical judgment today based on the combination of historical information, prior notes, and today's exam/ interactions. When time spent is documented, it refers only to time spent today by the signer, or if indicated, combined time spent today by collaborating physician/nurse practitioner. Rylie Velasquez Aug 12, 2017 10:31
[2017-08-12] MEDS ORDERED: SODIUM CHLOR 0.9% 1000 ML INJ 1,000 ML IV PRN (12:14)
[2017-08-12] MEDS ORDERED: SODIUM CHLOR 0.9% 1000 ML INJ 1,000 ML OTHER PRN ×2 (12:14)
[2017-08-12] MEDS ORDERED: MANNITOL 12.5 GM/50 ML VIAL IV PRN (12:15)
[2017-08-12] MEDS ORDERED: SODIUM CHLORIDE 0.9% FLUSH 10 ML FLUSH IV FLUSH PRN (12:15)
[2017-08-12] MEDS ORDERED: EPOETIN ALFA 4,000 UNITS/ML VIAL IV PUSH PRN (12:15)
[2017-08-12] MEDS ORDERED: GELATIN 12 MM/7 MM FOAM TOP PRN (12:15)
[2017-08-12] MEDS ORDERED: HEPARIN SODIUM - IV 10,000 UNITS/10 ML VIAL PRN (12:15)
[2017-08-12] MEDS ORDERED: ACETAMINOPHEN 325 MG TAB PO PRN (12:15)
[2017-08-12] MEDS ORDERED: cloNIDine HCL 0.1 MG TAB PO PRN (12:15)
[2017-08-12] MEDS ORDERED: diphenhydrAMINE HCL 25 MG CAP PO PRN (12:15)
[2017-08-12] MEDS ORDERED: ONDANSETRON HCL 4 MG/2 ML VIAL IV PUSH PRN (12:15)
[2017-08-12] MEDS ORDERED: ALBUMIN 25% INJ 100 ML IV PRN (12:15)
[2017-08-12] MEDS ORDERED: GENTAMICIN SULFATE 20 MG/2 ML VIAL OTHER PRN (12:15)
[2017-08-12] MEDS ORDERED: NITROGLYCERIN 0.4 MG SL 25 TABS/BTL SL PRN (12:15)
[2017-08-12] MEDS ORDERED: HEPARIN SODIUM - IV 10,000 UNITS/10 ML VIAL IV FLUSH PRN (12:15)
--- NOTE | 2017-08-12 12:22 | HHI.NPPN ---
Subjective History of Present Illness Patient is 61 y/o female with h/o alcoholic liver cirrhosis, chronic thrombocytopenia, chronic hyponatremia, Afib, DM, HTN, presented to ED c/o worsening shortness of breath. Patient is currently intubated on FiO2 at 100 % . Patient is in septic shock on 2 pressors for blood pressure support and tachycardic in the high 120's. Also on lasix gtt. Despite lasix gtt patient continues to remain positive in I+O's and has had a 4 KG weight gain. Per Dr. Parsons he has talked to family and they are willing to try dialysis if needed. Additional Remarks Vented and sedated. Dialysis yesterday and today. Continues on vasopressin and norepinephrine. Needing levophed during dialysis but has been discontinue now (Suma Hanley) Objective Data Data 08/12/17 08/13/17 19:00 07:00 Intake Total 400 ml Output Total 3500 ml Balance -3100 ml Packed Cells 400 ml Hemodialysis 3500 ml Vital Signs Date Time Temp Pulse Resp B/P (MAP) Pulse Ox O2 Delivery O2 Flow Rate FiO2 08/12/17 11:11 124 145/56 08/12/17 10:45 98.0 128 24 120/53 98 08/12/17 10:32 98.6 141 24 112/43 96 08/12/17 09:24 114 110/49 08/12/17 09:23 126 108/49 08/12/17 09:00 132 109/68 (82) 94 133/54 (80) 08/12/17 09:00 132 08/12/17 08:30 141 97/56 (70) 93 113/52 (72) 08/12/17 08:30 141 08/12/17 08:00 80 08/12/17 08:00 97.6 124 97/62 (74) 92 120/53 (75) 08/12/17 08:00 124 08/12/17 07:30 117 08/12/17 07:30 97.5 117 93/55 (68) 93 118/51 (73) 08/12/17 07:28 92 80 08/12/17 07:00 97.7 122 105/61 (76) 96 113/46 (68) 08/12/17 07:00 122 08/12/17 06:03 123 119/51 08/12/17 06:00 123 08/12/17 06:00 123 117/60 (79) 119/51 (73) 08/12/17 04:01 94 75 08/12/17 04:00 80 08/12/17 04:00 97.5 125 101/65 (77) 93 115/50 (71) 08/12/17 04:00 125 08/12/17 02:00 117 08/12/17 00:10 96 75 08/12/17 00:00 80 08/12/17 00:00 97.7 127 105/61 (76) 93 121/54 (76) 08/12/17 00:00 127 08/11/17 23:00 127 08/11/17 22:00 119 08/11/17 21:00 129 08/11/17 20:52 99 75 08/11/17 20:15 129 130/56 08/11/17 20:00 130 08/11/17 20:00 85 08/11/17 20:00 130 108/63 (78) 132/57 (82) 08/11/17 20:00 130 132/57 08/11/17 20:00 97.5 130 108/63 (78) 97 132/57 (82) 08/11/17 19:45 131 137/57 08/11/17 19:30 137 120/51 08/11/17 19:15 135 140/57 08/11/17 19:00 135 140/56 08/11/17 18:30 97.3 132 118/64 (82) 94 135/57 (83) 08/11/17 18:30 132 08/11/17 18:19 130 88/40 08/11/17 18:00 128 08/11/17 18:00 97.5 128 93/56 (68) 95 109/51 (70) 08/11/17 17:00 97.7 125 104/63 (77) 96 125/58 (80) 08/11/17 17:00 125 08/11/17 16:36 124 124/58 08/11/17 16:00 98.0 124 109/62 (78) 97 123/58 (79) 08/11/17 16:00 124 08/11/17 16:00 90 08/11/17 15:00 124 08/11/17 15:00 97.7 124 98/62 (74) 95 116/55 (75) 08/11/17 14:32 94 100 08/11/17 14:00 97.5 123 105/64 (78) 96 120/56 (77) 08/11/17 14:00 123 08/11/17 13:00 122 08/11/17 13:00 97.3 122 104/63 (77) 95 117/55 (75) (Suma Hanley) -: 08/12/17 0330 08/12/17 0330 Imaging Last Impressions Chest X-Ray 08/11/17 0000 Signed Impressions: Service Date/Time: Friday, August 11, 2017 11:42 - CONCLUSION: 1. The left internal jugular vascular catheter distal tip is at the cavoatrial junction. No pneumothorax is present. 2. Stable severe bilateral airspace consolidation. Hung Condon MD Liver Ultrasound 08/06/17 0000 Signed Impressions: Service Date/Time: Sunday, August 06, 2017 14:34 - CONCLUSION: 1. Heterogeneous lobular liver characteristic of cirrhosis. This has not significantly changed compared to the prior exam. 2. Gallstones in the gallbladder. No definite biliary tract obstruction. There is chronic gallbladder disease with thickening of the wall 8 mm. 3. The pancreas appears to be heterogeneous. Greyson Lozano MD Lower Extremity Ultrasound 08/05/17 0000 Signed Impressions: Service Date/Time: July 14:07 - CONCLUSION: 1. No evidence of right lower extremity DVT. 2. 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 Sukhdeep Cortez MD Tubes & Lines: Vas-Cath (Suma Hanley) Physical Exam Pulmonary Resp Exam: Crackles, Decreased Bases Resp Remarks vented (Suma Hanley) Cardiology CV Exam: Regular (Suma Hanley) Gastrointestinal/Abdomen GI Exam: Non-Tender, Bowel Sounds Present (Suma Hanley) Genitourinary Exam: Clear Urine (Suma Hanley) Integumentary Skin Exam: Clear, Warm (Suma Hanley) Extremeties Extremities Exam: Moderate Edema (Suma Hanley) Assessment/Plan Problem List: (1) SHANNON (acute kidney injury) ICD Codes: N17.9 - Acute kidney failure, unspecified Plan: SHANNON with possible ATN from sepsis and renal vein congestion. Intubated on FIO2 at 80 %. On pressors for blood pressure support for septic shock. Non - oliguric and urine output has started to increase Creatinine stable slightly increased from yesterday at 1.64 today Has tolerated dialysis for past 2 days with 2 liters removed yesterday and 3 1/ 2 liters today. On levophed during dialysis. HGB at 6.9 has been transfused 1 one of PRBCS Plan Continue daily dialysis as patient tolerates Epogen with dialysis (2) Hypotension ICD Codes: I95.9 - Hypotension, unspecified Status: Resolved Plan: managed per critical care On vasopressin and neosynephrine Tachycardic in the 120's (3) Sepsis ICD Codes: A41.9 - Sepsis, unspecified organism Status: Acute (4) Thrombocytopenia ICD Codes: D69.6 - Thrombocytopenia, unspecified Status: Chronic (5) Hyponatremia ICD Codes: E87.1 - Hypo-osmolality and hyponatremia Status: Resolved (6) Cirrhosis ICD Codes: K74.60 - Unspecified cirrhosis of liver Status: Acute (Suma Hanley) Problem List: (1) SHANNON (acute kidney injury) ICD Codes: N17.9 - Acute kidney failure, unspecified Plan: SHANNON with possible ATN from sepsis and renal vein congestion. Intubated on FIO2 at 80 %. On pressors for blood pressure support for septic shock. Non - oliguric and urine output has started to increase Creatinine stable slightly increased from yesterday at 1.64 today Has tolerated dialysis for past 2 days with 2 liters removed yesterday and 3 1/ 2 liters today. On levophed during dialysis. HGB at 6.9 has been transfused 1 one of PRBCS Plan Continue dialysis as patient needed. Epogen with dialysis. Follow the urine out put and BMP. (2) Hypotension ICD Codes: I95.9 - Hypotension, unspecified Status: Resolved Plan: managed per critical care On vasopressin and neosynephrine Tachycardic in the 120's (3) Sepsis ICD Codes: A41.9 - Sepsis, unspecified organism Status: Acute (4) Thrombocytopenia ICD Codes: D69.6 - Thrombocytopenia, unspecified Status: Chronic (5) Hyponatremia ICD Codes: E87.1 - Hypo-osmolality and hyponatremia Status: Resolved (6) Cirrhosis ICD Codes: K74.60 - Unspecified cirrhosis of liver Status: Acute (Vlad Ferrera MD) Suma Hanley Aug 12, 2017 12:22 Vlad Ferrera MD Aug 12, 2017 17:13
[2017-08-12 12:34] LABS: HEMATOCRIT 23.1 % (35.0-46.0); HEMOGLOBIN 7.7 GM/DL (11.6-15.3)
[2017-08-12 12:43] LABS: HEPATITIS C AB IgG NEGATIVE (NEGATIVE)
[2017-08-12 12:47] LABS: HEPATITIS A AB IGM NEGATIVE (NEGATIVE); HEPATITIS B CORE AB IGM NEGATIVE (NEGATIVE); HEPATITIS B SURFACE ANTIGEN NEGATIVE (NEGATIVE)
--- NOTE | 2017-08-12 19:15 | HHI.CCPN ---
Subjective Remarks/Hospital Course 08/05: 61 y/o lady with h/o alcoholic liver cirrhosis, chronic thrombocytopenia, chronic hyponatremia, Afib, DM, HTN, now presents to ED c/o worsening shortness of breath over the last 3 months associated with generalized weakness up to the point that she can not ambulate. She denies fever but had chills, cough, fatigue , and pleuritic pain associated with deep breathing. She denies nausea, vomiting , melena, hematemesis. On ED arrival, patient in respiratory distress requiring NRM. On NRM O2 sat 100%. She was given lasix, azithro and basci labs were sent. She was found to have elevated lactic acid, low sodium therefore CCM was consulted for ICU admission. Patient was seen in ED, she is awake, conversant, on NRM, seems slightly confused. 08/06: No events over the night. Afebrile. Oxygenation is improved, down to 0.65 FiO2. She is sedated and intubated. On norepinephrine at 8 mcg/minute. CVP 11. 08/07: Worsening hypoxia, CVP 10-11, worsening infiltrates on CXR. Afebrile, lower urine output compared to previous day. Sedated and intubated. On norepinephrine at 12 and vaso at 0.04. 08/08: continues to worsen without any improvements. hypoxia worsening, now paralyzed on 100% fio2. CXR worsens again. levophed, vasopressin, phenylephrine for pressor support. remains in septic shock. CVP still 11. bedside critical care echo with preserved LV function, but now with flattening of the intraventricular septum throughout the cardiac cycle and RVSP which has gone from 30s on prior echo to 80s based on TR jet bedside. IVC 1.7cm without any respiratory variation. no pericardial effusion. 08/09: clinically some improvements: fio2 improving. remains paralyzed on flolan with high peep, full support. remains on vasopressors in shock. uop good and excellent diuresis. sodium downtrending. multi-organ failure persists. 08/10: good uop, but struggling with obtaining a net negative balance due to volume of drips. remains in shock on vasopressors. sodium improving. organ failure persists. 08/11: uop poor now despite aggressive diuresis. still net + fluid balance. hypotensive and worsening today: back on 3 vasopressors. hypoxia worse again as well, on 100% fio2, peep 14, spo2 88%. CVP continues to rise despite our maximal efforts to diurese, and is now 21. 2/: s/p IHD again today with volume removal. CVP still > 25. remains on 3 vasopressors. no meaningful improvements. palliative care involved. ammonia climbing: have increased lactulose. still on high vent support. Objective Vital Signs Date Time Temp Pulse Resp B/P (MAP) Pulse Ox O2 Delivery O2 Flow Rate FiO2 08/12/17 18:15 94 75 08/12/17 17:00 123 08/12/17 17:00 116/59 (78) 139/56 (83) 08/12/17 16:00 98.4 08/12/17 10:45 24 Intake and Output 08/12/17 08/12/17 08/13/17 08:00 16:00 00:00 Intake Total 465 ml 400 ml 30 ml Output Total 144 ml 3500 ml 375 ml Balance 321 ml -3100 ml -345 ml Result Diagram: 08/12/17 1210 08/12/17 0330 Imaging Last Impressions Chest X-Ray 08/05/17 0728 Signed Impressions: Service Date/Time: July 08:02 - CONCLUSION: Diffuse bilateral pulmonary infiltrates. Estrada Leiva Jr., MD Objective Remarks General - elderly lady, ill appearing, sedated, intubated HEENT - pupils equal, reactive, sclerae icteric, neck soft, + ETT, + OGT, + RIJ CVC (08/05) - site clean CV - tachycardic, irregular. cvp 25. CI 4.5 by Flowtrack Chest - still with coarse breath sounds b/l, good air entry, no wheezes. prvc, fio2 75%, peep 14. Abdomen - soft, not tender, non-distended, + hepatomegaly Skin - no rashes, no cyanosis Extremities - warm, RLE edema, + peripheral pulses, no clubbing Neuro - intubated, off sedation x 48h. RASS -4. pupils are equal and reactive Date of Insertion: Aug 05, 2017 Line: Central Venous Catheter Side: Right Location: Internal, Jugular A/P Assessment and Plan Assessment: 61yF with cirrhosis and most likely influenza and associated acute hypoxic respiratory failure. now in what appears to be refractory cor pulmonale and volume overload despite our maximal attempts to diurese. now on IHD for acute kidney injury. liver failure worse. all organs still dysfunctional. transfuse 1 unit prbc today. remains critically ill and off pathway. Neuro: Metabolic Encephalopathy Hepatic Encephalopathy/Hyperammonemia - propofol and fentanyl for RASS goal -2. has not needed fentanyl. RASS currently -4. likely component of hepatic encephalopathy. - goal RASS -2. - increase lactulose to q6h. - completely off sedation since 08/10. Resp: Acute hypoxic respiratory failure/ARDS - persistent and severe Pneumonia with concern for influenza based on presentation Pulmonary Edema Cor Pulmonale - vent bundle, hob elevated, nebs - keep PEEP at 14. - wean fio2 for goal spo2 > 90% - no SBT yet. still maximally hypoxic. - IHD again today. CV: Septic shock - persistent. pulmonary edema acute intravascular volume overload Atrial fibrillation Cor pulmonale renal replacement therapy again today. continue pulse contour analysis: CI appears to be elevated suggestive of a high- output state which is congruent with her cirrhosis and liver dysfunction. continue cvp monitoring: remains elevated and continues to rise. continue levophed, continue phenylephrine and vasopressin. target map > 65 mmHg. Renal: Acute Kidney Injury - keep Fontaine - nephrology following - continue renal replacement therapy daily with volume removal. - renal function worse which is likely secondary to renal vein congestion FEN/GI: Chronic hyponatremia - slight improvement, persistent. Alcoholic liver cirrhosis Acute hepatic dysfunction on chronic ESLD - worsening. Severe hypomagnesemia Hypokalemia Acute intravascular volume overload - persistent. Acute protein calorie malnutrition- moderate Hyperammonemia - NPO while in shock - icu electrolyte protocol - daily CMP - bowel regimen - increase lactulose to q6h Heme/ID: Chronic thrombocytopenia Klebsiella UTI Pneumonia with concern for influenza based on presentation Coagulopathy secondary to ESLD - s/p cull course vancomycin, cefepime. - continue tamiflu, decrease dose to 30mg po BID given rapidly worsening renal function, full course (10 days) to complete 2/3. - cultures all NGTD. - plt stable. - daily cbc - trend coags. 1 unit prbc transfused with IHD today. Endo: Severe hyperglycemia of critical illness - improved control. Diabetes Presumed adrenal insufficiency - s/p insulin infusion - levemir 40 units SQ daily - high dose q4h SSI. - continue stress dose steroids. will wean once out of shock. Prophylaxis: - hold lovenox given renal dysfunction and coagulopathy/SCDs - ppi Lines: central line 08/05 art line 08/07 fontaine vascath 08/11 Dispo: remain in ICU. remains critically ill and off pathway. Critical Care time spent providing care for patient was in excess of 31 minutes excluding procedures Carroll Parsons MD Aug 12, 2017 19:15
[2017-08-13] VITALS (21 sets, daily range): BP systolic 96–149; BP diastolic 41–74; PULSE 103–155; RESP 2–22; TEMP 97.8–98.9; O2SAT 82–100
[2017-08-13] MEDS: HYDROCORTISONE SOD SUCCINATE 100 MG VIAL IV PUSH SCH ×4 (00:46→18:36)
[2017-08-13] MEDS: [UNRECOGNIZED DRUG - REMARK] IV SCH ×4 (00:46→17:47)
[2017-08-13] MEDS: LACTULOSE SYRUP 20 GM/30 ML CUP PO SCH ×6 (00:46→21:00)
[2017-08-13] MEDS: RESP: ALBUTEROL 2.5 MG/IPRATROPIUM 0.5 MG NEB (SCH) NEB ×5 (02:30→19:47)
[2017-08-13] MEDS ORDERED: PHARMACY ORDERED LAB ONE (02:45)
[2017-08-13] MEDS ORDERED: MIDAZOLAM HCL 5 MG/ML VIAL (1 ML) ONE (03:58)
[2017-08-13] MEDS ORDERED: MIDAZOLAM HCL 5 MG/ML VIAL (1 ML) IV SCH (04:00)
[2017-08-13] MEDS: INSULIN NovoLIN REGULAR SUPPLEMENTAL SCALE SQ SCH ×6 (04:00→20:00)
[2017-08-13] MEDS: CHLORHEXIDINE GLUCONATE 2 % 1 PACK (2 CLOTHS) TOP SCH (04:00)
[2017-08-13 04:16] LABS: HEMATOCRIT 22.8 % (35.0-46.0); HEMOGLOBIN 7.8 GM/DL (11.6-15.3); MEAN CELL VOLUME 103.1 FL (80.0-100.0); MEAN CORPUSCULAR HEMOGLOBIN 35.1 PG (27.0-34.0); MEAN PLATELET VOLUME 8.3 FL (7.0-11.0); PLATELET COUNT 28 TH/MM3 (150-450); RED BLOOD COUNT 2.21 MIL/MM3 (4.00-5.30); RED CELL DISTRIBUTION WIDTH 22.7 % (11.6-17.2); WHITE BLOOD COUNT 7.7 TH/MM3 (4.0-11.0)
[2017-08-13 04:46] LABS: ALBUMIN 4.2 GM/DL (3.4-5.0); ALKALINE PHOSPHATASE 93 U/L (45-117); ALT (GPT) 23 U/L (10-53); AST (GOT) 58 U/L (15-37); BICARBONATE 27.1 MEQ/L (21.0-32.0); BLOOD UREA NITROGEN 42 MG/DL (7-18); CALCIUM 8.9 MG/DL (8.5-10.1); CHLORIDE 97 MEQ/L (98-107); CREATININE 1.74 MG/DL (0.50-1.00); GLOMERULAR FILTRATION RATE 30 ML/MIN (>89); GLUCOSE,RANDOM 130 MG/DL (74-106); SODIUM (NA) 135 MEQ/L (136-145); TOTAL BILIRUBIN ADULT 5.6 MG/DL (0.2-1.0); TOTAL PROTEIN 6.5 GM/DL (6.4-8.2)
[2017-08-13] MEDS: ICU - POTASSIUM CHLORIDE/AQUEOUS SOLN 40 MEQ/100 ML IVPB IV PRN (05:06)
[2017-08-13] MEDS ORDERED: ROCURONIUM INJ 50 MG/5 ML VIAL IV ONE (05:15)
[2017-08-13 06:13] LABS: PROTHROMBIN TIME - PATIENT 42.2 SEC (9.8-11.6)
[2017-08-13 06:14] LABS: INTERNATIONAL NORMALIZED RATIO 4.2 RATIO
--- NOTE | 2017-08-13 06:20 | RADRPT ---
EXAM DATE/TIME: 08/13/2017 06:03 [facility] COMPARISON: CHEST SINGLE AP, August 11, 2017, 11:42. INDICATIONS : Evaluate for respiratory disease. MEDICAL HISTORY : Hernia, hiatal. Arthritis. Hypothyroidism. Peripheral neuropathy. Afib anxiety. HTN.Dyspnea. Ulcerate d colitis. GERD. Diabetes. Mild cirrhosis. Depression SURGICAL HISTORY : Tonsillectomy. D&C ENCOUNTER: Subsequent ACUITY: 1 week PAIN SCORE: Non-responsive. LOCATION: chest FINDINGS: There is interval increase in confluent bilateral pulmonary infiltrates. Dense consolidation is ident ified. Right jugular line, left jugular line and endotracheal tube are again noted. Enteric tube cour ses beneath the diaphragm. Osseous structures are intact. CONCLUSION: Increasing bilateral airspace disease. Narayan Virgen MD on August 13, 2017 at 6:17 Board Certified Radiologist. This report was verified electronically.
[2017-08-13] MEDS: CHLORHEXIDINE 0.12% (ORAL KIT) 15 ML CUP MT SCH ×2 (08:28→21:11)
[2017-08-13] MEDS: THIAMINE HCL 100 MG TAB PO SCH (08:29)
[2017-08-13] MEDS: FOLIC ACID 1 MG TAB PO SCH (08:29)
[2017-08-13] MEDS: ARTIFICIAL TEARS OPTH OINT 3.5 APPLIC/3.5 GM TUBO EACH EYE SCH ×2 (08:29→21:12)
[2017-08-13] MEDS: INSULIN DETEMIR 100 UNITS/ML VIAL SQ SCH (08:30)
[2017-08-13] MEDS: OSELTAMIVIR PHOSPHATE 6 MG/ML 60 ML SUSP PO SCH ×2 (08:30→21:46)
[2017-08-13] MEDS: DOCUSATE SODIUM 50 MG/SENNA 8.6 MG TAB PO SCH ×2 (09:00→21:00)
[2017-08-13] MEDS: PANTOPRAZOLE SOD 40 MG DELAYED RELEASE TAB PO SCH (09:00)
[2017-08-13] MEDS: PHENYLEPHRINE INJ 160 MG in DEXTROSE 5% IN WATE 500 ML INJ 484 ML IV PRN ×4 (09:49→23:23)
[2017-08-13] MEDS: fentaNYL 2,500 MCG/NS 250 ML IV PRN ×2 (11:36→21:16)
--- NOTE | 2017-08-13 13:02 | HHI.NPPN ---
Subjective History of Present Illness Patient is 61 y/o female with h/o alcoholic liver cirrhosis, chronic thrombocytopenia, chronic hyponatremia, Afib, DM, HTN, presented to ED c/o worsening shortness of breath. Patient is currently intubated on FiO2 at 100 % . Patient is in septic shock on 2 pressors for blood pressure support and tachycardic in the high 120's. Also on lasix gtt. Despite lasix gtt patient continues to remain positive in I+O's and has had a 4 KG weight gain. Per Dr. Parsons he has talked to family and they are willing to try dialysis if needed. Additional Remarks Patient remain on the vent. and sedated, now on 100% Fio2. Objective Data Data Vital Signs Date Time Temp Pulse Resp B/P (MAP) Pulse Ox O2 Delivery O2 Flow Rate FiO2 08/13/17 12:00 100 08/13/17 12:00 98.6 131 22 96/52 (67) 98 101/47 (65) 08/13/17 12:00 130 08/13/17 11:00 94 100 08/13/17 10:00 146 08/13/17 09:49 151 101/43 08/13/17 08:00 142 08/13/17 08:00 98.4 142 18 106/57 (73) 84 103/41 (61) 08/13/17 08:00 100 08/13/17 07:41 82 100 08/13/17 07:00 Mechanical Ventilator 100 08/13/17 06:00 147 08/13/17 06:00 141 121/58 (79) 115/45 (68) 08/13/17 05:49 100 08/13/17 05:48 86 100 08/13/17 04:58 89 100 08/13/17 04:01 95 100 08/13/17 04:00 100 08/13/17 04:00 98.9 112 20 118/55 (76) 93 134/51 (78) 08/13/17 04:00 112 08/13/17 02:19 100 08/13/17 02:00 155 08/13/17 01:24 145 129/73 08/13/17 00:48 100 08/13/17 00:46 137 122/69 08/13/17 00:04 93 75 08/13/17 00:00 126 08/13/17 00:00 97.8 126 2 123/69 (87) 91 149/58 (88) 08/13/17 00:00 75 08/12/17 23:15 107 117/60 08/12/17 22:00 109 08/12/17 20:25 93 75 08/12/17 20:00 144 08/12/17 20:00 Mechanical Ventilator 75 08/12/17 20:00 122 120/61 (80) 147/59 (88) 08/12/17 20:00 122 122/61 08/12/17 20:00 75 08/12/17 20:00 100.6 128 3 120/61 (80) 91 147/59 (88) 08/12/17 19:10 137 145/59 08/12/17 18:15 94 75 08/12/17 17:00 123 08/12/17 17:00 123 116/59 (78) 91 139/56 (83) 08/12/17 16:30 141 08/12/17 16:30 141 121/66 (84) 90 140/59 (86) 08/12/17 16:00 108 08/12/17 16:00 75 08/12/17 16:00 98.4 108 130/65 (86) 91 141/58 (85) 08/12/17 15:30 107 120/63 (82) 91 142/59 (86) 08/12/17 15:30 107 08/12/17 15:00 120 127/67 (87) 91 139/57 (84) 08/12/17 15:00 120 08/12/17 14:30 117 119/70 (86) 91 138/57 (84) 08/12/17 14:30 117 08/12/17 14:00 106 122/61 (81) 91 134/56 (82) 08/12/17 14:00 106 08/12/17 13:30 120 08/12/17 13:30 120 114/66 (82) 93 132/56 (81) 08/12/17 13:00 111 114/65 (81) 93 129/55 (79) 08/12/17 13:00 111 -: 08/13/17 0400 08/13/17 0400 Tubes & Lines: Vas-Cath Physical Exam Pulmonary Resp Exam: Crackles, Decreased Bases Cardiology CV Exam: Regular Gastrointestinal/Abdomen GI Exam: Non-Tender, Bowel Sounds Present Genitourinary Exam: Clear Urine Integumentary Skin Exam: Clear, Warm Extremeties Extremities Exam: Moderate Edema Assessment/Plan Problem List: (1) SHANNON (acute kidney injury) ICD Codes: N17.9 - Acute kidney failure, unspecified Plan: SHANNON with possible ATN from sepsis and renal vein congestion. Intubated on FIO2 at 80 %. On pressors for blood pressure support for septic shock. Non - oliguric and urine output has started to increase Creatinine stable slightly increased from yesterday at 1.64 today Has tolerated dialysis for past 2 days with 2 liters removed yesterday and 3 1/ 2 liters today. On levophed during dialysis. HGB at 6.9 has been transfused 1 one of PRBCS Plan Continue dialysis as patient needed. Epogen with dialysis. Follow the urine out put and BMP. HD done yesterday, K is low, replaced. Urine out put is low, HD will be in AM. (2) Hypotension ICD Codes: I95.9 - Hypotension, unspecified Status: Resolved Plan: managed per critical care On vasopressin and neosynephrine Tachycardic in the 120's (3) Sepsis ICD Codes: A41.9 - Sepsis, unspecified organism Status: Acute (4) Thrombocytopenia ICD Codes: D69.6 - Thrombocytopenia, unspecified Status: Chronic (5) Hyponatremia ICD Codes: E87.1 - Hypo-osmolality and hyponatremia Status: Resolved (6) Cirrhosis ICD Codes: K74.60 - Unspecified cirrhosis of liver Status: Acute Vlad Ferrera MD Aug 13, 2017 13:02
--- NOTE | 2017-08-13 14:59 | HHI.HCPN ---
Reason for visit a. To assist with evaluation and management of symptoms including: Shortness of breath, pain, debility. b. To assist medical decision maker(s) with: better understanding of current medical conditions; weighing benefits/burdens of medical treatment options; making medical treatment decisions. . Subjective/Interval History Patient seen in medical ICU. Endotracheal intubated on mechanical ventilation. Fentanyl drip ongoing. Patient is unresponsive to verbal or tactile stimuli, not following commands. Remains on phenylephrine and vasopressin drips. Currently on 1000% FiO2, oxygen saturation in the low 90s. Patient underwent hemodialysis today, 3.5L removed, CVP still over 25. Chest x-ray today revealed an increase in bilateral airspace disease. No overall meaningful improvement at this time. Patient's DIANN Kumar has been updated by machine shorthand reporter Dr. Parsons and palliative care. Given patient's worsening clinical condition, have elected not to escalate further care. Scheduled for compassionate withdrawal tomorrow Wednesday08/14/17 at 8 AM. Exhibits B&C sign. Patient's was made aware of required documentation. Ongoing emotional support and active listening provided. Case discussed with Dr. Parsons bedside RN Shailesh. . Family/friend interactions See interval note. . Advance Directives Living Will: Never completed Health Care Surrogate: Never completed Durable Power of Learning Administrator: Never completed Advance Directive Specifics Health Care Surrogate(s): Advance directives not completed. As per [place] statute, healthcare proxy decision maker falls to DIANN Kumar. . Significant change in goals: Patient is scheduled for compassionate withdrawal of life support. . Objective Vital Signs Date Time Temp Pulse Resp B/P (MAP) Pulse Ox O2 Delivery O2 Flow Rate FiO2 08/13/17 14:00 147 08/13/17 12:00 100 08/13/17 12:00 98.6 131 22 96/52 (67) 98 101/47 (65) 08/13/17 12:00 130 08/13/17 11:00 94 100 08/13/17 10:00 146 08/13/17 09:49 151 101/43 08/13/17 08:00 142 08/13/17 08:00 98.4 142 18 106/57 (73) 84 103/41 (61) 08/13/17 08:00 100 08/13/17 07:41 82 100 08/13/17 07:00 Mechanical Ventilator 100 2/2/18 06:00 147 08/13/17 06:00 141 121/58 (79) 115/45 (68) 08/13/17 05:49 100 08/13/17 05:48 86 100 08/13/17 04:58 89 100 08/13/17 04:01 95 100 08/13/17 04:00 100 08/13/17 04:00 98.9 112 20 118/55 (76) 93 134/51 (78) 08/13/17 04:00 112 08/13/17 02:19 100 08/13/17 02:00 155 08/13/17 01:24 145 129/73 08/13/17 00:48 100 08/13/17 00:46 137 122/69 08/13/17 00:04 93 75 08/13/17 00:00 126 08/13/17 00:00 97.8 126 2 123/69 (87) 91 149/58 (88) 08/13/17 00:00 75 08/12/17 23:15 107 117/60 08/12/17 22:00 109 08/12/17 20:25 93 75 08/12/17 20:00 144 08/12/17 20:00 Mechanical Ventilator 75 08/12/17 20:00 122 120/61 (80) 147/59 (88) 08/12/17 20:00 122 122/61 08/12/17 20:00 75 08/12/17 20:00 100.6 128 3 120/61 (80) 91 147/59 (88) 08/12/17 19:10 137 145/59 08/12/17 18:15 94 75 08/12/17 17:00 123 08/12/17 17:00 123 116/59 (78) 91 139/56 (83) 08/12/17 16:30 141 08/12/17 16:30 141 121/66 (84) 90 140/59 (86) 08/12/17 16:00 108 08/12/17 16:00 75 08/12/17 16:00 98.4 108 130/65 (86) 91 141/58 (85) 08/12/17 15:30 107 120/63 (82) 91 142/59 (86) 08/12/17 15:30 107 08/12/17 15:00 120 127/67 (87) 91 139/57 (84) 08/12/17 15:00 120 Intake & Output 08/13/17 08/13/17 07:00 19:00 Intake Total 1081 ml Output Total 500 ml Balance 581 ml IV Total 1081 ml Output Urine Total 100 ml Gastric Drainage Total 400 ml Physical Exam CONSTITUTIONAL/GENERAL: This is an adequately nourished patient in no apparent distress. ill appearing. TUBES/LINES/DRAINS: ETT, OG, right IJ central line, left IJ vascath, PIV's, Crowell catheter. bilateral soft wrist restraints. SKIN: No jaundice, rashes, or lesions. Ecchymoses on upper extremities. No wounds seen anteriorly. Skin temperature appropriate. Not diaphoretic. HEAD: Atraumatic. Normocephalic. EYES: Pupils equal and round and reactive. Scleral icterus. No injection or drainage. Fundi not examined. ENT: Unable to evaluate hearing secondary to clinical condition. Nose without bleeding or purulent drainage. Moist oral mucosa, dry lips. NECK: Trachea midline. Supple. CARDIOVASCULAR: Tachycardic with heart rate in the 130s. Irregular rate and rhythm. Peripheral pulses weak. Generalized edema. Cyanotic fingers. RESPIRATORY/CHEST: Symmetric, unlabored respirations. Coarse breath sounds bilaterally. Endotracheally intubated on mechanical ventilation. GASTROINTESTINAL: Abdomen soft, large, round. Positive bowel sounds. GENITOURINARY: Without palpable bladder distension. Crowell catheter in place. MUSCULOSKELETAL: Extremities without clubbing, cyanosis. No mottling or clubbing. NEUROLOGICAL: Unresponsive to verbal or tactile stimuli. Not following commands. PSYCHIATRIC: Unable to assess secondary to clinical condition, unresponsive. Appears calm. . Diagnostic Tests Laboratory Laboratory Tests Test 08/11/17 04:40 08/11/17 06:44 08/11/17 07:00 08/11/17 21:20 White Blood Count 11.8 TH/MM3 (4.0-11.0) Red Blood Count 2.14 MIL/MM3 (4.00-5.30) Hemoglobin 8.1 GM/DL (11.6-15.3) Hematocrit 23.9 % (35.0-46.0) Mean Corpuscular Volume 111.5 FL (80.0-100.0) Mean Corpuscular Hemoglobin 37.8 PG (27.0-34.0) Mean Corpuscular Hemoglobin Concent 33.9 % (32.0-36.0) Red Cell Distribution Width 18.7 % (11.6-17.2) Platelet Count 118 TH/MM3 (150-450) Mean Platelet Volume 8.0 FL (7.0-11.0) Prothrombin Time 21.6 SEC (9.8-11.6) Prothromb Time International Ratio 2.1 RATIO Activated Partial Thromboplast Time 42.0 SEC (24.3-30.1) Blood Urea Nitrogen 50 MG/DL (7-18) Creatinine 1.50 MG/DL (0.50-1.00) Random Glucose 249 MG/DL (74-106) Total Protein 6.7 GM/DL (6.4-8.2) Albumin 3.5 GM/DL (3.4-5.0) Calcium Level 8.1 MG/DL (8.5-10.1) Alkaline Phosphatase 99 U/L (45-117) Aspartate Amino Transf (AST/SGOT) 59 U/L (15-37) Alanine Aminotransferase (ALT/SGPT) 26 U/L (10-53) Total Bilirubin 4.7 MG/DL (0.2-1.0) Sodium Level 129 MEQ/L (136-145) Potassium Level 3.7 MEQ/L (3.5-5.1) Chloride Level 96 MEQ/L (98-107) Carbon Dioxide Level 25.5 MEQ/L (21.0-32.0) Anion Gap 8 MEQ/L (5-15) Estimat Glomerular Filtration Rate 35 ML/MIN (>89) Blood Gas Puncture Site ART LINE Blood Gas Patient Temperature 98.6 Blood Gas HCO3 23 mmol/L (22-26) Blood Gas Base Excess -5.0 mmol/L (-2-2) Blood Gas Oxygen Saturation 88 % (90-100) Arterial Blood pH 7.16 (7.380-7.420) Arterial Blood Partial Pressure CO2 66 mmHg (38-42) Arterial Blood Partial Pressure O2 75 mmHg (61-120) Arterial Blood Oxygen Content 9.4 Vol % (12.0-20.0) Arterial Blood Carboxyhemoglobin 1.7 % (0-4) Arterial Blood Methemoglobin 1.4 % (0-2) Blood Gas Hemoglobin 7.5 G/DL (12.0-16.0) Oxygen Delivery Device VENTILATOR Blood Gas Ventilator Setting /1.0 Blood Gas Inspired Oxygen 100 % Lactic Acid Level 1.5 mmol/L (0.4-2.0) 1.8 mmol/L (0.4-2.0) Phosphorus Level 3.9 MG/DL (2.5-4.9) Ammonia 145 MCMOL/L (11-32) Test 08/12/17 03:30 08/12/17 10:45 08/12/17 12:10 08/13/17 04:00 White Blood Count 10.6 TH/MM3 (4.0-11.0) 7.7 TH/MM3 (4.0-11.0) Red Blood Count 1.88 MIL/MM3 (4.00-5.30) 2.21 MIL/MM3 (4.00-5.30) Hemoglobin 6.9 GM/DL (11.6-15.3) 7.7 GM/DL (11.6-15.3) 7.8 GM/DL (11.6-15.3) Hematocrit 20.7 % (35.0-46.0) 23.1 % (35.0-46.0) 22.8 % (35.0-46.0) Mean Corpuscular Volume 110.0 FL (80.0-100.0) 103.1 FL (80.0-100.0) Mean Corpuscular Hemoglobin 36.5 PG (27.0-34.0) 35.1 PG (27.0-34.0) Mean Corpuscular Hemoglobin Concent 33.2 % (32.0-36.0) 34.0 % (32.0-36.0) Red Cell Distribution Width 18.0 % (11.6-17.2) 22.7 % (11.6-17.2) Platelet Count 43 TH/MM3 (150-450) 28 TH/MM3 (150-450) Mean Platelet Volume 8.0 FL (7.0-11.0) 8.3 FL (7.0-11.0) Prothrombin Time 28.1 SEC (9.8-11.6) Prothromb Time International Ratio 2.8 RATIO Activated Partial Thromboplast Time 46.7 SEC (24.3-30.1) Blood Urea Nitrogen 45 MG/DL (7-18) 42 MG/DL (7-18) Creatinine 1.64 MG/DL (0.50-1.00) 1.74 MG/DL (0.50-1.00) Random Glucose 158 MG/DL (74-106) 130 MG/DL (74-106) Total Protein 7.0 GM/DL (6.4-8.2) 6.5 GM/DL (6.4-8.2) Albumin 4.4 GM/DL (3.4-5.0) 4.2 GM/DL (3.4-5.0) Calcium Level 8.9 MG/DL (8.5-10.1) 8.9 MG/DL (8.5-10.1) Alkaline Phosphatase 88 U/L (45-117) 93 U/L (45-117) Aspartate Amino Transf (AST/SGOT) 54 U/L (15-37) 58 U/L (15-37) Alanine Aminotransferase (ALT/SGPT) 21 U/L (10-53) 23 U/L (10-53) Total Bilirubin 4.3 MG/DL (0.2-1.0) 5.6 MG/DL (0.2-1.0) Sodium Level 132 MEQ/L (136-145) 135 MEQ/L (136-145) Potassium Level 3.5 MEQ/L (3.5-5.1) 2.5 MEQ/L (3.5-5.1) Chloride Level 96 MEQ/L (98-107) 97 MEQ/L (98-107) Carbon Dioxide Level 25.3 MEQ/L (21.0-32.0) 27.1 MEQ/L (21.0-32.0) Anion Gap 11 MEQ/L (5-15) 11 MEQ/L (5-15) Estimat Glomerular Filtration Rate 32 ML/MIN (>89) 30 ML/MIN (>89) Hepatitis A IgM Antibody NEGATIVE (NEGATIVE) Hepatitis B Surface Antigen NEGATIVE (NEGATIVE) Hepatitis B Core IgM Antibody NEGATIVE (NEGATIVE) Hepatitis C Antibody NEGATIVE (NEGATIVE) Test 08/13/17 04:54 08/13/17 05:55 08/13/17 11:30 Prothrombin Time 42.2 SEC (9.8-11.6) Prothromb Time International Ratio 4.2 RATIO Activated Partial Thromboplast Time 50.7 SEC (24.3-30.1) Blood Gas Puncture Site ART LINE Blood Gas Patient Temperature 98.6 Blood Gas HCO3 24 mmol/L (22-26) Blood Gas Base Excess -1.5 mmol/L (-2-2) Blood Gas Oxygen Saturation 81 % (90-100) Arterial Blood pH 7.31 (7.380-7.420) Arterial Blood Partial Pressure CO2 49 mmHg (38-42) Arterial Blood Partial Pressure O2 54 mmHg (61-120) Arterial Blood Oxygen Content 8.9 Vol % (12.0-20.0) Arterial Blood Carboxyhemoglobin 1.9 % (0-4) Arterial Blood Methemoglobin 1.3 % (0-2) Blood Gas Hemoglobin 7.7 G/DL (12.0-16.0) Oxygen Delivery Device VENT Blood Gas Ventilator Setting COMMENT Blood Gas Inspired Oxygen 100 % Potassium Level 3.7 MEQ/L (3.5-5.1) Result Diagram: 08/13/17 0400 08/13/17 1130 Imaging Last 24 hours Impressions Chest X-Ray 08/13/17 0000 Signed Impressions: Service Date/Time: Sunday, August 13, 2017 06:03 - CONCLUSION: Increasing bilateral airspace disease. Narayan Virgen MD Procedures * 08/05/17 - Endotracheal intubation * 08/08/17 - right IJ central line placement * 08/11/17 -left IJ dialysis catheter . Assessment and Plan Disease Oriented Problem List: (1) Septic shock (2) Cor pulmonale (3) Acute respiratory failure (4) UTI due to Klebsiella species (5) Bilateral pneumonia (6) Hyponatremia (7) Fluid overload, unspecified (8) Cirrhosis (9) Atrial fibrillation with rapid ventricular response Symptom Scale: (1) Dyspnea 0-10 Scale: Unable to quantify (2) Pain 0-10 Scale: Unable to quantify (3) Debility 0-10 Scale: Unable to quantify Pertinent Non-Medical Issues Psychosocial: Patient is originally from [place]. Moved to [place] in 1978. Patient is since 1980. Has no biological children. 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 Has 1 sister in [place]. Spiritual: Restorationist Rastafarian monty. Legal: No advance directives completed. Ethical issues impacting care: No ethical issues identified. . Important Contacts DIANN Kumar , . . Prognosis Mrs. Kumar is a 61-year-old female with a medical history significant for alcohol liver cirrhosis, chronic thrombocytopenia, diabetes mellitus type 2, hypertension, atrial fibrillation, history of GI bleed. Patient presented to ED on 08/05/17 endorsing progressive shortness of breath. Clinical course complicated by worsening hypoxia and hypotension requiring emergent intubation and mechanical ventilation. Clinical course further complicated by septic shock , multisystem failure and volume overload. Patient's prognosis is poor, high risk for further complications, continue decline and . . Code Status: No Code Plan * CODE STATUS: No cardiac code. * HEALTHCARE DECISION-MAKING: Patient unable to participating in medical decision-making secondary to clinical condition, intubated, unresponsive. Patient not expected to regain medical decision-making capacity given clinical condition. No advance directives completed. As per [place] statute, healthcare proxy decision-making falls to patient's DIANN Kumar. has accepted this role and is fully supported by patient's mother Kary. * GOALS OF CARE: Given patient's worsening clinical condition and known wishes, pt's has elected not to escalate further care. Scheduled for compassionate withdrawal of life support tomorrow Wednesday08/14/17 at 8 AM. Exhibits B&C sign. Patient's was made aware of required documentation. Family made aware that patient may not survive until scheduled withdrawal day/ time: very high risk for further complications and . * SYMPTOMS: = Dyspnea, secondary to pneumonia, respiratory failure, sepsis. Currently intubated on mechanical ventilation, high O2 requirements, currently on 100% FiO2. = Pain: Secondary to acute illness, bedbound, intubation, lines. Ongoing fentanyl drip. Patient appears comfortable. * Case discussed with bedside RN Shailesh and Dr. Parsons. * Ongoing emotional support and active listening provided. Spiritual services offered and accepted. Factory Helper following. * Palliative care contact information has been provided to patient's . * Palliative care will continue to follow-up for further clarifications of goals of care, emotional support as patient's clinical course continues to evolve. . Time Spent Total Floor Time (mins): 38 (Total time to include review medical records, physical exam, goals of care conversation with patient's , case discussion with Dr. Parsons and bedside RN.) >50% Counseling/Coord of Care: Yes Attestation To help prompt me to consider important information that might be impacting today's encounter and assessment, information from prior notes written by myself or my colleagues may have been "brought forward" into today's note. My signature on this note, however, is an attestation that I personally performed the exam, history, and/or decision-making noted today, and, unless otherwise indicated, the interactions with patient, family, and staff as well as the review of records all occurred today. I also attest that the listed assessment and stated plan reflect my best clinical judgment today based on the combination of historical information, prior notes, and today's exam/ interactions. When time spent is documented, it refers only to time spent today by the signer, or if indicated, combined time spent today by collaborating physician/nurse practitioner. Rylie Velasquez Aug 13, 2017 14:59
--- NOTE | 2017-08-13 18:23 | HHI.CCPN ---
Subjective Remarks/Hospital Course 08/05: 61 y/o lady with h/o alcoholic liver cirrhosis, chronic thrombocytopenia, chronic hyponatremia, Afib, DM, HTN, now presents to ED c/o worsening shortness of breath over the last 3 months associated with generalized weakness up to the point that she can not ambulate. She denies fever but had chills, cough, fatigue , and pleuritic pain associated with deep breathing. She denies nausea, vomiting , melena, hematemesis. On ED arrival, patient in respiratory distress requiring NRM. On NRM O2 sat 100%. She was given lasix, azithro and basci labs were sent. She was found to have elevated lactic acid, low sodium therefore CCM was consulted for ICU admission. Patient was seen in ED, she is awake, conversant, on NRM, seems slightly confused. 08/06: No events over the night. Afebrile. Oxygenation is improved, down to 0.65 FiO2. She is sedated and intubated. On norepinephrine at 8 mcg/minute. CVP 11. 08/07: Worsening hypoxia, CVP 10-11, worsening infiltrates on CXR. Afebrile, lower urine output compared to previous day. Sedated and intubated. On norepinephrine at 12 and vaso at 0.04. 08/08: continues to worsen without any improvements. hypoxia worsening, now paralyzed on 100% fio2. CXR worsens again. levophed, vasopressin, phenylephrine for pressor support. remains in septic shock. CVP still 11. bedside critical care echo with preserved LV function, but now with flattening of the intraventricular septum throughout the cardiac cycle and RVSP which has gone from 30s on prior echo to 80s based on TR jet bedside. IVC 1.7cm without any respiratory variation. no pericardial effusion. 08/09: clinically some improvements: fio2 improving. remains paralyzed on flolan with high peep, full support. remains on vasopressors in shock. uop good and excellent diuresis. sodium downtrending. multi-organ failure persists. 08/10: good uop, but struggling with obtaining a net negative balance due to volume of drips. remains in shock on vasopressors. sodium improving. organ failure persists. 08/11: uop poor now despite aggressive diuresis. still net + fluid balance. hypotensive and worsening today: back on 3 vasopressors. hypoxia worse again as well, on 100% fio2, peep 14, spo2 88%. CVP continues to rise despite our maximal efforts to diurese, and is now 21. /: s/p IHD again today with volume removal. CVP still > 25. remains on 3 vasopressors. no meaningful improvements. palliative care involved. ammonia climbing: have increased lactulose. still on high vent support. 08/13: no improvements. every organ worse. LFTs climbing. 100% fio2. failing IHD. remains in shock. actively dying. discussed at length with who states she would not want to live like this and wants to transition to palliation. plan for withdraw of care tomorrow when family at bedside. Objective Vital Signs Date Time Temp Pulse Resp B/P (MAP) Pulse Ox O2 Delivery O2 Flow Rate FiO2 08/13/17 17:47 122 116/51 08/13/17 17:11 99 100 08/13/17 16:00 98.5 18 08/13/17 07:00 Mechanical Ventilator Intake and Output 08/13/17 08/13/17 08/14/17 08:00 16:00 00:00 Intake Total 481 ml Output Total 500 ml Balance -19 ml Result Diagram: 08/13/17 0400 08/13/17 1130 Other Results Laboratory Tests Test 08/13/17 05:55 Blood Gas Puncture Site ART LINE Blood Gas Patient Temperature 98.6 Blood Gas HCO3 24 mmol/L (22-26) Blood Gas Base Excess -1.5 mmol/L (-2-2) Blood Gas Oxygen Saturation 81 % (90-100) Arterial Blood pH 7.31 (7.380-7.420) Arterial Blood Partial Pressure CO2 49 mmHg (38-42) Arterial Blood Partial Pressure O2 54 mmHg (61-120) Arterial Blood Oxygen Content 8.9 Vol % (12.0-20.0) Arterial Blood Carboxyhemoglobin 1.9 % (0-4) Arterial Blood Methemoglobin 1.3 % (0-2) Blood Gas Hemoglobin 7.7 G/DL (12.0-16.0) Oxygen Delivery Device VENT Blood Gas Ventilator Setting COMMENT Blood Gas Inspired Oxygen 100 % Imaging Last Impressions Chest X-Ray 08/05/17 4641 Signed Impressions: Service Date/Time: July 08:02 - CONCLUSION: Diffuse bilateral pulmonary infiltrates. Estrada Leiva Jr., MD Objective Remarks General - elderly lady, ill appearing, sedated, intubated HEENT - pupils equal, reactive, sclerae icteric, neck soft, + ETT, + OGT, + RIJ CVC (08/05) - site clean CV - tachycardic, irregular. cvp 25. Chest - still with coarse breath sounds b/l, good air entry, no wheezes. prvc, fio2 100%, peep 14. Abdomen - soft, not tender, non-distended, + hepatomegaly Skin - no rashes, no cyanosis Extremities - warm, RLE edema, + peripheral pulses, no clubbing Neuro - intubated, off sedation x 3 days. RASS -5. pupils are equal and reactive Date of Insertion: Aug 05, 2017 Line: Central Venous Catheter Side: Right Location: Internal, Jugular A/P Assessment and Plan Assessment: 61yF with cirrhosis and most likely influenza and associated acute hypoxic respiratory failure. now in what appears to be refractory cor pulmonale and volume overload despite our maximal attempts to diurese. actively dying with multiple organs failing. plan to transition to comfort measures. Neuro: Metabolic Encephalopathy Hepatic Encephalopathy/Hyperammonemia - propofol and fentanyl for RASS goal -2. has not needed fentanyl. RASS currently -4. likely component of hepatic encephalopathy. - goal RASS -2. - lactulose to q6h. - completely off sedation since 08/10. Resp: Acute hypoxic respiratory failure/ARDS - persistent and severe Pneumonia with concern for influenza based on presentation Pulmonary Edema Cor Pulmonale - vent bundle, hob elevated, nebs - keep PEEP at 14. - wean fio2 for goal spo2 > 90% - no SBT yet. still maximally hypoxic. - IHD again today. CV: Septic shock - persistent. pulmonary edema acute intravascular volume overload Atrial fibrillation Cor pulmonale renal replacement therapy again today. continue pulse contour analysis: CI appears to be elevated suggestive of a high- output state which is congruent with her cirrhosis and liver dysfunction. continue cvp monitoring: remains elevated and continues to rise. continue levophed, continue phenylephrine and vasopressin. target map > 65 mmHg. Renal: Acute Kidney Injury - keep Fontaine - nephrology following - continue renal replacement therapy daily with volume removal. - renal function worse which is likely secondary to renal vein congestion FEN/GI: Chronic hyponatremia - slight improvement, persistent. Alcoholic liver cirrhosis Acute hepatic dysfunction on chronic ESLD - worsening. Severe hypomagnesemia Hypokalemia Acute intravascular volume overload - persistent. Acute protein calorie malnutrition- moderate Hyperammonemia - NPO while in shock - icu electrolyte protocol - daily CMP - bowel regimen - increase lactulose to q6h Heme/ID: Chronic thrombocytopenia Klebsiella UTI Pneumonia with concern for influenza based on presentation Coagulopathy secondary to ESLD - s/p cull course vancomycin, cefepime. - continue tamiflu, decrease dose to 30mg po BID given rapidly worsening renal function, full course (10 days) to complete 08/14. - cultures all NGTD. - plt stable. - daily cbc - trend coags. 1 unit prbc transfused with IHD today. Endo: Severe hyperglycemia of critical illness - improved control. Diabetes Presumed adrenal insufficiency - s/p insulin infusion - levemir 40 units SQ daily - high dose q4h SSI. - continue stress dose steroids. will wean once out of shock. Prophylaxis: - hold lovenox given renal dysfunction and coagulopathy/SCDs - ppi Lines: central line 08/05 art line 08/07 fontaine vascath 08/11 Dispo: remain in ICU. remains critically ill and off pathway. Carroll Parsons MD Aug 13, 2017 18:23
[2017-08-14] VITALS (9 sets, daily range): BP systolic 99–133; BP diastolic 51–72; PULSE 110–128; RESP 20; TEMP 98.9–99.1; O2SAT 92–100
[2017-08-14] MEDS: HYDROCORTISONE SOD SUCCINATE 100 MG VIAL IV PUSH SCH ×2 (00:44→05:43)
[2017-08-14] MEDS: INSULIN NovoLIN REGULAR SUPPLEMENTAL SCALE SQ SCH ×2 (00:45→05:44)
[2017-08-14] MEDS: LACTULOSE SYRUP 20 GM/30 ML CUP PO SCH (00:45)
[2017-08-14] MEDS: RESP: ALBUTEROL 2.5 MG/IPRATROPIUM 0.5 MG NEB (SCH) NEB ×2 (03:27→08:05)
[2017-08-14] MEDS: CHLORHEXIDINE GLUCONATE 2 % 1 PACK (2 CLOTHS) TOP SCH (04:00)
[2017-08-14 06:18] LABS: HEMATOCRIT 23.8 % (35.0-46.0); HEMOGLOBIN 8.2 GM/DL (11.6-15.3); MEAN CELL VOLUME 101.6 FL (80.0-100.0); MEAN CORPUSCULAR HEMOGLOBIN 34.9 PG (27.0-34.0); MEAN CORPUSCULAR HGB CONC 34.3 % (32.0-36.0); MEAN PLATELET VOLUME 9.1 FL (7.0-11.0); PLATELET COUNT 46 TH/MM3 (150-450); RED BLOOD COUNT 2.34 MIL/MM3 (4.00-5.30); RED CELL DISTRIBUTION WIDTH 21.9 % (11.6-17.2); WHITE BLOOD COUNT 15.9 TH/MM3 (4.0-11.0)
[2017-08-14] MEDS: fentaNYL 2,500 MCG/NS 250 ML IV PRN (06:31)
[2017-08-14 06:36] LABS: INTERNATIONAL NORMALIZED RATIO 3.6 RATIO; PROTHROMBIN TIME - PATIENT 35.9 SEC (9.8-11.6)
[2017-08-14 06:45] LABS: ALBUMIN 3.6 GM/DL (3.4-5.0); ALKALINE PHOSPHATASE 96 U/L (45-117); ALT (GPT) 24 U/L (10-53); AST (GOT) 65 U/L (15-37); BICARBONATE 23.2 MEQ/L (21.0-32.0); BLOOD UREA NITROGEN 62 MG/DL (7-18); CALCIUM 9.2 MG/DL (8.5-10.1); CHLORIDE 98 MEQ/L (98-107); CREATININE 2.21 MG/DL (0.50-1.00); GLOMERULAR FILTRATION RATE 22 ML/MIN (>89); GLUCOSE,RANDOM 186 MG/DL (74-106); SODIUM (NA) 133 MEQ/L (136-145); TOTAL BILIRUBIN ADULT 5.7 MG/DL (0.2-1.0); TOTAL PROTEIN 5.9 GM/DL (6.4-8.2)
[2017-08-14] MEDS ORDERED: LORazepam 2 MG/ML VIAL IV PUSH ONE ×2 (09:00→15:45)
[2017-08-14] MEDS ORDERED: LORazepam 2 MG/ML VIAL IV PUSH PRN (09:00)
[2017-08-14] MEDS ORDERED: HYOSCYAMINE 0.5 MG/ML AMP IV PUSH ONE (09:00)
[2017-08-14] MEDS ORDERED: MORPHINE SULFATE 8 MG/ML INJ IV PUSH ONE (09:00)
[2017-08-14] MEDS ORDERED: MORPHINE SULFATE 4 MG/ML INJ IV PUSH PRN (09:00)
--- NOTE | 2017-08-14 10:06 | HHI.CCPN ---
Subjective Remarks/Hospital Course 08/05: 61 y/o lady with h/o alcoholic liver cirrhosis, chronic thrombocytopenia, chronic hyponatremia, Afib, DM, HTN, now presents to ED c/o worsening shortness of breath over the last 3 months associated with generalized weakness up to the point that she can not ambulate. She denies fever but had chills, cough, fatigue , and pleuritic pain associated with deep breathing. She denies nausea, vomiting , melena, hematemesis. On ED arrival, patient in respiratory distress requiring NRM. On NRM O2 sat 100%. She was given lasix, azithro and basci labs were sent. She was found to have elevated lactic acid, low sodium therefore [facility]CM was consulted for ICU admission. Patient was seen in ED, she is awake, conversant, on NRM, seems slightly confused. 08/06: No events over the night. Afebrile. Oxygenation is improved, down to 0.65 FiO2. She is sedated and intubated. On norepinephrine at 8 mcg/minute. CVP 11. 08/07: Worsening hypoxia, CVP 10-11, worsening infiltrates on CXR. Afebrile, lower urine output compared to previous day. Sedated and intubated. On norepinephrine at 12 and vaso at 0.04. 08/08: continues to worsen without any improvements. hypoxia worsening, now paralyzed on 100% fio2. CXR worsens again. levophed, vasopressin, phenylephrine for pressor support. remains in septic shock. CVP still 11. bedside critical care echo with preserved LV function, but now with flattening of the intraventricular septum throughout the cardiac cycle and RVSP which has gone from 30s on prior echo to 80s based on TR jet bedside. IVC 1.7cm without any respiratory variation. no pericardial effusion. 08/09: clinically some improvements: fio2 improving. remains paralyzed on flolan with high peep, full support. remains on vasopressors in shock. uop good and excellent diuresis. sodium downtrending. multi-organ failure persists. 08/10: good uop, but struggling with obtaining a net negative balance due to volume of drips. remains in shock on vasopressors. sodium improving. organ failure persists. 08/11: uop poor now despite aggressive diuresis. still net + fluid balance. hypotensive and worsening today: back on 3 vasopressors. hypoxia worse again as well, on 100% fio2, peep 14, spo2 88%. CVP continues to rise despite our maximal efforts to diurese, and is now 21. 08/12: s/p IHD again today with volume removal. CVP still > 25. remains on 3 vasopressors. no meaningful improvements. palliative care involved. ammonia climbing: have increased lactulose. still on high vent support. 08/13: no improvements. every organ worse. LFTs climbing. 100% fio2. failing IHD. remains in shock. actively dying. discussed at length with who states she would not want to live like this and wants to transition to palliation. plan for withdraw of care tomorrow when family at bedside. 08/14: no improvements. plan for withdraw today, which I think is appropriate. Objective Vital Signs Date Time Temp Pulse Resp B/P (MAP) Pulse Ox O2 Delivery O2 Flow Rate FiO2 08/14/17 08:06 95 80 08/14/17 08:00 110 118/62 (80) 128/54 (78) 08/14/17 07:00 Mechanical Ventilator 08/14/17 04:00 99.1 20 Intake and Output 08/14/17 08/14/17 08/14/17 07:59 15:59 23:59 Intake Total 50 ml 580.2 ml Output Total 300 ml Balance -250 ml 580.2 ml Result Diagram: 08/14/17 0556 08/14/17 0556 Imaging Last Impressions Chest X-Ray 08/05/17 0728 Signed Impressions: Service Date/Time: July 08:02 - CONCLUSION: Diffuse bilateral pulmonary infiltrates. Estrada Leiva Jr., MD Objective Remarks General - elderly lady, ill appearing, sedated, intubated HEENT - pupils equal, reactive, sclerae icteric, neck soft, + ETT, + OGT, + RIJ CVC (08/05) - site clean CV - tachycardic, irregular. cvp 25. Chest - still with coarse breath sounds b/l, good air entry, no wheezes. prvc, fio2 100%, peep 14. Abdomen - soft, not tender, non-distended, + hepatomegaly Skin - no rashes, no cyanosis Extremities - warm, RLE edema, + peripheral pulses, no clubbing Neuro - intubated, off sedation x 3 days. RASS -5. pupils are equal and reactive Date of Insertion: Aug 05, 2017 Line: Central Venous Catheter Side: Right Location: Internal, Jugular A/P Assessment and Plan Assessment: 61yF with cirrhosis and most likely influenza and associated acute hypoxic respiratory failure. now in what appears to be refractory cor pulmonale and volume overload despite our maximal attempts to diurese. actively dying with multiple organs failing. plan to transition to comfort measures. Neuro: Metabolic Encephalopathy Hepatic Encephalopathy/Hyperammonemia - propofol and fentanyl for RASS goal -2. has not needed fentanyl. RASS currently -4. likely component of hepatic encephalopathy. - goal RASS -2. - lactulose to q6h. - completely off sedation since 08/10. Resp: Acute hypoxic respiratory failure/ARDS - persistent and severe Pneumonia with concern for influenza based on presentation Pulmonary Edema Cor Pulmonale - vent bundle, hob elevated, nebs - keep PEEP at 14. - wean fio2 for goal spo2 > 90% - no SBT yet. still maximally hypoxic. - IHD again today. CV: Septic shock - persistent. pulmonary edema acute intravascular volume overload Atrial fibrillation Cor pulmonale renal replacement therapy again today. continue pulse contour analysis: CI appears to be elevated suggestive of a high- output state which is congruent with her cirrhosis and liver dysfunction. continue cvp monitoring: remains elevated and continues to rise. continue levophed, continue phenylephrine and vasopressin. target map > 65 mmHg. Renal: Acute Kidney Injury - keep Fontaine - nephrology following - continue renal replacement therapy daily with volume removal. - renal function worse which is likely secondary to renal vein congestion FEN/GI: Chronic hyponatremia - slight improvement, persistent. Alcoholic liver cirrhosis Acute hepatic dysfunction on chronic ESLD - worsening. Severe hypomagnesemia Hypokalemia Acute intravascular volume overload - persistent. Acute protein calorie malnutrition- moderate Hyperammonemia - NPO while in shock - icu electrolyte protocol - daily CMP - bowel regimen - increase lactulose to q6h Heme/ID: Chronic thrombocytopenia Klebsiella UTI Pneumonia with concern for influenza based on presentation Coagulopathy secondary to ESLD - s/p cull course vancomycin, cefepime. - continue tamiflu, decrease dose to 30mg po BID given rapidly worsening renal function, full course (10 days) to complete 2/3. - cultures all NGTD. - plt stable. - daily cbc - trend coags. 1 unit prbc transfused with IHD today. Endo: Severe hyperglycemia of critical illness - improved control. Diabetes Presumed adrenal insufficiency - s/p insulin infusion - levemir 40 units SQ daily - high dose q4h SSI. - continue stress dose steroids. will wean once out of shock. Prophylaxis: - hold lovenox given renal dysfunction and coagulopathy/SCDs - ppi Lines: central line 08/05 art line 08/07 fontaine vascath 08/11 Dispo: remain in ICU. remains critically ill and off pathway. Carroll Parsons MD Aug 14, 2017 10:06
--- NOTE | 2017-08-14 11:06 | HHI.NPPN ---
Subjective History of Present Illness Patient is 61 y/o female with h/o alcoholic liver cirrhosis, chronic thrombocytopenia, chronic hyponatremia, Afib, DM, HTN, presented to ED c/o worsening shortness of breath. Patient is currently intubated on FiO2 at 100 % . Patient is in septic shock on 2 pressors for blood pressure support and tachycardic in the high 120's. Also on lasix gtt. Despite lasix gtt patient continues to remain positive in I+O's and has had a 4 KG weight gain. Per Dr. Parsons he has talked to family and they are willing to try dialysis if needed. Additional Remarks Patient remain on the vent. and sedated, now on 100% Fio2. Objective Data Data 08/14/17 08/15/17 19:00 07:00 Intake Total 580.2 ml Balance 580.2 ml IV Total 580.2 ml Vital Signs Date Time Temp Pulse Resp B/P (MAP) Pulse Ox O2 Delivery O2 Flow Rate FiO2 08/14/17 08:06 95 80 08/14/17 08:00 80 08/14/17 08:00 110 118/62 (80) 100 128/54 (78) 08/14/17 08:00 110 08/14/17 07:00 100 Mechanical Ventilator 08/14/17 06:00 128 08/14/17 06:00 128 115/72 (86) 133/57 (82) 08/14/17 06:00 128 133/57 08/14/17 06:00 128 133/57 08/14/17 04:00 80 08/14/17 04:00 116 08/14/17 04:00 99.1 116 20 112/57 (75) 99 125/53 (77) 08/14/17 03:28 95 80 08/14/17 02:00 122 08/14/17 01:31 111 132/60 08/14/17 00:00 121 08/14/17 00:00 98.9 121 20 99/63 (75) 99 116/51 (72) 08/14/17 00:00 80 08/13/17 23:46 98 80 08/13/17 23:23 130 133/56 08/13/17 22:00 117 08/13/17 20:00 98.8 126 20 105/59 (74) 100 116/50 (72) 08/13/17 20:00 126 08/13/17 20:00 126 116/50 08/13/17 20:00 90 08/13/17 19:41 98 90 08/13/17 19:00 Mechanical Ventilator 90 08/13/17 19:00 121 113/50 08/13/17 19:00 121 113/50 08/13/17 18:00 103 113/53 (73) 113/53 (73) 08/13/17 18:00 122 08/13/17 17:47 122 116/51 08/13/17 17:11 99 100 08/13/17 16:00 100 08/13/17 16:00 98.5 134 18 108/74 (85) 99 125/53 (77) 08/13/17 16:00 134 08/13/17 14:00 147 08/13/17 12:00 100 08/13/17 12:00 98.6 131 22 96/52 (67) 98 101/47 (65) 08/13/17 12:00 130 -: 08/14/17 0556 08/14/17 0556 Tubes & Lines: Vas-Cath Physical Exam Pulmonary Resp Exam: Crackles, Decreased Bases Cardiology CV Exam: Regular Gastrointestinal/Abdomen GI Exam: Non-Tender, Bowel Sounds Present Genitourinary Exam: Clear Urine Integumentary Skin Exam: Clear, Warm Extremeties Extremities Exam: Moderate Edema Assessment/Plan Problem List: (1) SHANNON (acute kidney injury) ICD Codes: N17.9 - Acute kidney failure, unspecified Plan: SHANNON with possible ATN from sepsis and renal vein congestion. Intubated on FIO2 at 80 %. On pressors for blood pressure support for septic shock. Non - oliguric and urine output has started to increase Creatinine stable slightly increased from yesterday at 1.64 today Hemodialysis yesterday 3.5 L (2) Hypotension ICD Codes: I95.9 - Hypotension, unspecified Status: Resolved Plan: managed per critical care On vasopressin and neosynephrine Tachycardic in the 120's (3) Sepsis ICD Codes: A41.9 - Sepsis, unspecified organism Status: Acute (4) Thrombocytopenia ICD Codes: D69.6 - Thrombocytopenia, unspecified Status: Chronic (5) Hyponatremia ICD Codes: E87.1 - Hypo-osmolality and hyponatremia Status: Resolved (6) Cirrhosis ICD Codes: K74.60 - Unspecified cirrhosis of liver Status: Acute Emilee Blanc MD Aug 14, 2017 11:06
[2017-08-14] MEDS ORDERED: MORPHINE SULFATE 4 MG/ML INJ IV PUSH ONE (15:45)
[2017-08-14] MEDS ORDERED: HYOSCYAMINE 0.5 MG/ML AMP IV PUSH PRN (15:45)
[2017-08-14] MEDS ORDERED: ACETAMINOPHEN 650 MG SUPP RECTAL PRN (15:45)
--- NOTE | 2017-08-14 15:49 | HHI.DS ---
Summary Note Date of : Aug 14, 2017 Time Of : 1008 Admission Date Aug 05, 2017 at 10:24 Admitting Diagnosis bilateral pneumonia, hyponatremia, dyspnea Diagnosis at Time of : Brief History 61 y/o lady with h/o alcoholic liver cirrhosis, chronic thrombocytopenia, chronic hyponatremia, Afib, DM, HTN, now presents to ED c/o worsening shortness of breath over the last 3 months associated with generalized weakness up to the point that she can not ambulate. She denies fever but had chills, cough, fatigue , and pleuritic pain associated with deep breathing. She denies nausea, vomiting , melena, hematemesis. On ED arrival, patient in respiratory distress requiring NRM. On NRM O2 sat 100%. She was given lasix, azithro and basci labs were sent. She was found to have elevated lactic acid, low sodium therefore [facility] was consulted for ICU admission. Patient was seen in ED, she is awake, conversant, on NRM, seems slightly confused. CBC/BMP: 08/14/17 0556 08/14/17 0556 Significant Findings Laboratory Tests Test 08/11/17 21:20 08/12/17 03:30 08/12/17 10:45 08/12/17 12:10 Red Blood Count 1.88 MIL/MM3 (4.00-5.30) Hemoglobin 6.9 GM/DL (11.6-15.3) 7.7 GM/DL (11.6-15.3) Hematocrit 20.7 % (35.0-46.0) 23.1 % (35.0-46.0) Mean Corpuscular Volume 110.0 FL (80.0-100.0) Mean Corpuscular Hemoglobin 36.5 PG (27.0-34.0) Red Cell Distribution Width 18.0 % (11.6-17.2) Platelet Count 43 TH/MM3 (150-450) Prothrombin Time 28.1 SEC (9.8-11.6) Activated Partial Thromboplast Time 46.7 SEC (24.3-30.1) Blood Urea Nitrogen 45 MG/DL (7-18) Creatinine 1.64 MG/DL (0.50-1.00) Random Glucose 158 MG/DL (74-106) Aspartate Amino Transf (AST/SGOT) 54 U/L (15-37) Total Bilirubin 4.3 MG/DL (0.2-1.0) Sodium Level 132 MEQ/L (136-145) Chloride Level 96 MEQ/L (98-107) Estimat Glomerular Filtration Rate 32 ML/MIN (>89) Test 08/13/17 04:00 08/13/17 04:54 08/13/17 05:55 08/13/17 11:30 Red Blood Count 2.21 MIL/MM3 (4.00-5.30) Hemoglobin 7.8 GM/DL (11.6-15.3) Hematocrit 22.8 % (35.0-46.0) Mean Corpuscular Volume 103.1 FL (80.0-100.0) Mean Corpuscular Hemoglobin 35.1 PG (27.0-34.0) Red Cell Distribution Width 22.7 % (11.6-17.2) Platelet Count 28 TH/MM3 (150-450) Blood Urea Nitrogen 42 MG/DL (7-18) Creatinine 1.74 MG/DL (0.50-1.00) Random Glucose 130 MG/DL (74-106) Aspartate Amino Transf (AST/SGOT) 58 U/L (15-37) Total Bilirubin 5.6 MG/DL (0.2-1.0) Sodium Level 135 MEQ/L (136-145) Potassium Level 2.5 MEQ/L (3.5-5.1) Chloride Level 97 MEQ/L (98-107) Estimat Glomerular Filtration Rate 30 ML/MIN (>89) Prothrombin Time 42.2 SEC (9.8-11.6) Activated Partial Thromboplast Time 50.7 SEC (24.3-30.1) Blood Gas Oxygen Saturation 81 % (90-100) Arterial Blood pH 7.31 (7.380-7.420) Arterial Blood Partial Pressure CO2 49 mmHg (38-42) Arterial Blood Partial Pressure O2 54 mmHg (61-120) Arterial Blood Oxygen Content 8.9 Vol % (12.0-20.0) Blood Gas Hemoglobin 7.7 G/DL (12.0-16.0) Test 08/14/17 05:56 White Blood Count 15.9 TH/MM3 (4.0-11.0) Red Blood Count 2.34 MIL/MM3 (4.00-5.30) Hemoglobin 8.2 GM/DL (11.6-15.3) Hematocrit 23.8 % (35.0-46.0) Mean Corpuscular Volume 101.6 FL (80.0-100.0) Mean Corpuscular Hemoglobin 34.9 PG (27.0-34.0) Red Cell Distribution Width 21.9 % (11.6-17.2) Platelet Count 46 TH/MM3 (150-450) Prothrombin Time 35.9 SEC (9.8-11.6) Activated Partial Thromboplast Time 49.2 SEC (24.3-30.1) Blood Urea Nitrogen 62 MG/DL (7-18) Creatinine 2.21 MG/DL (0.50-1.00) Random Glucose 186 MG/DL (74-106) Total Protein 5.9 GM/DL (6.4-8.2) Aspartate Amino Transf (AST/SGOT) 65 U/L (15-37) Total Bilirubin 5.7 MG/DL (0.2-1.0) Sodium Level 133 MEQ/L (136-145) Estimat Glomerular Filtration Rate 22 ML/MIN (>89) Imaging Last Impressions Chest X-Ray 08/05/17 0728 Signed Impressions: Service Date/Time: July 08:02 - CONCLUSION: Diffuse bilateral pulmonary infiltrates. Estrada Leiva Jr., MD Hospital Course 08/05: 61 y/o lady with h/o alcoholic liver cirrhosis, chronic thrombocytopenia, chronic hyponatremia, Afib, DM, HTN, now presents to ED c/o worsening shortness of breath over the last 3 months associated with generalized weakness up to the point that she can not ambulate. She denies fever but had chills, cough, fatigue , and pleuritic pain associated with deep breathing. She denies nausea, vomiting , melena, hematemesis. On ED arrival, patient in respiratory distress requiring NRM. On NRM O2 sat 100%. She was given lasix, azithro and basci labs were sent. She was found to have elevated lactic acid, low sodium therefore [facility] was consulted for ICU admission. Patient was seen in ED, she is awake, conversant, on NRM, seems slightly confused. 08/06: No events over the night. Afebrile. Oxygenation is improved, down to 0.65 FiO2. She is sedated and intubated. On norepinephrine at 8 mcg/minute. CVP 11. 08/07: Worsening hypoxia, CVP 10-11, worsening infiltrates on CXR. Afebrile, lower urine output compared to previous day. Sedated and intubated. On norepinephrine at 12 and vaso at 0.04. 08/08: continues to worsen without any improvements. hypoxia worsening, now paralyzed on 100% fio2. CXR worsens again. levophed, vasopressin, phenylephrine for pressor support. remains in septic shock. CVP still 11. bedside critical care echo with preserved LV function, but now with flattening of the intraventricular septum throughout the cardiac cycle and RVSP which has gone from 30s on prior echo to 80s based on TR jet bedside. IVC 1.7cm without any respiratory variation. no pericardial effusion. 08/09: clinically some improvements: fio2 improving. remains paralyzed on flolan with high peep, full support. remains on vasopressors in shock. uop good and excellent diuresis. sodium downtrending. multi-organ failure persists. 08/10: good uop, but struggling with obtaining a net negative balance due to volume of drips. remains in shock on vasopressors. sodium improving. organ failure persists. 08/11: uop poor now despite aggressive diuresis. still net + fluid balance. hypotensive and worsening today: back on 3 vasopressors. hypoxia worse again as well, on 100% fio2, peep 14, spo2 88%. CVP continues to rise despite our maximal efforts to diurese, and is now 21. 08/12: s/p IHD again today with volume removal. CVP still > 25. remains on 3 vasopressors. no meaningful improvements. palliative care involved. ammonia climbing: have increased lactulose. still on high vent support. 2: no improvements. every organ worse. LFTs climbing. 100% fio2. failing IHD. remains in shock. actively dying. discussed at length with who states she would not want to live like this and wants to transition to palliation. plan for withdraw of care tomorrow when family at bedside. 08/14: no improvements. patient was withdrawn and comfortably with her at bedside at 10:08am. Carroll Parsons MD Aug 14, 2017 15:49
== END 2017-08-14 10:08 | disposition expired | DRG 870 ==
LOC: NEPE 06:54 → NEDA 10:24 → HIME 16:00
PROVIDERS: ADMIT Internal Medicine; ATTEND Internal Medicine
PROC: 5A1955Z Respiratory Ventilation, Greater than 96 Consecutive Hours (ICD-10-PCS; principal; 2017-08-05)
PROC: 0BH18EZ Insertion of Endotracheal Airway into Trachea, Via Natural or Artificial Opening Endoscopic (ICD-10-PCS; 2017-08-05)
PROC: 05HM33Z Insertion of Infusion Device into Right Internal Jugular Vein, Percutaneous Approach (ICD-10-PCS; 2017-08-05)
PROC: 5A09357 Assistance with Respiratory Ventilation, Less than 24 Consecutive Hours, Continuous Positive Airway Pressure (ICD-10-PCS; 2017-08-05)
PROC: 5A1D70Z Performance of Urinary Filtration, Intermittent, Less than 6 Hours Per Day (ICD-10-PCS; 2017-08-11)
PROC: 02HV33Z Insertion of Infusion Device into Superior Vena Cava, Percutaneous Approach (ICD-10-PCS; 2017-08-11)
PROC: 30233N1 Transfusion of Nonautologous Red Blood Cells into Peripheral Vein, Percutaneous Approach (ICD-10-PCS; 2017-08-12)
DX: A41.9 Sepsis, unspecified organism (principal); J96.01 Acute respiratory failure with hypoxia; R65.21 Severe sepsis with septic shock; G93.41 Metabolic encephalopathy; E87.2 Acidosis; J80 Acute respiratory distress syndrome; J11.00 Influenza due to unidentified influenza virus with unspecified type of pneumonia; J81.1 Chronic pulmonary edema; N17.9 Acute kidney failure, unspecified; D68.4 Acquired coagulation factor deficiency; E44.0 Moderate protein-calorie malnutrition; N39.0 Urinary tract infection, site not specified; E87.1 Hypo-osmolality and hyponatremia; E27.40 Unspecified adrenocortical insufficiency; D69.59 Other secondary thrombocytopenia; E11.65 Type 2 diabetes mellitus with hyperglycemia; I27.81 Cor pulmonale (chronic); I10 Essential (primary) hypertension; I48.91 Unspecified atrial fibrillation; B96.1 Klebsiella pneumoniae [K. pneumoniae] as the cause of diseases classified elsewhere; K70.30 Alcoholic cirrhosis of liver without ascites; F10.11 Alcohol abuse, in remission; E87.5 Hyperkalemia; E87.6 Hypokalemia; E87.70 Fluid overload, unspecified; E83.42 Hypomagnesemia; D64.9 Anemia, unspecified; Z51.5 Encounter for palliative care; I95.3 Hypotension of hemodialysis; K72.90 Hepatic failure, unspecified without coma; Z79.4 Long term (current) use of insulin; Z85.818 Personal history of malignant neoplasm of other sites of lip, oral cavity, and pharynx; Z87.891 Personal history of nicotine dependence
CPT/HCPCS: 36430; 36556; 36600; 36620; 71045; 76705; 76937; 80048; 80053; 80069; 80074; 80162; 80202; 80307; 81001; 82010; 82140; 82330; 82550; 82552; 82805; 82948; 83605; 83735; 83930; 83935; 84100; 84132; 84295; 84439; 84443; 84481; 84484; 85007; 85014; 85018; 85025; 85027; 85610; 85730; 86850; 86900; 86901; 86920; 87040; 87070; 87077; 87086; 87186; 87205; 87449; 87641; 87804; 90935; 93005; 93306; 93971; 94002; 94003; 94640; 94664; 94799; 96365; 96374; 96375; J0456; J0610; J0692; J0696; J1120; J1160; J1205; J1325; J1650; J1720; J1815; J1817; J1940; J1980; J2060; J2250; J2270; J2370; J3010; J3370; J3475; J3480; J7030; J7040; J7050; J7060; P9016; P9045; P9047